=== PATIENT | female | born 1935 | race Caucasian/White ===

== ENCOUNTER → 2016-07-26 | Outpatient (CLI) | payer OTHER ==
[~2016-07-26] MED LIST: ACET325T96 PO; AMLO-110 PO; AREDS EYE VITAMIN PO; ASPI1TAB48 PO; CALC500C50 PO; DIPH-437 PO; METO1TAB69 PO; MIRA1TAB3 PO; OMEG10007 PO; OMEP20TA PO; POTA10TA PO; SIMV20TA2 PO; TAMS0.4C59 PO; TRIATAB3 PO; [UNRECOGNIZED DRUG - CODE] PO
[2016-07-26 17:48] LABS: BLOOD UREA NITROGEN 23 mg/dl (7-18); BUN/CREATININE RATIO 25.1 (10-20); CALCIUM 10.3 mg/dl (8.5-10.1); CARBON DIOXIDE 31 mmol/L (21-32); CHLORIDE 100 mmol/L (98-107); CREATININE 0.93 mg/dl (0.60-1.20); GLUCOSE 107 mg/dl (70-99); POTASSIUM 3.6 mmol/L (3.5-5.1); SODIUM 140 mmol/L (136-145)
== END | disposition home or self-care (01) ==
LOC: C.LABBFT 11:41
PROVIDERS: ATTEND Nurse Practitioner
DX: I10 Essential (primary) hypertension (principal); E83.52 Hypercalcemia

== ENCOUNTER → 2016-08-01 | Outpatient (CLI) | payer OTHER ==
--- NOTE | 2016-08-01 12:11 | DIAGNOSTIC IMAGING REPORT ---
RENAL ARTERY DUPLEX EXAMINATION CLINICAL HISTORY: Hypertension COMPARISON STUDY: No previous studies for comparison. FINDINGS: The right kidney measures 9.1 cm in length. The left kidney measured 9 cm in length. The peak systolic velocity within the aorta measures 61 cm/s. The peak systolic velocity within the right renal artery measured 197 cm/s. The peak systolic velocity within the left renal artery measured 84 cm/s. The right renal artery resistive index was 0.83. The left renal artery resistive index was 0.77. IMPRESSION: 1. Mild elevation of the peak systolic velocity within the right renal artery, and mild elevation of the right renal artery resistive index. The findings may indicate renal artery stenosis. CT angiography is recommended in follow-up. Electronically signed by: Tushar Benavides M.D. 08/01/2016 12:09 PM Dictated Date/Time: 08/01/2016 12:05 PM
== END | disposition home or self-care (01) ==
LOC: C.ULTR 09:30
PROVIDERS: ATTEND Nurse Practitioner
DX: I10 Essential (primary) hypertension (principal); R93.8 Abnormal findings on diagnostic imaging of other specified body structures

== ENCOUNTER → 2016-08-11 | Outpatient (CLI) | payer OTHER ==
[~2016-08-11] MED LIST changes: +OPTIRAY 320 IV PRN
--- NOTE | 2016-08-11 10:17 | DIAGNOSTIC IMAGING REPORT ---
ABDOMINAL CTA, RENAL ARTERY PROTOCOL HISTORY: Hypertension. Assess for renal artery stenosis. TECHNIQUE: Multiaxial CT images of the abdomen were performed following the intravenous administration of contrast to evaluate the renal arteries. Maximal intensity projection images were also obtained. COMPARISON STUDY: Duplex renal artery study 08/01/2016. FINDINGS: Posterior fusion hardware seen within the mid to lower lumbar spine. There is a tortuous and mildly ectatic abdominal aorta which measures up to 2.3 cm in diameter. The celiac artery and superior mesenteric artery are patent. There are single bilateral renal arteries. Advanced atherosclerotic plaque at the origin of the left renal artery. However, this does not result in significant stenosis of the left renal artery. Moderate calcified plaque at the origin of the right renal artery resulting in approximately 75% stenosis. The mid to distal right renal artery is widely patent. Bilateral cortical renal scarring/thinning. No hydronephrosis. A 3 mm subpleural nodule within the left lower lobe. The liver, spleen, right adrenal gland, pancreas, and gallbladder are unremarkable. Mild nodular thickening of the left adrenal gland. No retroperitoneal lymphadenopathy. The visualized bowel shows no wall thickening or obstruction. IMPRESSION: 1. Approximately 75% stenosis at the origin of the right renal artery. 2. No significant stenosis within the left renal artery. Electronically signed by: Ace Alvares M.D. 08/11/2016 10:16 AM Dictated Date/Time: 08/11/2016 10:09 AM
== END | disposition home or self-care (01) ==
LOC: C.CTS 08:59
PROVIDERS: ATTEND Nurse Practitioner
DX: I10 Essential (primary) hypertension (principal); I70.1 Atherosclerosis of renal artery

== ENCOUNTER → 2016-08-16 | Outpatient (CLI) | payer OTHER ==
[~2016-08-16] MED LIST changes: -OPTIRAY 320 IV PRN
[2016-08-16 17:49] LABS: BLOOD UREA NITROGEN 32 mg/dl (7-18); BUN/CREATININE RATIO 28.7 (10-20); CALCIUM 10.1 mg/dl (8.5-10.1); CARBON DIOXIDE 27 mmol/L (21-32); CHLORIDE 102 mmol/L (98-107); GLUCOSE 96 mg/dl (70-99); POTASSIUM 4.4 mmol/L (3.5-5.1); SODIUM 138 mmol/L (136-145)
== END | disposition home or self-care (01) ==
LOC: C.LABBFT 13:42
PROVIDERS: ATTEND Internal Medicine
DX: I10 Essential (primary) hypertension (principal)

== ENCOUNTER → 2016-09-01 | Outpatient (CLI) | payer OTHER ==
[2016-09-01 12:53] LABS: BLOOD UREA NITROGEN 23 mg/dl (7-18); BUN/CREATININE RATIO 26.3 (10-20); CALCIUM 10.3 mg/dl (8.5-10.1); CARBON DIOXIDE 31 mmol/L (21-32); CHLORIDE 99 mmol/L (98-107); CREATININE 0.87 mg/dl (0.60-1.20); GLUCOSE 91 mg/dl (70-99); POTASSIUM 3.5 mmol/L (3.5-5.1); SODIUM 138 mmol/L (136-145)
== END | disposition home or self-care (01) ==
LOC: C.LABBFT 08:50
PROVIDERS: ATTEND Internal Medicine
DX: I10 Essential (primary) hypertension (principal)

== ENCOUNTER → 2016-09-18 | Outpatient (CLI) | payer OTHER ==
[2016-09-18 13:00] LABS: BLOOD UREA NITROGEN 25 mg/dl (7-18); BUN/CREATININE RATIO 25.5 (10-20); CALCIUM 9.6 mg/dl (8.5-10.1); CARBON DIOXIDE 31 mmol/L (21-32); CHLORIDE 102 mmol/L (98-107); CREATININE 0.97 mg/dl (0.60-1.20); GLUCOSE 78 mg/dl (70-99); POTASSIUM 3.2 mmol/L (3.5-5.1); SODIUM 141 mmol/L (136-145)
== END | disposition home or self-care (01) ==
LOC: C.LABBFT 11:15
PROVIDERS: ATTEND Internal Medicine
DX: E83.52 Hypercalcemia (principal)

== ENCOUNTER 2016-09-25 19:32 | Emergency (ER) | payer OTHER ==
[~2016-09-25] VITALS: Ht 157.5 cm; Wt 58.0 kg
[~2016-09-25 19:32] MED LIST changes: -AMLO-110 PO; -MIRA1TAB3 PO; -POTA10TA PO
[2016-09-25 19:44] VITALS: Ht 157.5 cm; Wt 58.0 kg
--- NOTE | 2016-09-25 20:13 | EMERGENCY ROOM VISIT NOTE ---
History First contact with patient: 19:58 Chief Complaint: FALL Stated Complaint: FALL/ RT. HIP & SHOULDER PAIN History of Present Illness The patient is an 81 year old female who presents to the Emergency Room with complaints of fall. The patient states that she was at home where she lives with her . She states that she was walking from the stove and turned around. She states that her foot scuffed on the floor and caused her to fall. She complains of pain in the right side of the face and head. She complains of pain in the right shoulder and right hip. The patient needed assistance to get up off the floor and states she laid there for approximately 15 minutes. She states she has been able to ambulate since the fall. She rates her discomfort a 4/10. She denies any significant headache, nausea, vomiting. She denies any pain in her chest or trouble breathing. She denies abdominal pain, nausea or vomiting. She reports chronic numbness in the right leg after back surgery and denies any change in those symptoms. She denies any urinary symptoms. Review of Systems A 10 system review of systems was completed with positives and pertinent negatives listed in the HPI. Past Medical/Surgical History Medical Problems: (1) HYPERLIPIDEMIA NEC/NOS (2) HYPERTENSION NOS (3) MITRAL VALVE DISORDER (4) OSTEOPOROSIS NOS (5) TRICUSPID VALVE DISEASE Surgical Problems: (1) History of back surgery Social History Smoking Status: Former Smoker Alcohol Use: none Drug Use: none Marital Status: Housing Status: lives with family Occupation Status: retired Current/Historical Medications Scheduled Amlodipine (Norvasc), 5 MG PO DAILY Aspirin (Aspirin Low Dose), 81 MG PO DAILY Fish Oil ([place]-3), 1 CAP PO BID Metoprolol Succ (Toprol Xl) (Toprol-Xl ), 100 MG PO DAILY Mirabegron (Myrbetriq Er), 50 MG PO DAILY Omeprazole (Omeprazole), 20 MG PO BID Potassium Chloride (K-Tabs), 20 MEQ PO DAILY Simvastatin (Zocor), 20 MG PO HS Triamterene/Hctz (Triamterene/Hctz 37.5-25MG), 1 TAB PO DAILY [[employer] Eye Vitamin], 1 TAB PO DAILY Scheduled PRN Acetaminophen Tab (Tylenol), 650 MG PO Q6 PRN for Pain Acetaminophen/Diphenhydramine (Tylenol Pm), 2 TAB PO HS PRN for Sleep Allergies Coded Allergies: Lorazepam (Verified Allergy, Severe, ALTERED MENTAL STATUS, 11/18/12) Penicillins (Verified Allergy, Intermediate, SWELLING, 08/13/09) Sulfa Drugs (Verified Allergy, Intermediate, SWELLING, 08/13/09) Physical Exam Vital Signs Date Time Temp Pulse Resp B/P Pulse Ox O2 Delivery O2 Flow Rate FiO2 09/25/16 21:36 73 16 142/74 97 09/25/16 19:44 36.6 74 16 149/79 98 Room Air Physical Exam VITALS: Vitals are noted on the nurse's note and reviewed by myself. Vital signs stable. GENERAL: This is an 81-year-old female, in no acute distress, nondiaphoretic, well-developed well-nourished. SKIN: There is mild erythema and edema to the right cheek. There are no lacerations or abrasions. There is no tenting of the skin. Capillary reflex less than 2 seconds. HEAD: Normocephalic atraumatic. EARS: External auditory canals clear, tympanic membranes pearly kang without erythema or effusion bilaterally. No hemotympanums. No strickland sign. No mastoid tenderness. EYES: Pupils equal round and reactive to light and accommodation. Conjunctivae without injection, sclerae without icterus. Extraocular movements intact. NOSE: Patent, turbinates without inflammation or discharge. No sinus tenderness. No septal hematoma or bleeding. FACE: No facial tenderness. Full range of motion of the jaw without tenderness. MOUTH: Mucous membranes moist. Pharynx without erythema or exudate. Uvula midline. Airway patent. Tongue does not deviate. NECK: Supple without nuchal rigidity. Cervical spine is nontender. Full range of motion of the neck without tenderness. No JVD. HEART: Regular rate and rhythm without murmurs gallops or rubs. LUNGS: Clear to auscultation bilaterally without wheezes, rales or rhonchi. No retractions or accessory muscle use. No chest tenderness. ABDOMEN: Positive bowel sounds x 4. Soft, nontender, without masses or organomegaly. MUSCULOSKELETAL: No muscle atrophy, erythema, or edema noted. Full range of motion in all extremities. There is tenderness to palpation to the right posterior hip. There is tenderness to palpation to the right proximal humerus. There are no obvious deformities. Strength 5/5 throughout. NEURO: Patient was alert and oriented to person place and time. Normal Mini- Mental status exam. No focal neurological deficits. Medical Decision & Procedures ER Provider Diagnostic Interpretation: RIGHT FEMUR 2 VIEWS ROUTINE CLINICAL HISTORY: Right femur hip pain status post trauma COMPARISON: None. DISCUSSION: There are old pelvic fractures. No acute fractures of the right hip or femur are visualized. IMPRESSION: No acute fractures. CT HEAD WITHOUT CONTRAST (CT) CLINICAL HISTORY: Head pain status post trauma COMPARISON STUDY: No previous studies for comparison. TECHNIQUE: Axial CT of the brain is performed from the vertex to the skull base. IV contrast was not administered for this examination. CT DOSE: 831.33 mGy.cm FINDINGS: No intra or extra-axial mass lesions are visualized. There is no CT evidence of acute cortical infarction. There is no evidence of midline shift. There is no acute hemorrhage. No calvarial fractures are visualized. There are patchy white matter hypodensities likely on a small vessel basis. There is no evidence of pathologic ventricular dilatation. There are deep white matter lacunar infarcts in the region centrum semiovale. There is a probable left cerebellar lacunar infarct. There are cerebellar atrophy with prominent extra-axial CSF space on the right. There is no evidence of acute sinusitis IMPRESSION: No acute intracranial findings RIGHT HUMERUS 3 VIEWS CLINICAL HISTORY: Right humeral pain status post trauma COMPARISON: None. DISCUSSION: No acute fractures are visualized. There are peritendinous calcifications located at the level of the olecranon. There is an old ununited distal right clavicular fracture IMPRESSION: No acute fractures identified. CT FACIAL BONES-MXILLOFAC WITHOUT CT DOSE: CLINICAL HISTORY: Facial pain status post trauma COMPARISON STUDY: No previous studies for comparison. TECHNIQUE: Helical images were acquired in the transverse plane. The study was reviewed and analyzed on the independent 3-D workstation. The pterygoid plates appear intact. The zygomatic arches appear intact. The globes appear intact. There is no evidence of orbital emphysema. The orbital steven and floor appear intact. The mandibular condyles appear intact. Inflammatory changes are present within the left ethmoid sinus. There is an old displaced odontoid fracture. There are disc osteophyte complexes at the C4-5 and C5-6 levels. IMPRESSION: 1. No acute facial fractures identified 2. Old displaced odontoid fracture PELVIS 1 OR 2 VIEW ROUTINE CLINICAL HISTORY: Right hip and pelvic pain status post trauma COMPARISON STUDY: No previous studies for comparison. FINDINGS: There are postsurgical changes present within the lumbar spine. There are old ischio pubic ring fractures. No acute fractures or dislocations are visualized. IMPRESSION: Old posttraumatic deformities. No acute fractures identified. [~ rep ct add3]] RIGHT SHOULDER MIN 2 VIEWS ROUTINE CLINICAL HISTORY: Right shoulder pain status post trauma COMPARISON: None. DISCUSSION: No fractures or dislocations the proximal humerus are visualized. There is an intra-articular fracture involving the scapula. There is an old ununited right clavicular fracture. IMPRESSION: 1. Acute scapular fracture with involvement of the articular surface of the scapular glenoid. 2. Old ununited distal right clavicular fracture 3. No fractures of the proximal right humerus Chest x-ray was obtained and reviewed by myself and and reveals the scapular fracture on the right but no obvious pneumothorax Laboratory Results 09/25/16 00:00 Red Blood Count 4.55, Mean Corpuscular Volume 87.5, Mean Corpuscular Hemoglobin 29.0, Mean Corpuscular Hemoglobin Concent 33.2, Mean Platelet Volume 8.8, Neutrophils (%) (Auto) 84.9, Lymphocytes (%) (Auto) 7.6, Monocytes (%) (Auto) 6.3, Eosinophils (%) (Auto) 0.8, Basophils (%) (Auto) 0.1, Neutrophils # (Auto) 12.33, Lymphocytes # (Auto) 1.10, Monocytes # (Auto) 0.92, Eosinophils # (Auto) 0.11, Basophils # (Auto) 0.02 09/25/16 00:00 Test 09/25/16 00:00 White Blood Count 14.52 K/uL (4.8-10.8) Red Blood Count 4.55 M/uL (4.2-5.4) Hemoglobin 13.2 g/dL (12.0-16.0) Hematocrit 39.8 % (37-47) Mean Corpuscular Volume 87.5 fL (80-100) Mean Corpuscular Hemoglobin 29.0 pg (25-34) Mean Corpuscular Hemoglobin Concent 33.2 g/dl (32-36) Platelet Count 312 K/uL (130-400) Mean Platelet Volume 8.8 fL (7.4-10.4) Neutrophils (%) (Auto) 84.9 % Lymphocytes (%) (Auto) 7.6 % Monocytes (%) (Auto) 6.3 % Eosinophils (%) (Auto) 0.8 % Basophils (%) (Auto) 0.1 % Neutrophils # (Auto) 12.33 K/uL (1.4-6.5) Lymphocytes # (Auto) 1.10 K/uL (1.2-3.4) Monocytes # (Auto) 0.92 K/uL (0.11-0.59) Eosinophils # (Auto) 0.11 K/uL (0-0.5) Basophils # (Auto) 0.02 K/uL (0-0.2) RDW Standard Deviation 42.6 fL (36.4-46.3) RDW Coefficient of Variation 13.3 % (11.5-14.5) Immature Granulocyte % (Auto) 0.3 % Immature Granulocyte # (Auto) 0.04 K/uL (0.00-0.02) Anion Gap 8.0 mmol/L (3-11) Est Creatinine Clear Calc Drug Dose 41.1 ml/min Estimated GFR () 74.5 Estimated GFR (Non- 64.3 BUN/Creatinine Ratio 22.0 (10-20) Calcium Level 10.3 mg/dl (8.5-10.1) Total Bilirubin 0.5 mg/dl (0.2-1) Aspartate Amino Transf (AST/SGOT) 25 U/L (15-37) Alanine Aminotransferase (ALT/SGPT) 25 U/L (12-78) Alkaline Phosphatase 83 U/L (45-117) Troponin I < 0.015 ng/ml (0-0.045) Total Protein 7.8 gm/dl (6.4-8.2) Albumin 4.0 gm/dl (3.4-5.0) Globulin 3.8 gm/dl (2.5-4.0) Albumin/Globulin Ratio 1.1 (0.9-2) ECG Indication: other (fall) Rate (beats per minute): 71 Rhythm: normal sinus Findings: no acute ischemic change Change: no significant change ED Course The patient was seen and examined. Previous visits were reviewed. She has a mild leukocytosis but no fever. She has some redness and swelling to the right side of the face but her family is certain it was not there before the fall. She does not have any significant electrolyte abnormality. Troponin is not elevated. Imaging was obtained as above and is significant for right scapular fracture. She was placed in a sling. She would like to follow up with Dr. Childs and should call the office tomorrow morning. She declined pain medication. She was seen and examined by Dr. Lujan who agrees with the assessment and treatment plan. Medical Decision The differential diagnosis includes: head or neck trauma, cerebrovascular disorders, intracranial lesions, infection,transient ischemic attack (TIA), CVA , seizure, syncope, intracranial mass, intracranial bleeding and vestibular disorders, RI, arrythmia, extremity fracture, pneumothorax, among others. Impression Primary Impression: Scapula fracture Additional Impressions: Fall Contusion, hip Departure Information Dispostion Home / Self-Care Condition GOOD Referrals Bart Cid M.D. (PCP) Vincent Childs, DO Patient Instructions [facility] Additional Instructions Wear the sling until seen by orthopedics Contact orthopedics first thing in the morning to schedule a follow-up appointment for further evaluation and management Return with any worsening symptoms Problem Qualifiers Primary Impression: Scapula fracture Encounter type: initial encounter Fracture type: closed
[2016-09-25 20:53] LABS: BASO % 0.1 %; BASO ABS # 0.02 K/uL (0-0.2); COMPLETE YES; EOS % 0.8 %; HEMATOCRIT 39.8 % (37-47); IG% 0.3 %; LYMPH % 7.6 %; MEAN CELL VOLUME 87.5 fL (80-100); MEAN CORPUSCULAR HGB CONC 33.2 g/dl (32-36); MEAN PLATELET VOLUME 8.8 fL (7.4-10.4); MONO % 6.3 %; NEUT % 84.9 %; PLATELET COUNT 312 K/uL (130-400); RED BLOOD COUNT 4.55 M/uL (4.2-5.4); WHITE BLOOD COUNT 14.52 K/uL (4.8-10.8)
--- NOTE | 2016-09-25 21:07 | DIAGNOSTIC IMAGING REPORT ---
CT HEAD WITHOUT CONTRAST (CT) CLINICAL HISTORY: Head pain status post trauma COMPARISON STUDY: No previous studies for comparison. TECHNIQUE: Axial CT of the brain is performed from the vertex to the skull base. IV contrast was not administered for this examination. CT DOSE: 831.33 mGy.cm FINDINGS: No intra or extra-axial mass lesions are visualized. There is no CT evidence of acute cortical infarction. There is no evidence of midline shift. There is no acute hemorrhage. No calvarial fractures are visualized. There are patchy white matter hypodensities likely on a small vessel basis. There is no evidence of pathologic ventricular dilatation. There are deep white matter lacunar infarcts in the region centrum semiovale. There is a probable left cerebellar lacunar infarct. There are cerebellar atrophy with prominent extra-axial CSF space on the right. There is no evidence of acute sinusitis IMPRESSION: No acute intracranial findings Electronically signed by: Tushar Benavides M.D. 09/25/2016 9:05 PM Dictated Date/Time: 09/25/2016 9:04 PM
--- NOTE | 2016-09-25 21:10 | DIAGNOSTIC IMAGING REPORT ---
CT FACIAL BONES-MXILLOFAC WITHOUT CT DOSE: CLINICAL HISTORY: Facial pain status post trauma COMPARISON STUDY: No previous studies for comparison. TECHNIQUE: Helical images were acquired in the transverse plane. The study was reviewed and analyzed on the independent 3-D workstation. The pterygoid plates appear intact. The zygomatic arches appear intact. The globes appear intact. There is no evidence of orbital emphysema. The orbital steven and floor appear intact. The mandibular condyles appear intact. Inflammatory changes are present within the left ethmoid sinus. There is an old displaced odontoid fracture. There are disc osteophyte complexes at the C4-5 and C5-6 levels. IMPRESSION: 1. No acute facial fractures identified 2. Old displaced odontoid fracture Electronically signed by: Tushar Benavides M.D. 09/25/2016 9:09 PM Dictated Date/Time: 09/25/2016 9:06 PM
[2016-09-25 21:14] LABS: ALT/SGPT 25 U/L (12-78); BLOOD UREA NITROGEN 19 mg/dl (7-18); CALCIUM 10.3 mg/dl (8.5-10.1); CARBON DIOXIDE 29 mmol/L (21-32); CHLORIDE 102 mmol/L (98-107); CREATININE 0.85 mg/dl (0.60-1.20); GLUCOSE 108 mg/dl (70-99); POTASSIUM 3.7 mmol/L (3.5-5.1); SODIUM 139 mmol/L (136-145)
[2016-09-25 21:18] LABS: ALB/GLOB RATIO 1.1 (0.9-2); ALKALINE PHOSPHATASE 83 U/L (45-117); AST/SGOT 25 U/L (15-37)
--- NOTE | 2016-09-25 21:35 | DIAGNOSTIC IMAGING REPORT ---
RIGHT HUMERUS 3 VIEWS CLINICAL HISTORY: Right humeral pain status post trauma COMPARISON: None. DISCUSSION: No acute fractures are visualized. There are peritendinous calcifications located at the level of the olecranon. There is an old ununited distal right clavicular fracture IMPRESSION: No acute fractures identified. Electronically signed by: Tushar Benavides M.D. 09/25/2016 9:33 PM Dictated Date/Time: 09/25/2016 9:32 PM
--- NOTE | 2016-09-25 21:37 | DIAGNOSTIC IMAGING REPORT ---
RIGHT SHOULDER MIN 2 VIEWS ROUTINE CLINICAL HISTORY: Right shoulder pain status post trauma COMPARISON: None. DISCUSSION: No fractures or dislocations the proximal humerus are visualized. There is an intra-articular fracture involving the scapula. There is an old ununited right clavicular fracture. IMPRESSION: 1. Acute scapular fracture with involvement of the articular surface of the scapular glenoid. 2. Old ununited distal right clavicular fracture 3. No fractures of the proximal right humerus Electronically signed by: Tushar Benavides M.D. 09/25/2016 9:35 PM Dictated Date/Time: 09/25/2016 9:34 PM
--- NOTE | 2016-09-25 21:38 | DIAGNOSTIC IMAGING REPORT ---
PELVIS 1 OR 2 VIEW ROUTINE CLINICAL HISTORY: Right hip and pelvic pain status post trauma COMPARISON STUDY: No previous studies for comparison. FINDINGS: There are postsurgical changes present within the lumbar spine. There are old ischio pubic ring fractures. No acute fractures or dislocations are visualized. IMPRESSION: Old posttraumatic deformities. No acute fractures identified. Electronically signed by: Tushar Benavides M.D. 09/25/2016 9:36 PM Dictated Date/Time: 09/25/2016 9:36 PM
--- NOTE | 2016-09-25 21:39 | DIAGNOSTIC IMAGING REPORT ---
RIGHT FEMUR 2 VIEWS ROUTINE CLINICAL HISTORY: Right femur hip pain status post trauma COMPARISON: None. DISCUSSION: There are old pelvic fractures. No acute fractures of the right hip or femur are visualized. IMPRESSION: No acute fractures. Electronically signed by: Tushar Benavides M.D. 09/25/2016 9:37 PM Dictated Date/Time: 09/25/2016 9:37 PM
[2016-09-25] MEDS ORDERED: POTA10TA PO (21:49)
[2016-09-25] MEDS ORDERED: MIRA1TAB3 PO (21:51)
[2016-09-25] MEDS ORDERED: AMLO-110 PO (21:53)
[2016-09-25 23:55] VITALS: BP 140/78; PULSE 77; TEMP 36.6; O2SAT 98
--- NOTE | 2016-09-26 06:42 | DIAGNOSTIC IMAGING REPORT ---
CHEST 2 VIEWS ROUTINE CLINICAL HISTORY: fall, right scapular fracture dyspnea COMPARISON STUDY: 06/01/2014 FINDINGS: The bones soft tissues and hemidiaphragms are normal. The cardiomediastinal silhouette is normal. The lungs are clear. The pulmonary vasculature is normal. IMPRESSION: Negative chest. Electronically signed by: Steven Bell M.D. 09/26/2016 6:41 AM Dictated Date/Time: 09/26/2016 6:38 AM
== END 2016-09-25 23:57 | disposition home or self-care (01) ==
LOC: EDBD 19:32 → C.EDB 19:33
DX: S42.101A Fracture of unspecified part of scapula, right shoulder, initial encounter for closed fracture (principal); E78.5 Hyperlipidemia, unspecified; I10 Essential (primary) hypertension; M81.0 Age-related osteoporosis without current pathological fracture; Z87.891 Personal history of nicotine dependence; Z79.82 Long term (current) use of aspirin; S70.02XA Contusion of left hip, initial encounter; W19.XXXA Unspecified fall, initial encounter

== ENCOUNTER → 2016-10-03 | Outpatient (CLI) | payer OTHER ==
[~2016-10-03] MED LIST changes: +AMLO-110 PO; -CALC500C50 PO; +MIRA1TAB3 PO; +POTA10TA PO; -TAMS0.4C59 PO; -[UNRECOGNIZED DRUG - CODE] PO
[2016-10-03 13:19] LABS: BLOOD UREA NITROGEN 18 mg/dl (7-18); BUN/CREATININE RATIO 21.7 (10-20); CARBON DIOXIDE 31 mmol/L (21-32); CHLORIDE 103 mmol/L (98-107); CREATININE 0.85 mg/dl (0.60-1.20); GLUCOSE 94 mg/dl (70-99); POTASSIUM 3.5 mmol/L (3.5-5.1); SODIUM 142 mmol/L (136-145)
== END | disposition home or self-care (01) ==
LOC: C.LABBFT 08:14
PROVIDERS: ATTEND Physician Assistant Medical
DX: I10 Essential (primary) hypertension (principal); E87.6 Hypokalemia

== ENCOUNTER → 2016-10-18 | Outpatient (CLI) | payer OTHER ==
[~2016-10-18] MED LIST changes: +METO100T44 PO; -METO1TAB69 PO
[2016-10-18 14:03] LABS: BLOOD UREA NITROGEN 19 mg/dl (7-18); BUN/CREATININE RATIO 21.5 (10-20); CARBON DIOXIDE 32 mmol/L (21-32); CHLORIDE 102 mmol/L (98-107); CREATININE 0.86 mg/dl (0.60-1.20); GLUCOSE 93 mg/dl (70-99); POTASSIUM 3.4 mmol/L (3.5-5.1); SODIUM 141 mmol/L (136-145)
[2016-10-18 14:20] LABS: CALCIUM 10.2 mg/dl (8.5-10.1)
== END | disposition home or self-care (01) ==
LOC: C.LABBFT 10:17
PROVIDERS: ATTEND Physician Assistant Medical
DX: E87.6 Hypokalemia (principal)

== ENCOUNTER → 2016-10-31 | Outpatient (CLI) | payer OTHER ==
[2016-10-31 17:49] LABS: BLOOD UREA NITROGEN 16 mg/dl (7-18); BUN/CREATININE RATIO 20.6 (10-20); CALCIUM 10.1 mg/dl (8.5-10.1); CARBON DIOXIDE 31 mmol/L (21-32); CHLORIDE 106 mmol/L (98-107); CREATININE 0.78 mg/dl (0.60-1.20); GLUCOSE 99 mg/dl (70-99); POTASSIUM 4.3 mmol/L (3.5-5.1); SODIUM 141 mmol/L (136-145)
== END | disposition home or self-care (01) ==
LOC: C.LABBFT 14:26
PROVIDERS: ATTEND Physician Assistant Medical
DX: I10 Essential (primary) hypertension (principal)

== ENCOUNTER → 2016-11-08 | Outpatient (CLI) | payer OTHER | END | disposition home or self-care (01) | LOC: C.PATHSPEC 16:48 | PROVIDERS: ATTEND Dermatology | DX: C44.42 Squamous cell carcinoma of skin of scalp and neck (principal); C44.321 Squamous cell carcinoma of skin of nose; L57.0 Actinic keratosis ==

== ENCOUNTER → 2016-12-22 | Outpatient (CLI) | payer OTHER ==
[2016-12-22 12:14] LABS: BLOOD UREA NITROGEN 21 mg/dl (7-18); BUN/CREATININE RATIO 21.3 (10-20); CARBON DIOXIDE 27 mmol/L (21-32); CHLORIDE 104 mmol/L (98-107); CREATININE 0.99 mg/dl (0.60-1.20); GLUCOSE 91 mg/dl (70-99); POTASSIUM 4.2 mmol/L (3.5-5.1); SODIUM 139 mmol/L (136-145)
[2016-12-22 12:15] LABS: CALCIUM 10.3 mg/dl (8.5-10.1); PHOSPHORUS 2.6 mg/dl (2.5-4.9)
== END | disposition home or self-care (01) ==
LOC: C.LABBFT 10:32
PROVIDERS: ATTEND Internal Medicine Nephrology
DX: E83.52 Hypercalcemia (principal)

== ENCOUNTER → 2017-01-05 | Outpatient (CLI) | payer OTHER ==
[~2017-01-05] MED LIST changes: -METO100T44 PO; +METO1TAB69 PO
[2017-01-05 12:35] LABS: BASO % 0.6 %; BASO ABS # 0.05 K/uL (0-0.2); COMPLETE YES; EOS % 1.8 %; HEMATOCRIT 39.8 % (37-47); IG% 0.1 %; LYMPH % 16.6 %; LYMPH ABS # 1.39 K/uL (1.2-3.4); MEAN CELL VOLUME 87.5 fL (80-100); MEAN CORPUSCULAR HEMOGLOBIN 28.6 pg (25-34); MEAN CORPUSCULAR HGB CONC 32.7 g/dl (32-36); MEAN PLATELET VOLUME 9.2 fL (7.4-10.4); MONO % 10.7 %; NEUT % 70.2 %; PLATELET COUNT 316 K/uL (130-400); RED BLOOD COUNT 4.55 M/uL (4.2-5.4); WHITE BLOOD COUNT 8.35 K/uL (4.8-10.8)
[2017-01-05 12:40] LABS: URINE APPEARANCE CLEAR (CLEAR); URINE BILIRUBIN NEG (NEG); URINE COLOR YELLOW; URINE EPITHELIAL CELL AUTO >30 /lpf (0-5); URINE NITRITE POS (NEG); UROBILINOGEN NEG (NEG); ZZUR CULT IF INDIC CLEAN CATCH YES
[2017-01-05 12:47] LABS: MANUAL MICROSCOPIC REQUIRED? NO; REVIEW REQ? YES
[2017-01-05 12:49] LABS: ALT/SGPT 22 U/L (12-78); AST/SGOT 16 U/L (15-37); BLOOD UREA NITROGEN 22 mg/dl (7-18); BUN/CREATININE RATIO 24.3 (10-20); CALCIUM 10.5 mg/dl (8.5-10.1); CARBON DIOXIDE 27 mmol/L (21-32); CHLORIDE 105 mmol/L (98-107); CHOLESTEROL 145 mg/dl (0-200); CREATININE 0.92 mg/dl (0.60-1.20); GLUCOSE 91 mg/dl (70-99); POTASSIUM 4.3 mmol/L (3.5-5.1); SODIUM 139 mmol/L (136-145); TRIGLYCERIDES 94 mg/dl (0-150); VERY LOW DENSITY LIPOPROT CALC 19 mg/dl
[2017-01-05 12:52] LABS: ALKALINE PHOSPHATASE 77 U/L (45-117); CHOLESTEROL/HDL RATIO 2.3; HDL CHOLESTEROL 63 mg/dl; LDL CHOLESTEROL CALCULATED 63 mg/dl
[2017-01-05 13:40] LABS: ESTIMATED AVERAGE GLUCOSE 131 mg/dl; HA1C FLAG Normal (Normal)
== END | disposition home or self-care (01) ==
LOC: C.LABBFT 08:24
PROVIDERS: ATTEND Internal Medicine
DX: M85.80 Other specified disorders of bone density and structure, unspecified site (principal); R73.03 Prediabetes; E78.00 Pure hypercholesterolemia, unspecified

== ENCOUNTER → 2017-04-23 | Outpatient (CLI) | payer OTHER ==
[2017-04-23 12:52] LABS: BLOOD UREA NITROGEN 21 mg/dl (7-18); BUN/CREATININE RATIO 20.3 (10-20); CALCIUM 10.3 mg/dl (8.5-10.1); CARBON DIOXIDE 27 mmol/L (21-32); CHLORIDE 103 mmol/L (98-107); CREATININE 1.01 mg/dl (0.60-1.20); GLUCOSE 81 mg/dl (70-99); MAGNESIUM 1.9 mg/dl (1.8-2.4); PHOSPHORUS 3.1 mg/dl (2.5-4.9); POTASSIUM 4.3 mmol/L (3.5-5.1); SODIUM 139 mmol/L (136-145)
== END | disposition home or self-care (01) ==
LOC: C.LABBFT 10:27
PROVIDERS: ATTEND Internal Medicine Nephrology
DX: I10 Essential (primary) hypertension (principal)

== ENCOUNTER → 2017-06-05 | Outpatient (CLI) | payer OTHER ==
[~2017-06-05] MED LIST changes: +METO100T44 PO; -METO1TAB69 PO
== END | disposition home or self-care (01) ==
LOC: C.PATHSPEC 16:23
PROVIDERS: ATTEND Dermatology
DX: C44.42 Squamous cell carcinoma of skin of scalp and neck (principal); L57.0 Actinic keratosis

== ENCOUNTER → 2017-07-27 | Outpatient (CLI) | payer OTHER ==
[2017-07-27 12:37] LABS: ALBUMIN 3.8 gm/dl (3.4-5.0); BLOOD UREA NITROGEN 22 mg/dl (7-18); CALCIUM 10.4 mg/dl (8.5-10.1); CARBON DIOXIDE 29 mmol/L (21-32); CREATININE 0.94 mg/dl (0.60-1.20); GLUCOSE 90 mg/dl (70-99); PHOSPHORUS 2.8 mg/dl (2.5-4.9); SODIUM 137 mmol/L (136-145)
== END | disposition home or self-care (01) ==
LOC: C.LABBFT 09:05
PROVIDERS: ATTEND Internal Medicine
DX: E83.52 Hypercalcemia (principal)

== ENCOUNTER → 2017-07-30 | Outpatient (CLI) | payer OTHER | END | disposition home or self-care (01) | LOC: C.LABBFT 09:43 | PROVIDERS: ATTEND Internal Medicine | DX: E83.52 Hypercalcemia (principal) ==

== ENCOUNTER → 2017-10-11 | Outpatient (CLI) | payer OTHER ==
[~2017-10-11] MED LIST changes: +ACET-1693 PO; -ACET325T96 PO
[2017-10-11 13:13] LABS: ALBUMIN 3.6 gm/dl (3.4-5.0); BLOOD UREA NITROGEN 22 mg/dl (7-18); CALCIUM 10.3 mg/dl (8.5-10.1); CARBON DIOXIDE 28 mmol/L (21-32); CREATININE 0.93 mg/dl (0.60-1.20); GLUCOSE 90 mg/dl (70-99); POTASSIUM 4.1 mmol/L (3.5-5.1); SODIUM 138 mmol/L (136-145)
== END | disposition home or self-care (01) ==
LOC: C.LABBFT 08:59
PROVIDERS: ATTEND Internal Medicine Nephrology
DX: E83.52 Hypercalcemia (principal)

== ENCOUNTER → 2017-11-13 | Outpatient (CLI) | payer OTHER | END | disposition home or self-care (01) | LOC: C.MAMM 13:30 | PROVIDERS: ATTEND Internal Medicine Nephrology | DX: M85.88 Other specified disorders of bone density and structure, other site (principal); E21.0 Primary hyperparathyroidism; M81.0 Age-related osteoporosis without current pathological fracture ==

== ENCOUNTER → 2018-01-23 | Outpatient (CLI) | payer OTHER ==
[~2018-01-23] MED LIST changes: -AMLO-110 PO; +AMLO5TAB3 PO
== END | disposition home or self-care (01) ==
LOC: C.LABBFT 13:46
PROVIDERS: ATTEND Internal Medicine Nephrology
DX: R73.03 Prediabetes (principal); M80.00XA Age-related osteoporosis with current pathological fracture, unspecified site, initial encounter for fracture; E83.52 Hypercalcemia; E78.00 Pure hypercholesterolemia, unspecified

== ENCOUNTER → 2018-02-27 | Outpatient (CLI) | payer OTHER ==
[2018-02-27 12:55] LABS: BLOOD UREA NITROGEN 20 mg/dl (7-18); CARBON DIOXIDE 28 mmol/L (21-32); CREATININE 0.74 mg/dl (0.60-1.20); GLUCOSE 87 mg/dl (70-99); POTASSIUM 4.3 mmol/L (3.5-5.1); SODIUM 140 mmol/L (136-145)
== END | disposition home or self-care (01) ==
LOC: C.LABBFT 10:03
PROVIDERS: ATTEND Internal Medicine Nephrology
DX: E83.52 Hypercalcemia (principal)

== ENCOUNTER 2020-08-11 11:33 | Observation (INO) ==
[2020-08-11] MEDS ORDERED: SODIUM CHLORIDE 0.9% 500 ML IV SCH (12:30)
--- NOTE | 2020-08-11 13:03 | Emergency Department Note ---
Impression & Plan Dementia, Acute alteration in mental status, Urinary tract infection ED Provider Note NAME: STACI REAGAN AGE: 84 SEX: F : 1935 ARRIVES VIA: Ambulance INFORMANT: Patient, prehospital personnel ED PROVIDER(S): Dominick Carrillo DO CHIEF COMPLAINT: Back pain HPI: The patient is an 84-year-old female who presented to the emergency department via ambulance. According to the prehospital personnel this is more of a altered mental status with some dementia visit. The patient herself offers no specific complaints other than that she is having back pain. She states that she has chronic back pain ever since she had spinal surgery. She denies having any nausea or vomiting. She denies having any headache or fever. She states that otherwise she has been compliant with all of her outpatient medications. According to the patient's significant other he called the ambulance because the patient has been more confused than usual. There is a family history of dementia and the significant other is concerned that she may be developing severe dementia. When I pressed the patient further on questioning, she states that she has been "putting up with things that her likes to do". When I question her further she states that "my is up to the same she had he always is". She has some paranoid thoughts about her . She thinks that he is for some reason not caring for her. She is very vague about these claims. ROS: See above HPI for pertinent positives & negatives. A total of 10 systems reviewed and were otherwise negative. PAST MEDICAL HISTORY: See Below PAST SURGICAL HISTORY: See Below FAMILY HISTORY: See Below SOCIAL HISTORY: See Below HOME MEDICATIONS: See Below ALLERGIES: See Below VITALS: See Below PHYSICAL EXAMINATION: GENERAL: The patient is awake and alert. She does not appear to be uncomfortable or anxious. EYES: The conjunctivae are clear. The pupils are round and reactive. EARS, NOSE, MOUTH AND THROAT: The nose is without any evidence of any deformity. NECK: The neck is nontender and supple. RESPIRATORY: Normal respiratory effort is noted there is no evidence of wheezing rhonchi or rales CARDIOVASCULAR: Regular rate and rhythm noted there no murmurs rubs or gallops normal S1 normal S2. GASTROINTESTINAL: The abdomen is soft. Abdomen is nontender. BACK: No midline tenderness was appreciated. Range of motion appears intact. There is no step-off. MUSCULOSKELETAL/EXTREMITIES: There is no evidence of gross deformity full range of motion is noted in the hips and shoulders. SKIN: There is no obvious evidence of any rash. There are no petechiae, pallor or cyanosis noted. NEUROLOGIC: Patient is awake and alert. Her speech is slurred. She does answer questions slowly but appropriately. She is oriented to person place and time. Strength was symmetric in both upper and lower extremities. MEDICAL DECISION MAKING: The patient is an 84-year-old female who presented to the emergency department for confusion. The patient apparently has worsening dementia which according to her significant other has been increasing over the course of the last few days. It sounds as though her condition waxes and wanes. She was found to have a urinary tract infection in the emergency department. She was treated with IV antibiotics. I discussed the patient's laboratory and radiographic studies with her. I also discussed her condition with her significant other. He is very concerned about the patient's overall wellbeing. He is unsure if she is a good candidate for outpatient management because he himself is elderly as well and may have trouble managing her. For this reason I discussed her case with the on-call [facility]. They have agreed to evaluate the patient in the emergency department for further management and disposition. Triage Nursing notes reviewed. Prior medical records reviewed Vital Signs: reviewed and remarkable for no significant abnormalities Differential diagnosis: Infection, hypoglycemia, electrolyte abnormalities, overdose, toxicologic, cardiac sources, intracerebral event, neurologic, trauma, as well as other pathologies. ER treatment provided: See below Diagnostics interpreted by me: ECG: EKG was obtained in the emergency department. My interpretation is normal sinus rhythm at 70 bpm. There was no ectopy. Lateral ST depressions were noted. This was compared to a tracing from May 302019. No significant changes were noted. Cardiac Monitoring: An order was placed for continuous cardiac monitoring. The monitor shows a rate of 69 bpm with sinus rhythm. Laboratory studies: As stated above and show below. Imaging studies: See below Consultation(s): I discussed this case with Dr. Cummings who is on-call for the [facility] group. Past Med/Surg History Medical History Actinic keratosis Allergic rhinitis Anxiety Bilateral lower extremity edema Cardiac murmur NO ISSUES. PCP AWARE. Depression Disc degeneration, lumbar DVT (deep venous thrombosis) OCCURED AFTER D/T FALL. Edema of left lower extremity GERD (gastroesophageal reflux disease) History of basal cell carcinoma History of SCC (squamous cell carcinoma) of skin Hypercalcemia Hypercholesterolemia Hyperparathyroidism, primary Hypertension Osteoporosis with fracture Pre-diabetes Ptosis of both eyelids Renal artery stenosis FOLLOWS WITH NEPHRO IN CENTENARY, CURRENTLY TREATS MEDICATION. Retention of urine Seborrheic keratosis Sensorineural hearing loss of both ears Poorer WRS in the left ear Spinal stenosis Spondylolisthesis, acquired Squamous cell carcinoma in situ Stress incontinence in female Tricuspid valve disorder Urge and stress incontinence Vitamin D deficiency, unspecified Surgical History Fusion of spine LUMBAR X2 SURGERIES H/O oral surgery History of ankle surgery History of appendectomy History of back surgery History of cataract extraction with lens replacement History of colonoscopy History of herniorrhaphy Family History Brother Parkinsons disease Crohn's colitis Coronary heart disease Denies family history of No family history of adverse response to anesthesia No family history of bleeding disorder Heart disease Allergies Cancer Stroke Asthma Social History Smoking Status: Never smoker Tobacco Type: Cigarettes Age Started Using Tobacco: 20; Age Quit Using Tobacco: 55; packs per day: 1; Cigarettes Per Day: 20; Second Hand Exposure: No; Hx Alcohol Use: No Hx Substance Use: No Preferred Language: Namibian Communication Ability: Effective Director New Product Required: No marital status: Current Living Situation: Spouse current occupational status: retired How many Children do You have: 3 Feels Safe at Home: Yes Seatbelt Use: always Sunscreen Use: No Assistive Devices: Cane and Walker Allergies Allergies Allergy/AdvReac Type Severity Reaction Status Date / Time lorazepam Allergy Severe ALTERED Verified 06/22/20 14:48 MENTAL STATUS Penicillins Allergy Intermediate SWELLING Verified 06/22/20 14:48 Sulfa (Sulfonamide Allergy Intermediate SWELLING Verified 06/22/20 14:48 Antibiotics) clonidine Allergy Unknown Unknown Verified 06/22/20 14:48 Home Meds Home Medications Medication Instructions Recorded Confirmed omega-3 acid ethyl esters 1 gram 1 cap PO BID cap 02/24/19 08/11/20 capsule vitamins A,C,P-qnzt-xpjjxc 14,320 1 cap PO BID 02/24/19 08/11/20 unit-226 mg-200 unit capsule amlodipine 2.5 mg PO QAM 05/30/20 08/11/20 Previous Rx's Medication Instructions Recorded calcium carbonate 600 mg(1,500 1 tab PO BID #180 tab 02/20/19 mg)-vitamin D3 800 unit chewable tablet spironolactone 100 mg tablet 100 mg PO QAM #90 tab 11/17/19 omeprazole 40 mg capsule,delayed 40 mg PO BID #180 cap 11/27/19 release simvastatin 20 mg tablet 20 mg PO HS #90 tab 11/27/19 denosumab 60 mg/mL subcutaneous 60 mg SQ Q6MO #1 ml 03/01/20 syringe metoprolol succinate 100 mg 100 mg PO DAILY #90 tab 03/01/20 tablet,extended release 24 hr mirabegron 50 mg tablet,extended 50 mg PO DAILY #30 tab 04/29/20 release 24 hr Results & Data (ED) Vital Signs Vital Signs - 24 hr 08/11/20 12:05 08/11/20 13:03 08/11/20 14:27 Temperature 36.5 C Temperature Source Oral Pulse Rate 70 Pulse Rate [Finger] 75 Pulse Rate from SpO2 Sensor Respiratory Rate 17 16 Blood Pressure 179/87 H Blood Pressure [Right Arm] 139/64 Blood Pressure Mean 117 Blood Pressure Mean [Right Arm] 89 Pulse Oximetry 95 98 96 Oxygen Delivery Method Room Air Room Air Sepsis Recent Fever Within 48 Hours No Sepsis New/Unexplained Change in Mental Status N/A Sepsis Action Taken by Nursing No Action Required 08/11/20 15:00 08/11/20 15:31 08/11/20 16:00 Temperature Temperature Source Pulse Rate 61 70 63 Pulse Rate [Finger] Pulse Rate from SpO2 Sensor 61 69 63 Respiratory Rate 17 17 15 Blood Pressure 133/54 L 145/58 H 141/51 H Blood Pressure [Right Arm] Blood Pressure Mean 80 87 81 Blood Pressure Mean [Right Arm] Pulse Oximetry 98 99 98 Oxygen Delivery Method Sepsis Recent Fever Within 48 Hours Sepsis New/Unexplained Change in Mental Status Sepsis Action Taken by Nursing 08/11/20 16:30 08/11/20 17:00 08/11/20 17:31 Temperature Temperature Source Pulse Rate 72 71 69 Pulse Rate [Finger] Pulse Rate from SpO2 Sensor 71 71 69 Respiratory Rate 22 18 19 Blood Pressure 160/67 H 160/57 H 126/60 Blood Pressure [Right Arm] Blood Pressure Mean 98 91 82 Blood Pressure Mean [Right Arm] Pulse Oximetry 95 96 96 Oxygen Delivery Method Sepsis Recent Fever Within 48 Hours Sepsis New/Unexplained Change in Mental Status Sepsis Action Taken by Shelter Medications Current Medication List: was personally reviewed by me Laboratory Data Attestation: I reviewed the patient's lab results. Result diagrams: 08/11/20 12:42 08/11/20 12:42 Lab Results 08/11/20 08/11/20 08/11/20 Range/Units 12:42 12:42 12:42 WBC 9.19 (4.8-10.8) K/uL RBC 3.46 L (4.2-5.4) M/uL Hgb 10.1 L (12.0-16.0) g/dL Hct 31.6 L (37-47) % MCV 91.3 (80-100) fL MCH 29.2 (25-34) pg MCHC 32.0 (32-36) g/dL RDW Std Deviation 44.9 (36.4-46.3) fL RDW Coeff of José 13.6 (11.5-14.5) % Plt Count 244 (130-400) K/uL MPV 8.5 (7.4-10.4) fL Immature Gran % (Auto) 0.2 % Neut % (Auto) 79.7 % Lymph % (Auto) 11.0 % Boyd % (Auto) 8.7 % Eos % (Auto) 0.3 % Baso % (Auto) 0.1 % Neut # (Auto) 7.32 H (1.4-6.5) K/uL Lymph # (Auto) 1.01 L (1.2-3.4) K/uL Boyd # (Auto) 0.80 H (0.11-0.59) K/uL Eos # (Auto) 0.03 (0-0.5) K/uL Baso # (Auto) 0.01 (0-0.2) K/uL Immature Gran # (Auto) 0.02 (0.00-0.02) K/uL ESR 53 H (0-21) mm/hr Sodium 142 (136-145) mmol/L Potassium 4.2 (3.5-5.1) mmol/L Chloride 110 H (98-107) mmol/L Carbon Dioxide 29 (21-32) mmol/L Anion Gap 3.0 (3-11) BUN 22 H (7-18) mg/dl Creatinine 0.67 (0.6-1.2) mg/dl Est Cr Clr Drug Dosing Not Reportable Est GFR ( Amer) 93.6 Est GFR (Non-Af Amer) 80.7 BUN/Creatinine Ratio 33.3 H (10-20) Glucose 89 (70-99) mg/dl Calcium 9.7 (8.5-10.1) mg/dl Total Bilirubin 0.3 (0.2-1) mg/dl AST 25 (15-37) U/L ALT 23 (12-78) U/L Alkaline Phosphatase 74 (45-117) U/L C-Reactive Protein 2.27 H (0-0.29) mg/dl Total Protein 6.9 (6.4-8.2) gm/dl Albumin 3.4 (3.4-5.0) gm/dl Globulin 3.5 (2.5-4.0) gm/dl Albumin/Globulin Ratio 1.0 (0.9-2) TSH 1.820 (0.300-4.500) uIu/ml Urine Color Urine Appearance (Clear) Urine pH (4.5-7.5) Ur Specific Delight (1.000-1.030) Urine Protein (Negative) Urine Glucose (UA) (Negative) Urine Ketones (Negative) Urine Blood (Negative) Urine Nitrite (Negative) Urine Bilirubin (Negative) Urine Urobilinogen (Negative) Ur Leukocyte Esterase (Negative) Urine WBC (Auto) (0-5) /hpf Urine RBC (Auto) (0-4) /hpf U Hyaline Cast (Auto) (0-5) /lpf U Epithel Cells (Auto) (0-5) /lpf Urine Bacteria (Auto) (Negative) Urine Opiates Screen (Neg) Ur Methadone, Qual (Neg) Urine Barbiturates (Neg) Ur Phencyclidine (PCP) (Neg) U Amphetamin/Meth Scrn (Neg) MDMA (Ecstasy) Screen (Neg) U Benzodiazepines Scrn (Neg) Ur Cocaine Metabolite (Neg) U Marijuana (THC) Screen (Neg) Ethyl Alcohol mg/dL (0-3) mg/dl COVID-19 Eval Order SARS-CoV-2, RNA, NAAT (NEGATIVE) 08/11/20 08/11/20 08/11/20 Range/Units 12:42 13:20 13:20 WBC (4.8-10.8) K/uL RBC (4.2-5.4) M/uL Hgb (12.0-16.0) g/dL Hct (37-47) % MCV (80-100) fL MCH (25-34) pg MCHC (32-36) g/dL RDW Std Deviation (36.4-46.3) fL RDW Coeff of José (11.5-14.5) % Plt Count (130-400) K/uL MPV (7.4-10.4) fL Immature Gran % (Auto) % Neut % (Auto) % Lymph % (Auto) % Boyd % (Auto) % Eos % (Auto) % Baso % (Auto) % Neut # (Auto) (1.4-6.5) K/uL Lymph # (Auto) (1.2-3.4) K/uL Boyd # (Auto) (0.11-0.59) K/uL Eos # (Auto) (0-0.5) K/uL Baso # (Auto) (0-0.2) K/uL Immature Gran # (Auto) (0.00-0.02) K/uL ESR (0-21) mm/hr Sodium (136-145) mmol/L Potassium (3.5-5.1) mmol/L Chloride (98-107) mmol/L Carbon Dioxide (21-32) mmol/L Anion Gap (3-11) BUN (7-18) mg/dl Creatinine (0.6-1.2) mg/dl Est Cr Clr Drug Dosing Est GFR ( Amer) Est GFR (Non-Af Amer) BUN/Creatinine Ratio (10-20) Glucose (70-99) mg/dl Calcium (8.5-10.1) mg/dl Total Bilirubin (0.2-1) mg/dl AST (15-37) U/L ALT (12-78) U/L Alkaline Phosphatase (45-117) U/L C-Reactive Protein (0-0.29) mg/dl Total Protein (6.4-8.2) gm/dl Albumin (3.4-5.0) gm/dl Globulin (2.5-4.0) gm/dl Albumin/Globulin Ratio (0.9-2) TSH (0.300-4.500) uIu/ml Urine Color Yellow Urine Appearance Clear (Clear) Urine pH 5.0 (4.5-7.5) Ur Specific Delight 1.023 (1.000-1.030) Urine Protein Negative (Negative) Urine Glucose (UA) Negative (Negative) Urine Ketones Trace H (Negative) Urine Blood Negative (Negative) Urine Nitrite Positive A (Negative) Urine Bilirubin Negative (Negative) Urine Urobilinogen Negative (Negative) Ur Leukocyte Esterase 1+ H (Negative) Urine WBC (Auto) 10-30 H (0-5) /hpf Urine RBC (Auto) 0-4 (0-4) /hpf U Hyaline Cast (Auto) 1-5 (0-5) /lpf U Epithel Cells (Auto) 5-10 H (0-5) /lpf Urine Bacteria (Auto) 1+ H (Negative) Urine Opiates Screen Neg (Neg) Ur Methadone, Qual Neg (Neg) Urine Barbiturates Neg (Neg) Ur Phencyclidine (PCP) Neg (Neg) U Amphetamin/Meth Scrn Neg (Neg) MDMA (Ecstasy) Screen Neg (Neg) U Benzodiazepines Scrn Neg (Neg) Ur Cocaine Metabolite Neg (Neg) U Marijuana (THC) Screen Neg (Neg) Ethyl Alcohol mg/dL < 3.0 (0-3) mg/dl COVID-19 Eval Order SARS-CoV-2, RNA, NAAT (NEGATIVE) 08/11/20 08/11/20 Range/Units 15:49 15:49 WBC (4.8-10.8) K/uL RBC (4.2-5.4) M/uL Hgb (12.0-16.0) g/dL Hct (37-47) % MCV (80-100) fL MCH (25-34) pg MCHC (32-36) g/dL RDW Std Deviation (36.4-46.3) fL RDW Coeff of José (11.5-14.5) % Plt Count (130-400) K/uL MPV (7.4-10.4) fL Immature Gran % (Auto) % Neut % (Auto) % Lymph % (Auto) % Boyd % (Auto) % Eos % (Auto) % Baso % (Auto) % Neut # (Auto) (1.4-6.5) K/uL Lymph # (Auto) (1.2-3.4) K/uL Boyd # (Auto) (0.11-0.59) K/uL Eos # (Auto) (0-0.5) K/uL Baso # (Auto) (0-0.2) K/uL Immature Gran # (Auto) (0.00-0.02) K/uL ESR (0-21) mm/hr Sodium (136-145) mmol/L Potassium (3.5-5.1) mmol/L Chloride (98-107) mmol/L Carbon Dioxide (21-32) mmol/L Anion Gap (3-11) BUN (7-18) mg/dl Creatinine (0.6-1.2) mg/dl Est Cr Clr Drug Dosing Est GFR ( Amer) Est GFR (Non-Af Amer) BUN/Creatinine Ratio (10-20) Glucose (70-99) mg/dl Calcium (8.5-10.1) mg/dl Total Bilirubin (0.2-1) mg/dl AST (15-37) U/L ALT (12-78) U/L Alkaline Phosphatase (45-117) U/L C-Reactive Protein (0-0.29) mg/dl Total Protein (6.4-8.2) gm/dl Albumin (3.4-5.0) gm/dl Globulin (2.5-4.0) gm/dl Albumin/Globulin Ratio (0.9-2) TSH (0.300-4.500) uIu/ml Urine Color Urine Appearance (Clear) Urine pH (4.5-7.5) Ur Specific Delight (1.000-1.030) Urine Protein (Negative) Urine Glucose (UA) (Negative) Urine Ketones (Negative) Urine Blood (Negative) Urine Nitrite (Negative) Urine Bilirubin (Negative) Urine Urobilinogen (Negative) Ur Leukocyte Esterase (Negative) Urine WBC (Auto) (0-5) /hpf Urine RBC (Auto) (0-4) /hpf U Hyaline Cast (Auto) (0-5) /lpf U Epithel Cells (Auto) (0-5) /lpf Urine Bacteria (Auto) (Negative) Urine Opiates Screen (Neg) Ur Methadone, Qual (Neg) Urine Barbiturates (Neg) Ur Phencyclidine (PCP) (Neg) U Amphetamin/Meth Scrn (Neg) MDMA (Ecstasy) Screen (Neg) U Benzodiazepines Scrn (Neg) Ur Cocaine Metabolite (Neg) U Marijuana (THC) Screen (Neg) Ethyl Alcohol mg/dL (0-3) mg/dl COVID-19 Eval [facility] SARS-CoV-2, RNA, NAAT NEGATIVE (NEGATIVE) Administered Medications Discontinued Medications Sodium Chloride (Nss) 500 mls @ 999 mls/hr IV .Q31M SHERICE Stop: 08/11/20 13:00 Last Infusion: 08/11/20 13:54 Dose: 0 mls/hr Documented by: [id number] Admin: 08/11/20 13:24 Dose: 999 mls/hr Documented by: [id number] Ceftriaxone Sodium (Rocephin) 1,000 mg in 50 mls @ 100 mls/hr IV NOW STA Stop: 08/11/20 14:33 Last Infusion: 08/11/20 16:38 Dose: 0 mls/hr Documented by: [id number] Admin: 08/11/20 14:14 Dose: 100 mls/hr Documented by: [id number] Imaging Data Radiologist's Impression: Patient: STACI REAGAN Admit Date: 08/11/20 MR#: [id number] Address1: [address] [place] [address] Acct ID:[id number] Address2: Date: 1935 [facility] Zip: [place] [address] Age: 84 Location: ED Sex: F Room/Bed: Att Phy: Diagnosis: BACK INJURY/PAIN Cecily Phy: Bart Cid MD Service Date: 08/11/20 [facility] Phy: Interpreting Phy: Alistair Townsend MD Admit Phy: Ordering Phy: Dominick Carrillo DO cc: ~ CT SCAN OF THE LUMBAR SPINE WITHOUT IV CONTRAST CLINICAL HISTORY: Fall. Low back pain. COMPARISON STUDY: MRI of the lumbar spine dated 09/16/2019. CT of the lumbar spine dated 08/23/2013. TECHNIQUE: CT scan of the lumbar spine is performed from the lower thoracic spine to the sacrum. The images are reviewed in the axial, sagittal, and coronal planes. IV contrast was not administered for this examination. A dose lowering technique was utilized adhering to the principles of ALARA. The examination is compromised by streak artifact from metallic spinal hardware. CT DOSE: 1530.51 mGy.cm FINDINGS: The skeletal structures are osteopenic. No acute fracture is identified. There is a mild chronic superior endplate compression deformity of L1. There is chronic deformity, sclerosis, and fragmentation of L5 is again seen. There is 2.5 cm of anterolisthesis at L4-L5. L5 is subluxed posteriorly, and is located almost completely behind the L4 vertebral body. There is partial fusion of L4 and L5, and this is unchanged from previous. There is postoperative change from laminectomy and posterior fusion seen from L2-S1. Interpedicular screws are present at all levels with the exception of L4 and L5. The orthopedic hardware appears intact, and there is evidence of interposition bone graft. Small anterior and lateral marginal osteophytes are seen throughout. The transverse processes appear intact. No lytic or blastic lesion is seen. There is complete loss of the disc space at L4-L5. Mild to moderate disc space narrowing seen at L1-L2. The central canal is not well evaluated. The thecal sac is displaced posteriorly at the L5 level. There is chronic posttraumatic deformity/insufficiency fracture of the sacrum at the S2-S3 level. There is fatty atrophy of the paraspinous musculature. Advanced atherosclerotic calcification and ectasia is noted in the abdominal aorta. There is a nonobstructing left renal calculus. The right kidney is located in the pelvis. IMPRESSION: 1. There is no evidence of acute fracture or malalignment involving the lumbar spine. 2. Osteopenia with advanced chronic deformity at L4-L5 as well as postoperative change as above. This is unchanged from prior examinations. 3. Left-sided nephrolithiasis. 4. Additional findings as above. ACT 112: Negative or not required by law. Dictated: 08/11/2020 2:03 PM Transcribed: 08/11/2020 2:20 PM Sruthi [id number] [email or web address] Electronically signed by: Alistair Townsend M.D. 08/11/2020 2:22 PM Dictated: 08/11/20 1403 Transcribed: 08/11/20 1420 Patient: STACI REAGAN Admit Date: 08/11/20 MR#: [id number] Address1: [facility] [address] [facility] Acct ID:[id number] Address2: Date: 1935 [facility] Zip: [place] [address] Age: 84 Location: ED Sex: F Room/Bed: Att Phy: Diagnosis: BACK INJURY/PAIN Cecily Phy: Bart Cid MD Service Date: 08/11/20 [facility] Phy: Interpreting Phy: Ace Alvares MD Admit Phy: Ordering Phy: Dominick Carrillo DO cc: ~ HEAD CT NONCONTRAST CT DOSE: HISTORY: fall TECHNIQUE: Multiaxial CT images of the head were performed without the use of intravenous contrast. Automated exposure control was utilized for this study. A dose lowering technique was utilized adhering to the principles of ALARA. Comparison: Head CT 05/31/2020. Findings: Significant improvement in the paranasal sinus disease with mild mucosal thickening remaining within the ethmoid air cells and left sphenoid sinus. The mastoid air cells are clear. Severe narrowing at the C1-C2 level due to the old odontoid fracture remains unchanged. This is better appreciated on the same day cervical spine CT. The calvarium and skull base are intact. There is no mass, hematoma, midline shift, acute infarct. White matter hypodensity is nonspecific but suggestive of microvascular ischemic change. The ventricles and sulci demonstrate mild age-related involutional changes. Impression: 1. No acute intracranial abnormality. 2. Improvement in the paranasal sinus disease. ACT 112: Negative or not required by law. Electronically signed by: Ace Alvares M.D. 08/11/2020 2:14 PM Dictated: 08/11/20 140 Transcribed: 08/11/201408 Patient: STACI REAGAN Admit Date: 08/11/20 MR#: [id number] Address1: [address] [place] [address] Acct ID:[id number] Address2: Date: 1935 [facility] Zip: [place] [address] Age: 84 Location: ED Sex: F Room/Bed: Att Phy: Diagnosis: BACK INJURY/PAIN Cecily Phy: Bart Cid MD Service Date: 08/11/20 [place] Phy: Interpreting Phy: Kunal Holcomb Admit Phy: Ordering Phy: Dominick Carrillo DO cc: ~ XR chest 1V portable HISTORY: 84 years-old Female weakness acute weakness COMPARISON: Chest radiograph 05/30/2020 TECHNIQUE: Portable AP view of the chest FINDINGS: Cardiomegaly. Calcified plaque of the thoracic aorta. Chronic interstitial coarsening. There are new subtle left lung base opacities. No pneumothorax, pleural effusion or overt pulmonary edema. Degenerative changes of the shoulders and spine. Chronic ununited right clavicular fracture. IMPRESSION: There are no subtle retrocardiac left lung base opacities suggestive of atelectasis versus pneumonia. ACT 112: Negative or not required by law. The above report was generated using voice recognition software. It may contain grammatical, syntax or spelling errors. Electronically signed by: Hair Holcomb M.D. 08/11/2020 1:45 PM Dictated: 08/11/20 1343 Transcribed: 08/11/20 1343 Patient: STACI REAGAN Admit Date: 08/11/20 MR#: [id number] Address1: [address] [place] [address] Acct ID:[id number] Address2: Date: 1935 [facility] Zip: [place] [address] Age: 84 Location: ED Sex: F Room/Bed: Att Phy: Diagnosis: BACK INJURY/PAIN Cecily Phy: Bart Cid MD Service Date: 08/11/20 [place] Phy: Interpreting Phy: Kunal Holcomb Admit Phy: Ordering Phy: Dominick Carrillo DO cc: ~ CT cervical spine wo con CLINICAL HISTORY: 84 years-old Female with fall. Acute head and neck injury status post fall COMPARISON: CT head of same day, CT cervical spine 05/31/2020 TECHNIQUE: Multiple axial CT images of the cervical spine were obtained without contrast. A dose lowering technique was utilized adhering to the principles of ALARA. FINDINGS: Demineralized appearance of the bones. Multilevel intervertebral disc space narrowing, severe at C6-C7. Moderate to severe multilevel spondylitic spurring with posterior disc osteophyte complex formations and moderate to severe facet arthrosis. Chronic superior endplate compression deformities at T1 and T2 with likely chronic fracture deformity at T3. 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 No change from comparison. There is developmental incomplete bony fusion involving the posterior arch of C1. Multilevel central canal and foraminal narrowing. No acute fracture or subluxation. No pneumothorax. Calcified plaque of the carotid bulbs. No prevertebral edema. Chronic appearing fracture of the right clavicle. Mild wall thickening of the proximal esophagus. IMPRESSION: 1. No acute fracture or subluxation. 2. 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 ACT 112: Negative or not required by law. The above report was generated using voice recognition software. It may contain grammatical, syntax or spelling errors. Electronically signed by: Hair Holcomb M.D. 08/11/2020 2:24 PM Dictated: 08/11/20 1404 Transcribed: 08/11/20 1404 Blood Pressure Blood Pressure Findings: Normal blood pressure Discharge Plan Visit Data Chief Complaint: Back Injury/Pain ED Provider: Dominick Carrillo Discharge Problem: Dementia, Acute alteration in mental status, Urinary tract infection Patient Disposition: Admitted As Inpatient Condition: Good Forms Stand Alone Forms: My [facility] Prescriptions Prescriptions: No Action Caltrate 600 plus D 600 mg (1,500 mg)-800 unit tablet,chewable 1 tab PO BID Qty: 180 RF: 2 spironolactone 100 mg tablet 100 mg PO QAM Qty: 90 RF: 3 omeprazole 40 mg capsule,delayed release(DR/EC) 40 mg PO BID Qty: 180 RF: 1 simvastatin 20 mg tablet 20 mg PO HS Qty: 90 RF: 3 metoprolol succinate 100 mg tablet extended release 24 hr 100 mg PO DAILY Qty: 90 RF: 1 Prolia 60 mg/mL syringe 60 mg SQ Q6MO Qty: 1 RF: 2 mirabegron 50 mg tablet extended release 24 hr 50 mg PO DAILY Qty: 30 RF: 11 ICaps AREDS [id number] capsule 1 cap PO BID RF: 0 omega-3 acid ethyl esters 1 gram capsule 1 cap PO BID RF: 0 amlodipine 2.5 mg tablet 2.5 mg PO QAM RF: 0 Referrals Referrals: Ramses Cid MD [Primary Care Provider] - Discharge Problem: Dementia Qualifiers: Dementia type: unspecified type Dementia behavioral disturbance: with behavioral disturbance Qualified Code(s): F03.91 - Unspecified dementia with behavioral disturbance Urinary tract infection Qualifiers: Urinary tract infection type: site unspecified Hematuria presence: without hematuria Qualified Code(s): N39.0 - Urinary tract infection, site not specified
[2020-08-11 13:06] LABS: Basophils # (auto) 0.01 K/uL (0-0.2); Basophils % (auto) 0.1 %; Eosinophils # (auto) 0.03 K/uL (0-0.5); Eosinophils % (auto) 0.3 %; Hematocrit (blood only) 31.6 % (37-47); Hemoglobin 10.1 g/dL (12.0-16.0); Immature Granulocytes # (auto) 0.02 K/uL (0.00-0.02); Immature Granulocytes % (auto) 0.2 %; Lymphocytes # (auto) 1.01 K/uL (1.2-3.4); Mean Corpuscular Hemoglobin 29.2 pg (25-34); Mean Corpuscular Volume 91.3 fL (80-100); Mean Platelet Volume 8.5 fL (7.4-10.4); Monocytes % (auto) 8.7 %; Neutrophils # (auto) 7.32 K/uL (1.4-6.5); Neutrophils % (auto) 79.7 %; Platelet Count 244 K/uL (130-400); RDW Coefficient of Variation 13.6 % (11.5-14.5); RDW Standard Deviation 44.9 fL (36.4-46.3); Red Blood Count 3.46 M/uL (4.2-5.4); White Blood Count 9.19 K/uL (4.8-10.8)
[2020-08-11 13:21] LABS: Alanine Aminotransferase 23 U/L (12-78); Albumin Level 3.4 gm/dl (3.4-5.0); Aspartate Aminotransferase 25 U/L (15-37); BUN Creatinine Ratio 33.3 (10-20); Blood Urea Nitrogen 22 mg/dl (7-18); Calcium 9.7 mg/dl (8.5-10.1); Carbon Dioxide 29 mmol/L (21-32); Chloride 110 mmol/L (98-107); Est GFR (African American) 93.6; Est GFR (Non-African American) 80.7; Glucose 89 mg/dl (70-99); Potassium 4.2 mmol/L (3.5-5.1); Sodium 142 mmol/L (136-145)
[2020-08-11 13:31] LABS: Alkaline Phosphatase 74 U/L (45-117); Bilirubin,Total 0.3 mg/dl (0.2-1); C Reactive Protein 2.27 mg/dl (0-0.29); Globulin 3.5 gm/dl (2.5-4.0); Total Protein 6.9 gm/dl (6.4-8.2)
[2020-08-11 13:33] LABS: Appearance Urine Clear (Clear); Bacteria Urine Automated 1+ (Negative); Bilirubin Urine Negative (Negative); Blood Urine Negative (Negative); Color Urine Yellow; Glucose Urine UA Negative (Negative); Ketones Urine Trace (Negative); Leukocyte Esterase Urine 1+ (Negative); Nitrite Urine Positive (Negative); Protein Urine Negative (Negative); RBC Urine Automated 0-4 /hpf (0-4); Specific Gravity Urine 1.023 (1.000-1.030); Urobilinogen Urine Negative (Negative)
--- NOTE | 2020-08-11 13:46 | XRay Report ---
XR chest 1V portable HISTORY: 84 years-old Female weakness acute weakness COMPARISON: Chest radiograph 05/30/2020 TECHNIQUE: Portable AP view of the chest FINDINGS: Cardiomegaly. Calcified plaque of the thoracic aorta. Chronic interstitial coarsening. There are new subtle left lung base opacities. No pneumothorax, pleural effusion or overt pulmonary edema. Degenera tive changes of the shoulders and spine. Chronic ununited right clavicular fracture. IMPRESSION: There are no subtle retrocardiac left lung base opacities suggestive of atelectasis versu s pneumonia. ACT 112: Negative or not required by law. The above report was generated using voice recognition software. It may contain grammatical, syntax o r spelling errors. Electronically signed by: Hair Holcomb M.D. 08/11/2020 1:45 PM
[2020-08-11 13:57] LABS: Amphetamines+Metham, Urine Neg (Neg); Barbiturates, Urine Neg (Neg); Benzodiazepine, Urine Neg (Neg); Cocaine, Urine Neg (Neg); MDMA (Ecstacy), Urine Neg (Neg); Methadone, Urine Neg (Neg); Opiate, Urine Neg (Neg); Phencyclidine, Urine Neg (Neg)
[2020-08-11] MEDS ORDERED: cefTRIAXone SODIUM 1,000 MG/50 ML BAG IV STA (14:04)
--- NOTE | 2020-08-11 14:15 | CT Scan Report ---
HEAD CT NONCONTRAST CT DOSE: HISTORY: fall TECHNIQUE: Multiaxial CT images of the head were performed without the use of intravenous contrast. A utomated exposure control was utilized for this study. A dose lowering technique was utilized adheri ng to the principles of ALARA. Comparison: Head CT 05/31/2020. Findings: Significant improvement in the paranasal sinus disease with mild mucosal thickening remaini ng within the ethmoid air cells and left sphenoid sinus. The mastoid air cells are clear. 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 This is better appreciat ed on the same day cervical spine CT. The calvarium and skull base are intact. There is no mass, liyah johny, midline shift, acute infarct. White matter hypodensity is nonspecific but suggestive of microva scular ischemic change. The ventricles and sulci demonstrate mild age-related involutional changes. Impression: 1. No acute intracranial abnormality. 2. Improvement in the paranasal sinus disease. ACT 112: Negative or not required by law. Electronically signed by: Ace Alvares M.D. 08/11/2020 2:14 PM
--- NOTE | 2020-08-11 14:24 | CT Scan Report ---
CT SCAN OF THE LUMBAR SPINE WITHOUT IV CONTRAST CLINICAL HISTORY: Fall. Low back pain. COMPARISON STUDY: MRI of the lumbar spine dated 09/16/2019. CT of the lumbar spine dated 08/23/2013. TECHNIQUE: CT scan of the lumbar spine is performed from the lower thoracic spine to the sacrum. The images are reviewed in the axial, sagittal, and coronal planes. IV contrast was not administered for this examination. A dose lowering technique was utilized adhering to the principles of ALARA. The exa mination is compromised by streak artifact from metallic spinal hardware. CT DOSE: 1530.51 mGy.cm FINDINGS: The skeletal structures are osteopenic. No acute fracture is identified. There is a mild ch ronic superior endplate compression deformity of L1. There is chronic deformity, sclerosis, and fragm entation of L5 is again seen. There is 2.5 cm of anterolisthesis at L4-L5. L5 is subluxed posteriorly , and is located almost completely behind the L4 vertebral body. There is partial fusion of L4 and L5 , and this is unchanged from previous. There is postoperative change from laminectomy and posterior f usion seen from L2-S1. Interpedicular screws are present at all levels with the exception of L4 and L 5. The orthopedic hardware appears intact, and there is evidence of interposition bone graft. Small a nterior and lateral marginal osteophytes are seen throughout. The transverse processes appear intact. No lytic or blastic lesion is seen. There is complete loss of the disc space at L4-L5. Mild to moder ate disc space narrowing seen at L1-L2. The central canal is not well evaluated. The thecal sac is di splaced posteriorly at the L5 level. There is chronic posttraumatic deformity/insufficiency fracture of the sacrum at the S2-S3 level. There is fatty atrophy of the paraspinous musculature. Advanced ath erosclerotic calcification and ectasia is noted in the abdominal aorta. There is a nonobstructing lef t renal calculus. The right kidney is located in the pelvis. IMPRESSION: 1. There is no evidence of acute fracture or malalignment involving the lumbar spine. 2. Osteopenia with advanced chronic deformity at L4-L5 as well as postoperative change as above. This is unchanged from prior examinations. 3. Left-sided nephrolithiasis. 4. Additional findings as above. ACT 112: Negative or not required by law. Dictated: 08/11/2020 2:03 PM Transcribed: 08/11/2020 2:20 PM Sruthi [id number] [email or web address] Electronically signed by: Alistair Townsend M.D. 08/11/2020 2:22 PM
--- NOTE | 2020-08-11 14:25 | CT Scan Report ---
CT cervical spine wo con CLINICAL HISTORY: 84 years-old Female with fall. Acute head and neck injury status post fall COMPARISON: CT head of same day, CT cervical spine 05/31/2020 TECHNIQUE: Multiple axial CT images of the cervical spine were obtained without contrast. A dose low ering technique was utilized adhering to the principles of ALARA. FINDINGS: Demineralized appearance of the bones. Multilevel intervertebral disc space narrowing, severe at C6-C 7. Moderate to severe multilevel spondylitic spurring with posterior disc osteophyte complex formatio ns and moderate to severe facet arthrosis. Chronic superior endplate compression deformities at T1 an d T2 with likely chronic fracture deformity at T3. 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 No change from comp arison. There is developmental incomplete bony fusion involving the posterior arch of C1. Multilevel central canal and foraminal narrowing. No acute fracture or subluxation. No pneumothorax. Calcified plaque of the carotid bulbs. No prevertebral edema. Chronic appearing frac ture of the right clavicle. Mild wall thickening of the proximal esophagus. IMPRESSION: 1. No acute fracture or subluxation. 2. 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 ACT 112: Negative or not required by law. The above report was generated using voice recognition software. It may contain grammatical, syntax o r spelling errors. Electronically signed by: Hair Holcomb M.D. 08/11/2020 2:24 PM
--- NOTE | 2020-08-11 16:18 | Electrocardiogram Report ---
Test Reason : Blood Pressure : / mmHG Vent. Rate : 070 BPM Atrial Rate : 070 BPM P-R Int : 182 ms QRS Dur : 086 ms QT Int : 398 ms P-R-T Axes : 070 049 059 degrees QTc Int : 429 ms Poor data quality, interpretation may be adversely affected Normal sinus rhythm Normal ECG When compared with ECG of 30-MAY-2020 23:58, No significant change was found Confirmed by Dominick Beavers ([id number]) on 08/11/2020 4:17:55 PM Referred By: REFERRED SELF Confirmed By:Dominick Beavers
--- NOTE | 2020-08-11 18:10 | History & Physical Report ---
Date of Service August 11, 2020 Assessment & Plan (1) Acute alteration in mental status: Mrs. Grullon is an 84-year-old female with a history of Hypertension, Tricuspid Valve Disorder, Severe Spinal Stenosis at C1-C2, Osteoporosis, Hyperparathyroidism, Hypercholesterolemia, Hypercalcemia, Allergic Rhinitis, Hearing Loss, Renal Artery Stenosis, and Leg Edema who was sent in to the ER by her family members via ambulance for Altered Mental Status. The vast majority of the history is collected from her daughter Seble Jade, and her Carl Grullon. Patient does not have any history of dementia according to family members, however sometime between and she had several days of being quite confused and paranoid. Apparently, patient seems to be able to walk most times, but there are times when she is unable walk or stand at all. Unfortunately, her cannot lift her up off floor if she falls as he is aged as well. She seemed to do okay throughout most of July, but last week patient became paranoid again -- accusing her of crawling around on the ground with a flashlight at night and being other things that he likes to do (she did not specify what those things are). She called her daughter on apparently was having night terrors, nightmares, or possibly even hallucinations. Therefore she when out in slept in the living room through the weekend. Then she was ambulating with her walker and she yelled for help because she could'nt move her feet, twice her or daughter was able to hold her up, but one time she was lowered to the ground. Nonetheless her ultimately called the ambulance this morning because of her level of confusion, do much for her. Patient's daughter gave me the same history. She does have chronic back pain and had prior surgery. She denies any acute injury to her back. She has not had any head injuries or any recent changes in her diet or oral intake. -- Admit to Med Surg with Telemetry for acute mental status changes. -- Treat underlying UTI. -- Monitor laboratories. -- Consult Neurology. (2) Urinary tract infection: -- Patient does complain of some lower abdominal pain and dysuria. -- Urine analysis is abnormal. -- Urine culture is ordered. -- IV Cipro 400 mg Q12H. -- Received IV Ceftriaxone in the ER. (3) Spinal stenosis: -- At level of C1-C2, question if this is contributing to gait disturbance, leg weakness. -- feels that her walking issues are "mental". History of Present Illness Chief Complaint: -- Altered Mental Status. -- UTI. -- Gait Disturbance. -- Severe Cervical Spinal Stenosis at level C1-C2. Primary Care Provider: Bart Cid MD Mrs. Grullon is an 84-year-old female with a history of Hypertension, Tricuspid Valve Disorder, Spinal Stenosis, Osteoporosis, Hyperparathyroidism, Hy percholesterolemia, Hypercalcemia, Allergic Rhinitis, Hearing Loss, Renal Artery Stenosis, and Leg Edema who was sent in to the ER by her family members via ambulance for Altered Mental Status. The vast majority of the history is collected from her daughter Seble Jade, and her Calr Grullon. Patient does not have any history of dementia according to family members, however sometime between and she had several days of being quite confused and paranoid. Apparently, patient seems to be able to walk most times, but there are times when she is unable walk or stand at all. Unfortunately, her cannot lift her up off floor if she falls as he is aged as well. She seemed to do okay throughout most of July, but last week patient became paranoid again -- accusing her of crawling around on the ground with a flashlight at night and being other things that he likes to do (she did not specify what those things are). She called her daughter on apparently was having night terrors, nightmares, or possibly even hallucinations. Therefore she when out in slept in the living room through the weekend. Then she was ambulating with her walker and she yelled for help because she could'nt move her feet, twice her or daughter was able to hold her up, but one time she was lowered to the ground. Nonetheless her ultimately called the ambulance this morning because of her level of confusion, do much for her. Patient's daughter gave me the same history. She does have chronic back pain and had prior surgery. She denies any acute injury to her back. She has not had any head injuries or any recent changes in her diet or oral intake. Patient does complain of some lower abdominal pain and dysuria as well. Allergies Allergy/AdvReac Type Severity Reaction Status Date / Time lorazepam Allergy Severe ALTERED Verified 12/15/20 14:48 MENTAL STATUS Penicillins Allergy Intermediate SWELLING Verified 06/22/20 14:48 Sulfa (Sulfonamide Allergy Intermediate SWELLING Verified 06/22/20 14:48 Antibiotics) clonidine Allergy Unknown Unknown Verified 06/22/20 14:48 Home Medications Medication Instructions Recorded Confirmed Type calcium carbonate 600 mg(1,500 1 tab PO BID #180 tab 02/20/19 08/11/20 Rx mg)-vitamin D3 800 unit chewable tablet omega-3 acid ethyl esters 1 gram 1 cap PO BID cap 02/24/19 08/11/20 History capsule vitamins A,C,I-drgk-txfppf 14,320 1 cap PO BID 02/24/19 08/11/20 History unit-226 mg-200 unit capsule spironolactone 100 mg tablet 100 mg PO QAM #90 tab 11/17/19 08/11/20 Rx omeprazole 40 mg capsule,delayed 40 mg PO BID #180 cap 11/27/19 08/11/20 Rx release simvastatin 20 mg tablet 20 mg PO HS #90 tab 11/27/19 08/11/20 Rx denosumab 60 mg/mL subcutaneous 60 mg SQ Q6MO #1 ml 03/01/20 08/11/20 Rx syringe metoprolol succinate 100 mg 100 mg PO DAILY #90 tab 03/01/20 08/11/20 Rx tablet,extended release 24 hr mirabegron 50 mg tablet,extended 50 mg PO DAILY #30 tab 04/29/20 08/11/20 Rx release 24 hr amlodipine 2.5 mg PO QAM 05/30/20 08/11/20 History Past Med/Surg History Medical History Actinic keratosis Allergic rhinitis Anxiety Bilateral lower extremity edema Cardiac murmur NO ISSUES. PCP AWARE. Depression Disc degeneration, lumbar DVT (deep venous thrombosis) OCCURED AFTER D/T FALL. Edema of left lower extremity GERD (gastroesophageal reflux disease) History of basal cell carcinoma History of SCC (squamous cell carcinoma) of skin Hypercalcemia Hypercholesterolemia Hyperparathyroidism, primary Hypertension Osteoporosis with fracture Pre-diabetes Ptosis of both eyelids Renal artery stenosis FOLLOWS WITH NEPHRO IN [place], CURRENTLY TREATS MEDICATION. Retention of urine Seborrheic keratosis Sensorineural hearing loss of both ears Poorer WRS in the left ear Spinal stenosis Spondylolisthesis, acquired Squamous cell carcinoma in situ Stress incontinence in female Tricuspid valve disorder Urge and stress incontinence Vitamin D deficiency, unspecified Surgical History Fusion of spine LUMBAR X2 SURGERIES H/O oral surgery History of ankle surgery History of appendectomy History of back surgery History of cataract extraction with lens replacement History of colonoscopy History of herniorrhaphy Family History Brother Parkinsons disease Crohn's colitis Coronary heart disease Denies family history of No family history of adverse response to anesthesia No family history of bleeding disorder Heart disease Allergies Cancer Stroke Asthma Social History Smoking Status: Former smoker Tobacco Type: Cigarettes Age Started Using Tobacco: 20; Age Quit Using Tobacco: 55; packs per day: 1; Cigarettes Per Day: 20; Second Hand Exposure: No; Hx Alcohol Use: No Hx Substance Use: No Preferred Language: [place]al[place] Communication Ability: Effective Decatizer Required: No Beliefs That Will Affect Care: None marital status: Current Living Situation: Spouse current occupational status: retired How many Children do You have: 3 Feels Safe at Home: Yes Seatbelt Use: always Sunscreen Use: No Assistive Devices: None Review of Systems Review of Systems: Unobtainable due to cognitive status Physical Exam Physical Exam: GENERAL: Patient lying on an ER litter in no acute distress. HEENT: Head is atraumatic, normocephalic. EOM's intact. Facies symmetric. No perioral cyanosis. NECK: No JVD. JVP is at the level of the clavicle sitting upright. Carotid upstrokes are + 2 bilaterally. No bruits are noted. CHEST/LUNGS: Clear to auscultation throughout all lung busch. No wheezes, rales, or crackles. CVS: S1 and S2 are regular with a grade 2/6 apical systolic murmur, gallops, or rubs. PMI is nondisplaced. No lifts, heaves, or thrills. No abdominal aortic or renal bruits. ABDOMINAL EXAM: Bowel sounds are present. No masses, organomegaly, or tenderness. CVA's non-tender to jarring. EXTREMITIES: No clubbing or cyanosis. No edema. Intact radial pulses bilaterally. NEUROLOGIC EXAM: Patient is awake and interactive. Hard of hearing. Fails to maintain eye contact. States that she "feels like she is crazy for saying the things" that she's said. No focal neurologic deficits. Results & Data Results & Data ([facility]) Vital Signs (Past 12 Hours) Vital Signs Temp Pulse Pulse Resp BP BP Pulse Ox 08/11/20 17:31 69 19 126/60 96 08/11/20 17:00 71 18 160/57 H 96 08/11/20 16:30 72 22 160/67 H 95 08/11/20 16:00 63 15 141/51 H 98 08/11/20 15:31 70 17 145/58 H 99 08/11/20 15:00 61 17 133/54 L 98 08/11/20 14:27 75 16 139/64 96 08/11/20 13:03 98 08/11/20 12:05 36.5 C 70 17 179/87 H 95 Laboratory Results Laboratory Results - last 24 hr 08/11/20 08/11/20 08/11/20 12:42 12:42 12:42 WBC 9.19 RBC 3.46 L Hgb 10.1 L Hct 31.6 L MCV 91.3 MCH 29.2 MCHC 32.0 RDW Std Deviation 44.9 RDW Coeff of José 13.6 Plt Count 244 MPV 8.5 Immature Gran % (Auto) 0.2 Neut % (Auto) 79.7 Lymph % (Auto) 11.0 [place] % (Auto) 8.7 Eos % (Auto) 0.3 Baso % (Auto) 0.1 Neut # (Auto) 7.32 H Lymph # (Auto) 1.01 L [place] # (Auto) 0.80 H Eos # (Auto) 0.03 Baso # (Auto) 0.01 Immature Gran # (Auto) 0.02 ESR 53 H Sodium 142 Potassium 4.2 Chloride 110 H Carbon Dioxide 29 Anion Gap 3.0 BUN 22 H Creatinine 0.67 Est Cr Clr Drug Dosing Not Reportable Est GFR ( Amer) 93.6 Est GFR (Non-Af Amer) 80.7 BUN/Creatinine Ratio 33.3 H Glucose 89 Calcium 9.7 Total Bilirubin 0.3 AST 25 ALT 23 Alkaline Phosphatase 74 C-Reactive Protein 2.27 H Total Protein 6.9 Albumin 3.4 Globulin 3.5 Albumin/Globulin Ratio 1.0 TSH 1.820 Urine Color Urine Appearance Urine pH Ur Specific [place] Urine Protein Urine Glucose (UA) Urine Ketones Urine Blood Urine Nitrite Urine Bilirubin Urine Urobilinogen Ur Leukocyte Esterase Urine WBC (Auto) Urine RBC (Auto) U Hyaline Cast (Auto) U Epithel Cells (Auto) Urine Bacteria (Auto) Urine Opiates Screen Ur Methadone, Qual Urine Barbiturates Ur Phencyclidine (PCP) U Amphetamin/Meth Scrn MDMA (Ecstasy) Screen U Benzodiazepines Scrn Ur Cocaine Metabolite U Marijuana (THC) Screen Ethyl Alcohol mg/dL COVID-19 Eval Order SARS-CoV-2, RNA, NAAT 08/11/20 08/11/20 08/11/20 12:42 13:20 13:20 WBC RBC Hgb Hct MCV MCH MCHC RDW Std Deviation RDW Coeff of José Plt Count MPV Immature Gran % (Auto) Neut % (Auto) Lymph % (Auto) [place] % (Auto) Eos % (Auto) Baso % (Auto) Neut # (Auto) Lymph # (Auto) [place] # (Auto) Eos # (Auto) Baso # (Auto) Immature Gran # (Auto) ESR Sodium Potassium Chloride Carbon Dioxide Anion Gap BUN Creatinine Est Cr Clr Drug Dosing Est GFR ( Amer) Est GFR (Non-Af Amer) BUN/Creatinine Ratio Glucose Calcium Total Bilirubin AST ALT Alkaline Phosphatase C-Reactive Protein Total Protein Albumin Globulin Albumin/Globulin Ratio TSH Urine Color Yellow Urine Appearance Clear Urine pH 5.0 Ur Specific [place] 1.023 Urine Protein Negative Urine Glucose (UA) Negative Urine Ketones Trace H Urine Blood Negative Urine Nitrite Positive A Urine Bilirubin Negative Urine Urobilinogen Negative Ur Leukocyte Esterase 1+ H Urine WBC (Auto) 10-30 H Urine RBC (Auto) 0-4 U Hyaline Cast (Auto) 1-5 U Epithel Cells (Auto) 5-10 H Urine Bacteria (Auto) 1+ H Urine Opiates Screen Neg Ur Methadone, Qual Neg Urine Barbiturates Neg Ur Phencyclidine (PCP) Neg U Amphetamin/Meth Scrn Neg MDMA (Ecstasy) Screen Neg U Benzodiazepines Scrn Neg Ur Cocaine Metabolite Neg U Marijuana (THC) Screen Neg Ethyl Alcohol mg/dL < 3.0 COVID-19 Eval Order SARS-CoV-2, RNA, NAAT 08/11/20 08/11/20 15:49 15:49 WBC RBC Hgb Hct MCV MCH MCHC RDW Std Deviation RDW Coeff of José Plt Count MPV Immature Gran % (Auto) Neut % (Auto) Lymph % (Auto) [place] % (Auto) Eos % (Auto) Baso % (Auto) Neut # (Auto) Lymph # (Auto) [place] # (Auto) Eos # (Auto) Baso # (Auto) Immature Gran # (Auto) ESR Sodium Potassium Chloride Carbon Dioxide Anion Gap BUN Creatinine Est Cr Clr Drug Dosing Est GFR ( Amer) Est GFR (Non-Af Amer) BUN/Creatinine Ratio Glucose Calcium Total Bilirubin AST ALT Alkaline Phosphatase C-Reactive Protein Total Protein Albumin Globulin Albumin/Globulin Ratio TSH Urine Color Urine Appearance Urine pH Ur Specific [place] Urine Protein Urine Glucose (UA) Urine Ketones Urine Blood Urine Nitrite Urine Bilirubin Urine Urobilinogen Ur Leukocyte Esterase Urine WBC (Auto) Urine RBC (Auto) U Hyaline Cast (Auto) U Epithel Cells (Auto) Urine Bacteria (Auto) Urine Opiates Screen Ur Methadone, Qual Urine Barbiturates Ur Phencyclidine (PCP) U Amphetamin/Meth Scrn MDMA (Ecstasy) Screen U Benzodiazepines Scrn Ur Cocaine Metabolite U Marijuana (THC) Screen Ethyl Alcohol mg/dL COVID-19 Eval Order Covid19 IDNow atMIAC SARS-CoV-2, RNA, NAAT NEGATIVE Diagnostic Findings CT cervical spine wo con CLINICAL HISTORY: 84 years-old Female with fall. Acute head and neck injury status post fall COMPARISON: CT head of same day, CT cervical spine 05/31/2020 TECHNIQUE: Multiple axial CT images of the cervical spine were obtained without contrast. A dose lowering technique was utilized adhering to the principles of ALARA. FINDINGS: Demineralized appearance of the bones. Multilevel intervertebral disc space narrowing, severe at C6-C7. Moderate to severe multilevel spondylitic spurring with posterior disc osteophyte complex formations and moderate to severe facet arthrosis. Chronic superior endplate compression deformities at T1 and T2 with likely chronic fracture deformity at T3. Unchanged appearance of the chronic odo ntoid fracture with chronic basilar invagination and severe central canal stenosis at C1-C2. No change from comparison. There is developmental incomplete bony fusion involving the posterior arch of C1. Multilevel central canal and foraminal narrowing. No acute fracture or subluxation. No pneumothorax. Calcified plaque of the carotid bulbs. No prevertebral edema. Chronic appearing fracture of the right clavicle. Mild wall thickening of the proximal esophagus. IMPRESSION: 1. No acute fracture or subluxation. 2. Chronic compression deformities of the upper thoracic spine with unchanged alignment of the chronic odontoid fracture resulting in basilar invagination and severe central canal stenosis at C1-C2. CT SCAN OF THE LUMBAR SPINE WITHOUT IV CONTRAST CLINICAL HISTORY: Fall. Low back pain. COMPARISON STUDY: MRI of the lumbar spine dated 09/16/2019. CT of the lumbar spine dated 08/23/2013. TECHNIQUE: CT scan of the lumbar spine is performed from the lower thoracic spine to the sacrum. The images are reviewed in the axial, sagittal, and coronal planes. IV contrast was not administered for this examination. A dose lowering technique was utilized adhering to the principles of ALARA. The examination is compromised by streak artifact from metallic spinal hardware. CT DOSE: 1530.51 mGy.cm FINDINGS: The skeletal structures are osteopenic. No acute fracture is identified. There is a mild chronic superior endplate compression deformity of L1. There is chronic deformity, sclerosis, and fragmentation of L5 is again seen. There is 2.5 cm of anterolisthesis at L4-L5. L5 is subluxed posteriorly, and is located almost completely behind the L4 vertebral body. There is partial fusion of L4 and L5, and this is unchanged from previous. There is postoperative change from laminectomy and posterior fusion seen from L2-S1. Interpedicular screws are present at all levels with the exception of L4 and L5. The orthopedic hardware appears intact, and there is evidence of interposition bone graft. Small anterior and lateral marginal osteophytes are seen throughout. The transverse processes appear intact. No lytic or blastic lesion is seen. There is complete loss of the disc space at L4-L5. Mild to moderate disc space narrowing seen at L1-L2. The central canal is not well evaluated. The thecal sac is displaced posteriorly at the L5 level. There is chronic posttraumatic deformity/insufficiency fracture of the sacrum at the S2-S3 level. There is fatty atrophy of the paraspinous musculature. Advanced atherosclerotic calcification and ectasia is noted in the abdominal aorta. There is a nonobstructing left renal calculus. The right kidney is located in the pelvis. IMPRESSION: 1. There is no evidence of acute fracture or malalignment involving the lumbar spine. 2. Osteopenia with advanced chronic deformity at L4-L5 as well as postoperative change as above. This is unchanged from prior examinations. 3. Left-sided nephrolithiasis. 4. Additional findings as above. HEAD CT NONCONTRAST CT DOSE: HISTORY: fall TECHNIQUE: Multiaxial CT images of the head were performed without the use of intravenous contrast. Automated exposure control was utilized for this study. A dose lowering technique was utilized adhering to the principles of ALARA. Comparison: Head CT 05/31/2020. Findings: Significant improvement in the paranasal sinus disease with mild mucosal thickening remaining within the ethmoid air cells and left sphenoid sinus. The mastoid air cells are clear. Severe narrowing at the C1-C2 level due to the old odontoid fracture remains unchanged. This is better appreciated on the same day cervical spine CT. The calvarium and skull base are intact. There is no mass, hematoma, midline shift, acute infarct. White matter hypodensity is nonspecific but suggestive of microvascular ischemic change. The ventricles and sulci demonstrate mild age-related involutional changes. Impression: 1. No acute intracranial abnormality. 2. Improvement in the paranasal sinus disease. CXR 08/11/2020: -- There are new subtle retrocardiac left lung base opacities suggestive of atelectasis versus pneumonia. Medications Administered Discontinued Medications Sodium Chloride (Nss) 500 mls @ 999 mls/hr IV .Q31M SHERICE Stop: 08/11/20 13:00 Last Infusion: 08/11/20 13:54 Dose: 0 mls/hr Documented by: [id number] Admin: 08/11/20 13:24 Dose: 999 mls/hr Documented by: [id number] Ceftriaxone Sodium (Rocephin) 1,000 mg in 50 mls @ 100 mls/hr IV NOW STA Stop: 08/11/20 14:33 Last Infusion: 08/11/20 16:38 Dose: 0 mls/hr Documented by: [id number] Admin: 08/11/20 14:14 Dose: 100 mls/hr Documented by: [id number] Code Status & VTE Plan Code Status DNR/DNI VTE Prophylaxis Plan VTE Prophylaxis will be ordered: Yes Supervising Physician Co-Signing Physician Notes I personally saw and examined the patient. I verified all blackwell points and agree with MEGHA Jackson with the following exceptions and/or additions: 84-year-old female presents to the ER with acute alteration in mental status with paranoia and increased confusion with background dementia. Unable to get much history from the patient due to underlying altered mental status. Please see collateral history above taken from family members. Current symptoms appear consistent with urine tract infection. Patient is alert but disorientated x3. She tells me she is here because she has urine tract infection but cannot tell me about any symptoms or history leading up to this. Abdomen soft nontender. Bowel sounds normal. Chest clear to auscultation bilaterally. Plan to treat urine tract infection and monitor altered mental status. PG Care Time/CCT Total # of Minutes Spent Total Time Spent with Patient: Total time spent is greater than 50% in coordination of care (as documented) at patient's floor/unit and/or counseling patient:40 Coding Level of Care Code 08961 Initial Inpt Care Lvl 2 Diagnoses Acute alteration in mental status R41.82 Urinary tract infection N39.0 Hematuria presence: without hematuria Urinary tract infection type: site unspecified Spinal stenosis M48.00 Time Spent (min) 65 (1) Urinary tract infection Hematuria presence: without hematuria Urinary tract infection type: site unspecified Qualified Code(s): N39.0 - Urinary tract infection, site not specified
[2020-08-11] MEDS ORDERED: ONDANSETRON INJ 2 MG/ML 2 ML VIAL IV PRN (21:21)
[2020-08-11] MEDS ORDERED: ALUMINUM/MAGNESIUM SUSP 30 ML UDC PO PRN (21:21)
[2020-08-11] MEDS ORDERED: MAGNESIUM HYDROXIDE SUSP 30 ML UDC PO PRN (21:21)
[2020-08-11] MEDS ORDERED: ZOLPIDEM TARTRATE 5 MG TAB PO PRN (21:21)
[2020-08-11] MEDS ORDERED: NITROGLYCERIN SL 0.4 MG/TAB TAB SL PRN (21:21)
[2020-08-11] MEDS ORDERED: POLYETHYLENE (MIRALAX) 17 GM PACK PO PRN (21:21)
[2020-08-11] MEDS: CIPROFLOXACIN / D5W 400 MG/200 ML BAG IV SCH (22:06)
[2020-08-11] MEDS: ACETAMINOPHEN 325 MG TAB PO PRN (22:09)
[2020-08-11] MEDS: SIMVASTATIN 20 MG TAB PO SCH (22:10)
[2020-08-11] MEDS: HEPARIN SOD 5,000 UNIT/0.5 ML VIAL SQ SCH (22:12)
[2020-08-12] MEDS: ACETAMINOPHEN 325 MG TAB PO PRN ×3 (02:42→21:34)
--- NOTE | 2020-08-12 07:54 | Neurology Consultation ---
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 She is very paranoid and would not answer questions or follow commands willfully. She certainly seems to have an acute altered mental status consistent with a mild encephalopathy probably on underlying dementia of a mild nature. she has a history of multiple urinary tract infections and with the elevated sed rate, CRP, and acute changes I suspect another UTI. On exam , I am concerned about her cervical spinal stenosis creating a myelopathy. I note brisk reflexes in the arms and upgoing toes. This probably explains her gait disturbance. The leg weakness may also be due to lumbar spine disease. Recommendations: 1. Treat urinary tract infection over the next day or so and see if her mental status improves enough to obtain a better history and physical examination. 2. consider MRI of the brain and cervical spine but I am not certain she would cooperate for this now. 3. she probably needs EMG and nerve conduction studies of the lower extremities (and possibly arms), but obviously she would have to improve clinically and this would be done as an outpatient. 4. I will follow with you while she is in the hospital make additional recommendations depending on her clinical course Overall, spent a total of 60 minutes with this case including review of records, review of CT films, direct evaluation the patient bedside, and discussing the case with the patient and RN at bedside, and Dr. Guerrero, including differential diagnosis and treatment options. History of Present Illness Reason for Consultation: Patient is an 84-year-old, who I was asked to see the request of Dr. Cummings, for neurologic consultation regarding multiple issues. Requesting Physician: Dr. Cummings Attending Physician: Ramiro Guerrero MD History of Present Illness patient has a history of hypertension, dyslipidemia, hyperparathyroidism, and spine issues. She has had surgery in the past for lumbar spinal stenosis and has chronic low back and lower extremity issues. She also has cervical spinal stenosis at C1-2. patient has had E coli urinary tract infections, including July and May of 2020. The patient has been more confused lately and there is a question of underlying dementia. She certainly can get paranoid at times. She is on no medications that would cause a delirium. She has chronic back pain and a worsening gait. Patient was very unhelpful with the history, was angry at me and did not answer questions. She seemed paranoid, especially towards her . At one point she thought I was her and that I was in disguise. She complains of pain in her spine and her whole right arm. Neck and back hurts and she has no headache. She knows that her vision is very poor and has macular degeneration. Patient was brought in by family August 11 at 1205, with a temperature of 36.5, pulse 70 and regular, respiratory rate 17, blood pressure 179/87, and O2 saturation 95 percent. In the emergency room, she was described as awake and alert with slow answers (but accurate) and some slurred speech. CBC showed anemia an ESR and CRP were elevated. Urine had cells and culture is pending. There is a mildly elevated BUN and a normal Chem profile otherwise. Tox screen was negative as was Covid-19 and a TSH of 1.8 CT scan of the head was unremarkable. Chest x-ray was unremarkable. CT scans of the lumbar spine showed L4-5 deformity and a left renal stone. CT scan of the cervical spine showed severe stenosis at C1-2. This is old. Nursing reports no further events overnight but she is somewhat paranoid and difficulty with cooperation. Allergies Allergy/AdvReac Type Severity Reaction Status Date / Time lorazepam Allergy Severe ALTERED Verified 06/22/20 14:48 MENTAL STATUS Penicillins Allergy Intermediate SWELLING Verified 06/22/20 14:48 Sulfa (Sulfonamide Allergy Intermediate SWELLING Verified 06/22/20 14:48 Antibiotics) clonidine Allergy Unknown Unknown Verified 06/22/20 14:48 Home Medications Medication Instructions Recorded Confirmed Type calcium carbonate 600 mg(1,500 1 tab PO BID #180 tab 02/20/19 08/11/20 Rx mg)-vitamin D3 800 unit chewable tablet omega-3 acid ethyl esters 1 gram 1 cap PO BID cap 02/24/19 08/11/20 History capsule vitamins A,C,V-kfre-rzldyq 14,320 1 cap PO BID 02/24/19 08/11/20 History unit-226 mg-200 unit capsule spironolactone 100 mg tablet 100 mg PO QAM #90 tab 11/17/19 08/11/20 Rx omeprazole 40 mg capsule,delayed 40 mg PO BID #180 cap 11/27/19 08/11/20 Rx release simvastatin 20 mg tablet 20 mg PO HS #90 tab 11/27/19 08/11/20 Rx denosumab 60 mg/mL subcutaneous 60 mg SQ Q6MO #1 ml 03/01/20 08/11/20 Rx syringe metoprolol succinate 100 mg 100 mg PO DAILY #90 tab 03/01/20 08/11/20 Rx tablet,extended release 24 hr mirabegron 50 mg tablet,extended 50 mg PO DAILY #30 tab 04/29/20 08/11/20 Rx release 24 hr amlodipine 2.5 mg PO QAM 05/30/20 08/11/20 History Patient History Medical History Actinic keratosis Allergic rhinitis Anxiety Bilateral lower extremity edema Cardiac murmur NO ISSUES. PCP AWARE. Depression Disc degeneration, lumbar DVT (deep venous thrombosis) OCCURED AFTER D/T FALL. Edema of left lower extremity GERD (gastroesophageal reflux disease) History of basal cell carcinoma History of SCC (squamous cell carcinoma) of skin Hypercalcemia Hypercholesterolemia Hyperparathyroidism, primary Hypertension Osteoporosis with fracture Pre-diabetes Ptosis of both eyelids Renal artery stenosis FOLLOWS WITH NEPHRO IN VAL[place], CURRENTLY TREATS MEDICATION. Retention of urine Seborrheic keratosis Sensorineural hearing loss of both ears Poorer WRS in the left ear Spinal stenosis Spondylolisthesis, acquired Squamous cell carcinoma in situ Stress incontinence in female Tricuspid valve disorder Urge and stress incontinence Vitamin D deficiency, unspecified Surgical History Fusion of spine LUMBAR X2 SURGERIES H/O oral surgery History of ankle surgery History of appendectomy History of back surgery History of cataract extraction with lens replacement History of colonoscopy History of herniorrhaphy Family History Brother Parkinsons disease Crohn's colitis Coronary heart disease Denies family history of No family history of adverse response to anesthesia No family history of bleeding disorder Heart disease Allergies Cancer Stroke Asthma Social History Smoking Status: Former smoker Tobacco Type: Cigarettes Age Started Using Tobacco: 20; Age Quit Using Tobacco: 55; packs per day: 1; Cigarettes Per Day: 20; Second Hand Exposure: No; Hx Alcohol Use: No Hx Substance Use: No Preferred Language: Croatian Communication Ability: Effective Lapel Padder Blindstitch Required: No Beliefs That Will Affect Care: None marital status: Current Living Situation: Spouse current occupational status: retired How many Children do You have: 3 Feels Safe at Home: Yes Seatbelt Use: always Sunscreen Use: No Assistive Devices: Cane and Walker Review of Systems Review of Systems: Review systems was very difficult to obtain because of her paranoia and unwillingness to answer questions. Exam (Neuro) Physical Exam: Patient was uncooperative with the examination much of the time refusing to do things that I asked. therefore the exam was limited. The patient is Left-handed. The patient is awake, alert, and fairly attentive. Speech is normal without any aphasia or dysarthria. her mood is somewhat angry and affect is appropriate. She is paranoid. Memory is question but difficult to assess because of her lack of cooperation. She knew she was in the hospital and that she was 84 years old. She is convinced that everything around her is "a joke" and that "I should not ask her questions because I already know the answer". There are no deficits to sensation in the face in all 3 distributions of the fifth cranial nerve bilaterally. Facial strength and symmetry was normal bilaterally. Hearing seems Decreased bilaterally. Palate moves well without asymmetry. There is normal sternocleidomastoid and trapezius (shoulder shrug) strength bilaterally. Tongue is midline with good strength bilaterally. Neck has a decreased range of motion with discomfort. Gait could not be tested and she did not cooperate to sit up. With outstretched arms there is no drift , but she really did not cooperate for this very much.There are no resting, postural, or action tremors. There is no ataxia with finger to nose testing. Motor strength seemed 5/5 diffusely in the arms bilaterally including deltoids, biceps, triceps, brachioradialis, wrist flexors and extensors, janitorial supervisor, and intrinsic hand muscles. Motor strength is 4/5 diffusely in the legs bilaterally including hip flexors, quadriceps, hamstrings, gastrocnemius, tibialis anterior, tibialis posterior, and Peroneii muscles. The limbs have increased tone in the legs. Sensory examination is intact to touch and pin throughout all 4 limbs diffusely. Reflexes are 2/4 in the biceps, triceps, and brachioradialis tendons bilaterally. Quadriceps and Achilles tendon reflexes seem 1/4 bilaterally. There is no clonus bilaterally. Toes are upgoing with plantar stimulation bilaterally. Results & Data ([facility]) Vital Signs (Past 12 Hours) Vital Signs Temp Pulse Pulse Resp BP BP Pulse Ox 08/12/20 04:00 37.0 C 86 18 135/66 94 08/12/20 02:31 73 08/12/20 00:16 36.9 C 85 18 160/64 H 96 08/11/20 21:21 84 08/11/20 20:15 36.5 C 94 H 20 159/74 H 97 PG Care Time/CCT Total # of Minutes Spent Total Time Spent with Patient: Total time spent is greater than 50% in coordination of care (as documented) at patient's floor/unit and/or counseling patient: Coding Level of Care Code 44952 Initial Inpt Care Lvl 3 Diagnoses Acute alteration in mental status R41.82 Dementia F03.91 Dementia behavioral disturbance: with behavioral disturbance Dementia type: unspecified type Leg weakness, bilateral R29.898 Stenosis of cervical spine with myelopathy M48.02; G99.2 Sensorineural hearing loss of both ears H90.3 Time Spent (min) 60 (1) Dementia Dementia behavioral disturbance: with behavioral disturbance Dementia type: unspecified type Qualified Code(s): F03.91 - Unspecified dementia with behavioral disturbance
[2020-08-12] MEDS: OMEGA-3 (PURIFIED FISH OIL) 1 GM CAP PO SCH ×2 (08:31→21:31)
[2020-08-12] MEDS: MIRABEGRON ER 25 MG TAB PO SCH (08:31)
[2020-08-12] MEDS: CALCIUM 600MG + VIT D 400 IU TAB PO SCH ×2 (08:31→21:31)
[2020-08-12] MEDS: amLODIPine BESYLATE 5 MG TAB PO SCH (08:31)
[2020-08-12] MEDS: METOPROLOL SUCC 50MG EXT REL TAB PO SCH (08:31)
[2020-08-12] MEDS: PANTOprazole 40 MG TAB PO SCH ×2 (08:31→21:31)
[2020-08-12] MEDS: CEROVITE ADV FORMULA TAB PO SCH ×2 (08:31→21:31)
[2020-08-12] MEDS: SPIRONOLACTONE 100 MG TAB PO SCH (08:31)
[2020-08-12] MEDS: HEPARIN SOD 5,000 UNIT/0.5 ML VIAL SQ SCH ×2 (08:33→21:29)
[2020-08-12] MEDS: CIPROFLOXACIN / D5W 400 MG/200 ML BAG IV SCH ×2 (09:52→21:31)
--- NOTE | 2020-08-12 12:18 | Hospitalist Progress Note ---
Date of Service August 12, 2020 Assessment & Plan (1) Acute alteration in mental status: Uncertain if mental status is acute or chronic. She may have baseline dementia. She may have a degree of metabolic encephalopathy associated with suspected UTI. Will request psychiatry evaluation. Provide supportive care. (2) Urinary tract infection: Present on admission. Parenteral Cipro, day 2. Await final culture results and tailor antibiotics accordingly. She did have a previous urine culture last fall revealing E. coli sensitive to Cipro. Present on Admission?: Yes (3) Spinal stenosis: Cervical spinal stenosis at the C1-C2 level noted on CT scan. She would benefit from a cervical spine MRI but this is not feasible at this time due to uncooperative state. Appreciate neurology input. Neurosurgery is not available at this institution. Present on Admission?: Yes (4) Hypertension: Medical management Present on Admission?: Yes (5) Renal artery stenosis: Medical management. Monitor blood pressure DVT prophylaxis: Heparin or Lovenox subcu Disposition: To be determined Present on Admission?: Yes Admission and Anticipated Discharge Date Admission Date: August 11, 2020 Subjective The patient is awake but somewhat angry and very uncooperative. She is oriented to name only. She states that she wants to . I do not know what her baseline mental status is. Case discussed with neurology today. She may have a myelopathy from the C1-C2 stenosis seen on CT scan. She needs an MRI scan but she will not be cooperative at this time. She is on parenteral Cipro for suspected UTI. Urine culture pending. Will request psychiatry consultation. Review of Systems Review of Systems: Unobtainable due to cognitive status Physical Exam Physical Exam: General-alert . Uncooperative and agitated. Oriented to name only. HEENT-head atraumatic and normocephalic, TMs intact bilaterally, pupils equal and reactive to light, extraocular muscles intact Neck-no lymphadenopathy or thyromegaly, trachea midline Chest-clear to auscultation percussion. No rales wheezing or rhonchi Cardiac-regular rate and rhythm, normal S1 and S2, no murmurs Abdomen-normal bowel sounds, nontender, no hepatosplenomegaly Extremities-no cyanosis, clubbing, or edema Neuro-cannot adequately perform a neurological exam due to lack of cooperation. However, there do not appear to be any focal deficits. Cannot assess weakness of her legs. However, she does have touch sensation in both feet as she states adamantly that she does not want her feet examined when they are touched and she withdraws both feet equally and symmetrically. Psych-uncooperative. Agitated Results & Data Results & Data ([facility]) Vital Signs (Past 12 Hours) Vital Signs Temp Pulse Pulse Resp BP Pulse Ox 08/12/20 08:10 36.7 C 99 H 17 156/69 H 95 08/12/20 04:00 37.0 C 86 18 135/66 94 08/12/20 02:31 73 Laboratory Results 08/11/20 12:42 08/11/20 12:42 PG Care Time/CCT Total # of Minutes Spent Total Time Spent with Patient: Total time spent is greater than 50% in coordination of care (as documented) at patient's floor/unit and/or counseling patient: Coding Level of Care Code 88392 Subseq Hosp Care Lvl 3 Diagnoses Acute alteration in mental status R41.82 Urinary tract infection N39.0 Hematuria presence: without hematuria Urinary tract infection type: site unspecified Spinal stenosis M48.00 Hypertension I10 Renal artery stenosis I70.1 (1) Urinary tract infection Hematuria presence: without hematuria Urinary tract infection type: site unspecified Qualified Code(s): N39.0 - Urinary tract infection, site not specified
--- NOTE | 2020-08-12 14:34 | Communication Note ---
Date of Service: August 12, 2020 84-year-old female admitted medically on 08/11/2020 with altered mental status, gait disturbance, and suspected UTI. Psychiatric consultation for "behavior disorder" - requested clarification of consult question. Review of current documentation suggests family has reported cognitive decline since [place] with occasional episodes of paranoia and increased ambulatory dysfunction. Records suggest the patient was treated for a UTI on several occasions in the past year. Neurology has been consulted with reports that altered mental status is likely related to UTI, with other studies suggested either as an outpatient or once condition improves. Outpatient records available do not suggest recent concerns for acute psychiatric or behavioral changes. Nursing notes reviewed. It seems that patient has been intermittently uncooperative and paranoid, but no indication behaviors have escalated to the level of requiring significant intervention. At this time, would encourage behavioral strategies to assist with AMS/encephalopathy. Please do not hesitate to reach out to our service with additional questions or concerns as treatment continues. Helpful Delirium Interventions - Regular review of potential physiological contributors (routine labs, medication review, ensure nutrition/hydration) - as a reminder, elements of delirium can continue for weeks or even months after the "cause" has been treated - Maintain healthy sleep/wake cycles - offer ear plugs, limit daytime napping, ample light during daytime hours, keep room dark and quiet at night - Address sensory impairments and pain - ensure access to hearing aids/glasses, active pain monitoring - Facilitate mobility and physical activity during the day - out of bed daily or as often as possible - Provide cognitive and environmental stimulation - frequent orientation to person/place/time/event, update orientation board, encourage use of familiar personal items, stable daily routine -regular MSE at various times during day - Routine education about delirium - provide education to family/fpc staff - Judicious use of psychotropic medications - use of neuroleptics should be minimized only to situations in which patient is demonstrating behavior suggestive of risk of harm to self or others (agitation/aggression, not maintaining necessary IV sites, etc) Article Reference: Adolfo DURAND, Carlitos TAM, Katelyn A, Hannah O, Karina BARRIENTOS. Responding to Ten Common Delirium Misconceptions With Best Evidence: An Educational Review for Clinicians. J Neuropsychiatry Clin Neurosci. 2018;30(1):51-57. doi:10.1176/appi.[email or web address]
[2020-08-12] MEDS: SIMVASTATIN 20 MG TAB PO SCH (21:31)
[2020-08-13] MEDS: ACETAMINOPHEN 325 MG TAB PO PRN (01:47)
[2020-08-13 06:32] LABS: Basophils # (auto) 0.02 K/uL (0-0.2); Basophils % (auto) 0.2 %; Eosinophils # (auto) 0.04 K/uL (0-0.5); Eosinophils % (auto) 0.4 %; Hematocrit (blood only) 33.9 % (37-47); Hemoglobin 10.7 g/dL (12.0-16.0); Immature Granulocytes # (auto) 0.03 K/uL (0.00-0.02); Immature Granulocytes % (auto) 0.3 %; Lymphocytes # (auto) 0.85 K/uL (1.2-3.4); Lymphocytes % (auto) 8.5 %; Mean Corpuscular Hemoglobin 29.2 pg (25-34); Mean Corpuscular Hgb Conc 31.6 g/dL (32-36); Mean Corpuscular Volume 92.6 fL (80-100); Mean Platelet Volume 8.6 fL (7.4-10.4); Monocytes # (auto) 0.85 K/uL (0.11-0.59); Monocytes % (auto) 8.5 %; Neutrophils # (auto) 8.16 K/uL (1.4-6.5); Neutrophils % (auto) 82.1 %; Platelet Count 231 K/uL (130-400); RDW Coefficient of Variation 13.8 % (11.5-14.5); RDW Standard Deviation 46.3 fL (36.4-46.3); Red Blood Count 3.66 M/uL (4.2-5.4); White Blood Count 9.95 K/uL (4.8-10.8)
[2020-08-13 07:28] LABS: Calcium 9.1 mg/dl (8.5-10.1); Creatinine Clr Calc Pharmacy 49.3 ml/min; Est GFR (African American) 96.5; Est GFR (Non-African American) 83.2
[2020-08-13] MEDS: CALCIUM 600MG + VIT D 400 IU TAB PO SCH ×2 (08:37→20:56)
[2020-08-13] MEDS: SPIRONOLACTONE 100 MG TAB PO SCH (08:37)
[2020-08-13] MEDS: CEROVITE ADV FORMULA TAB PO SCH ×2 (08:38→21:04)
[2020-08-13] MEDS: HEPARIN SOD 5,000 UNIT/0.5 ML VIAL SQ SCH ×2 (08:38→21:04)
[2020-08-13] MEDS: MIRABEGRON ER 25 MG TAB PO SCH (08:38)
[2020-08-13] MEDS: amLODIPine BESYLATE 5 MG TAB PO SCH (08:39)
[2020-08-13] MEDS: OMEGA-3 (PURIFIED FISH OIL) 1 GM CAP PO SCH ×2 (08:39→21:04)
[2020-08-13] MEDS: PANTOprazole 40 MG TAB PO SCH ×2 (08:39→21:04)
[2020-08-13] MEDS: METOPROLOL SUCC 50MG EXT REL TAB PO SCH (08:39)
--- NOTE | 2020-08-13 09:04 | Neurology Progress Note ---
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 Although yesterday, she was very paranoid and would not answer questions or follow commands, she is quite pleasant and cooperative today. Her altered mental status / mild encephalopathy , therefore, is improved and this is likely due to the treatment of the E coli urinary tract infection. On exam , there are signs of a myelopathy from the C1-2 spinal stenosis. I note brisk reflexes in the arms and upgoing toes. This probably explains her gait disturbance and limb weakness The leg weakness may also be due to lumbar spine disease, and she is post laminectomy with fusion in 2012. Recommendations: 1. Continue treating urinary tract infection 2. Consider MRI of the brain and cervical spine 3. I will talk with Dr. Navarro (who performed her lumbar spine surgery in 2013) to see if he can address a C1-2 spinal stenosis. 4. she probably needs EMG and nerve conduction studies of the lower extremities (and possibly arms), but obviously she would have to improve clinically and this would be done as an outpatient. Overall, spent a total of 35 minutes with this case including review of records, review of CT films (With Dr. Patel in Radiology), direct evaluation the patient bedside, and discussion of the case with the patient and RN at bedside, and Dr. Guerrero, including differential diagnosis and treatment options. Admission and Anticipated Discharge Date Admission Date: August 11, 2020 Subjective The patient herself feels much better and is not in any pain. She does not feel dizzy. Nursing reports that she is much calmer and cooperative and pleasant over the last day. I reviewed the cervical spine CT film with Dr. Patel in Radiology today. She is post odontoid fracture in the past resulting in severe central canal stenosis at C1-2 ( about 50 percent). Results & Data ([facility]) Vital Signs (Past 12 Hours) Vital Signs Temp Pulse Pulse Resp BP Pulse Ox 08/13/20 08:17 36.4 C L 80 16 130/65 93 08/13/20 05:36 36.4 C L 86 18 120/72 97 08/13/20 04:00 36.6 C 80 18 142/71 H 96 08/12/20 23:00 37.1 C 81 18 137/74 94 08/12/20 22:19 92 H Exam (Neuro) Physical Exam: She is awake and alert. His speech is without aphasia or dysarthria. She is smiling, pleasant, and cooperative. Extraocular eye muscles are intact without nystagmus and there is no facial droop. She is hard of hearing. She is moving her limbs spontaneously but has 4/5 weakness in all 4 limbs. Reflexes are 2/4 in the arms and 1/4 in the legs with upgoing toes to plantar stimulation. PG Care Time/CCT Total # of Minutes Spent Total Time Spent with Patient: Total time spent is greater than 50% in coordination of care (as documented) at patient's floor/unit and/or counseling patient: Coding Level of Care Code 10439 Subseq Hosp Care Lvl 3 Diagnoses Acute alteration in mental status R41.82 Dementia F03.91 Dementia behavioral disturbance: with behavioral disturbance Dementia type: unspecified type Leg weakness, bilateral R29.898 Stenosis of cervical spine with myelopathy M48.02; G99.2 Sensorineural hearing loss of both ears H90.3 Time Spent (min) 35 (1) Dementia Dementia behavioral disturbance: with behavioral disturbance Dementia type: unspecified type Qualified Code(s): F03.91 - Unspecified dementia with beh avioral disturbance
[2020-08-13] MEDS: CIPROFLOXACIN / D5W 400 MG/200 ML BAG IV SCH ×2 (10:33→21:05)
--- NOTE | 2020-08-13 13:26 | Hospitalist Progress Note ---
Date of Service August 13, 2020 Assessment & Plan (1) Acute alteration in mental status: Much improved with treatment of UTI. This appears to be metabolic encephalopathy associated with suspected UTI. Psychiatry evaluation pending. Provide supportive care. (2) Urinary tract infection: Present on admission. Parenteral Cipro, day 3. E. coli isolated, pansensitive. (3) Spinal stenosis: Cervical spinal stenosis at the C1-C2 level noted on CT scan. Cervical spine MRI ordered along with orthospine consultation. Appreciate neurology input. (4) Hypertension: Medical management (5) Renal artery stenosis: Medical management. Monitor blood pressure DVT prophylaxis: Heparin or Lovenox subcu Disposition: To be determined Admission and Anticipated Discharge Date Admission Date: August 11, 2020 Subjective Mental status is markedly improved today and she is pleasant. She agrees to undergo MRI scan of the brain and C-spine to further evaluate the C1-C2 stenosis. Orthopedic surgery consult for their opinion on treatment options. General surgery also consulted to evaluate the left lateral ankle wound. It may need debridement according to wound care nurse. Urine culture growing E. coli which is pansensitive. She currently is on Cipro. Review of Systems Review of Systems: Constitutional-no fever or chills ENT-no blurred vision, no double vision, no epistaxis, no sore throat Respiratory-no cough, no wheezing, no shortness of breath Cardiac-no palpitations, no chest pain, no syncope GI-no nausea, vomiting, diarrhea, melena, hematochezia -no urinary retention, no urinary incontinence, no dysuria, no hematuria Musculoskeletal-no joint pain, no muscle tenderness. Generalized weakness Skin-no bruising, no rashes, no pruritus Neuro-generalized weakness . Psych-no depression, no anxiety Physical Exam Physical Exam: General-alert and oriented x3, no fevers, no chills HEENT-head atraumatic and normocephalic, TMs intact bilaterally, pupils equal and reactive to light, extraocular muscles intact Neck-no lymphadenopathy or thyromegaly, trachea midline Chest-clear to auscultation percussion. No rales wheezing or rhonchi Cardiac-regular rate and rhythm, normal S1 and S2, no murmurs Abdomen-normal bowel sounds, nontender, no hepatosplenomegaly Extremities-no cyanosis, clubbing, or edema Neuro-cranial nerves II through XII intact, motor and sensory function within normal limits, strength symmetrical with generalized weakness, no focal deficits Psych-normal affect, normal mood Results & Data Results & Data ([facility]) Vital Signs (Past 12 Hours) Vital Signs Temp Pulse Resp BP Pulse Ox 08/13/20 11:15 36.3 C L 68 18 123/71 98 08/13/20 08:17 36.4 C L 80 16 130/65 93 08/13/20 05:36 36.4 C L 86 18 120/72 97 08/13/20 04:00 36.6 C 80 18 142/71 H 96 Laboratory Results 08/13/20 06:03 08/13/20 06:03 PG Care Time/CCT Total # of Minutes Spent Total Time Spent with Patient: Total time spent is greater than 50% in coordination of care (as documented) at patient's floor/unit and/or counseling patient: Coding Level of Care Code 10980 Subseq Hosp Care Lvl 3 Diagnoses Acute alteration in mental status R41.82 Urinary tract infection N39.0 Hematuria presence: without hematuria Urinary tract infection type: site unspecified Spinal stenosis M48.00 Hypertension I10 Renal artery stenosis I70.1 (1) Urinary tract infection Hematuria presence: without hematuria Urinary tract infection type: site unspecified Qualified Code(s): N39.0 - Urinary tract infection, site not specified
--- NOTE | 2020-08-13 14:15 | Surgery Consultation ---
Date of Consultation August 13, 2020 Assessment & Plan (1) Chronic ulcer of left ankle: pt is 84 year-old female who was consulted for left ankle chronic ulcer IMP: left ankle chronic ulcer Plan, recommend to do left ankle X-ray to R/O osteomyelitis, or MRI, continue iv antibiotic, may need consult orthopedic surgery if involved bone infection, will F/U, Present on Admission?: Yes Supervising Physician Co-Signing Physician Notes I personally saw and examined the patient. I verified all blackwell points and agree with MEGHA Jackson with the following exceptions and/or additions: 84-year-old female presents to the ER with acute alteration in mental status with paranoia and increased confusion with background dementia. Unable to get much history from the patient due to underlying altered mental status. Please see collateral history above taken from family members. Current symptoms appear consistent with urine tract infection. Patient is alert but disorientated x3. She tells me she is here because she has urine tract infection but cannot tell me about any symptoms or history leading up to this. Abdomen soft nontender. Bowel sounds normal. Chest clear to auscultation bilaterally. Plan to treat urine tract infection and monitor altered mental status. History of Present Illness Attending Physician: Ramiro Guerrero MD Chief Complaint: -- Altered Mental Status. -- UTI. -- Gait Disturbance. -- Severe Cervical Spinal Stenosis at level C1-C2. Primary Care Provider: Bart Cid MD Mrs. Grullon is an 84-year-old female with a history of Hypertension, Tricuspid Valve Disorder, Spinal Stenosis, Osteoporosis, Hyperparathyroidism, Hypercholesterolemia, Hypercalcemia, Allergic Rhinitis, Hearing Loss, Renal Artery Stenosis, and Leg Edema who was sent in to the ER by her family members via ambulance for Altered Mental Status. The vast majority of the history is collected from her daughter Seble Jade, and her Carl Grullon. Patient does not have any history of dementia according to family members, however sometime between and she had several days of being quite confused and paranoid. Apparently, patient seems to be able to walk most times, but there are times when she is unable walk or stand at all. Unfortunately, her cannot lift her up off floor if she falls as he is aged as well. She seemed to do okay throughout most of July, but last week patient became paranoid again -- accusing her of crawling around on the ground with a flashlight at night and being other things that he likes to do (she did not specify what those things are). She called her daughter on apparently was having night terrors, nightmares, or possibly even hallucinations. Therefore she when out in slept in the living room through the weekend. Then she was ambulating with her walker and she yelled for help because she could'nt move her feet, twice her or daughter was able to hold her up, but one time she was lowered to the ground. Nonetheless her ultimately called the ambulance this morning because of her level of confusion, do much for her. Patient's daughter gave me the same history. She does have chronic back pain and had prior surgery. She denies any acute injury to her back. She has not had any head injuries or any recent changes in her diet or oral intake. Patient does complain of some lower abdominal pain and dysuria as well. I ( Julianna Dwyer MD ) got a call for consult left ankle chronic ulcer, I reviewed pt's H/P, labs, with pt, pt denies fever, pt did not know how long pt had left ankle ulcer. Allergies Allergy/AdvReac Type Severity Reaction Status Date / Time lorazepam Allergy Severe ALTERED Verified 06/22/20 14:48 MENTAL STATUS Penicillins Allergy Intermediate SWELLING Verified 06/22/20 14:48 Sulfa (Sulfonamide Allergy Intermediate SWELLING Verified 06/22/20 14:48 Antibiotics) clonidine Allergy Unknown Unknown Verified 06/22/20 14:48 Home Medications Medication Instructions Recorded Confirmed Type calcium carbonate 600 mg(1,500 1 tab PO BID #180 tab 02/20/19 08/11/20 Rx mg)-vitamin D3 800 unit chewable tablet omega-3 acid ethyl esters 1 gram 1 cap PO BID cap 02/24/19 08/11/20 History capsule vitamins A,C,U-miqo-wkisba 14,320 1 cap PO BID 02/24/19 08/11/20 History unit-226 mg-200 unit capsule spironolactone 100 mg tablet 100 mg PO QAM #90 tab 11/17/19 08/11/20 Rx omeprazole 40 mg capsule,delayed 40 mg PO BID #180 cap 11/27/19 08/11/20 Rx release simvastatin 20 mg tablet 20 mg PO HS #90 tab 11/27/19 08/11/20 Rx denosumab 60 mg/mL subcutaneous 60 mg SQ Q6MO #1 ml 03/01/20 08/11/20 Rx syringe metoprolol succinate 100 mg 100 mg PO DAILY #90 tab 03/01/20 08/11/20 Rx tablet,extended release 24 hr mirabegron 50 mg tablet,extended 50 mg PO DAILY #30 tab 04/29/20 08/11/20 Rx release 24 hr amlodipine 2.5 mg PO QAM 05/30/20 08/11/20 History Past Med/Surg History Medical History Actinic keratosis Allergic rhinitis Anxiety Bilateral lower extremity edema Cardiac murmur NO ISSUES. PCP AWARE. Depression Disc degeneration, lumbar DVT (deep venous thrombosis) OCCURED AFTER D/T FALL. Edema of left lower extremity GERD (gastroesophageal reflux disease) History of basal cell carcinoma History of SCC (squamous cell carcinoma) of skin Hypercalcemia Hypercholesterolemia Hyperparathyroidism, primary Hypertension Osteoporosis with fracture Pre-diabetes Ptosis of both eyelids Renal artery stenosis FOLLOWS WITH NEPHRO IN [place], CURRENTLY TREATS MEDICATION. Retention of urine Seborrheic keratosis Sensorineural hearing loss of both ears Poorer WRS in the left ear Spinal stenosis Spondylolisthesis, acquired Squamous cell carcinoma in situ Stress incontinence in female Tricuspid valve disorder Urge and stress incontinence Vitamin D deficiency, unspecified Surgical History Fusion of spine LUMBAR X2 SURGERIES H/O oral surgery History of ankle surgery History of appendectomy History of back surgery History of cataract extraction with lens replacement History of colonoscopy History of herniorrhaphy Family History Brother Parkinsons disease Crohn's colitis Coronary heart disease Denies family history of No family history of adverse response to anesthesia No family history of bleeding disorder Heart disease Allergies Cancer Stroke Asthma Social History Smoking Status: Former smoker Tobacco Type: Cigarettes Age Started Using Tobacco: 20; Age Quit Using Tobacco: 55; packs per day: 1; Cigarettes Per Day: 20; Second Hand Exposure: No; Hx Alcohol Use: No Hx Substance Use: No Preferred Language: Argentine Communication Ability: Effective Furnace Room Supervisor Required: No Beliefs That Will Affect Care: None marital status: Current Living Situation: Spouse current occupational status: retired How many Children do You have: 3 Feels Safe at Home: Yes Seatbelt Use: always Sunscreen Use: No Assistive Devices: None Review of Systems Review of Systems: Unobtainable due to cognitive status Allergies Allergy/AdvReac Type Severity Reaction Status Date / Time lorazepam Allergy Severe ALTERED Verified 06/22/20 14:48 MENTAL STATUS Penicillins Allergy Intermediate SWELLING Verified 06/22/20 14:48 Sulfa (Sulfonamide Allergy Intermediate SWELLING Verified 06/22/20 14:48 Antibiotics) clonidine Allergy Unknown Unknown Verified 06/22/20 14:48 Home Medications Medication Instructions Recorded Confirmed Type calcium carbonate 600 mg(1,500 1 tab PO BID #180 tab 02/20/19 08/11/20 Rx mg)-vitamin D3 800 unit chewable tablet omega-3 acid ethyl esters 1 gram 1 cap PO BID cap 02/24/19 08/11/20 History capsule vitamins A,C,K-rodl-rgeuvv 14,320 1 cap PO BID 02/24/19 08/11/20 History unit-226 mg-200 unit capsule spironolactone 100 mg tablet 100 mg PO QAM #90 tab 11/17/19 08/11/20 Rx omeprazole 40 mg capsule,delayed 40 mg PO BID #180 cap 11/27/19 08/11/20 Rx release simvastatin 20 mg tablet 20 mg PO HS #90 tab 11/27/19 08/11/20 Rx denosumab 60 mg/mL subcutaneous 60 mg SQ Q6MO #1 ml 03/01/20 08/11/20 Rx syringe metoprolol succinate 100 mg 100 mg PO DAILY #90 tab 03/01/20 08/11/20 Rx tablet,extended release 24 hr mirabegron 50 mg tablet,extended 50 mg PO DAILY #30 tab 04/29/20 08/11/20 Rx release 24 hr amlodipine 2.5 mg PO QAM 05/30/20 08/11/20 History Patient History Medical History Actinic keratosis Allergic rhinitis Anxiety Bilateral lower extremity edema Cardiac murmur NO ISSUES. PCP AWARE. Depression Disc degeneration, lumbar DVT (deep venous thrombosis) OCCURED AFTER D/T FALL. Edema of left lower extremity GERD (gastroesophageal reflux disease) History of basal cell carcinoma History of SCC (squamous cell carcinoma) of skin Hypercalcemia Hypercholesterolemia Hyperparathyroidism, primary Hypertension Osteoporosis with fracture Pre-diabetes Ptosis of both eyelids Renal artery stenosis FOLLOWS WITH NEPHRO IN [place], CURRENTLY TREATS MEDICATION. Retention of urine Seborrheic keratosis Sensorineural hearing loss of both ears Poorer WRS in the left ear Spinal stenosis Spondylolisthesis, acquired Squamous cell carcinoma in situ Stress incontinence in female Tricuspid valve disorder Urge and stress incontinence Vitamin D deficiency, unspecified Surgical History Fusion of spine LUMBAR X2 SURGERIES H/O oral surgery History of ankle surgery History of appendectomy History of back surgery History of cataract extraction with lens replacement History of colonoscopy History of herniorrhaphy Family History Brother Parkinsons disease Crohn's colitis Coronary heart disease Denies family history of No family history of adverse response to anesthesia No family history of bleeding disorder Heart disease Allergies Cancer Stroke Asthma Social History Smoking Status: Former smoker Tobacco Type: Cigarettes Age Started Using Tobacco: 20; Age Quit Using Tobacco: 55; packs per day: 1; Cigarettes Per Day: 20; Second Hand Exposure: No; Hx Alcohol Use: No Hx Substance Use: No Preferred Language: Argentine Communication Ability: Effective Furnace Room Supervisor Required: No Beliefs That Will Affect Care: None marital status: Current Living Situation: Spouse current occupational status: retired How many Children do You have: 3 Feels Safe at Home: Yes Seatbelt Use: always Sunscreen Use: No Assistive Devices: Walker Physical Exam Constitutional: WD/WN, vitals as above well developed and well nourished Eyes: PERRL, conjunctivae normal, anicteric sclerae ENMT: external ear and nose normal, oropharynx normal Neck: trachea midline, no thyromegaly Respiratory: normal respiratory effort, lungs clear to auscultation normal respiratory effort Cardiovascular: Rate/Rhythm: regular rate and regular rhythm Gastrointestinal (Abdomen): normal bowel sounds, soft, nontender, no hepatosplenomegaly Musculoskeletal: chronic ulcer on left ankle, size about 1.5 x 1.5cm, with some chronic tissue, mild drainage, could not determine how deep the wound Skin: chronic ulcer on left ankle, size about 1.5 x 1.5cm, with some chronic tissue, mild drainage, Neurologic: awake Psychiatric: Orientation: alert and oriented x 3 Results & Data ([facility]) Vital Signs (Past 12 Hours) Vital Signs Temp Pulse Resp BP Pulse Ox 08/13/20 11:15 36.3 C L 68 18 123/71 98 08/13/20 08:17 36.4 C L 80 16 130/65 93 08/13/20 05:36 36.4 C L 86 18 120/72 97 08/13/20 04:00 36.6 C 80 18 142/71 H 96 Laboratory Results Abnormal lab results 08/13/20 08/13/20 Range/Units 06:03 06:03 RBC 3.66 L (4.2-5.4) M/uL Hgb 10.7 L (12.0-16.0) g/dL Hct 33.9 L (37-47) % MCHC 31.6 L (32-36) g/dL Neut # (Auto) 8.16 H (1.4-6.5) K/uL Lymph # (Auto) 0.85 L (1.2-3.4) K/uL [place] # (Auto) 0.85 H (0.11-0.59) K/uL Immature Gran # (Auto) 0.03 H (0.00-0.02) K/uL Glucose 63 L (70-99) mg/dl
--- NOTE | 2020-08-13 15:19 | XRay Report ---
XR ankle LT min 3V routine CLINICAL HISTORY: Left ankle ulcer. COMPARISON: None FINDINGS: Alignment of the left ankle is anatomic. There is no acute fracture. There is no evidence for osteomyelitis. There is minimal posterior calcaneal spurring. IMPRESSION: No acute fracture. No evidence for osteomyelitis within the left ankle. ACT 112: Negative or not required by law. Electronically signed by: Pablo Patel M.D. 08/13/2020 3:18 PM
[2020-08-13] MEDS: SIMVASTATIN 20 MG TAB PO SCH (21:04)
[2020-08-14] MEDS: HEPARIN SOD 5,000 UNIT/0.5 ML VIAL SQ SCH ×2 (07:39→20:50)
[2020-08-14] MEDS: OMEGA-3 (PURIFIED FISH OIL) 1 GM CAP PO SCH ×2 (07:39→20:49)
[2020-08-14] MEDS: CALCIUM 600MG + VIT D 400 IU TAB PO SCH ×2 (07:39→20:49)
[2020-08-14] MEDS: amLODIPine BESYLATE 5 MG TAB PO SCH (07:40)
[2020-08-14] MEDS: MIRABEGRON ER 25 MG TAB PO SCH (07:40)
[2020-08-14] MEDS: PANTOprazole 40 MG TAB PO SCH ×2 (07:40→20:49)
[2020-08-14] MEDS: SPIRONOLACTONE 100 MG TAB PO SCH (07:40)
[2020-08-14] MEDS: METOPROLOL SUCC 50MG EXT REL TAB PO SCH (07:40)
[2020-08-14] MEDS: CEROVITE ADV FORMULA TAB PO SCH ×2 (07:41→20:49)
--- NOTE | 2020-08-14 08:59 | Consultation ---
Date of Consultation August 14, 2020 Assessment & Plan (1) Stenosis of cervical spine with myelopathy: Pt has severe C1-C2 stenosis noted on recent cervical CT. This could explain some of her gait disturbances. She is a difficult historian. I would recommend further imaging to better asses her cervical stenosis in the form a cervical MRI, no contrast needed. If performed today, Dr. Navarro will review tomorrow and be better able to make recommendations. This may have to be referred to a tertiary care center for follow up. Supervising Physician Co-Signing Physician Notes Dr. Jairon Navarro History of Present Illness This is an 84yo female whole presents to the ED 2/3 with altered mental status, gait disturbance. SHe was found to have a UTI. COnfusion seems to have improved. We have been asked to see her in consultation regarding cervical spinal stenosis C1-C2. We have performed prior lumbar surgery on her many years ago with complicated recovery. Due to her being very hard of hearing, I've obtained most of my information from provider notes. She ambulates with a walker at home where she lives with her . Family has witnessed balance changes and difficulty walking. Attending Physician: Miguelina Post DO Allergies Allergy/AdvReac Type Severity Reaction Status Date / Time lorazepam Allergy Severe ALTERED Verified 06/22/20 14:48 MENTAL STATUS Penicillins Allergy Intermediate SWELLING Verified 06/22/20 14:48 Sulfa (Sulfonamide Allergy Intermediate SWELLING Verified 06/22/20 14:48 Antibiotics) clonidine Allergy Unknown Unknown Verified 06/22/20 14:48 Home Medications Medication Instructions Recorded Confirmed Type calcium carbonate 600 mg(1,500 1 tab PO BID #180 tab 02/20/19 08/11/20 Rx mg)-vitamin D3 800 unit chewable tablet omega-3 acid ethyl esters 1 gram 1 cap PO BID cap 02/24/19 08/11/20 History capsule vitamins A,C,W-htie-yaqupm 14,320 1 cap PO BID 02/24/19 08/11/20 History unit-226 mg-200 unit capsule spironolactone 100 mg tablet 100 mg PO QAM #90 tab 11/17/19 08/11/20 Rx omeprazole 40 mg capsule,delayed 40 mg PO BID #180 cap 11/27/19 08/11/20 Rx release simvastatin 20 mg tablet 20 mg PO HS #90 tab 11/27/19 08/11/20 Rx denosumab 60 mg/mL subcutaneous 60 mg SQ Q6MO #1 ml 03/01/20 08/11/20 Rx syringe metoprolol succinate 100 mg 100 mg PO DAILY #90 tab 03/01/20 08/11/20 Rx tablet,extended release 24 hr mirabegron 50 mg tablet,extended 50 mg PO DAILY #30 tab 04/29/20 08/11/20 Rx release 24 hr amlodipine 2.5 mg PO QAM 05/30/20 08/11/20 History Patient History Medical History Actinic keratosis Allergic rhinitis Anxiety Bilateral lower extremity edema Cardiac murmur NO ISSUES. PCP AWARE. Depression Disc degeneration, lumbar DVT (deep venous thrombosis) OCCURED AFTER D/T FALL. Edema of left lower extremity GERD (gastroesophageal reflux disease) History of basal cell carcinoma History of SCC (squamous cell carcinoma) of skin Hypercalcemia Hypercholesterolemia Hyperparathyroidism, primary Hypertension Osteoporosis with fracture Pre-diabetes Ptosis of both eyelids Renal artery stenosis FOLLOWS WITH NEPHRO IN [place], CURRENTLY TREATS MEDICATION. Retention of urine Seborrheic keratosis Sensorineural hearing loss of both ears Poorer WRS in the left ear Spinal stenosis Spondylolisthesis, acquired Squamous cell carcinoma in situ Stress incontinence in female Tricuspid valve disorder Urge and stress incontinence Vitamin D deficiency, unspecified Surgical History Fusion of spine LUMBAR X2 SURGERIES H/O oral surgery History of ankle surgery History of appendectomy History of back surgery History of cataract extraction with lens replacement History of colonoscopy History of herniorrhaphy Family History Brother Parkinsons disease Crohn's colitis Coronary heart disease Denies family history of No family history of adverse response to anesthesia No family history of bleeding disorder Heart disease Allergies Cancer Stroke Asthma Social History Smoking Status: Former smoker Tobacco Type: Cigarettes Age Started Using Tobacco: 20; Age Quit Using Tobacco: 55; packs per day: 1; Cigarettes Per Day: 20; Second Hand Exposure: No; Hx Alcohol Use: No Hx Substance Use: No Preferred Language: Divehi Communication Ability: Effective Tax Representative Required: No Beliefs That Will Affect Care: None marital status: Current Living Situation: Spouse current occupational status: retired How many Children do You have: 3 Feels Safe at Home: Yes Seatbelt Use: always Sunscreen Use: No Assistive Devices: None Review of Systems Review of Systems: All systems reviewed & are unremarkable except as noted in HPI & below Physical Exam Physical Exam: cooperative alert + hoffmans b/l brisk global reflexes b/l upgoing toes b/l Constitutional: + thin Eyes: normal visual busch by confrontation ENMT: Ears: + hearing impairment Neck: normal visual inspection Respiratory: normal respiratory effort Cardiovascular: Extremities: normal capillary refill Gastrointestinal (Abdomen): Inspection/Auscultation: abdomen normal to inspection Musculoskeletal: Extremities: extremities normal to inspection Skin: no rashes, warm and dry Neurologic: moves all extremities and awake Psychiatric: Orientation: alert Eye Contact: good eye contact Results & Data ([facility]) Vital Signs (Past 12 Hours) Vital Signs Temp Pulse Pulse Resp BP BP Pulse Ox 08/14/20 08:00 78 08/14/20 07:21 36.7 C 78 19 162/73 H 94 08/14/20 03:05 37 C 69 18 144/76 H 94 08/14/20 00:43 69 08/13/20 23:02 37.0 C 77 18 158/84 H 95 Diagnostic Findings [facility], [id number] CT Scan Report Patient: STACI REAGAN EAdmit Date: 08/11/20#: [id number]: [address] [facility] ID:[id number]: Date: [address] p: MEGHA LEONE [id number]: 84Location: EDSex: FRoom/Bed:Att Phy:Diagnosis: BACK INJURY/PAINPri Phy: Bart Cid MDService Date: 08/11/20Fam Phy:Interpreting Phy: Kunal HolcombAdmyannick Phy: Ordering Phy: Dominick Carrillo DO cc: ~ CT cervical spine wo con CLINICAL HISTORY: 84 years-old Female with fall. Acute head and neck injury status post fall COMPARISON: CT head of same day, CT cervical spine 05/31/2020 TECHNIQUE: Multiple axial CT images of the cervical spine were obtained without contrast. A dose lowering technique was utilized adhering to the principles of ALARA. FINDINGS: Demineralized appearance of the bones. Multilevel intervertebral disc space narrowing, severe at C6-C7. Moderate to severe multilevel spondylitic spurring with posterior disc osteophyte complex formations and moderate to severe facet arthrosis. Chronic superior endplate compression deformities at T1 and T2 with likely chronic fracture deformity at T3. 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 No change from comparison. There is developmental incomplete bony fusion involving the posterior arch of C1. Multilevel central canal and foraminal narrowing. No acute fracture or subluxation. No pneumothorax. Calcified plaque of the carotid bulbs. No prevertebral edema. Chronic appearing fracture of the right clavicle. Mild wall thickening of the proximal esophagus. IMPRESSION: 1. No acute fracture or subluxation. 2. 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 ACT 112: Negative or not required by law. The above report was generated using voice recognition software. It may contain grammatical, syntax or spelling errors. Electronically signed by: Hair Holcomb M.D. 08/11/2020 2:24 PM Dictated: 08/11/20 1404Transcribed: 08/11/20 1404
--- NOTE | 2020-08-14 10:47 | Magnetic Resonance Report ---
Brain MRI WITHOUT CONTRAST HISTORY: Confusion. encephalopathy TECHNIQUE: Multiplanar multisequence MRI of the brain was performed without the use of contrast. COMPARISON STUDY: Head CT 08/11/2020. FINDINGS: There is no hematoma, midline shift, or acute infarct. The mastoid air cells are clear. The ventricles and sulci demonstrate moderate age-related involutional changes. Scattered foci of T2 hyp erintensity seen within the periventricular and subcortical white matter are nonspecific but suggesti ve of moderate microvascular ischemic changes. The major vascular flow voids at the skull base are we ll-maintained. Mild mucosal thickening within the ethmoid air cells. Chronic odontoid fracture remain s unchanged resulting in severe central canal narrowing at the cervicomedullary junction. Stable 1.3 cm heterogeneous nodular focus posterior to the medulla at the midline of the posterior fossa. This r emains unchanged compared to [address] and and is therefore of doubtful clinical significance. IMPRESSION: 1. No acute infarct. 2. Moderate atrophy and microvascular ischemic changes. 3. Stable 1.3 cm heterogeneous nodular focus posterior to the medulla the midline of the posterior fo ssa. This remains unchanged compared to the [address] and is therefore of doubtful clinical signif icance. ACT 112: Negative or not required by law. Electronically signed by: Ace Alvares M.D. 08/14/2020 10:46 AM
[2020-08-14] MEDS: CIPROFLOXACIN / D5W 400 MG/200 ML BAG IV SCH ×2 (11:07→21:21)
--- NOTE | 2020-08-14 11:14 | Magnetic Resonance Report ---
CERVICAL SPINE MRI HISTORY: cervical stenosis C1-C2 TECHNIQUE: Multiplanar multisequence MRI of the cervical spine was performed without the use of contr ast. COMPARISON STUDY: Cervical spine CT 08/11/2020. FINDINGS: There is normal type II odontoid fracture which is fused anteriorly. There is chronic anter ior displacement of the tip of the odontoid measure up to 7 mm. This is also unchanged. The C1-C2 int erval is intact. However, the displacement results in basilar invagination with severe narrowing at t he C1-C2 level/foramen magnum. The central canal at this location measures 5.7 mm in AP diameter and results in mild cord deformity. However, there is no abnormal cord signal at this level. Redemonstrat ion of the 1.2 cm extra-axial cystic lesion posterior to the medulla within the midline of the potter or ceramic artist ior fossa. There are old mild superior endplate compression deformities within the upper thoracic spi ne. No acute fracture or subluxation within the cervical spine. Trace prevertebral edema which may be chronic. Severe disc space narrowing at C5-C6 and C6-C7. Moderate disc space narrowing at C4-C5. C2-C3: Small broad-based posterior disc bulge without significant central canal or neural foraminal n arrowing. C3-C4: Small broad-based posterior disc bulge resulting in mild central canal narrowing. C4-C5: Small broad-based posterior disc bulge with ligamentum and facet hypertrophy resulting in mode rate central canal narrowing with mild anterior cord deformity. Severe bilateral neural foraminal devin rowing. C5-C6: Small broad-based posterior disc bulge with ligamentum and facet hypertrophy resulting in mode rate central canal narrowing with mild cord deformity. Severe bilateral neural foraminal narrowing. C6-C7: Small broad-based posterior disc bulge with ligamentum and facet hypertrophy resulting in mild central canal narrowing with minimal cord deformity. There is also mild right and severe left neural foraminal narrowing. C7-T1: No significant central canal or neural foraminal narrowing. IMPRESSION: 1. 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 This remains unchanged. This results in mild cord deformity w ithout abnormal cord signal. 2. Multilevel cervical spondylosis as described above most pronounced at the C4-C5 and C5-C6 levels r esulting in moderate central canal narrowing. There is also multilevel bilateral neural foraminal devin rowing. 3. Old, healed superior endplate compression fractures within the visualized thoracic spine. No acute fractures identified within the cervical spine. 4. Trace prevertebral edema. This nonspecific but may be chronic. 5. Redemonstration of the 1.2 cm extra-axial cystic lesion posterior to the medulla within the midlin e the posterior fossa. ACT 112: Negative or not required by law. Electronically signed by: Ace Alvares M.D. 08/14/2020 11:12 AM
--- NOTE | 2020-08-14 13:50 | Surgery Progress Note ---
Date of Service F/U left ankle ulcer, X-ray- no osteomyelitis-IMPRESSION: No acute fracture. No evidence for osteomyelitis within the left ankle. no fever, August 14, 2020 Assessment & Plan (1) Chronic ulcer of left ankle: pt is 84 year-old female who was consulted for left ankle chronic ulcer IMP: left ankle chronic ulcer Plan, recommend to do left ankle X-ray to R/O osteomyelitis, or MRI, continue iv antibiotic, may need consult orthopedic surgery if involved bone infection, will F/U, 08/14/2020 1:52PM IMP: left ankle chronic ulcer Plan, recommend to consult wound care surgeon or nurse for chemical debridement first, will F/U Admission and Anticipated Discharge Date Admission Date: August 11, 2020 Supervising Physician Co-Signing Physician Notes Dr. Jairon Navarro Subjective Mental status is markedly improved today and she is pleasant. She agrees to undergo MRI scan of the brain and C-spine to further evaluate the C1-C2 stenosis. Orthopedic surgery consult for their opinion on treatment options. General surgery also consulted to evaluate the left lateral ankle wound. It may need debridement according to wound care nurse. Urine culture growing E. coli which is pansensitive. She currently is on Cipro. Physical Exam 2 Constitutional: WD/WN, vitals as above well developed and well nourished Eyes: PERRL, conjunctivae normal, anicteric sclerae ENMT: external ear and nose normal, oropharynx normal Neck: trachea midline, no thyromegaly Respiratory: normal respiratory effort, lungs clear to auscultation normal respiratory effort Cardiovascular: Rate/Rhythm: regular rate and regular rhythm Gastrointestinal (Abdomen): normal bowel sounds, soft, nontender, no hepatosplenomegaly Skin: left ankle chronic ulcer, no drainage some chronic tissue cover the ulcer, size about 1.5x1.5cm, Neurologic: awake Psychiatric: Orientation: alert and oriented x 3 Results & Data ([facility]) Vital Signs (Past 12 Hours) Vital Signs Temp Pulse Pulse Resp BP BP Pulse Ox 08/14/20 11:26 36.4 C L 75 20 153/72 H 94 08/14/20 08:00 78 08/14/20 07:21 36.7 C 78 19 162/73 H 94 08/14/20 03:05 37 C 69 18 144/76 H 94
--- NOTE | 2020-08-14 16:37 | Hospitalist Progress Note ---
Date of Service August 14, 2020 Assessment & Plan (1) Acute alteration in mental status: Reported as improved with treatment of UTI, however still with ongoing sx Psychiatry evaluation pending Neuro feels UTI with encephalopathy vs myelopathy vs worsening dementia Ortho recs for MRI brain, c-spine--awaiting input B12, folate, Lyme pending MCV is higher end of normal TSH WNL PRP, CBC WNL CXR neg for acute Utox neg (2) Urinary tract infection: Present on admission. Started on ceftriaxone on admission and then to parenteral Cipro started on 08/12 E. coli isolated, pansensitive. (3) Spinal stenosis: Cervical spinal stenosis at the C1-C2 level noted on CT scan. Cervical spine MRI ordered along with orthospine consultation. Appreciate neurology input. (4) Hypertension: Medical management (5) Renal artery stenosis: Medical management. Monitor blood pressure DVT prophylaxis: Heparin or Lovenox subcu Disposition: To be determined (6) Chronic ulcer of left ankle: XR neg for osteo Gen surg following [facility] c/s pending Admission and Anticipated Discharge Date Admission Date: August 11, 2020 Subjective Pt remains confused per nursing. Seems to be having hallucinations still, but is cooperative overall. Pt denies fever, SOB, chest pain, abd pain, n/v/c/d, LE pain or swelling. Tolerating PO without issue. Review of Systems Review of Systems: Pertinent positives and negatives reviewed in HPI--all others negative Physical Exam Constitutional: WD/WN, vitals as above Eyes: normal visual busch by confrontation and + anicteric sclerae Neck: normal visual inspection and trachea midline Respiratory: normal respiratory effort, lungs clear to auscultation Cardiovascular: Rate/Rhythm: regular rate and regular rhythm Gastrointestinal (Abdomen): Inspection/Auscultation: abdomen not distended Percussion/Palpation: abdomen soft; abdomen nontender Musculoskeletal: Head/Neck/Chest: normocephalic and head atraumatic negative for edema, peripheral pulses intact Skin: no rashes, warm and dry Neurologic: awake; not confused Speech / Cognition: normal speech Psychiatric: Orientation: oriented to person and cooperative Results & Data Results & Data ([facility]) Vital Signs (Past 12 Hours) Vital Signs Temp Pulse Pulse Resp BP Pulse Ox 08/14/20 16:16 36.5 C 66 19 120/56 L 95 08/14/20 16:00 78 08/14/20 11:26 36.4 C L 75 20 153/72 H 94 08/14/20 08:00 78 08/14/20 07:21 36.7 C 78 19 162/73 H 94 PG Care Time/CCT Total # of Minutes Spent Total Time Spent with Patient: Total time spent is greater than 50% in coordination of care (as documented) at patient's floor/unit and/or counseling patient: Coding Level of Care Code 51237 Subseq Hosp Care Lvl 3 Diagnoses Acute alteration in mental status R41.82 Urinary tract infection N39.0 Hematuria presence: without hematuria Urinary tract infection type: site unspecified Spinal stenosis M48.00 Hypertension I10 Renal artery stenosis I70.1 Chronic ulcer of left ankle L97.329 (1) Urinary tract infection Hematuria presence: without hematuria Urinary tract infection type: site unspecified Qualified Code(s): N39.0 - Urinary tract infection, site not specified
[2020-08-14] MEDS: ACETAMINOPHEN 325 MG TAB PO PRN (19:51)
[2020-08-14] MEDS: SIMVASTATIN 20 MG TAB PO SCH (20:49)
[2020-08-15 07:28] LABS: Folate (Folic Acid) > 20.00 ng/ml (>5.38); Vitamin B12 902 pg/ml (193-986)
[2020-08-15 07:37] LABS: Lyme Ab IgG w/WB Rflx Negative (Negative); Lyme Ab IgM w/WB Rflx Negative (Negative)
--- NOTE | 2020-08-15 09:25 | Surgery Progress Note ---
Date of Service F/U left ankle ulcer, X-ray- no osteomyelitis-IMPRESSION: No acute fracture. No evidence for osteomyelitis within the left ankle. no fever, August 15, 2020 Assessment & Plan (1) Chronic ulcer of left ankle: pt is 84 year-old female who was consulted for left ankle chronic ulcer IMP: left ankle chronic ulcer Plan, recommend to do left ankle X-ray to R/O osteomyelitis, or MRI, continue iv antibiotic, may need consult orthopedic surgery if involved bone infection, will F/U, 08/14/2020 1:52PM IMP: left ankle chronic ulcer Plan, recommend to consult wound care surgeon or nurse for chemical debridement first, will F/U 08/15/2020 9:23AM IMP: left ankle chronic ulcer, normal WBC, no fever, Plan, recommend to consult wound care surgeon or nurse for chemical debridement first, pt is not candidate for surgical debridement. sign off today, please call with questions , Thanks, Admission and Anticipated Discharge Date Admission Date: August 11, 2020 Supervising Physician Co-Signing Physician Notes Dr. Jairon Navarro Subjective Pt remains confused per nursing. Seems to be having hallucinations still, but is cooperative overall. Pt denies fever, SOB, chest pain, abd pain, n/v/c/d, LE pain or swelling. Tolerating PO without issue. Physical Exam Constitutional: WD/WN, vitals as above well developed and well nourished Eyes: PERRL, conjunctivae normal, anicteric sclerae ENMT: external ear and nose normal, oropharynx normal Neck: trachea midline, no thyromegaly Respiratory: normal respiratory effort, lungs clear to auscultation normal respiratory effort Cardiovascular: Rate/Rhythm: regular rate and regular rhythm Gastrointestinal (Abdomen): normal bowel sounds, soft, nontender, no hepatosplenomegaly Skin: left ankle chronic ulcer, no change, not worse, Neurologic: awake Psychiatric: Orientation: alert and oriented x 3 Results & Data ([facility]) Vital Signs (Past 12 Hours) Vital Signs Temp Pulse Pulse Resp BP Pulse Ox 08/15/20 07:08 68 08/15/20 06:52 36.6 C 65 16 161/89 H 95 08/15/20 03:07 36.6 C 55 L 16 124/56 L 94 08/14/20 23:35 68 08/14/20 23:16 36.5 C 62 16 120/60 94
[2020-08-15] MEDS: METOPROLOL SUCC 50MG EXT REL TAB PO SCH (09:36)
[2020-08-15] MEDS: PANTOprazole 40 MG TAB PO SCH ×2 (09:37→21:04)
[2020-08-15] MEDS: CEROVITE ADV FORMULA TAB PO SCH ×2 (09:37→21:04)
[2020-08-15] MEDS: OMEGA-3 (PURIFIED FISH OIL) 1 GM CAP PO SCH ×2 (09:37→21:05)
[2020-08-15] MEDS: MIRABEGRON ER 25 MG TAB PO SCH (09:37)
[2020-08-15] MEDS: CIPROFLOXACIN / D5W 400 MG/200 ML BAG IV SCH ×2 (09:38→21:46)
[2020-08-15] MEDS: SPIRONOLACTONE 100 MG TAB PO SCH (09:38)
[2020-08-15] MEDS: HEPARIN SOD 5,000 UNIT/0.5 ML VIAL SQ SCH ×2 (09:39→21:16)
--- NOTE | 2020-08-15 09:41 | Neurology Progress Note ---
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 Although 2-4, she was very paranoid and would not answer questions or follow commands, she was quite pleasant and cooperative 2-5. She apparently has remained this way but is very sleepy this morning. I note that she did not have any benzodiazepines were other medications that would make her sleepy. Her altered mental status / mild encephalopathy , therefore, is improved and this is likely due to the treatment of the E coli urinary tract infection. On exam , she has had brisk reflexes in the arms and upgoing toes bilaterally. Her legs are weak and she cannot walk well. The leg weakness may also be due, in part, to lumbar spine disease, and she is post laminectomy with fusion, by Dr. Navarro in 2013. MRI of the cervical spine shows significant spinal stenosis at C1-2 from the old fracture and she has cord impingement without obvious cord edema. There is other spinal stenosis from disc and bone from C4 through C6. This explains her myelopathy. 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 She has underlying dementia as Recommendations: 1. Continue treating urinary tract infection 2. I did speak with Dr. Navarro prior to the MRIs and we are awaiting his final impression regarding the C1-2 spinal stenosis. Overall, however, I believe this would be a very difficult surgery and she is a poor surgical candidate for this. 4. Consider EMG and nerve conduction studies of the lower extremities (and possibly arms) as an outpatient. Overall, spent a total of 35 minutes with this case including review of records, review of MRI films, direct evaluation of the patient at bedside, and discussion of the case with the patient and RN at bedside, and Dr. Gould, including differential diagnosis and treatment options. Admission and Anticipated Discharge Date Admission Date: August 11, 2020 Subjective Patient is very sleepy but arousable. She has no complaint of pain. Blood pressure is 161/89 she is afebrile. She has no new issues the last 20 MRI of the brain revealed diffuse moderate atrophy with moderate old small vessel ischemia. There was no new stroke changes were consistent with a data reviewed these films. MRI of the cervical spine showed severe stenosis at C1-2 causing cord impingem ent but no cord edema. The opening is about 50 percent of what it should be. In addition there is significant spinal stenosis from C4 through C6 due to disc and bone. The cord is not impinged at these levels. I reviewed these films as well. Results & Data ([facility]) Vital Signs (Past 12 Hours) Vital Signs Temp Pulse Pulse Resp BP Pulse Ox 08/15/20 07:08 68 08/15/20 06:52 36.6 C 65 16 161/89 H 95 08/15/20 03:07 36.6 C 55 L 16 124/56 L 94 08/14/20 23:35 68 08/14/20 23:16 36.5 C 62 16 120/60 94 Exam (Neuro) Physical Exam: Patient is sleepy in easily arousable with general shaken voice. She opens her eyes and makes eye contact. She will stated few words. When left alone she drifts back to sleep. She has no abnormal involuntary movements and limb strength seems symmetrical. There is no facial droop. PG Care Time/CCT Total # of Minutes Spent Total Time Spent with Patient: Total time spent is greater than 50% in coordination of care (as documented) at patient's floor/unit and/or counseling patient: Coding Level of Care Code 59298 Subseq Hosp Care Lvl 3 Diagnoses Acute alteration in mental status R41.82 Dementia F03.91 Dementia behavioral disturbance: with behavioral disturbance Dementia type: unspecified type Leg weakness, bilateral R29.898 Stenosis of cervical spine with myelopathy M48.02; G99.2 Sensorineural hearing loss of both ears H90.3 Time Spent (min) 35 (1) Dementia Dementia behavioral disturbance: with behavioral disturbance Dementia type: unspecified type Qualified Code(s): F03.91 - Unspecified dementia with be havioral disturbance
[2020-08-15] MEDS: CALCIUM 600MG + VIT D 400 IU TAB PO SCH ×2 (09:42→21:05)
[2020-08-15] MEDS: amLODIPine BESYLATE 5 MG TAB PO SCH (09:43)
--- NOTE | 2020-08-15 10:46 | Orthopedic Progress Note ---
Date of Service August 15, 2020 Assessment & Plan (1) Stenosis of cervical spine with myelopathy: Admission and Anticipated Discharge Date Admission Date: August 11, 2020 I the opportunity review the cervical MRI. Does demonstrate a healed type II odontoid fracture with complete anterior displacement. There is severe spinal stenosis at the C1-C2 level. I do not appreciate any gross cord edema. She has advanced spondylosis to the lower regions of her cervical spine as well. At this point I suspect a portion of her myelopathy is in fact related to her cervical spine disease however any surgical intervention would be extensive and she is a very poor surgical candidate. I did not see any reason for cervical immobilization by way of a collar as the fracture is stable at this time. She should undergo activity as tolerated. Subjective Patient resting comfortably at the time of my visit. Results & Data ([facility]) Vital Signs (Past 12 Hours) Vital Signs Temp Pulse Pulse Resp BP Pulse Ox 08/15/20 07:08 68 08/15/20 06:52 36.6 C 65 16 161/89 H 95 08/15/20 03:07 36.6 C 55 L 16 124/56 L 94 08/14/20 23:35 68 08/14/20 23:16 36.5 C 62 16 120/60 94
--- NOTE | 2020-08-15 13:21 | Hospitalist Progress Note ---
Date of Service August 15, 2020 Assessment & Plan (1) Acute alteration in mental status: Reported as improved with treatment of UTI, however still with ongoing sx Psychiatry evaluation pending Neuro feels tx of UTI has improved pt's mentation but also suspects some level of underlying dementia causing pt's sx Ortho reviewed imaging. Feels that at least some of her myelopathy is related to severe c-spine issues, however OR would be extensive and she is not a good candidate for this type of operation She does not need to be immobilized at this time B12, folate WNL, Lyme neg MCV is higher end of normal TSH WNL PRP, CBC WNL CXR neg for acute Utox neg (2) Urinary tract infection: Present on admission. Started on ceftriaxone on admission and then to parenteral Cipro started on / E. coli isolated, pansensitive. (3) Spinal stenosis: Cervical spinal stenosis at the C1-C2 level noted on CT scan. Cervical spine MRI ordered along with orthospine consultation. Appreciate neurology input. (4) Hypertension: Medical management (5) Renal artery stenosis: Medical management. Monitor blood pressure DVT prophylaxis: Heparin or Lovenox subcu Disposition: To be determined (6) Chronic ulcer of left ankle: XR neg for osteo Gen surg following [facility] c/s pending Admission and Anticipated Discharge Date Admission Date: August 11, 2020 Subjective Pt denies any concerns today other than her ongoing back pain. Tolerating PO. Pt denies fever, SOB, chest pain, abd pain, n/v/c/d, LE pain or swelling. Spoke with via phone. He states that he and other family wish to bring pt home with N as she does much better at home vs rehab, even before COVID when they could visit her daily. He does not think she will do well at rehab given all of the COVID related restrictions. Review of Systems Review of Systems: Pertinent positives and negatives reviewed in HPI--all others negative Physical Exam Constitutional: WD/WN, vitals as above + thin Eyes: normal visual busch by confrontation and + anicteric sclerae Neck: normal visual inspection and trachea midline Respiratory: normal respiratory effort, lungs clear to auscultation Cardiovascular: Rate/Rhythm: regular rate and regular rhythm Gastrointestinal (Abdomen): Inspection/Auscultation: abdomen not distended Percussion/Palpation: abdomen soft; abdomen nontender Musculoskeletal: Head/Neck/Chest: normocephalic and head atraumatic Skin: no rashes, warm and dry Neurologic: awake; not confused Speech / Cognition: normal speech Psychiatric: Orientation: oriented to person and cooperative Results & Data Results & Data ([facility]) Vital Signs (Past 12 Hours) Vital Signs Temp Pulse Pulse Resp BP Pulse Ox 08/15/20 11:05 36.5 C 63 18 131/63 95 08/15/20 10:54 36.7 C 72 18 96 08/15/20 07:08 68 08/15/20 06:52 36.6 C 65 16 161/89 H 95 08/15/20 03:07 36.6 C 55 L 16 124/56 L 94 PG Care Time/CCT Total # of Minutes Spent Total Time Spent with Patient: Total time spent is greater than 50% in coordination of care (as documented) at patient's floor/unit and/or counseling patient: Coding Level of Care Code 92457 Subseq Hosp Care Lvl 3 Diagnoses Acute alteration in mental status R41.82 Urinary tract infection N39.0 Hematuria presence: without hematuria Urinary tract infection type: site unspecified Spinal stenosis M48.00 Hypertension I10 Renal artery stenosis I70.1 Chronic ulcer of left ankle L97.329 (1) Urinary tract infection Hematuria presence: without hematuria Urinary tract infection type: site unspecified Qualified Code(s): N39.0 - Urinary tract infection, site not specified
[2020-08-15] MEDS: SIMVASTATIN 20 MG TAB PO SCH (21:03)
[2020-08-16] MEDS: SPIRONOLACTONE 100 MG TAB PO SCH ×2 (09:10→10:34)
[2020-08-16] MEDS: METOPROLOL SUCC 50MG EXT REL TAB PO SCH ×2 (09:11→10:35)
[2020-08-16] MEDS: amLODIPine BESYLATE 5 MG TAB PO SCH ×2 (09:11→10:35)
[2020-08-16] MEDS: PANTOprazole 40 MG TAB PO SCH ×3 (09:11→20:44)
[2020-08-16] MEDS: MIRABEGRON ER 25 MG TAB PO SCH ×2 (09:11→10:35)
[2020-08-16] MEDS: OMEGA-3 (PURIFIED FISH OIL) 1 GM CAP PO SCH ×3 (09:11→20:44)
[2020-08-16] MEDS: CEROVITE ADV FORMULA TAB PO SCH ×3 (09:11→20:44)
[2020-08-16] MEDS: CALCIUM 600MG + VIT D 400 IU TAB PO SCH ×3 (09:12→20:44)
[2020-08-16] MEDS: HEPARIN SOD 5,000 UNIT/0.5 ML VIAL SQ SCH ×3 (09:12→20:40)
[2020-08-16] MEDS: CIPROFLOXACIN / D5W 400 MG/200 ML BAG IV SCH ×2 (09:17→22:21)
--- NOTE | 2020-08-16 14:15 | Surgery Progress Note ---
Date of Service F/U left ankle chronic ulcer, the wound is better, minimal chronic tissue, no sarahy, August 16, 2020 Assessment & Plan (1) Chronic ulcer of left ankle: pt is 84 year-old female who was consulted for left ankle chronic ulcer IMP: left ankle chronic ulcer Plan, recommend to do left ankle X-ray to R/O osteomyelitis, or MRI, continue iv antibiotic, may need consult orthopedic surgery if involved bone infection, will F/U, 08/14/2020 1:52PM IMP: left ankle chronic ulcer Plan, recommend to consult wound care surgeon or nurse for chemical debridement first, will F/U 08/15/2020 9:23AM IMP: left ankle chronic ulcer, normal WBC, no fever, Plan, recommend to consult wound care surgeon or nurse for chemical debridement first, pt is not candidate for surgical debridement. sign off today, please call with questions , Thanks, 08/16/2020 2:11PM, I recommend to use enzymatic debridement left ankle wound, Collegenase Stantyl ointment once a day, D/W wound care nurse Agnes, will F/U Admission and Anticipated Discharge Date Admission Date: August 11, 2020 Supervising Physician Co-Signing Physician Notes Dr. Jairon Navarro Subjective Pt denies any concerns today other than her ongoing back pain. Tolerating PO. Pt denies fever, SOB, chest pain, abd pain, n/v/c/d, LE pain or swelling. Spoke with via phone. He states that he and other family wish to bring pt home with N as she does much better at home vs rehab, even before COVID when they could visit her daily. He does not think she will do well at rehab given all of the COVID related restrictions. Physical Exam Constitutional: WD/WN, vitals as above well developed and well nourished Eyes: PERRL, conjunctivae normal, anicteric sclerae ENMT: external ear and nose normal, oropharynx normal Neck: trachea midline, no thyromegaly Respiratory: normal respiratory effort, lungs clear to auscultation normal respiratory effort Cardiovascular: Rate/Rhythm: regular rate and regular rhythm Gastrointestinal (Abdomen): normal bowel sounds, soft, nontender, no hepatosplenomegaly Skin: left ankle chronic ulcer, better, some new granulation tissue, minimal chronic tissue, no drainage Neurologic: awake Psychiatric: Orientation: alert Results & Data ([facility]) Vital Signs (Past 12 Hours) Vital Signs Temp Pulse Pulse Resp BP Pulse Ox 08/16/20 11:06 36.5 C 74 20 132/75 95 08/16/20 07:20 74 08/16/20 06:52 36.3 C L 74 16 121/65 95 08/16/20 03:29 36.6 C 82 20 139/72 91
--- NOTE | 2020-08-16 14:39 | Hospitalist Progress Note ---
Date of Service August 16, 2020 Assessment & Plan (1) Acute alteration in mental status: Reported as improved with treatment of UTI, however still with ongoing sx Psychiatry evaluation pending Neuro feels tx of UTI has improved pt's mentation but also suspects some level of underlying dementia causing pt's sx Ortho reviewed imaging. Feels that at least some of her myelopathy is related to severe c-spine issues, however OR would be extensive and she is not a good candidate for this type of operation She does not need to be immobilized at this time B12, folate WNL, Lyme neg MCV is higher end of normal TSH WNL PRP, CBC WNL CXR neg for acute Utox neg Now with urinary retention and not taking PO meds or food as of today Repeat UA, although likely low yield given on abx for UTI as noted (2) Urinary tract infection: Present on admission. Started on ceftriaxone on admission and then to parenteral Cipro started on 08/12 E. coli isolated, pansensitive. (3) Spinal stenosis: Cervical spinal stenosis at the C1-C2 level noted on CT scan. Cervical spine MRI ordered along with orthospine consultation. Appreciate neurology input. (4) Hypertension: Medical management (5) Renal artery stenosis: Medical management. Monitor blood pressure DVT prophylaxis: Heparin or Lovenox subcu Disposition: Pt was recommended for rehab by PT/OT, however I spoke with on 08/15 and he felt she did not do well there prior due to her dementia, and this was pre-COVID when there could be visitors. They would rather pt to come home. CM d/w today as pt has not been taking PO today. There was discussion of placement vs palliative care c/s. Per CM, wishes to d/w daughter and will get back with CM about this (6) Chronic ulcer of left ankle: XR neg for osteo Gen surg following Gen surg would like wound debridement, surgeon is working with wound care nurse as there is no current would care physician coming to the hospital Admission and Anticipated Discharge Date Admission Date: August 11, 2020 Subjective No new concerns. States she has pain to her back that is at its usual. Tolerating PO. Pt denies fever, SOB, chest pain, abd pain, n/v/c/d, LE pain or swelling. Per nursing, pt without UOP today, was straight cathed for 800cc. Pt also refused her meds and PO today, which is new. Review of Systems Review of Systems: Pertinent positives and negatives reviewed in HPI--all others negative Physical Exam Constitutional: WD/WN, vitals as above + thin Eyes: normal visual busch by confrontation and + anicteric sclerae Neck: normal visual inspection and trachea midline Respiratory: normal respiratory effort, lungs clear to auscultation Cardiovascular: Rate/Rhythm: regular rate and regular rhythm Gastrointestinal (Abdomen): Inspection/Auscultation: abdomen not distended Percussion/Palpation: abdomen soft; abdomen nontender Musculoskeletal: Head/Neck/Chest: normocephalic and head atraumatic Skin: no rashes, warm and dry Neurologic: awake; not confused Speech / Cognition: normal speech Psychiatric: Orientation: oriented to person and cooperative Results & Data Results & Data ([facility]) Vital Signs (Past 12 Hours) Vital Signs Temp Pulse Pulse Resp BP Pulse Ox 08/16/20 11:06 36.5 C 74 20 132/75 95 08/16/20 07:20 74 08/16/20 06:52 36.3 C L 74 16 121/65 95 08/16/20 03:29 36.6 C 82 20 139/72 91 PG Care Time/CCT Total # of Minutes Spent Total Time Spent with Patient: Total time spent is greater than 50% in coordination of care (as documented) at patient's floor/unit and/or counseling patient: Coding Level of Care Code 01020 Subseq Hosp Care Lvl 3 Diagnoses Acute alteration in mental status R41.82 Urinary tract infection N39.0 Hematuria presence: without hematuria Urinary tract infection type: site unspecified Spinal stenosis M48.00 Hypertension I10 Renal artery stenosis I70.1 Chronic ulcer of left ankle L97.329 (1) Urinary tract infection Hematuria presence: without hematuria Urinary tract infection type: site unspecified Qualified Code(s): N39.0 - Urinary tract infection, site not specified
[2020-08-16] MEDS: COLLAGENASE OINT 30 GM TUBE EXT SCH (15:45)
[2020-08-16] MEDS: SIMVASTATIN 20 MG TAB PO SCH (20:45)
[2020-08-17 03:03] LABS: Appearance Urine Clear (Clear); Bacteria Urine Automated Negative (Negative); Bilirubin Urine Negative (Negative); Blood Urine Trace (Negative); Color Urine Dark Yellow; Epithelial Cell Urine Auto >30 /lpf (0-5); Glucose Urine UA Negative (Negative); Ketones Urine 4+ (Negative); Leukocyte Esterase Urine Trace (Negative); Nitrite Urine Negative (Negative); Protein Urine Negative (Negative); Specific Gravity Urine 1.025 (1.000-1.030); Urobilinogen Urine Negative (Negative)
[2020-08-17 03:21] LABS: Cast Urine Automated 0 /lpf (0-5); Mucus Urine Present (None Prsent)
[2020-08-17] MEDS: CIPROFLOXACIN / D5W 400 MG/200 ML BAG IV SCH ×2 (09:51→22:15)
[2020-08-17 10:15] LABS: Basophils # (auto) 0.01 K/uL (0-0.2); Basophils % (auto) 0.1 %; Eosinophils # (auto) 0.03 K/uL (0-0.5); Eosinophils % (auto) 0.2 %; Hematocrit (blood only) 35.2 % (37-47); Hemoglobin 11.6 g/dL (12.0-16.0); Immature Granulocytes # (auto) 0.06 K/uL (0.00-0.02); Immature Granulocytes % (auto) 0.4 %; Lymphocytes # (auto) 0.83 K/uL (1.2-3.4); Mean Corpuscular Hemoglobin 29.7 pg (25-34); Mean Corpuscular Volume 90.3 fL (80-100); Mean Platelet Volume 8.6 fL (7.4-10.4); Monocytes # (auto) 1.59 K/uL (0.11-0.59); Monocytes % (auto) 11.6 %; Neutrophils % (auto) 81.7 %; Platelet Count 315 K/uL (130-400); RDW Coefficient of Variation 13.8 % (11.5-14.5); White Blood Count 13.72 K/uL (4.8-10.8)
[2020-08-17 10:40] LABS: Calcium 9.7 mg/dl (8.5-10.1); Est GFR (African American) 97.5; Est GFR (Non-African American) 84.2; Magnesium 1.7 mg/dl (1.8-2.4); Potassium 4.1 mmol/L (3.5-5.1)
[2020-08-17 10:42] LABS: Albumin Globulin Ratio 0.7 (0.9-2); Bilirubin,Total 0.5 mg/dl (0.2-1); Globulin 4.3 gm/dl (2.5-4.0); Total Protein 7.3 gm/dl (6.4-8.2)
--- NOTE | 2020-08-17 11:29 | Hospitalist Progress Note ---
Date of Service August 17, 2020 Assessment & Plan (1) Acute alteration in mental status: With suspected acute metabolic encephalopathy secondary to UTI in the setting of possible mild underlying dementia -Reported as improved with treatment of UTI, however still with ongoing sx of confusion-perhaps some hospital delirium contributing as well now Psychiatry evaluation canceled as they did not feel this was a psychiatric issue and I agree Appreciate neurology consultation Ortho reviewed imaging. Feels that at least some of her myelopathy is related to severe c-spine issues, however OR would be extensive and she is not a good candidate for this type of operation She does not need to be immobilized at this time B12, folate WNL, Lyme neg MCV is higher end of normal TSH WNL PRP, CBC WNL CXR neg for acute Utox neg Now with urinary retention and intermittent tolerating of PO meds or food likely secondary to encephalopathy as above Continue treatment for UTI with antibiotics for 7 days -Continue supportive care, redirection, elimination of any potentially [employer] depressing medications-got rid of Ambien although she has any been taking it Palliative care consultation placed -Continue to follow electrolytes and replace as needed as she is having minimal p.o. intake (2) Urinary tract infection: Present on admission. Started on ceftriaxone on admission and then to parenteral Cipro started on / -last day of tx 08/17 E. coli isolated, pansensitive. (3) Spinal stenosis: Cervical spinal stenosis at the C1-C2 level noted on CT scan. Cervical spine MRI ordered along with orthospine consultation. Appreciate neurology input. She is too high risk of a candidate for any kind of surgery to repair this Exploring rehab versus home with palliative care perhaps? (4) Hypertension: BPs controlled continue home amlodipine, Toprol, aldactone (5) Renal artery stenosis: Medical management. Monitor blood pressure, machine clipper stable (6) Chronic ulcer of left ankle: XR neg for osteo Gen surg following Gen surg would like wound debridement, surgeon is working with wound care nurse as there is no current would care physician coming to the hospital (7) Hypomagnesemia: replace with IV mag sulfate 1 gram (8) Retention of urine: requiring Brown cath placement unclear why but perhaps related to lying in bed a lot, constipation, UTI, med side effect, or Neuro issue? continue Brown for now dc Myrbetriq (9) DVT prophylaxis: has a remote h/o DVT as per records continue heparin SQ Disposition: Pt was recommended for rehab by PT/OT, however d/w on 08/15 and he felt she did not do well there prior due to her dementia, and this was pre-COVID when there could be visitors. They would rather pt to come home. CM d/w as pt has not been taking PO. There was discussion of placement vs palliative care c/s. Per CM, wishes to d/w daughter and will get back with CM about this. Consult Palliative Care Admission and Anticipated Discharge Date Admission Date: August 11, 2020 Subjective Patient remains confused and lethargic. Had a Brown catheter replaced for urinary retention in the last 24 hours. She states "my memory is now coming back." She also tells me that she is worried that her and just wants to be at home with him. She is either very hard of hearing or does not understand what I am saying when I ask if she has pain, she starts telling me about something else. I wrote the word pain with the? On a piece of paper and she still was not able to give me an answer. When I asked if she is moving her bowels, she says "that is what worries me" but then could not further explain. However, then she said I think I have to move my bowels. I discussed her case with palliative care who will see her and help facilitate a goal of care discussion today with family. Review of Systems Review of Systems: Unobtainable due to cognitive status Physical Exam Constitutional: WD/WN, vitals as above Eyes: PERRL, conjunctivae normal, anicteric sclerae ENMT: external ear and nose normal, oropharynx normal Neck: trachea midline, no thyromegaly Respiratory: normal respiratory effort, lungs clear to auscultation Cardiovascular: RRR, no murmur, no edema Chest (Breasts): Chest: normal inspection of chest Gastrointestinal (Abdomen): normal bowel sounds, soft, nontender, no hepatosplenomegaly Musculoskeletal: Extremities: extremities normal to inspection; no cyanosis and no clubbing Skin: no rashes, warm and dry Neurologic: moves all extremities, awake and + confused Psychiatric: Orientation: alert, oriented to person and cooperative Eye Contact: + fair eye contact Affect: + depressed affect and + anxious affect Thought Process: + thought process not clear or coherent Genitourinary: Brown in place Lymphatic: no lymphedema Results & Data Results & Data ([facility]) Vital Signs (Past 12 Hours) Vital Signs Temp Pulse Pulse Resp BP Pulse Ox 08/17/20 11:21 36.8 C 79 20 134/79 98 08/17/20 07:49 74 08/17/20 07:45 36.8 C 79 20 133/71 93 08/17/20 03:40 36.5 C 79 18 153/72 H 95 Laboratory Results 08/17/20 09:55 08/17/20 09:55 PG Care Time/CCT Total # of Minutes Spent Total Time Spent with Patient: Total time spent is greater than 50% in coordination of care (as documented) at patient's floor/unit and/or counseling patient: Coding Level of Care Code 44089 Subseq Hosp Care Lvl 3 Diagnoses Acute alteration in mental status R41.82 Urinary tract infection N39.0 Hematuria presence: without hematuria Urinary tract infection type: site unspecified Spinal stenosis M48.00 Hypertension I10 Renal artery stenosis I70.1 Chronic ulcer of left ankle L97.329 Hypomagnesemia E83.42 Retention of urine R33.9 DVT prophylaxis Z29.9 (1) Urinary tract infection Hematuria presence: without hematuria Urinary tract infection type: site unspecified Qualified Code(s): N39.0 - Urinary tract infection, site not specified
[2020-08-17] MEDS ORDERED: MAGNESIUM SULFATE / D5W 1 GM/100 ML BAG IV ONE (11:45)
[2020-08-17] MEDS: OMEGA-3 (PURIFIED FISH OIL) 1 GM CAP PO SCH ×2 (12:11→22:15)
[2020-08-17] MEDS: HEPARIN SOD 5,000 UNIT/0.5 ML VIAL SQ SCH ×2 (12:11→22:13)
[2020-08-17] MEDS: CALCIUM 600MG + VIT D 400 IU TAB PO SCH ×2 (12:11→22:14)
[2020-08-17] MEDS: CEROVITE ADV FORMULA TAB PO SCH ×2 (12:12→22:15)
[2020-08-17] MEDS: COLLAGENASE OINT 30 GM TUBE EXT SCH (12:12)
--- NOTE | 2020-08-17 13:10 | Palliative Care Consultation ---
Date of Consultation August 17, 2020 Assessment & Plan (1) Acute alteration in mental status: Metabolic encephalopathy related to UTI and probable underlying dementia. She has been more conversant since her arrived this afternoon. Sedating medications have been avoided. (2) Stenosis of cervical spine with myelopathy: Lower extremity weakness with pain. She is having difficulty with po meds. Consider IV tylenol to avoid opioids if possible to control her pain. (3) Palliative care encounter: I met with Milady and her at bedside. Milady has been saying that she wants to go to [facility] and is praying for God to take her home. Her and daughters had been considering taking her home with hospice care but do not feel able to manage 24 hour care. Mr. Grullon indicates that her comfort is priority at this time but would like to complete course of antibiotics which finish today. Will monitor pain management he understands that sedating medications may be necessary to maintain comfort and is ok with that. At this time, his preference is for her to be placed in a senior living facility for 24 hour care. History of Present Illness Reason for Consultation: goals of care Requesting Physician: Dr. Toro Attending Physician: June Toro MD History of Present Illness 84 yo lady with history of severe cervical spinal stenosis and osteoporosis who was admitted with mental status changes. She had increasing paranoia and confusion at home. She was found to have UTI with E coli which was treated. Metabolic workup for her mental status change was negative. MRI of the brain showed an old cystic lesion in the posterior fossa but was otherwise negative. Potentially sedating medications have been stopped and she has been evaluated by neurology. In the last two days she has had urinary retention and she has been refusing to take po food or medication. At this time she is lethargic and raises her eyebrows when asked if she can open her eyes but does not respond further than that. She appears comfortable. Allergies Allergy/AdvReac Type Severity Reaction Status Date / Time lorazepam Allergy Severe ALTERED Verified 06/22/20 14:48 MENTAL STATUS Penicillins Allergy Intermediate SWELLING Verified 06/22/20 14:48 Sulfa (Sulfonamide Allergy Intermediate SWELLING Verified 06/22/20 14:48 Antibiotics) clonidine Allergy Unknown Unknown Verified 06/22/20 14:48 Home Medications Medication Instructions Recorded Confirmed Type calcium carbonate 600 mg(1,500 1 tab PO BID #180 tab 02/20/19 08/11/20 Rx mg)-vitamin D3 800 unit chewable tablet omega-3 acid ethyl esters 1 gram 1 cap PO BID cap 02/24/19 08/11/20 History capsule vitamins A,C,S-hwly-ralbvw 14,320 1 cap PO BID 02/24/19 08/11/20 History unit-226 mg-200 unit capsule spironolactone 100 mg tablet 100 mg PO QAM #90 tab 11/17/19 08/11/20 Rx omeprazole 40 mg capsule,delayed 40 mg PO BID #180 cap 11/27/19 08/11/20 Rx release simvastatin 20 mg tablet 20 mg PO HS #90 tab 11/27/19 08/11/20 Rx denosumab 60 mg/mL subcutaneous 60 mg SQ Q6MO #1 ml 03/01/20 08/11/20 Rx syringe metoprolol succinate 100 mg 100 mg PO DAILY #90 tab 03/01/20 08/11/20 Rx tablet,extended release 24 hr mirabegron 50 mg tablet,extended 50 mg PO DAILY #30 tab 04/29/20 08/11/20 Rx release 24 hr amlodipine 2.5 mg PO QAM 05/30/20 08/11/20 History Patient History Medical History Actinic keratosis Allergic rhinitis Anxiety Bilateral lower extremity edema Cardiac murmur NO ISSUES. PCP AWARE. Depression Disc degeneration, lumbar DVT (deep venous thrombosis) OCCURED AFTER D/T FALL. Edema of left lower extremity GERD (gastroesophageal reflux disease) History of basal cell carcinoma History of SCC (squamous cell carcinoma) of skin Hypercalcemia Hypercholesterolemia Hyperparathyroidism, primary Hypertension Osteoporosis with fracture Pre-diabetes Ptosis of both eyelids Renal artery stenosis FOLLOWS WITH NEPHRO IN [place], CURRENTLY TREATS MEDICATION. Retention of urine Seborrheic keratosis Sensorineural hearing loss of both ears Poorer WRS in the left ear Spinal stenosis Spondylolisthesis, acquired Squamous cell carcinoma in situ Stress incontinence in female Tricuspid valve disorder Urge and stress incontinence Vitamin D deficiency, unspecified Surgical History Fusion of spine LUMBAR X2 SURGERIES H/O oral surgery History of ankle surgery History of appendectomy History of back surgery History of cataract extraction with lens replacement History of colonoscopy History of herniorrhaphy Family History Brother Parkinsons disease Crohn's colitis Coronary heart disease Denies family history of No family history of adverse response to anesthesia No family history of bleeding disorder Heart disease Allergies Cancer Stroke Asthma Social History Smoking Status: Former smoker Tobacco Type: Cigarettes Age Started Using Tobacco: 20; Age Quit Using Tobacco: 55; packs per day: 1; Cigarettes Per Day: 20; Second Hand Exposure: No; Hx Alcohol Use: No Hx Substance Use: No Preferred Language: [place] Communication Ability: Effective Entomology Teacher Required: No Beliefs That Will Affect Care: None marital status: Current Living Situation: Spouse current occupational status: retired How many Children do You have: 3 Feels Safe at Home: Yes Seatbelt Use: always Sunscreen Use: No Assistive Devices: None Review of Systems Review of Systems: Unobtainable due to cognitive status [place] Symptom Assessment Scale Pain by observation 0/3 Dyspnea by observation 0/3 Palliative Performance Score 30% Physical Exam Constitutional: + thin, + frail appearing and + lethargic ENMT: Mouth: + dry oral mucous membranes Respiratory: normal respiratory effort; no labored breathing Cardiovascular: Rate/Rhythm: regular rate and regular rhythm Extremities: no edema Gastrointestinal (Abdomen): Percussion/Palpation: abdomen soft; abdomen nontender Musculoskeletal: Extremities: + muscle atrophy Skin: warm and dry dressings b/l heels Psychiatric: Orientation: + not alert Results & Data ([place]) Vital Signs (Past 12 Hours) Vital Signs Temp Pulse Pulse Resp BP Pulse Ox 08/17/20 11:21 98.2 F 79 20 134/79 98 08/17/20 07:49 74 08/17/20 07:45 98.2 F 79 20 133/71 93 08/17/20 03:40 97.7 F 79 18 153/72 H 95 PG Care Time/CCT Total # of Minutes Spent Total Time Spent with Patient: Total time spent is greater than 50% in coordination of care (as documented) at patient's floor/unit and/or counseling patient: total time spent 60 minutes with more than 50% of time spent on symptom management, goals of care, family support Coding Level of Care Code 63166 Inpt Consult Level 3 Diagnoses Acute alteration in mental status R41.82 Stenosis of cervical spine with myelopathy M48.02; G99.2 Palliative care encounter Z51.5
[2020-08-17] MEDS: SPIRONOLACTONE 100 MG TAB PO SCH (13:36)
[2020-08-17] MEDS: METOPROLOL SUCC 50MG EXT REL TAB PO SCH (13:37)
[2020-08-17] MEDS: PANTOprazole 40 MG TAB PO SCH ×2 (13:37→22:15)
[2020-08-17] MEDS: amLODIPine BESYLATE 5 MG TAB PO SCH (13:37)
[2020-08-17] MEDS: MIRABEGRON ER 25 MG TAB PO SCH (13:47)
[2020-08-17] MEDS: SIMVASTATIN 20 MG TAB PO SCH (22:15)
[2020-08-18] MEDS: CEROVITE ADV FORMULA TAB PO SCH ×2 (10:46→21:00)
[2020-08-18] MEDS: OMEGA-3 (PURIFIED FISH OIL) 1 GM CAP PO SCH ×2 (10:46→21:00)
[2020-08-18] MEDS: CALCIUM 600MG + VIT D 400 IU TAB PO SCH ×2 (10:46→21:00)
[2020-08-18] MEDS: COLLAGENASE OINT 30 GM TUBE EXT SCH (10:47)
--- NOTE | 2020-08-18 11:20 | Surgery Progress Note ---
Date of Service F/U left ankle chronic ulcer, the wound is better, minimal chronic tissue, no julianne, August 18, 2020 Assessment & Plan (1) Chronic ulcer of left ankle: pt is 84 year-old female who was consulted for left ankle chronic ulcer IMP: left ankle chronic ulcer Plan, recommend to do left ankle X-ray to R/O osteomyelitis, or MRI, continue iv antibiotic, may need consult orthopedic surgery if involved bone infection, will F/U, 08/14/2020 1:52PM IMP: left ankle chronic ulcer Plan, recommend to consult wound care surgeon or nurse for chemical debridement first, will F/U 08/15/2020 9:23AM IMP: left ankle chronic ulcer, normal WBC, no fever, Plan, recommend to consult wound care surgeon or nurse for chemical debridement first, pt is not candidate for surgical debridement. sign off today, please call with questions , Thanks, 08/16/2020 2:11PM, I recommend to use enzymatic debridement left ankle wound, Collegenase Stantyl ointment once a day, D/W wound care nurse Agnes, will F/U 08/18/2020 11:18 am left ankle ulcer is better, no need surgery debridement, sign off today, please call with questions, thanks, Admission and Anticipated Discharge Date Admission Date: August 11, 2020 Supervising Physician Co-Signing Physician Notes Dr. Jairon Navarro Subjective Patient remains confused and lethargic. Had a Brown catheter replaced for urinary retention in the last 24 hours. She states "my memory is now coming back." She also tells me that she is worried that her and just wants to be at home with him. She is either very hard of hearing or does not understand what I am saying when I ask if she has pain, she starts telling me about something else. I wrote the word pain with the? On a piece of paper and she still was not able to give me an answer. When I asked if she is moving her bowels, she says "that is what worries me" but then could not further explain. However, then she said I think I have to move my bowels. I discussed her case with palliative care who will see her and help facilitate a goal of care discussion today with family. Physical Exam Constitutional: WD/WN, vitals as above well developed and well nourished Eyes: PERRL, conjunctivae normal, anicteric sclerae ENMT: external ear and nose normal, oropharynx normal Neck: trachea midline, no thyromegaly Respiratory: normal respiratory effort, lungs clear to auscultation normal respiratory effort Cardiovascular: Rate/Rhythm: regular rate and regular rhythm Gastrointestinal (Abdomen): normal bowel sounds, soft, nontender, no hepatosplenomegaly Skin: left ankle ulcer, is better, no more necrosis tissue, Neurologic: awake Psychiatric: Orientation: alert Results & Data ([facility]) Vital Signs (Past 12 Hours) Vital Signs Temp Pulse Pulse Resp BP BP Pulse Ox 08/18/20 10:57 93 H 20 170/49 H 93 08/18/20 07:30 81 08/18/20 07:06 36.9 C 89 16 120/82 96 08/18/20 03:00 36.8 C 68 20 166/80 H 97 08/17/20 23:33 83
[2020-08-18] MEDS: SPIRONOLACTONE 100 MG TAB PO SCH (13:44)
[2020-08-18] MEDS: amLODIPine BESYLATE 5 MG TAB PO SCH (13:44)
[2020-08-18] MEDS: PANTOprazole 40 MG TAB PO SCH ×2 (13:44→21:00)
[2020-08-18] MEDS: METOPROLOL SUCC 50MG EXT REL TAB PO SCH (13:44)
[2020-08-18] MEDS: HEPARIN SOD 5,000 UNIT/0.5 ML VIAL SQ SCH ×2 (13:45→21:00)
[2020-08-18] MEDS: SIMVASTATIN 20 MG TAB PO SCH (21:00)
--- NOTE | 2020-08-18 22:39 | Hospitalist Progress Note ---
Date of Service August 18, 2020 Assessment & Plan (1) Acute alteration in mental status: With suspected acute metabolic encephalopathy secondary to UTI in the setting of suspected mild underlying dementia -Reported as improved with treatment of UTI, however still with ongoing sx of confusion-perhaps some hospital delirium contributing as well now Psychiatry evaluation canceled as they did not feel this was a psychiatric issue and I agree Appreciate neurology consultation Ortho reviewed imaging. 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 Cervical spine MRI ordered along with ortho spine consultation. Appreciate neurology input. With significant debility She is too high risk of a candidate for any kind of surgery to repair this as per orthopedic surgery [facility] She is not able to participate with PT/OT (3) Urinary tract infection: Present on admission. Started on ceftriaxone on admission and then to parenteral Cipro started on 2/4 -last day of tx 08/17 E. coli isolated, pansensitive. (4) Dementia: Neurology suspects she has underlying dementia (5) Hypertension: BPs controlled continue home amlodipine, Toprol, aldactone (6) Renal artery stenosis: Medical management. 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 continue Rodney for now dc Myrbetriq Consider trial of void after discharge (10) Gastroesophageal reflux disease: Continue Protonix (11) Hypercholesterolemia: Continue simvastatin (12) DVT prophylaxis: has a remote h/o DVT as per records continue heparin SQ Disposition: Patient will go to SNF with hospice care as per plan put together through case management, palliative care, and family. This will occur tomorrow Admission and Anticipated Discharge Date Admission Date: August 11, 2020 Subjective Patient remains confused but is taking her medications today. She tells me that she is having a good day because it is her birthday. When I looked at her wristband and told her that today was not her birthday that it was on [birth year] but that that was also my birthday, she became related and was excited she said to share the same special day with me. She then went on to tell me that she was feeling sad because her was . I reminded her that her came to see her in the hospital yesterday and then she said "no, he is out doing chores outside." When I asked if she had any pain anywhere, she smiled and continued to talk about her birthday. Telemetry with normal sinus rhythm, rates in the 80s, PACs. Review of Systems Review of Systems: Unobtainable due to cognitive status Physical Exam Constitutional: WD/WN, vitals as above Eyes: + anicteric sclerae Neck: trachea midline, no thyromegaly Respiratory: normal respiratory effort, lungs clear to auscultation Cardiovascular: RRR, no murmur, no edema Chest (Breasts): Chest: normal inspection of chest Gastrointestinal (Abdomen): normal bowel sounds, soft, nontender, no hepatosplenomegaly Musculoskeletal: Extremities: extremities normal to inspection; no cyanosis and no clubbing Skin: no rashes, warm and dry Neurologic: moves all extremities, awake and + confused Psychiatric: Orientation: alert, oriented to person and cooperative Affect: + depressed affect and + anxious affect Thought Process: + thought process no t clear or coherent Lymphatic: no lymphedema Results & Data Results & Data ([facility]) Vital Signs (Past 12 Hours) Vital Signs Temp Pulse Resp BP Pulse Ox 08/18/20 15:28 36.8 C 79 16 144/72 H 94 08/18/20 10:57 93 H 20 170/49 H 93 PG Care Time/CCT Total # of Minutes Spent Total Time Spent with Patient: Total time spent is greater than 50% in coordination of care (as documented) at patient's floor/unit and/or counseling patient: Coding Level of Care Code 28831 Subseq Hosp Care Lvl 1 Diagnoses Acute alteration in mental status R41.82 Stenosis of cervical spine with myelopathy M48.02; G99.2 Urinary tract infection N39.0 Hematuria presence: without hematuria Urinary tract infection type: site unspecified Dementia F03.91 Dementia behavioral disturbance: with behavioral disturbance Dementia type: unspecified type Hypertension I10 Renal artery stenosis I70.1 Chronic ulcer of left ankle L97.329 Hypomagnesemia E83.42 Retention of urine R33.9 Gastroesophageal reflux disease K21.9 Hypercholesterolemia E78.00 DVT prophylaxis Z29.9 (1) Urinary tract infection Hematuria presence: without hematuria Urinary tract infection type: site unspecified Qualified Code(s): N39.0 - Urinary tract infection, site not specified (2) Dementia Dementia behavioral disturbance: with behavioral disturbance Dementia type: unspecified type Qualified Code(s): F03.91 - Unspecified dementia with behavioral disturbance
[2020-08-19] MEDS: COLLAGENASE OINT 30 GM TUBE EXT SCH (08:51)
[2020-08-19] MEDS: HEPARIN SOD 5,000 UNIT/0.5 ML VIAL SQ SCH (08:51)
[2020-08-19] MEDS: METOPROLOL SUCC 50MG EXT REL TAB PO SCH (08:52)
[2020-08-19] MEDS: amLODIPine BESYLATE 5 MG TAB PO SCH (08:52)
[2020-08-19] MEDS: PANTOprazole 40 MG TAB PO SCH (08:52)
[2020-08-19] MEDS: SPIRONOLACTONE 100 MG TAB PO SCH (08:52)
[2020-08-19] MEDS: CEROVITE ADV FORMULA TAB PO SCH (09:03)
[2020-08-19] MEDS: CALCIUM 600MG + VIT D 400 IU TAB PO SCH (09:03)
[2020-08-19] MEDS: OMEGA-3 (PURIFIED FISH OIL) 1 GM CAP PO SCH (09:03)
--- NOTE | 2020-08-19 11:58 | Discharge Summary ---
Date of Service August 19, 2020 Admission HPI Per Admitting Provider Mrs. Grullon is an 84-year-old female with a history of Hypertension, Tricuspid Valve Disorder, Spinal Stenosis, Osteoporosis, Hyperparathyroidism, Hypercholesterolemia, Hypercalcemia, Allergic Rhinitis, Hearing Loss, Renal Artery Stenosis, and Leg Edema who was sent in to the ER by her family members via ambulance for Altered Mental Status. The vast majority of the history is collected from her daughter Seble Jade, and her Carl Grullon. Patient does not have any history of dementia according to family members, however sometime between and she had several days of ethan ng quite confused and paranoid. Apparently, patient seems to be able to walk most times, but there are times when she is unable walk or stand at all. Unfortunately, her cannot lift her up off floor if she falls as he is aged as well. She seemed to do okay throughout most of July, but last week patient became paranoid again -- accusing her of crawling around on the ground with a flashlight at night and being other things that he likes to do (she did not specify what those things are). She called her daughter on apparently was having night terrors, nightmares, or possibly even hallucinations. Therefore she when out in slept in the living room through the weekend. Then she was ambulating with her walker and she yelled for help because she could'nt move her feet, twice her or daughter was able to hold her up, but one time she was lowered to the ground. Nonetheless her ultimately called the ambulance this morning because of her level of confusion, do much for her. Patient's daughter gave me the same history. She does have chronic back pain and had prior surgery. She denies any acute injury to her back. She has not had any head injuries or any recent changes in her diet or oral intake. Patient does complain of some lower abdominal pain and dysuria as well. Discharge Exam Constitutional WD/WN, vitals as above Eyes PERRL, conjunctivae normal, anicteric sclerae + anicteric sclerae ENMT external ear and nose normal, oropharynx normal Neck trachea midline, no thyromegaly Respiratory normal respiratory effort, lungs clear to auscultation Cardiovascular RRR, no murmur, no edema Chest (Breasts) Chest: normal inspection of chest Gastrointestinal (Abdomen) normal bowel sounds, soft, nontender, no hepatosplenomegaly Musculoskeletal Extremities: extremities normal to inspection; no cyanosis and no clubbing Skin no rashes, warm and dry Neurologic moves all extremities, awake and + confused Psychiatric Orientation: alert, oriented to person and cooperative Eye Contact: + fair eye contact Affect: + depressed affect and + anxious affect Thought Process: + thought process not clear or coherent Lymphatic no lymphedema Discharge Data Allergies Allergy/AdvReac Type Severity Reaction Status Date / Time lorazepam Allergy Severe ALTERED Verified 06/22/20 14:48 MENTAL STATUS Penicillins Allergy Intermediate SWELLING Verified 06/22/20 14:48 Sulfa (Sulfonamide Allergy Intermediate SWELLING Verified 06/22/20 14:48 Antibiotics) clonidine Allergy Unknown Unknown Verified 06/22/20 14:48 Consultations 08/11/20 15:56 ED Decision to Admit Stat 08/11/20 21:21 Consult Neurology Routine 08/13/20 10:38 Consult General Surgery Routine Consult Orthopedic Surgery Routine 08/17/20 09:27 Consult Palliative Care Routine Ordered Studies 08/11/20 12:29 CT cervical spine wo con Stat CT head/brain wo con Stat CT lumbar spine wo con Stat 08/13/20 10:38 MR brain wo con Routine MR cervical spine wo con Routine Hospital Course (1) Acute alteration in mental status: With suspected acute metabolic encephalopathy secondary to UTI in the setting of suspected mild underlying dementia -Reported as improved with treatment of UTI, however still with ongoing sx of confusion-perhaps some hospital delirium contributing as well now Psychiatry evaluation canceled as they did not feel this was a psychiatric issue and I agree Appreciate neurology consultation Ortho reviewed imaging. 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 Cervical spine MRI ordered along with ortho spine consultation. Appreciate neurology input. With significant debility She is too high risk of a candidate for any kind of surgery to repair this as per orthopedic surgery [facility] She is not able to participate with PT/OT (3) Urinary tract infection: Present on admission. Started on ceftriaxone on admission and then to parenteral Cipro started on 08/12 -last day of tx 08/17 E. coli isolated, pansensitive. (4) Dementia: Neurology suspects she has underlying dementia (5) Hypertension: BPs controlled continue home amlodipine, Toprol, aldactone (6) Renal artery stenosis: Medical management. 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 continue Rodney for now dc Myrbetriq Consider trial of void after discharge (10) Gastroesophageal reflux disease: Continue Protonix (11) Hypercholesterolemia: Continue simvastatin (12) DVT prophylaxis: has a remote h/o DVT as per records continue heparin SQ Disposition: Patient will go to SNF with hospice care as per plan put together through case management, palliative care, and family. This will occur tomorrow Discharge Plan Discharge Items Patient Disposition: Hospice - Medical Facility Reason For Visit: ALTERED MENTAL STATUS, UTI Discharge Diagnosis: Cervical myelopathy with debility, dementia, UTI Condition on Discharge: Fair Activity: As commented below Exercise/Sports: As tolerated Non-emergency contact: Primary Care Provider Call non-emergency contact if: you have any medication questions and your symptoms worsen Follow-up/Referrals: Ramses Cid MD [Primary Care Provider] - 08/23/20 1:30 pm Diet: Regular Addtl Attending Provider Instructions: Admitted with weakness, UTI, altered mental status. Has progressing dementia, severe cervical spine stenosis with myelopathy with debility. She never improved much with mentation and was not eating much, very confused, drowsy, could not participate with physical therapy. Palliative Care consulted and decision made to pursue Hospice at [facility]. Continue meds if willing to take. Pending Studies at Discharge: No Stand-Alone Forms: My [facility] Skilled Items Patient informed of condition?: Yes DNR: Yes Discharge Level of Care: Other Communicable Disease: No Discharge Prognosis: Stable Lines: None Urinary Catheter: Yes Medications and DC Order Prescriptions: New acetaminophen 325 mg Tablet 650 mg PO Q4H PRN (Reason: pain) Qty: 30 RF: 0 Santyl 250 unit/gram Ointment 1 applic EXT DAILY Qty: 30 RF: 0 Continued Caltrate 600 plus D 600 mg (1,500 mg)-800 unit tablet,chewable 1 tab PO BID Qty: 180 RF: 2 spironolactone 100 mg tablet 100 mg PO QAM Qty: 90 RF: 3 omeprazole 40 mg capsule,delayed release(DR/EC) 40 mg PO BID Qty: 180 RF: 1 simvastatin 20 mg tablet 20 mg PO HS Qty: 90 RF: 3 metoprolol succinate 100 mg tablet extended release 24 hr 100 mg PO DAILY Qty: 90 RF: 1 ICaps AREDS [id number] inib-hy-eekk capsule 1 cap PO BID RF: 0 omega-3 acid ethyl esters 1 gram capsule 1 cap PO BID RF: 0 amlodipine 2.5 mg tablet 2.5 mg PO QAM RF: 0 Discontinued Prolia 60 mg/mL syringe 60 mg SQ Q6MO Qty: 1 RF: 2 mirabegron 50 mg tablet extended release 24 hr 50 mg PO DAILY Qty: 30 RF: 11 Discharge Orders: Discharge Order (Routine); Ordered 08/19/20 Ordered By: June Toro Admission Data Admit Date/Time: 08/11/20 18:05 Attending Provider: June Toro Admit Provider: Armando Cummings Primary Care Provider: Ramses Cid Other Providers: [facility],Home Healthcare ; [facility] ; [facility] ; Armando Cummings ; Vincent Jensen ; Aubrey Castillo ; Marilyn Tomlinson ; Michelle Manning ; Ramiro Shepherd ; Checo Palomares ; Duane Treviño ; Stefan Escobar Jr ; Armin Batista ; Omkar Jennings ; Veronica Ray ; Yoel Yip ; Berry Velasquez ; Jairon Navarro ; Shilpa Frank Coding Diagnoses Acute alteration in mental status R41.82 Stenosis of cervical spine with myelopathy M48.02; G99.2 Urinary tract infection N39.0 Hematuria presence: without hematuria Urinary tract infection type: site unspecified Dementia F03.91 Dementia behavioral disturbance: with behavioral disturbance Dementia type: unspecified type Hypertension I10 Renal artery stenosis I70.1 Chronic ulcer of left ankle L97.329 Hypomagnesemia E83.42 Retention of urine R33.9 Gastroesophageal reflux disease K21.9 Hypercholesterolemia E78.00 DVT prophylaxis Z29.9
--- NOTE | 2020-08-19 12:41 | Palliative Care Progress Note ---
Date of Service August 19, 2020 Assessment & Plan (1) Palliative care encounter: Milady currently appears comfortable. I spoke with her , Carl, on the phone. He anticipates her transfer to [facility] later today. Based on our previous discussion, we reviewed and completed POLST form which he will sign at [facility]. She is DNR/DNI, comfort measures only, no artificial fluid or nutrition. He would want to determine antibiotic use at the time. He is coping as well as can be expected and has good family support. Admission and Anticipated Discharge Date Admission Date: August 11, 2020 Subjective Lethargic today. Some difficulty with po meds per RN. Appears comfortable. Review of Systems Review of Systems: Unobtainable due to cognitive status [place] Symptom Assessment Scale PainAD 0/3 Dyspnea by RDOS 0/3 Drowsiness 2/3 Palliative Performance Score 20% Physical Exam Constitutional: + lethargic; no acute distress Respiratory: normal respiratory effort; no labored breathing Neurologic: + confused Psychiatric: Orientation: + not oriented x 3 Results & Data ([facility]) Vital Signs (Past 12 Hours) Vital Signs Temp Pulse Resp BP BP Pulse Ox 08/19/20 11:53 98.1 F 79 16 154/76 H 166/80 H 93 08/19/20 07:40 98.1 F 79 16 154/76 H 93 PG Care Time/CCT Total # of Minutes Spent Total Time Spent with Patient: Total time spent is greater than 50% in coordination of care (as documented) at patient's floor/unit and/or counseling patient: Coding Level of Care Code 09729 Subseq Hosp Care Lvl 2 Diagnoses Palliative care encounter Z51.5
== END 2020-08-19 13:20 | disposition hospice, inpatient (51) ==
LOC: ED 11:33 → 2W 18:05 → INTOOBSV 18:05 → SUATTDRO 18:05 → 2W 19:52

== ENCOUNTER 2022-05-11 14:41 | Inpatient (IN) ==
[2022-05-11] MEDS ORDERED: CALCIUM GLUCONATE 1,000 MG/60 ML BAG IV STA (14:58)
--- NOTE | 2022-05-11 15:15 | Emergency Department Note ---
History of Present Illness General Chief complaint: TIA Symptoms Time Seen by Provider: 05/11/22 14:45 Source: patient and EMS History of Present Illness Provider complaint: Strokelike symptoms 86-year-old female presents emergency department for strokelike symptoms. Per EMS the patient has been having difficulty walking for the last week. They also report that the patient's reports that she is having slurred speech starting yesterday. No recent falls. No blood thinners. No fevers. Home Medications Medication Instructions Recorded Confirmed Type omeprazole 40 mg capsule,delayed 40 mg PO BID #180 caps 11/27/19 05/11/22 Rx release aspirin 81 mg tablet,delayed 81 mg PO DAILY 11/01/21 05/11/22 History release (Andrew Low Dose Aspirin) omega 6-krk-nnf-fish oil 1,000 mg 1 cap PO BID 11/01/21 05/11/22 History (120 mg-180 mg) capsule (Fish Oil) vit C 250 mg-vit E 90 mg-zinc 40 1 tab PO BID 11/01/21 05/11/22 History mg-copper 1 yr-zwupyw-tfbxyy capsule (PreserVision AREDS-2) mirabegron 50 mg tablet,extended 50 mg PO DAILY #30 tabs 11/23/21 05/11/22 Rx release 24 hr (Myrbetriq) metoprolol tartrate 50 mg tablet 50 mg PO BID #180 tabs 01/04/22 05/11/22 Rx acetaminophen 500 mg tablet 500 mg PO DIRECTED PRN 05/11/22 05/11/22 History (Tylenol Extra Strength) PAIN/FEVER simvastatin 20 mg tablet 20 mg PO QAM 05/11/22 05/11/22 History spironolactone 100 mg tablet 100 mg PO QPM 05/11/22 05/11/22 History Allergies Allergy/AdvReac Type Severity Reaction Status Date / Time lorazepam Allergy Severe ALTERED Verified 05/11/22 16:53 MENTAL STATUS Penicillins Allergy Intermediate SWELLING Verified 05/11/22 16:53 Sulfa (Sulfonamide Allergy Intermediate SWELLING Verified 05/11/22 16:53 Antibiotics) clonidine Allergy Unknown Unknown Verified 05/11/22 16:53 Past Med/Surg History Medical History Actinic keratosis Allergic rhinitis Anxiety Cardiac murmur NO ISSUES. PCP AWARE. Depression Disc degeneration, lumbar DVT (deep venous thrombosis) OCCURED AFTER D/T FALL. GERD (gastroesophageal reflux disease) History of basal cell carcinoma History of SCC (squamous cell carcinoma) of skin Hypercalcemia Hypercholesterolemia Hyperparathyroidism, primary Hypertension Osteoporosis with fracture Pre-diabetes Ptosis of both eyelids Renal artery stenosis FOLLOWS WITH NEPHRO IN JOSTIN, CURRENTLY TREATS MEDICATION. Retention of urine Seborrheic keratosis Sensorineural hearing loss of both ears Poorer WRS in the left ear Spinal stenosis Spondylolisthesis, acquired Squamous cell carcinoma in situ Stress incontinence in female Tricuspid valve disorder Urge and stress incontinence Urinary tract infection Vitamin D deficiency, unspecified Surgical History Fusion of spine LUMBAR X2 SURGERIES H/O oral surgery History of ankle surgery History of appendectomy History of back surgery History of cataract extraction with lens replacement History of colonoscopy History of herniorrhaphy Family History Brother Parkinsons disease Crohn's colitis Coronary heart disease Denies family history of No family history of adverse response to anesthesia No family history of bleeding disorder Heart disease Allergies Cancer Stroke Asthma Social History Smoking Status: Never smoker Tobacco Type: Cigarettes Age Started Using Tobacco: 20; Age Quit Using Tobacco: 55; packs per day: 1; Cigarettes Per Day: 20; Second Hand Exposure: No; Hx Alcohol Use: No Hx Substance Use: No Preferred Language: Kiswahili Communication Ability: Effective Visual Impairment: Severely Limited Hearing Ability: Hard of Hearing Handstitching Machine Armhole Feller Required: No Beliefs That Will Affect Care: None marital status: Current Living Situation: Spouse current occupational status: retired How many Children do You have: 3 Feels Safe at Home: Yes Seatbelt Use: always Sunscreen Use: No Assistive Devices: None Review of Systems Unobtainable due to cognitive status Physical Exam Vital Signs Vital Signs - 24 hr 05/11/22 14:54 05/11/22 15:24 05/11/22 16:40 Temperature 34.6 C L 34.0 C L Temperature Source Rectal Brown Cath ( Temp Sensing) Pulse Rate 50 L Pulse Rate [Apical] 54 L Respiratory Rate 20 18 Respiratory Effort / Characteristics Non-Labored Non-Labored Respiratory Depth Normal Normal Blood Pressure 140/55 L Blood Pressure [Right Arm] 120/56 L Blood Pressure Mean 83 Blood Pressure Mean [Right Arm] 77 Blood Pressure Position [Right Arm] Pulse Oximetry 96 95 Oxygen Delivery Method Room Air Room Air Sepsis Recent Fever Within 48 Hours No Sepsis New/Unexplained Change in Mental Status N/A Sepsis Action Taken by Nursing No Action Required 05/11/22 17:13 05/11/22 17:48 05/11/22 17:59 Temperature 34.4 C L 34.8 C L Temperature Source Brown Cath ( Temp Sensing) Brown Cath ( Temp Sensing) Pulse Rate Pulse Rate [Apical] 56 L 54 L Respiratory Rate 15 15 Respiratory Effort / Characteristics Non-Labored Respiratory Depth Normal Blood Pressure Blood Pressure [Right Arm] 109/39 L 91/36 L 93/37 L Blood Pressure Mean Blood Pressure Mean [Right Arm] 62 54 55 Blood Pressure Position [Right Arm] Pulse Oximetry 94 94 Oxygen Delivery Method Room Air Room Air Sepsis Recent Fever Within 48 Hours Sepsis New/Unexplained Change in Mental Status Sepsis Action Taken by Nursing 05/11/22 18:00 05/11/22 18:58 Temperature 34.9 C L 35.6 C L Temperature Source Brown Cath ( Temp Sensing) Brown Cath ( Temp Sensing) Pulse Rate Pulse Rate [Apical] 57 L 65 Respiratory Rate 14 19 Respiratory Effort / Characteristics Non-Labored Non-Labored Respiratory Depth Normal Normal Blood Pressure Blood Pressure [Right Arm] 106/50 L 115/41 L Blood Pressure Mean Blood Pressure Mean [Right Arm] 68 65 Blood Pressure Position [Right Arm] Lying Pulse Oximetry 94 94 Oxygen Delivery Method Room Air Room Air Sepsis Recent Fever Within 48 Hours Sepsis New/Unexplained Change in Mental Status Sepsis Action Taken by Nursing Physical Exam HENT: Exam performed. -Head: Normocephalic and atraumatic. -Right Ear: External ear normal. No mastoid tenderness. -Left Ear: External ear normal. No mastoid tenderness. -Mouth/Throat: The oropharynx is clear and moist. No trismus in the jaw. No dental abscesses or uvula swelling. No oropharyngeal exudate or tonsillar abscesses. EYES: Conjunctivae and EOM are normal. Pupils are equal, round, and reactive to light. Right eye exhibits no discharge. Left eye exhibits no discharge. No scleral icterus. NECK: Normal range of motion. Neck supple. No JVD present. No spinous process tenderness present. No carotid bruit present. No rigidity. No tracheal deviation and normal range of motion present. No Brudzinski's sign and no Kernig's sign noted. CV: Normal rate, regular rhythm, normal heart sounds and intact distal pulses. There is no peripheral edema. Palpable radial pulses bue. PULM/CHEST: Effort normal and breath sounds normal. No respiratory distress. No stridor. She has no wheezes. She has no rales. -Chest Wall: She exhibits no tenderness. ABD: The abdomen is soft. MUSC/SKEL: Normal range of motion. There is no peripheral edema, tenderness or deformity. LYMPH: No cervical adenopathy. NEURO: She is alert and oriented to person, place. not oriented to time. Weakness in bilateral lower extremities. No cranial nerve deficit or sensory deficit. No dysarthria Course Course 1445: The patient was evaluated in room B11. A complete history and physical exam was performed Cardiac monitoring: An order was placed for continuous cardiac monitoring. The monitor shows a rate of 60 with sinus rhythm Patient is out of window for TNK, no code stroke called. 1500: Patient's i-STAT shows a normal creatinine. I-STAT also shows a elevated potassium level. Patient be treated with calcium gluconate. Patient's is at bedside now and states that the patient started having increased difficulty walking yesterday and dysarthria yesterday around 2 PM. Patient is still out of window for TNKase, no code stroke called. 1530: Patient found to be hypothermic on rectal temperature. Patient will be started on Mariely hugger. 1829: Vital signs stable. CT of the head and CT angio of the head and neck were within normal limits. Labs show normal white blood cell count. Hemoglobin 11.1. Potassium is slightly elevated at 5.7. BUN 39 creatinine 0.78. TSH is 8.693. There was concern for myxedema coma given her bradycardia, mild hypokalemia, and hypothermia however the patient's free T4 and free T3 were within normal limits. Urinalysis within normal limits. Discussed the case with Dr. Dinah Baez pulmonology/ICU. He agrees with the plan to continue external warming and suggest a random cortisol level be drawn. He states no concern for myxedema coma as patient's free T3 and free T4 again within normal limits. Patient [facility] team Dr. walter notified. Administered Medications Sodium Chloride (Nss 1000ml) 1,000 mls @ 125 mls/hr IV .Q8H SHERICE Stop: 06/10/22 16:44 Last Admin: 05/11/22 16:45 Dose: 125 mls/hr Documented By: TRES Discontinued Medications Calcium Gluconate () 1,000 mg in 60 mls @ 240 mls/hr IV NOW STA Stop: 05/11/22 15:12 Last Infusion: 05/11/22 15:45 Dose: 0 mls/hr Documented By: Admin: 05/11/22 15:22 Dose: 240 mls/hr Documented By: GUILLERMO Ioversol (Optiray 320 500ml) 122 ml IV ONCE ONE Stop: 05/11/22 15:20 Last Admin: 05/11/22 15:20 Dose: 122 ml Documented By: UMER Critical Care Time Critical Care Time: Yes Total Critical Care Time: 68 I have personally spent greater than 68 minutes of critical care time in the direct management of this patient. This includes bedside care, interpretation of diagnostic studies, and testing, discussion with consultants, patient, and family members, and other required patient management activities. This 68 mi nutes is in excess of all separately billable procedures. Medical Decision Making Laboratory Data Result diagrams: 05/11/22 15:00 05/11/22 15:26 Lab Results 05/11/22 05/11/22 05/11/22 Range/Units 15:00 15:00 15:00 WBC 8.46 (4.8-10.8) K/ul RBC 3.59 L (3.93-5.22) M/uL Hgb 11.1 L (12.0-16.0) g/dl Hct 34.0 L (34.1-44.9) % MCV 94.7 (80.0-100.0) fL MCH 30.9 (25.0-34.0) pg MCHC 32.6 (32.0-36.0) g/dL RDW Std Deviation 52.5 H (36.4-46.3) fL RDW Coeff of José 15.3 H (11.5-14.5) % Plt Count 138 (130-400) K/uL MPV 10.1 (9.4-12.3) fL Immature Gran % (Auto) 0.5 % Neut % (Auto) 81.6 % Lymph % (Auto) 9.8 % [place] % (Auto) 7.2 % Eos % (Auto) 0.8 % Baso % (Auto) 0.1 % Neut # (Auto) 6.90 H (1.4-6.5) K/uL Lymph # (Auto) 0.83 L (1.2-3.4) K/uL [place] # (Auto) 0.61 (0.24-0.82) K/uL Eos # (Auto) 0.07 (0-0.50) K/uL Baso # (Auto) 0.01 (0-0.2) K/uL Immature Gran # (Auto) 0.04 H (0.00-0.02) K/uL PT 10.8 (9.0-12.0) Seconds INR 1.0 (0.9-1.1) APTT 31.6 H (21.0-31.0) Seconds PTT Ratio 1.1 Sodium 136 (136-145) mmol/L Potassium TNP Chloride 106 (98-107) mmol/L Carbon Dioxide 25 (21-32) mmol/L Anion Gap 5 (3-11) BUN 39 H (6-23) mg/dl Creatinine 0.78 (0.6-1.2) mg/dl Est Cr Clr Drug Dosing 40.9 ml/min Est GFR ( Amer) 79.8 ml/min Est GFR (Non-Af Amer) 68.8 ml/min BUN/Creatinine Ratio 50.0 H (10-20) Glucose 105 H (70-99(Fasting)) mg/dl Lactate (0.4-2.0) mmol/L Calcium 9.8 (8.5-10.1) mg/dl Magnesium 2.0 (1.7-2.4) mg/dl Total Bilirubin 0.3 (0.2-1.0) mg/dl AST TNP ALT 34 (7-52) U/L Alkaline Phosphatase 78 (34-104) U/L Troponin I High Sens 5.9 (0-14) pg/ml Total Protein 7.3 (6.0-8.3) gm/dl Albumin 4.0 (3.4-5.0) gm/dl Globulin 3.3 (2.5-4.0) gm/dl Albumin/Globulin Ratio 1.2 (0.9-2) TSH (0.300-4.500) uIu/ml Free T4 (0.61-1.60) ng/dl Free T3 (2.3-4.2) pg/ml Urine Color Urine Appearance (Clear) Urine pH (4.5-7.5) Ur Specific [place] (1.000-1.030) Urine Protein (Negative) Urine Glucose (UA) (Negative) Urine Ketones (Negative) Urine Blood (Negative) Urine Nitrite (Negative) Urine Bilirubin (Negative) Urine Urobilinogen (Negative) Ur Leukocyte Esterase (Negative) SARS-CoV-2, RNA, NAAT (NEGATIVE) Blood Type Antibody Screen 05/11/22 05/11/22 05/11/22 Range/Units 15:03 15:26 15:26 WBC (4.8-10.8) K/ul RBC (3.93-5.22) M/uL Hgb (12.0-16.0) g/dl Hct (34.1-44.9) % MCV (80.0-100.0) fL MCH (25.0-34.0) pg MCHC (32.0-36.0) g/dL RDW Std Deviation (36.4-46.3) fL RDW Coeff of José (11.5-14.5) % Plt Count (130-400) K/uL MPV (9.4-12.3) fL Immature Gran % (Auto) % Neut % (Auto) % Lymph % (Auto) % [place] % (Auto) % Eos % (Auto) % Baso % (Auto) % Neut # (Auto) (1.4-6.5) K/uL Lymph # (Auto) (1.2-3.4) K/uL [place] # (Auto) (0.24-0.82) K/uL Eos # (Auto) (0-0.50) K/uL Baso # (Auto) (0-0.2) K/uL Immature Gran # (Auto) (0.00-0.02) K/uL PT (9.0-12.0) Seconds INR (0.9-1.1) APTT (21.0-31.0) Seconds PTT Ratio Sodium (136-145) mmol/L Potassium Chloride (98-107) mmol/L Carbon Dioxide (21-32) mmol/L Anion Gap (3-11) BUN (6-23) mg/dl Creatinine (0.6-1.2) mg/dl Est Cr Clr Drug Dosing ml/min Est GFR ( Amer) ml/min Est GFR (Non-Af Amer) ml/min BUN/Creatinine Ratio (10-20) Glucose (70-99(Fasting)) mg/dl Lactate (0.4-2.0) mmol/L Calcium (8.5-10.1) mg/dl Magnesium (1.7-2.4) mg/dl Total Bilirubin (0.2-1.0) mg/dl AST ALT (7-52) U/L Alkaline Phosphatase (34-104) U/L Troponin I High Sens (0-14) pg/ml Total Protein (6.0-8.3) gm/dl Albumin (3.4-5.0) gm/dl Globulin (2.5-4.0) gm/dl Albumin/Globulin Ratio (0.9-2) TSH 8.693 H (0.300-4.500) uIu/ml Free T4 0.81 (0.61-1.60) ng/dl Free T3 (2.3-4.2) pg/ml Urine Color Urine Appearance (Clear) Urine pH (4.5-7.5) Ur Specific [place] (1.000-1.030) Urine Protein (Negative) Urine Glucose (UA) (Negative) Urine Ketones (Negative) Urine Blood (Negative) Urine Nitrite (Negative) Urine Bilirubin (Negative) Urine Urobilinogen (Negative) Ur Leukocyte Esterase (Negative) SARS-CoV-2, RNA, NAAT NEGATIVE (NEGATIVE) Blood Type B Positive Antibody Screen NEGATIVE 05/11/22 05/11/22 05/11/22 Range/Units 15:26 15:38 16:20 WBC (4.8-10.8) K/ul RBC (3.93-5.22) M/uL Hgb (12.0-16.0) g/dl Hct (34.1-44.9) % MCV (80.0-100.0) fL MCH (25.0-34.0) pg MCHC (32.0-36.0) g/dL RDW Std Deviation (36.4-46.3) fL RDW Coeff of José (11.5-14.5) % Plt Count (130-400) K/uL MPV (9.4-12.3) fL Immature Gran % (Auto) % Neut % (Auto) % Lymph % (Auto) % [place] % (Auto) % Eos % (Auto) % Baso % (Auto) % Neut # (Auto) (1.4-6.5) K/uL Lymph # (Auto) (1.2-3.4) K/uL [place] # (Auto) (0.24-0.82) K/uL Eos # (Auto) (0-0.50) K/uL Baso # (Auto) (0-0.2) K/uL Immature Gran # (Auto) (0.00-0.02) K/uL PT (9.0-12.0) Seconds INR (0.9-1.1) APTT (21.0-31.0) Seconds PTT Ratio Sodium (136-145) mmol/L Potassium 5.7 H Chloride (98-107) mmol/L Carbon Dioxide (21-32) mmol/L Anion Gap (3-11) BUN (6-23) mg/dl Creatinine (0.6-1.2) mg/dl Est Cr Clr Drug Dosing ml/min Est GFR ( Amer) ml/min Est GFR (Non-Af Amer) ml/min BUN/Creatinine Ratio (10-20) Glucose (70-99(Fasting)) mg/dl Lactate 0.5 (0.4-2.0) mmol/L Calcium (8.5-10.1) mg/dl Magnesium (1.7-2.4) mg/dl Total Bilirubin (0.2-1.0) mg/dl AST 25 ALT (7-52) U/L Alkaline Phosphatase (34-104) U/L Troponin I High Sens (0-14) pg/ml Total Protein (6.0-8.3) gm/dl Albumin (3.4-5.0) gm/dl Globulin (2.5-4.0) gm/dl Albumin/Globulin Ratio (0.9-2) TSH (0.300-4.500) uIu/ml Free T4 (0.61-1.60) ng/dl Free T3 (2.3-4.2) pg/ml Urine Color Yellow Urine Appearance Clear (Clear) Urine pH 5.0 (4.5-7.5) Ur Specific [place] > 1.045 H (1.000-1.030) Urine Protein Negative (Negative) Urine Glucose (UA) Negative (Negative) Urine Ketones Negative (Negative) Urine Blood Negative (Negative) Urine Nitrite Negative (Negative) Urine Bilirubin Negative (Negative) Urine Urobilinogen Negative (Negative) Ur Leukocyte Esterase Negative (Negative) SARS-CoV-2, RNA, NAAT (NEGATIVE) Blood Type Antibody Screen 05/11/22 Range/Units Unknown WBC (4.8-10.8) K/ul RBC (3.93-5.22) M/uL Hgb (12.0-16.0) g/dl Hct (34.1-44.9) % MCV (80.0-100.0) fL MCH (25.0-34.0) pg MCHC (32.0-36.0) g/dL RDW Std Deviation (36.4-46.3) fL RDW Coeff of José (11.5-14.5) % Plt Count (130-400) K/uL MPV (9.4-12.3) fL Immature Gran % (Auto) % Neut % (Auto) % Lymph % (Auto) % [place] % (Auto) % Eos % (Auto) % Baso % (Auto) % Neut # (Auto) (1.4-6.5) K/uL Lymph # (Auto) (1.2-3.4) K/uL [place] # (Auto) (0.24-0.82) K/uL Eos # (Auto) (0-0.50) K/uL Baso # (Auto) (0-0.2) K/uL Immature Gran # (Auto) (0.00-0.02) K/uL PT (9.0-12.0) Seconds INR (0.9-1.1) APTT (21.0-31.0) Seconds PTT Ratio Sodium (136-145) mmol/L Potassium Chloride (98-107) mmol/L Carbon Dioxide (21-32) mmol/L Anion Gap (3-11) BUN (6-23) mg/dl Creatinine (0.6-1.2) mg/dl Est Cr Clr Drug Dosing ml/min Est GFR ( Amer) ml/min Est GFR (Non-Af Amer) ml/min BUN/Creatinine Ratio (10-20) Glucose (70-99(Fasting)) mg/dl Lactate (0.4-2.0) mmol/L Calcium (8.5-10.1) mg/dl Magnesium (1.7-2.4) mg/dl Total Bilirubin (0.2-1.0) mg/dl AST ALT (7-52) U/L Alkaline Phosphatase (34-104) U/L Troponin I High Sens (0-14) pg/ml Total Protein (6.0-8.3) gm/dl Albumin (3.4-5.0) gm/dl Globulin (2.5-4.0) gm/dl Albumin/Globulin Ratio (0.9-2) TSH (0.300-4.500) uIu/ml Free T4 (0.61-1.60) ng/dl Free T3 3.31 (2.3-4.2) pg/ml Urine Color Urine Appearance (Clear) Urine pH (4.5-7.5) Ur Specific [place] (1.000-1.030) Urine Protein (Negative) Urine Glucose (UA) (Negative) Urine Ketones (Negative) Urine Blood (Negative) Urine Nitrite (Negative) Urine Bilirubin (Negative) Urine Urobilinogen (Negative) Ur Leukocyte Esterase (Negative) SARS-CoV-2, RNA, NAAT (NEGATIVE) Blood Type Antibody Screen Imaging Data Radiologist's Impression: Chest X-Ray 05/11/22 14:49 XR chest 1V portable CLINICAL HISTORY: Stroke Like Symptoms COMPARISON STUDY: Chest radiograph November 01, 2021. FINDINGS: Old nonunited distal right clavicular fracture is incidentally noted. There is no pneumothorax. Trace right pleural effusion is present. No consolidation is identified to suggest pneumonia. Cardiomegaly is noted. No evidence for overt pulmonary edema. IMPRESSION: 1. No consolidation to suggest pneumonia. 2. Trace right pleural effusion. 3. Cardiomegaly. ACT 112: Negative or not required by law. Electronically signed by: Pablo Patel M.D. 05/11/2022 3:[address] 05/11/22 14:49 CT OF THE HEAD WITHOUT CONTRAST CLINICAL HISTORY: Stroke Like Symptoms COMPARISON STUDY: MRI of the brain 08/14/2020. Head CT November 01, 2021. CT DOSE: 961.57 mGy.cm TECHNIQUE: Helical axial images of the head were obtained without IV contrast. Automated exposure control was utilized for the study. A dose lowering technique was utilized adhering to the principles of ALARA. FINDINGS: No acute intracranial hemorrhage, midline shift or mass effect is present. The ventricular system is stable. White matter hypodensities are similar to prior exam and favor small vessel disease. The basal cisterns are patent. No extra-axial collections are present. There are no findings to suggest acute dural sinus thrombosis or acute territorial infarct. No significant calvarial abnormalities are present. There is mild sinus mucosal thickening. Chronic deformity of the dens is better depicted on the CTA of the neck. IMPRESSION: No acute intracranial findings. No change in appearance of the brain. ACT 112: Negative or not required by law. Electronically signed by: Pablo Patel M.D. 05/11/2022 3:33 PM Head CTA 05/11/22 14:49 CTA ANGIOGRAPHY OF THE HEAD CLINICAL HISTORY: Stroke Like Symptoms COMPARISON STUDY: MRI of the brain August 14, [address] November 01, 2021. TECHNIQUE: Helical axial images of the head were obtained following uneventful intravenous administration of 122 cc of Optiray. Sagittal and coronal reconstructions were viewed as well as maximal intensity projections on an independent 3-D workstation. Automated exposure control was utilized for the study. A dose lowering technique was utilized adhering to the principles of ALARA. FINDINGS: Note that the CTA of the neck will be reported separately. Please note that the head CT will be reported separately. Ventricular system is stable. Basal cisterns are patent. There are no extra axial collections. White matter hypodensities are similar to prior exam. The bilateral M1, M2, A1 and A2 segments are patent. There is no intracranial aneurysm. There is no central vessel occlusion. Left vertebral artery is dominant. Posterior circulation is intact. Major dural sinuses are patent. IMPRESSION: No intracranial aneurysm. No central vessel occlusion. ACT 112: Negative or not required by law. Electronically signed by: Pablo Patel M.D. 05/11/2022 3:35 PM Neck CTA 05/11/22 14:49 CT angio neck with con CLINICAL HISTORY: Stroke Like Symptoms TECHNIQUE: CT angiography of the neck was performed following intravenous administration of iodinated contrast. Coronal and sagittal MIPS were obtained from the axial data set and were submitted for review. Automated dose lowering techniques and/or adjustment according to patient size were utilized for this examination. All measurements were calculated based on NASCET criteria. Comparison: Comparison is made to CT cervical spine 08/11/2020 FINDINGS: Lungs and soft tissues are unremarkable. CTA Neck: A 3 vessel aortic arch is shown. Atherosclerotic plaque is present in the aortic arch and at the origin of the great vessels. There is mild calcified atherosclerotic plaque at the bifurcation of the bilateral common carotid arteries without hemodynamically significant flow stenosis. There is no disse ction present. The right vertebral artery is dominant. IMPRESSION: No occlusion, hemodynamically significant stenosis, or dissection in the major cervical arteries despite atherosclerotic disease. Assessment of stenosis of the internal carotid arteries is based on NASCET criteria. ACT 112: Negative or not required by law. Electronically signed by: Dino Dennis M.D. 05/11/2022 3:46 PM ECG Data Indication: + weakness Rate (beats per minute): 51 Rhythm: + sinus bradycardia ECG Intervals/blocks: + First degree AV block, + Normal QRS and + Normal QT-c ECG ST segments: + Normal ST segments MDM Narrative 1445: The patient was evaluated in room B11. A complete history and physical exam was performed Cardiac monitoring: An order was placed for continuous cardiac monitoring. The monitor shows a rate of 60 with sinus rhythm Patient is out of window for TNK, no code stroke called. 1500: Patient's i-STAT shows a normal creatinine. I-STAT also shows a elevated potassium level. Patient be treated with calcium gluconate. Patient's is at bedside now and states that the patient started having increased dif ficulty walking yesterday and dysarthria yesterday around 2 PM. Patient is still out of window for TNKase, no code stroke called. 1530: Patient found to be hypothermic on rectal temperature. Patient will be started on Mariely hugger. 1829: Vital signs stable. CT of the head and CT angio of the head and neck were within normal limits. Labs show normal white blood cell count. Hemoglobin 11.1. Potassium is slightly elevated at 5.7. BUN 39 creatinine 0.78. TSH is 8.693. There was concern for myxedema coma given her bradycardia, mild hypokalemia, and hypothermia however the patient's free T4 and free T3 were within normal limits. Urinalysis within normal limits. Discussed the case with Dr. Nix [facility] pulmonology/ICU. He agrees with the plan to continue external warming and suggest a random cortisol level be drawn. He states no concern for myxedema coma as patient's free T3 and free T4 again within normal limits. Patient will be admitted to the [facility] hospitalist team Dr. walter notified. Impression & Plan Hypothermia, Acute hyperkalemia, Dysarthria Discharge Plan Visit Data Chief Complaint: TIA Symptoms ED Provider: Ramiro Valles Discharge Problem: Hypothermia, Acute hyperkalemia, Dysarthria Patient Disposition: Admitted As Inpatient Forms Stand Alone Forms: My [facility] Prescriptions Prescriptions: No Action omeprazole 40 mg capsule,delayed release(DR/EC) 40 mg PO BID Qty: 180 1RF Myrbetriq 50 mg tablet extended release 24 hr 50 mg PO DAILY Qty: 30 5RF metoprolol tartrate 50 mg tablet 50 mg PO BID Qty: 180 1RF aspirin [Andrew Low Dose Aspirin] 81 mg Tablet,Delayed Release (Dr/Ec) 81 mg PO DAILY omega 0-upa-bjw-fish oil [Fish Oil] 1,000 mg (120 mg-180 mg) Capsule 1 cap PO BID PreserVision AREDS-2 250-90-40-1 mg Capsule 1 tab PO BID acetaminophen [Tylenol Extra Strength] 500 mg Tablet 500 mg PO DIRECTED PRN (Reason: PAIN/FEVER) spironolactone 100 mg tablet 100 mg PO QPM simvastatin 20 mg tablet 20 mg PO QAM Referrals Referrals: Bart Cid MD [Primary Care Provider] - : Hypothermia Qualifiers: Encounter type: initial encounter Qualified Code(s): T68.XXXA - Hypothermia, initial encounter
[2022-05-11] MEDS ORDERED: OPTIRAY 320 500ml IV ONE (15:19)
[2022-05-11 15:23] LABS: Basophils # (auto) 0.01 K/uL (0-0.2); Basophils % (auto) 0.1 %; Eosinophils # (auto) 0.07 K/uL (0-0.50); Eosinophils % (auto) 0.8 %; Hemoglobin 11.1 g/dl (12.0-16.0); Immature Granulocytes # (auto) 0.04 K/uL (0.00-0.02); Immature Granulocytes % (auto) 0.5 %; Lymphocytes # (auto) 0.83 K/uL (1.2-3.4); Lymphocytes % (auto) 9.8 %; Mean Corpuscular Hemoglobin 30.9 pg (25.0-34.0); Mean Corpuscular Hgb Conc 32.6 g/dL (32.0-36.0); Mean Corpuscular Volume 94.7 fL (80.0-100.0); Mean Platelet Volume 10.1 fL (9.4-12.3); Monocytes # (auto) 0.61 K/uL (0.24-0.82); Monocytes % (auto) 7.2 %; Neutrophils % (auto) 81.6 %; Platelet Count 138 K/uL (130-400); RDW Coefficient of Variation 15.3 % (11.5-14.5); RDW Standard Deviation 52.5 fL (36.4-46.3); Red Blood Count 3.59 M/uL (3.93-5.22); White Blood Count 8.46 K/ul (4.8-10.8)
[2022-05-11 15:36] LABS: Partial Thromboplastin Ratio 1.1; Partial Thromboplastin Time 31.6 Seconds (21.0-31.0); Prothrombin Time 10.8 Seconds (9.0-12.0)
--- NOTE | 2022-05-11 15:36 | CT Scan Report ---
CT OF THE HEAD WITHOUT CONTRAST CLINICAL HISTORY: Stroke Like Symptoms COMPARISON STUDY: MRI of the brain 08/14/2020. Head CT November 01, 2021. CT DOSE: 961.57 mGy.cm TECHNIQUE: Helical axial images of the head were obtained without IV contrast. Automated exposure con trol was utilized for the study. A dose lowering technique was utilized adhering to the principles o f ALARA. FINDINGS: No acute intracranial hemorrhage, midline shift or mass effect is present. The ventricular system is stable. White matter hypodensities are similar to prior exam and favor small vessel disease . The basal cisterns are patent. No extra-axial collections are present. There are no findings to sug gest acute dural sinus thrombosis or acute territorial infarct. No significant calvarial abnormalitie s are present. There is mild sinus mucosal thickening. Chronic deformity of the dens is better depict ed on the CTA of the neck. IMPRESSION: No acute intracranial findings. No change in appearance of the brain. ACT 112: Negative or not required by law. Electronically signed by: Pablo Patel M.D. 05/11/2022 3:33 PM
--- NOTE | 2022-05-11 15:37 | CT Scan Report ---
CTA ANGIOGRAPHY OF THE HEAD CLINICAL HISTORY: Stroke Like Symptoms COMPARISON STUDY: MRI of the brain August 14, [address] November 01, 2021. TECHNIQUE: Helical axial images of the head were obtained following uneventful intravenous administr ation of 122 cc of Optiray. Sagittal and coronal reconstructions were viewed as well as maximal inten sity projections on an independent 3-D workstation. Automated exposure control was utilized for the study. A dose lowering technique was utilized adhering to the principles of ALARA. FINDINGS: Note that the CTA of the neck will be reported separately. Please note that the head CT [place] l be reported separately. Ventricular system is stable. Basal cisterns are patent. There are no extra axial collections. White matter hypodensities are similar to prior exam. The bilateral M1, M2, A1 an d A2 segments are patent. There is no intracranial aneurysm. There is no central vessel occlusion. Le ft vertebral artery is dominant. Posterior circulation is intact. Major dural sinuses are patent. IMPRESSION: No intracranial aneurysm. No central vessel occlusion. ACT 112: Negative or not required by law. Electronically signed by: Pablo Patel M.D. 05/11/2022 3:35 PM
--- NOTE | 2022-05-11 15:45 | XRay Report ---
XR chest 1V portable CLINICAL HISTORY: Stroke Like Symptoms COMPARISON STUDY: Chest radiograph November 01, 2021. FINDINGS: Old nonunited distal right clavicular fracture is incidentally noted. There is no pneumotho rax. Trace right pleural effusion is present. No consolidation is identified to suggest pneumonia. Ca rdiomegaly is noted. No evidence for overt pulmonary edema. IMPRESSION: 1. No consolidation to suggest pneumonia. 2. Trace right pleural effusion. 3. Cardiomegaly. ACT 112: Negative or not required by law. Electronically signed by: Pablo Patel M.D. 05/11/2022 3:43 PM
--- NOTE | 2022-05-11 15:48 | CT Scan Report ---
CT angio neck with con CLINICAL HISTORY: Stroke Like Symptoms TECHNIQUE: CT angiography of the neck was performed following intravenous administration of iodinated contrast. Coronal and sagittal MIPS were obtained from the axial data set and were submitted for rev iew. Automated dose lowering techniques and/or adjustment according to patient size were utilized fo r this examination. All measurements were calculated based on NASCET criteria. Comparison: Comparison is made to CT cervical spine 08/11/2020 FINDINGS: Lungs and soft tissues are unremarkable. CTA Neck: A 3 vessel aortic arch is shown. Atherosclerotic plaque is present in the aortic arch and at the origin of the great vessels. There is mild calcified atherosclerotic plaque at the bifurcatio n of the bilateral common carotid arteries without hemodynamically significant flow stenosis. There i s no dissection present. The right vertebral artery is dominant. IMPRESSION: No occlusion, hemodynamically significant stenosis, or dissection in the major cervical arteries desp ite atherosclerotic disease. Assessment of stenosis of the internal carotid arteries is based on NASCET criteria. ACT 112: Negative or not required by law. Electronically signed by: Dino Dennis M.D. 05/11/2022 3:46 PM
[2022-05-11 15:50] LABS: Troponin I High Sensitivity 5.9 pg/ml (0-14)
[2022-05-11 16:01] LABS: Alanine Aminotransferase 34 U/L (7-52); Albumin Globulin Ratio 1.2 (0.9-2); Alkaline Phosphatase 78 U/L (34-104); Anion Gap 5 (3-11); Bilirubin,Total 0.3 mg/dl (0.2-1.0); Blood Urea Nitrogen 39 mg/dl (6-23); Calcium 9.8 mg/dl (8.5-10.1); Carbon Dioxide 25 mmol/L (21-32); Chloride 106 mmol/L (98-107); Creatinine Clr Calc Pharmacy 40.9 ml/min; Est GFR (African American) 79.8 ml/min; Est GFR (Non-African American) 68.8 ml/min; Globulin 3.3 gm/dl (2.5-4.0); Glucose 105 mg/dl (70-99(Fasting)); Sodium 136 mmol/L (136-145); Total Protein 7.3 gm/dl (6.0-8.3)
[2022-05-11 16:35] LABS: Appearance Urine Clear (Clear); Bilirubin Urine Negative (Negative); Blood Urine Negative (Negative); Color Urine Yellow; Glucose Urine UA Negative (Negative); Ketones Urine Negative (Negative); Leukocyte Esterase Urine Negative (Negative); Nitrite Urine Negative (Negative); Protein Urine Negative (Negative); Specific Gravity Urine > 1.045 (1.000-1.030); Urobilinogen Urine Negative (Negative)
[2022-05-11 16:41] LABS: Potassium 5.7 mmol/L (3.5-5.1)
[2022-05-11] MEDS: SODIUM CHLORIDE 0.9% 1000ML 1,000 ML IV SCH (16:45)
[2022-05-11 16:56] LABS: Thyroid Stimulating Hormone 8.693 uIu/ml (0.300-4.500)
[2022-05-11 17:34] LABS: T4 Free Thyroxine 0.81 ng/dl (0.61-1.60)
--- NOTE | 2022-05-11 19:20 | History & Physical Report ---
Date of Service May 11, 2022 Assessment & Plan (1) Wound of right ankle: Plan: Hypothermia in a 86 yo female with h/o dementia, CKD, presents with a wound (squamous cell cancer) of her right ankle aaccompanied by surrounding eyrthema. Concern over possible infection especially given her elevated ESR. Patient is also hypothermic, blood cultures and wound cultures obtained priro to antibiotics will place on cefepime and vanco and monitor her CBC [place] check MRI of her R ankle and consult ortho (2) Dysarthria: Plan: will monitor, CTA and CT scan of head are negative. This may be due to metabolic encphalopathy. May consider MR of brain depending on her clinical presentation on 05/12 (3) Hypothermia: Plan: Patient presents with bear hugger. TSH and Free T4 do not suggest hypothyroidim, patient is not having signs of myexedema coma, will monitor (4) Acute hyperkalemia: Plan: Patient has elevated potassium, willl hold spirinolactone (5) Hypercholesterolemia: Plan: currently holding PO meds. will resume in AM (6) Stress incontinence in female: Plan: holding PO medss for now (7) Hypertension: Plan: holding PO meds, BP is stable (8) Dementia: Plan: risk of delirium given her previous diagnosis of dementia. 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 reported to the ER provider that she has had generalized weakness,with difficulty ambulating and slured speech yesterday. Patient is a poor historian, and is unable to provide further details. Allergies Allergy/AdvReac Type Severity Reaction Status Date / Time lorazepam Allergy Severe ALTERED Verified 05/11/22 16:53 MENTAL STATUS Penicillins Allergy Intermediate SWELLING Verified 05/11/22 16:53 Sulfa (Sulfonamide Allergy Intermediate SWELLING Verified 05/11/22 16:53 Antibiotics) clonidine Allergy Unknown Unknown Verified 05/11/22 16:53 Home Medications Medication Instructions Recorded Confirmed Type omeprazole 40 mg capsule,delayed 40 mg PO BID #180 caps 11/27/19 05/11/22 Rx release aspirin 81 mg tablet,delayed 81 mg PO DAILY 11/01/21 05/11/22 History release (Andrew Low Dose Aspirin) omega 5-fem-ahq-fish oil 1,000 mg 1 cap PO BID 11/01/21 05/11/22 History (120 mg-180 mg) capsule (Fish Oil) vit C 250 mg-vit E 90 mg-zinc 40 1 tab PO BID 11/01/21 05/11/22 History mg-copper 1 ex-cyxpoe-sdgzkh capsule (PreserVision AREDS-2) mirabegron 50 mg tablet,extended 50 mg PO DAILY #30 tabs 11/23/21 05/11/22 Rx release 24 hr (Myrbetriq) metoprolol tartrate 50 mg tablet 50 mg PO BID #180 tabs 01/04/22 05/11/22 Rx acetaminophen 500 mg tablet 500 mg PO DIRECTED PRN 05/11/22 05/11/22 History (Tylenol Extra Strength) PAIN/FEVER simvastatin 20 mg tablet 20 mg PO QAM 05/11/22 05/11/22 History spironolactone 100 mg tablet 100 mg PO QPM 05/11/22 05/11/22 History Past Med/Surg History Medical History Actinic keratosis Allergic rhinitis Anxiety Cardiac murmur NO ISSUES. PCP AWARE. Depression Disc degeneration, lumbar DVT (deep venous thrombosis) OCCURED AFTER D/T FALL. GERD (gastroesophageal reflux disease) History of basal cell carcinoma History of SCC (squamous cell carcinoma) of skin Hypercalcemia Hypercholesterolemia Hyperparathyroidism, primary Hypertension Osteoporosis with fracture Pre-diabetes Ptosis of both eyelids Renal artery stenosis FOLLOWS WITH NEPHRO IN [place], CURRENTLY TREATS MEDICATION. Retention of urine Seborrheic keratosis Sensorineural hearing loss of both ears Poorer WRS in the left ear Spinal stenosis Spondylolisthesis, acquired Squamous cell carcinoma in situ Stress incontinence in female Tricuspid valve disorder Urge and stress incontinence Urinary tract infection Vitamin D deficiency, unspecified Surgical History Fusion of spine LUMBAR X2 SURGERIES H/O oral surgery History of ankle surgery History of appendectomy History of back surgery History of cataract extraction with lens replacement History of colonoscopy History of herniorrhaphy Family History Brother Parkinsons disease Crohn's colitis Coronary heart disease Denies family history of No family history of adverse response to anesthesia No family history of bleeding disorder Heart disease Allergies Cancer Stroke Asthma Social History Smoking Status: Former smoker Tobacco Type: Cigarettes Age Started Using Tobacco: 20; Age Quit Using Tobacco: 55; packs per day: 1; Cigarettes Per Day: 20; Second Hand Exposure: No; Do You Dip or Chew Tobacco: No; Tobacco Cessation Education Requested by Patient: No Hx Alcohol Use: No Hx Substance Use: No Preferred Language: Macedonian Communication Ability: Impaired Visual Impairment: Severely Limited 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: No Beliefs That Will Affect Care: None marital status: Current Living Situation: Spouse current occupational status: retired How many Children do You have: 3 Feels Safe at Home: Yes Safety Concerns: Feels Safe At This Time Seatbelt Use: always Sunscreen Use: No Assistive Devices: Cane and Walker Review of Systems Review of Systems: Unobtainable due to cognitive status Physical Exam Constitutional: + ill appearing (with bear hugger), average body habitus and + frail appearing ENMT: external ear and nose normal, oropharynx normal Neck: trachea midline, no thyromegaly Respiratory: normal respiratory effort, lungs clear to auscultation Cardiovascular: RRR, no murmur, no edema Gastrointestinal (Abdomen): normal bowel sounds, soft, nontender, no hepatosplenomegaly Musculoskeletal: no cyanosis or clubbing, extremities motor strength 5/5 Skin: removed dressing of right ankle with nurse, erythema noted on rigt anterior lower leg, as well as a large wound on her lateral ankle Neurologic: CN's II-XI intact bilaterally Psychiatric: Orientation: alert and oriented to person Lymphatic: no cervical or axillary lymphadenopathy Results & Data Results & Data ([facility]) Vital Signs (Past 12 Hours) Vital Signs Temp Pulse Pulse Resp BP BP Pulse Ox 05/11/22 18:58 35.6 C L 65 19 115/41 L 94 05/11/22 18:00 34.9 C L 57 L 14 106/50 L 94 05/11/22 17:59 93/37 L 05/11/22 17:48 34.8 C L 54 L 15 91/36 L 94 05/11/22 17:13 34.4 C L 56 L 15 109/39 L 94 05/11/22 16:40 34.0 C L 54 L 18 120/56 L 95 05/11/22 15:24 34.6 C L 05/11/22 14:54 50 L 20 140/55 L 96 O2 Del Method 05/11/22 18:58 Room Air 05/11/22 18:00 Room Air 05/11/22 17:59 05/11/22 17:48 Room Air 05/11/22 17:13 Room Air 05/11/22 16:40 Room Air 05/11/22 15:24 05/11/22 14:54 Room Air PG Care Time/CCT Total # of Minutes Spent Total Time Spent with Patient: Total time spent is greater than 50% in coordination of care (as documented) at patient's floor/unit and/or counseling patient: Coding Level of Care Code 96890 Initial Inpt Care Lvl 3 Diagnoses Wound of right ankle S91.001A Dysarthria R47.1 Hypothermia T68.XXXA Encounter type: initial encounter Acute hyperkalemia E87.5 Hypercholesterolemia E78.00 Stress incontinence in female N39.3 Hypertension I10 Dementia F03.91 Dementia behavioral disturbance: with behavioral disturbance Dementia type: unspecified type (1) Hypothermia Encounter type: initial encounter Qualified Code(s): T68.XXXA - Hypothermia, initial encounter (2) Dementia Dementia behavioral disturbance: with behavioral disturbance Dementia type: unspecified type Qualified Code(s): F03.91 - Unspecified dementia with behavioral disturbance
[2022-05-11] MEDS ORDERED: ACETAMINOPHEN 325 MG TAB PO PRN (19:27)
[2022-05-11] MEDS ORDERED: VANCOMYCIN CONSULT ACTIVE PRN ×2 (21:35)
[2022-05-11] MEDS ORDERED: VANCOMYCIN HCL 1,000 MG in SODIUM CHLORIDE 0.9% 500 ML IV ONE (22:00)
[2022-05-11] MEDS: CEFEPIME 2,000 MG in SYRINGE 0 ML IV SCH (23:00)
[2022-05-12] MEDS: SODIUM CHLORIDE 0.9% 1000ML 1,000 ML IV SCH (00:52)
[2022-05-12] MEDS ORDERED: Flu Vaccine-High Dose (Fluzone-HD) PF 65+ 0.7mL SYR IM ONE (04:30)
[2022-05-12 07:04] LABS: Est GFR (African American) 82.3 ml/min
[2022-05-12 07:19] LABS: Hematocrit (blood only) 32.2 % (34.1-44.9); Hemoglobin 10.5 g/dl (12.0-16.0); Mean Corpuscular Hemoglobin 31.2 pg (25.0-34.0); Mean Corpuscular Hgb Conc 32.6 g/dL (32.0-36.0); Mean Corpuscular Volume 95.5 fL (80.0-100.0); Mean Platelet Volume 9.7 fL (9.4-12.3); Platelet Count 120 K/uL (130-400); RDW Coefficient of Variation 15.5 % (11.5-14.5); RDW Standard Deviation 52.7 fL (36.4-46.3); Red Blood Count 3.37 M/uL (3.93-5.22); White Blood Count 9.99 K/ul (4.8-10.8)
[2022-05-12 07:40] LABS: BUN Creatinine Ratio 32.1 (10-20); C Reactive Protein 0.9 mg/dl (0-0.5); Calcium 8.9 mg/dl (8.5-10.1); Creatinine Clr Calc Pharmacy 40.9 ml/min; Est GFR (African American) 79.8 ml/min; Est GFR (Non-African American) 68.8 ml/min; Potassium 5.9 mmol/L (3.5-5.1)
[2022-05-12] MEDS ORDERED: GLUCOSE 10 TAB/TUBE PO PRN (08:41)
[2022-05-12] MEDS ORDERED: GLUCOSE 40% GEL 15 GM TUBE PO PRN (08:41)
[2022-05-12] MEDS ORDERED: GLUCAGON FOR INJ 1 MG VIAL SQ PRN (08:41)
[2022-05-12] MEDS ORDERED: INSULIN HUMAN REGULAR PER UNIT 10 UNITS in SYRINGE 0 ML IV STA (08:41)
[2022-05-12] MEDS ORDERED: DEXTROSE 50% 50 ML SYRINGE IV ONE (08:41)
[2022-05-12] MEDS ORDERED: DEXTROSE 50% 50 ML SYRINGE IV PRN (08:41)
[2022-05-12] MEDS ORDERED: CARBOHYDRATES FOR HYPOGLYCEMIA PO PRN (08:41)
[2022-05-12] MEDS: D5W AND NSS 1,000 ML IV SCH ×2 (08:54→21:19)
[2022-05-12] MEDS: HEPARIN SOD 5,000 UNIT/0.5 ML VIAL SQ SCH ×2 (09:07→21:18)
[2022-05-12] MEDS ORDERED: INSULIN HUMAN REGULAR PER UNIT 10 UNITS in SYRINGE 9.9 ML IV STA (09:20)
--- NOTE | 2022-05-12 09:56 | Magnetic Resonance Report ---
MR ankle RT wo con CLINICAL HISTORY: 86 years-old Female with right ankle wound. Nonhealing chronic wound of the latera l ankle adjacent to the lateral malleolus. Soft tissue pain and swelling. COMPARISON: Right foot radiographs 12/13/2021 TECHNIQUE: Multiplanar, multi sequence MRI of the right ankle was performed without contrast. FINDINGS: ORIF hardware of the ankle limits the study with considerable susceptibility artifact. The medial and lateral malleoli and structures surrounding the ankle are not diagnostically visualized. T here is nonspecific moderate subcutaneous edema of the ankle. No fluid collection identified. No acut e fracture, dislocation or osseous erosion of the visualized foot. Tendons and ligaments are not well evaluated. IMPRESSION: 1. Markedly limited study secondary to artifact related to the medial and lateral malleolar ORIF hard [place]. 2. Nonspecific subcutaneous edema of the ankle without abscess identified. 3. The visualized osseous structures appear unremarkable. ACT 112: Negative or not required by law. The above report was generated using voice recognition software. It may contain grammatical, syntax o r spelling errors. Electronically signed by: Kunal Holcomb M.D. 05/12/2022 9:55 AM
[2022-05-12] MEDS: CEFEPIME 2,000 MG in SYRINGE 0 ML IV SCH ×2 (10:33→21:19)
--- NOTE | 2022-05-12 10:43 | Electrocardiogram Report ---
Test Reason : Blood Pressure : / mmHG Vent. Rate : 051 BPM Atrial Rate : 051 BPM P-R Int : 234 ms QRS Dur : 084 ms QT Int : 414 ms P-R-T Axes : 071 038 067 degrees QTc Int : 381 ms Poor data quality, interpretation may be adversely affected Sinus bradycardia with 1st degree A-V block Possible Left atrial enlargement Borderline ECG When compared with ECG of 01-NOV-2021 16:10, T wave amplitude has increased in Anterior leads Confirmed by Bart Garcia ([id number]) on 05/12/2022 10:43:03 AM Referred By: REFERRED SELF Confirmed By:Efe Garcia
--- NOTE | 2022-05-12 12:00 | Pharmacy Report ---
Pharmacy PK ABX Note - Date of Service May 12, 2022 - Assessment and Plan Assessment 86 year old F receiving Vancomycin and Cefepime for treatment of right ankle wound. * PMHx significant for CKD and recently diagnosed squamous cell carcinoma. * Hypothermic upon admission. Elevated ESR/CRP on admission, improved slightly this AM. * Afebrile. No leukocytosis. SCr stable/at baseline. * Ankle MRI and Ortho consult pending. * Blood and wound cultures pending. Plan Vancomycin * Loading dose: 1000 mg IV x 1 * Maintenance dose: 1000 mg IV every 24 hours * Regimen is predicted to achieve target AUC/JO-ANN of 400-600 mg/L.hr * Random level ordered for: 05/14/22 Pharmacy will continue to follow and will adjust dose/frequency as necessary. Thank you. Pharmacy has transitioned to AUC monitoring for vancomycin. AUC/JO-ANN is the preferred PK/PD target and is associated with decreased risk of nephrotoxicity compared to traditional trough targets.
[2022-05-12] MEDS: VANCOMYCIN HCL 1,000 MG in SODIUM CHLORIDE 0.9% 250 ML IV SCH (12:51)
--- NOTE | 2022-05-12 18:11 | Hospitalist Progress Note ---
Date of Service May 12, 2022 Assessment & Plan (1) Sepsis: Plan: Possible Sepsis with SOFA score of 3 and infection 86-year-old female presents to ER with lethargy, confusion, difficulty walking and slurred speech. The symptoms per H&P are all related to a infected wound on the patient's right ankle. with. Hypethermia 34.0 via core temp, Bradycardia 50, Hypertension 92/46 MAP 61, Nonhypoxic, SOFA score of 3, PLT count 138, CRP 0.91, GCS 14 -continue briad spectrum abx with IV Vancomycin, IV Cefepime, IVF's follow BCxs, wound cx consult Ortho MRI nondiagnostic (2) Wound of right ankle: Plan: Hypothermia in a 86 yo female with h/o dementia, CKD, presents with a wound (squamous cell cancer) of her right ankle aaccompanied by surrounding eyrthema. Concern over possible infection especially given her elevated ESR. Patient is also hypothermic, blood cultures and wound cultures obtained priro to antibiotics continue cefepime and vanco as above (3) Acute encephalopathy: Plan: Acute metabolic encephalopathy secondary to infection, has a h/o severe delirium in past with infections continue supportive care, treatment of infection (4) Dysarthria: Plan: likely related to encephalopathy CTA and CT scan of head are negative. May consider MR of brain if not improving (5) Hypothermia: Plan: improved with ermias hugger TSH elevated at 8 but normal FT4 f/u TSH in 6 weeks when not ill (6) Acute hyperkalemia: Plan: Patient has elevated potassium, willl hold spirinolactone improved now after giving insulin and D50, IVFs follow BMP in AM (7) Hypercholesterolemia: Plan: currently holding PO meds. 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 Can't tell me anything. Granddaughter was able to get her to eat some food for dinner. Tele NSR, 1st degree AVB, normal rates Review of Systems Review of Systems: All systems reviewed & are unremarkable except as noted in HPI & below Physical Exam Constitutional: WD/WN, vitals as above + ill appearing Eyes: PERRL, conjunctivae normal, anicteric sclerae ENMT: external ear and nose normal, oropharynx normal (dry tongue) Neck: trachea midline, no thyromegaly Respiratory: normal respiratory effort, lungs clear to auscultation Cardiovascular: RRR, no murmur, no edema Chest (Breasts): Chest: normal inspection of chest Gastrointestinal (Abdomen): normal bowel sounds, soft, nontender, no hepatosplenomegaly Musculoskeletal: Extremities: extremities normal to inspection; no cyanosis and no clubbing Skin: no rashes, warm and dry Neurologic: moves all extremities and awake; no focal motor deficits Psychiatric: Orientation: + not alert (awake but drowsy) and + not oriented x 3 Genitourinary: Brown in place Lymphatic: no lymphedema Results & Data Results & Data ([facility]) Vital Signs (Past 12 Hours) Vital Signs Temp Pulse Pulse Resp BP BP Pulse Ox 05/12/22 16:25 85 05/12/22 07:30 05/12/22 14:53 36.8 C 81 17 115/57 L 93 05/12/22 12:20 37.2 C 05/12/22 12:24 91 H 18 109/58 L 94 05/12/22 08:18 36.5 C 80 17 127/44 L 93 05/12/22 07:23 79 O2 Del Method 05/12/22 16:25 05/12/22 07:30 Room Air 05/12/22 14:53 Room Air 05/12/22 12:20 05/12/22 12:24 Room Air 05/12/22 08:18 Room Air 05/12/22 07:23 Laboratory Results labs reviewed PG Care Time/CCT Total # of Minutes Spent Total Time Spent with Patient: Total time spent is greater than 50% in coordination of care (as documented) at patient's floor/unit and/or counseling patient: Coding Level of Care Code 94917 Subseq Hosp Care Lvl 3 Diagnoses Sepsis A41.9 Wound of right ankle S91.001A Acute encephalopathy G93.40 Dysarthria R47.1 Hypothermia T68.XXXA Encounter type: initial encounter Acute hyperkalemia E87.5 Hypercholesterolemia E78.00 Stress incontinence in female N39.3 Hypertension I10 Dementia F03.91 Dementia behavioral disturbance: with behavioral disturbance Dementia type: unspecified type Stenosis of cervical spine with myelopathy M48.02; G99.2 (1) Dementia Dementia behavioral disturbance: with behavioral disturbance Dementia type: unspecified type Qualified Code(s): F03.91 - Unspecified dementia with behavioral disturbance (2) Hypothermia Encounter type: initial encounter Qualified Code(s): T68.XXXA - Hypothermia, initial encounter
--- NOTE | 2022-05-12 18:17 | Orthopedic Consultation ---
Date of Service May 12, 2022 Assessment & Plan (1) Wound of right ankle: Discussed with Dr. Mclaughlin, MRI and wound images in the chart reviewed as well. We recommend continued conservative management of these wounds with wound care consult. History of Present Illness Reason for Consultation: . Requesting Physician: . Attending Physician: June Toro MD .Milady is a 86 year old patient who was brought to the hospital and admitted due to difficulty ambulating and slurred speech. Much of her history obtained from the chart and from her who was with her when I saw her today. She has a chronic wound on the right ankle and there was some concern of infection. She had a Mohs procedure done about 2 months ago on the lateral ankle. 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 She has a more recent wound on the medial ankle. She has a h/o ORIF of the right ankle many years ago. She is minimally ambulatory according to her , since previous spine surgery/stenosis. Allergies Allergy/AdvReac Type Severity Reaction Status Date / Time lorazepam Allergy Severe ALTERED Verified 05/11/22 16:53 MENTAL STATUS Penicillins Allergy Intermediate SWELLING Verified 05/11/22 16:53 Sulfa (Sulfonamide Allergy Intermediate SWELLING Verified 05/11/22 16:53 Antibiotics) clonidine Allergy Unknown Unknown Verified 05/11/22 16:53 Home Medications Medication Instructions Recorded Confirmed Type omeprazole 40 mg capsule,delayed 40 mg PO BID #180 caps 11/27/19 05/11/22 Rx release aspirin 81 mg tablet,delayed 81 mg PO DAILY 11/01/21 05/11/22 History release (Andrew Low Dose Aspirin) omega 2-urw-tlt-fish oil 1,000 mg 1 cap PO BID 11/01/21 05/11/22 History (120 mg-180 mg) capsule (Fish Oil) vit C 250 mg-vit E 90 mg-zinc 40 1 tab PO BID 11/01/21 05/11/22 History mg-copper 1 ml-kujeav-vnxhsz capsule (PreserVision AREDS-2) mirabegron 50 mg tablet,extended 50 mg PO DAILY #30 tabs 11/23/21 05/11/22 Rx release 24 hr (Myrbetriq) metoprolol tartrate 50 mg tablet 50 mg PO BID #180 tabs 01/04/22 05/11/22 Rx acetaminophen 500 mg tablet 500 mg PO DIRECTED PRN 05/11/22 05/11/22 History (Tylenol Extra Strength) PAIN/FEVER simvastatin 20 mg tablet 20 mg PO QAM 05/11/22 05/11/22 History spironolactone 100 mg tablet 100 mg PO QPM 05/11/22 05/11/22 History Past Med/Surg History Medical History Actinic keratosis Allergic rhinitis Anxiety Cardiac murmur NO ISSUES. PCP AWARE. Depression Disc degeneration, lumbar DVT (deep venous thrombosis) OCCURED AFTER D/T FALL. GERD (gastroesophageal reflux disease) History of basal cell carcinoma History of SCC (squamous cell carcinoma) of skin Hypercalcemia Hypercholesterolemia Hyperparathyroidism, primary Hypertension Osteoporosis with fracture Pre-diabetes Ptosis of both eyelids Renal artery stenosis FOLLOWS WITH NEPHRO IN VILAS, CURRENTLY TREATS MEDICATION. Retention of urine Seborrheic keratosis Sensorineural hearing loss of both ears Poorer WRS in the left ear Spinal stenosis Spondylolisthesis, acquired Squamous cell carcinoma in situ Stress incontinence in female Tricuspid valve disorder Urge and stress incontinence Urinary tract infection Vitamin D deficiency, unspecified Surgical History Fusion of spine LUMBAR X2 SURGERIES H/O oral surgery History of ankle surgery History of appendectomy History of back surgery History of cataract extraction with lens replacement History of colonoscopy History of herniorrhaphy Family History Brother Parkinsons disease Crohn's colitis Coronary heart disease Denies family history of No family history of adverse response to anesthesia No family history of bleeding disorder Heart disease Allergies Cancer Stroke Asthma Social History Smoking Status: Former smoker Tobacco Type: Cigarettes Age Started Using Tobacco: 20; Age Quit Using Tobacco: 55; packs per day: 1; Cigarettes Per Day: 20; Second Hand Exposure: No; Do You Dip or Chew Tobacco: No; Tobacco Cessation Education Requested by Patient: No Hx Alcohol Use: No Hx Substance Use: No Preferred Language: German Communication Ability: Unable Visual Impairment: Severely Limited Hearing Ability: Hard of Hearing Aligner Required: No Beliefs That Will Affect Care: None marital status: Current Living Situation: Spouse current occupational status: retired How many Children do You have: 3 Feels Safe at Home: Yes Safety Concerns: Feels Safe At This Time Seatbelt Use: always Sunscreen Use: No Assistive Devices: Cane and Walker Review of Systems All systems reviewed & are unremarkable except as noted in HPI & below. Physical Exam .alert, NAD. Right ankle: superficial wounds on the lateral and medial side of the ankle. These do not appear to extend to the bone, no visible hardware, no purulence. Slight erythema of the lower leg, more involving the anterolateral leg and not really these wounds. Results & Data Results & Data Laboratory Results . Diagnostic Findings .MRI of the ankle was reviewed with Dr. Mclaughlin. This is limited due to metal artifact but shows no definite abscess or bone edema. PG Care Time/CCT Total # of Minutes Spent Total Time Spent with Patient: Total time spent is greater than 50% in coordination of care (as documented) at patient's floor/unit and/or counseling patient: Coding Level of Care Code 80681 Inpt Consult Level 4 Diagnoses Wound of right ankle S91.001A
[2022-05-12 18:37] LABS: BUN Creatinine Ratio 24.7 (10-20); Calcium 8.9 mg/dl (8.5-10.1); Creatinine Clr Calc Pharmacy 41.5 ml/min; Est GFR (Non-African American) 69.9 ml/min; Potassium 4.8 mmol/L (3.5-5.1)
[2022-05-13 07:19] LABS: Creatinine Clr Calc Pharmacy 48.4 ml/min; Est GFR (African American) 92.7 ml/min
[2022-05-13] MEDS: HEPARIN SOD 5,000 UNIT/0.5 ML VIAL SQ SCH ×2 (09:05→20:12)
[2022-05-13 09:36] LABS: Basophils # (auto) 0.01 K/uL (0-0.2); Basophils % (auto) 0.1 %; Eosinophils # (auto) 0.02 K/uL (0-0.50); Eosinophils % (auto) 0.2 %; Hematocrit (blood only) 30.8 % (34.1-44.9); Immature Granulocytes # (auto) 0.11 K/uL (0.00-0.02); Lymphocytes % (auto) 6.7 %; Mean Corpuscular Hemoglobin 30.6 pg (25.0-34.0); Mean Corpuscular Hgb Conc 32.5 g/dL (32.0-36.0); Mean Corpuscular Volume 94.2 fL (80.0-100.0); Mean Platelet Volume 8.9 fL (9.4-12.3); Monocytes % (auto) 7.6 %; Neutrophils # (auto) 8.85 K/uL (1.4-6.5); Neutrophils % (auto) 84.4 %; Platelet Count 106 K/uL (130-400); RDW Coefficient of Variation 15.5 % (11.5-14.5); RDW Standard Deviation 52.3 fL (36.4-46.3); Red Blood Count 3.27 M/uL (3.93-5.22); White Blood Count 10.49 K/ul (4.8-10.8)
[2022-05-13] MEDS: D5W AND NSS 1,000 ML IV SCH ×2 (09:59→22:32)
[2022-05-13] MEDS: CEFEPIME 2,000 MG in SYRINGE 0 ML IV SCH ×2 (09:59→22:32)
[2022-05-13 10:17] LABS: Albumin Globulin Ratio 1.2 (0.9-2); Albumin Level 3.4 gm/dl (3.4-5.0); BUN Creatinine Ratio 20.6 (10-20); Bilirubin,Total 0.4 mg/dl (0.2-1.0); Calcium 8.9 mg/dl (8.5-10.1); Creatinine Clr Calc Pharmacy 50.7 ml/min; Est GFR (African American) 94.1 ml/min; Est GFR (Non-African American) 81.2 ml/min; Globulin 2.9 gm/dl (2.5-4.0); Magnesium 1.4 mg/dl (1.7-2.4); Potassium 4.4 mmol/L (3.5-5.1); Total Protein 6.3 gm/dl (6.0-8.3)
[2022-05-13] MEDS: VANCOMYCIN HCL 1,000 MG in SODIUM CHLORIDE 0.9% 250 ML IV SCH (11:15)
[2022-05-13] MEDS: MAGNESIUM SULFATE / D5W 1 GM/100 ML BAG IV SCH ×3 (11:47→15:50)
--- NOTE | 2022-05-13 14:25 | Progress Notes ---
DATE OF SERVICE: 05/13/2022. CHIEF COMPLAINT: Right ankle wounds. HISTORY OF PRESENT ILLNESS: The patient is an 86-year-old female with multiple medical comorbidities with some underlying dementia, who we are asked to see for right ankle wounds. I believe the concer n is osteomyelitis. She has a history of multiple wounds in the past. She does have this lateral wo und from the Mohs surgery done 1 month ago and then a more medial wound. She has been getting some d egree of wound care. Difficult to assess whether it is painful. PHYSICAL EXAMINATION: EXTREMITIES: Examination of the ankle reveals medial and lateral wounds. They are dressed with a ba ndage. There is no obvious infection. I do not detect any signs of abscess or fluctuance. MRI: I did review her MRI. It shows a lot of metal artifact. No obvious or apparent collections of pus or bony edema consistent with osteomyelitis. ASSESSMENT: An 86-year-old female with multiple medical comorbidities with a history of multiple poo r healing wounds in the past with some slow healing medial and lateral ankle wounds, one being from [facility] surgery. I do not think there is any deep infection. There are no signs of abscess or fluid col lection clinically or radiographically. PLAN: At this point, we would recommend a wound care consult. I do not think there is any surgical intervention warranted. Any orthopedic questions can be directed to [phone]. Orthopedics is go ing to sign off on this patient. Job ID: [id number]
--- NOTE | 2022-05-13 15:21 | Hospitalist Progress Note ---
Date of Service May 13, 2022 Assessment & Plan (1) Sepsis: Plan: Possible Sepsis with SOFA score of 3 and wound infection right ankle 86-year-old female presents to ER with lethargy, confusion, difficulty walking and slurred speech. The symptoms per H&P are all related to a infected wound on the patient's right ankle. with hypothermia 34.0 via core temp, Bradycardia 50, Hypertension 92/46 MAP 61, Not hypoxic, SOFA score of 3, PLT count 138, CRP 0.91, GCS 14 on admission -continue broad spectrum abx with IV Vancomycin, IV Cefepime,continue IVF's until taking adequate po follow BCxs, wound cx-NGTD Temp remains stable consult Ortho appreciated-no signs of deep infection, no surgery indicated, signed off MRI nondiagnostic due to metal in ankle from previous ORIF (2) Wound of right ankle: Plan: Hypothermia in a 86 yo female with h/o dementia, CKD, presents with a wound (squamous cell cancer) of her right ankle aaccompanied by surrounding eyrthema. Concern over possible infection especially given her elevated ESR. Patient is also hypothermic, blood cultures and wound cultures obtained priro to antibiotics as above continue cefepime and vanco (3) Acute encephalopathy: Plan: Acute metabolic encephalopathy secondary to infection, has a h/o severe delirium in past with infections slightly improved today as per but still lethargic at times, confused, not speaking much continue supportive care, treatment of infection (4) Hypomagnesemia: Plan: replace with IV mag 3 gram today due to poor po intake and acute illness (5) Dysarthria: Plan: likely related to encephalopathy CTA and CT scan of head are negative. May consider MR of brain if not improving (6) Hypothermia: Plan: improved with ermias hugger TSH elevated at 8 but normal FT4 f/u TSH in 6 weeks when not ill (7) Acute hyperkalemia: Plan: Patient has elevated potassium on arrival, now improved likely 2/2 aldactone use at home and dehydration from infection - hold spironolactone and would not restart on discharge improved now after giving insulin and D50, IVFs follow BMP in AM (8) Hypercholesterolemia: Plan: currently holding PO meds. (9) Stress incontinence in female: Plan: holding PO meds for now (10) Hypertension: Plan: holding PO meds, BP is stable to mildly elevated (11) Dementia: Plan: noted (12) Stenosis of cervical spine with myelopathy: Plan: with le weakness and RUE weakness chronic, wheelchair bound mostly but reports she can walk about 15-20 steps extremely slowly with assistance from home PT Plan Continued stay Discussed care with at bedside Very guarded prognosis Admission and Anticipated Discharge Date Admission Date: May 11, 2022 Subjective Pt sleeping soundly when I saw her but at bedside said she is much improved from yesterday in that she was more awake earlier today and ate most of her lunch with assistance. He said she still isn't speaking as much as usual. Tele with NSR rates 60-70s Review of Systems Review of Systems: Unobtainable due to cognitive status Physical Exam Constitutional: WD/WN, vitals as above + ill appearing sleeping and did not wake up to loud verbal and gentle tactile stimulus Eyes: PERRL, conjunctivae normal, anicteric sclerae (with purulent crusty drainage from OD) Neck: trachea midline, no thyromegaly Respiratory: normal respiratory effort, lungs clear to auscultation Cardiovascular: RRR, no murmur, no edema Chest (Breasts): Chest: normal inspection of chest Gastrointestinal (Abdomen): normal bowel sounds, soft, nontender, no hepatosplenomegaly Musculoskeletal: Extremities: extremities normal to inspection; no cyanosis and no clubbing Skin: no rashes, warm and dry + lesion (bilat ankles wounds with yellow drainage) and + erythema (right ankle and leg w/ warmth) Psychiatric: Orientation: + not alert and + not oriented x 3 Lymphatic: no lymphedema Results & Data Results & Data ([facility]) Vital Signs (Past 12 Hours) Vital Signs Temp Pulse Pulse Resp BP Pulse Ox O2 Del Method 05/13/22 11:25 37.2 C 76 20 158/74 H 92 Room Air 05/13/22 09:13 80 05/13/22 07:56 Room Air 05/13/22 07:31 36.7 C 77 18 152/65 H 93 Room Air 05/13/22 03:50 36.8 C 76 16 162/78 H 93 Room Air Laboratory Results 05/13/22 05/13/22 05/13/22 Range/Units 09:30 09:30 08:09 WBC 10.49 (4.8-10.8) K/ul RBC 3.27 L (3.93-5.22) M/uL Hgb 10.0 L (12.0-16.0) g/dl Hct 30.8 L (34.1-44.9) % MCV 94.2 (80.0-100.0) fL MCH 30.6 (25.0-34.0) pg MCHC 32.5 (32.0-36.0) g/dL RDW Std Deviation 52.3 H (36.4-46.3) fL RDW Coeff of José 15.5 H (11.5-14.5) % Plt Count 106 L (130-400) K/uL MPV 8.9 L (9.4-12.3) fL Immature Gran % (Auto) 1.0 % Neut % (Auto) 84.4 % Lymph % (Auto) 6.7 % [place] % (Auto) 7.6 % Eos % (Auto) 0.2 % Baso % (Auto) 0.1 % Neut # (Auto) 8.85 H (1.4-6.5) K/uL Lymph # (Auto) 0.70 L (1.2-3.4) K/uL [place] # (Auto) 0.80 (0.24-0.82) K/uL Eos # (Auto) 0.02 (0-0.50) K/uL Baso # (Auto) 0.01 (0-0.2) K/uL Immature Gran # (Auto) 0.11 H (0.00-0.02) K/uL Sodium 139 (136-145) mmol/L Potassium 4.4 (3.5-5.1) mmol/L Chloride 109 H (98-107) mmol/L Carbon Dioxide 24 (21-32) mmol/L Anion Gap 6 (3-11) BUN 13 (6-23) mg/dl Creatinine 0.63 (0.6-1.2) mg/dl Est Cr Clr Drug Dosing 50.7 ml/min Est GFR ( Amer) 94.1 ml/min Est GFR (Non-Af Amer) 81.2 ml/min BUN/Creatinine Ratio 20.6 H (10-20) Glucose 129 H (70-99(Fasting)) mg/dl POC Glucose 120 H (70-99) mg/dl Calcium 8.9 (8.5-10.1) mg/dl Magnesium 1.4 L (1.7-2.4) mg/dl Total Bilirubin 0.4 (0.2-1.0) mg/dl AST 29 (13-39) U/L ALT 22 (7-52) U/L Alkaline Phosphatase 69 (34-104) U/L Total Protein 6.3 (6.0-8.3) gm/dl Albumin 3.4 (3.4-5.0) gm/dl Globulin 2.9 (2.5-4.0) gm/dl Albumin/Globulin Ratio 1.2 (0.9-2) 05/13/22 05/13/22 05/12/22 Range/Units 06:20 01:08 17:59 WBC (4.8-10.8) K/ul RBC (3.93-5.22) M/uL Hgb (12.0-16.0) g/dl Hct (34.1-44.9) % MCV (80.0-100.0) fL MCH (25.0-34.0) pg MCHC (32.0-36.0) g/dL RDW Std Deviation (36.4-46.3) fL RDW Coeff of José (11.5-14.5) % Plt Count (130-400) K/uL MPV (9.4-12.3) fL Immature Gran % (Auto) % Neut % (Auto) % Lymph % (Auto) % [place] % (Auto) % Eos % (Auto) % Baso % (Auto) % Neut # (Auto) (1.4-6.5) K/uL Lymph # (Auto) (1.2-3.4) K/uL [place] # (Auto) (0.24-0.82) K/uL Eos # (Auto) (0-0.50) K/uL Baso # (Auto) (0-0.2) K/uL Immature Gran # (Auto) (0.00-0.02) K/uL Sodium 138 (136-145) mmol/L Potassium 4.8 (3.5-5.1) mmol/L Chloride 111 H (98-107) mmol/L Carbon Dioxide 23 (21-32) mmol/L Anion Gap 4 (3-11) BUN 19 (6-23) mg/dl Creatinine 0.66 0.77 (0.6-1.2) mg/dl Est Cr Clr Drug Dosing 48.4 41.5 ml/min Est GFR ( Amer) 92.7 81.0 ml/min Est GFR (Non-Af Amer) 80.0 69.9 ml/min BUN/Creatinine Ratio 24.7 H (10-20) Glucose 151 H (70-99(Fasting)) mg/dl POC Glucose 127 H (70-99) mg/dl Calcium 8.9 (8.5-10.1) mg/dl Magnesium (1.7-2.4) mg/dl Total Bilirubin (0.2-1.0) mg/dl AST (13-39) U/L ALT (7-52) U/L Alkaline Phosphatase (34-104) U/L Total Protein (6.0-8.3) gm/dl Albumin (3.4-5.0) gm/dl Globulin (2.5-4.0) gm/dl Albumin/Globulin Ratio (0.9-2) PG Care Time/CCT Total # of Minutes Spent Total Time Spent with Patient: Total time spent is greater than 50% in coordination of care (as documented) at patient's floor/unit and/or counseling patient: Coding Level of Care Code 74235 Subseq Hosp Care Lvl 3 Diagnoses Sepsis A41.9 Wound of right ankle S91.001A Acute encephalopathy G93.40 Hypomagnesemia E83.42 Dysarthria R47.1 Hypothermia T68.XXXA Encounter type: initial encounter Acute hyperkalemia E87.5 Hypercholesterolemia E78.00 Stress incontinence in female N39.3 Hypertension I10 Dementia F03.91 Dementia behavioral disturbance: with behavioral disturbance Dementia type: unspecified type Stenosis of cervical spine with myelopathy M48.02; G99.2 (1) Hypothermia Encounter type: initial encounter Qualified Code(s): T68.XXXA - Hypothermia, initial encounter (2) Dementia Dementia behavioral disturbance: with behavioral disturbance Dementia type: unspecified type Qualified Code(s): F03.91 - Unspecified dementia with behavioral disturbance
[2022-05-13] MEDS: NEOMYCIN/POLYMYXIN/HYDROCORT OPH SUSP 7.5 ML BTL OPR SCH ×3 (16:56→22:33)
--- NOTE | 2022-05-13 20:52 | Communication Note ---
Date of Service: May 13, 2022 Night resident note 20:20- RN noted patient to have a left-sided facial droop which appears to be new from earlier today. I went to examine patient: Vitals: BP 141/73, HR 90, RR 16, afebrile, spO2 91% on RA Gen: asleep but arousable to voice, tired-appearing, no acute distress Neuro: somnolent but arousable, dysarthric, significant left-sided facial droop noted, no other focal deficit appreciated, UE and LE strength 4/5 bilaterally, oriented to person and place but not to time HEENT: conjunctiva injected bilaterally Cardiac: regular rate, no murmur appreciated Resp: CTABL, work of breathing not increased Given the apparent interval change, I ordered a CT head, which showed no acute intracranial hemorrhage, no evidence of acute territorial infarction, or other acute intracranial disease process. Plan: Continue current medical management Will defer decision regarding MRI brain to day team Morris White, PGY-3 Resident Activity Tracking Resident Involvement: Resident Care Provided and [employer] Coverage Note Care Provided: Adult Hospital Medicine
--- NOTE | 2022-05-13 21:40 | CT Scan Report ---
CT head/brain wo con CLINICAL HISTORY: new L facial droop Technique: Contiguous axial CT images of the head were acquired from the base of the skull to the ronna yoana without intravenous contrast administration. Images were viewed in brain, subdural and bone [facility]. Automated dose lowering techniques and/or adjustment according to patient size were utilized for this exam. Comparison: Comparison is made to CTA head and neck 05/11/2022 Findings: Areas of decreased attenuation are present in the periventricular and subcortical white matter bilate rally consistent with small vessel ischemic disease. Generalized cerebral atrophy with commensurate e nlargement of the ventricles, sulci, and cisterns is also present. There is no acute intracranial hem orrhage or evidence of acute territorial infarction. No shift of the midline structures, mass effect, or extra-axial abnormalities are shown. Atherosclerotic calcifications are present in the intracran ial segments of the internal carotid arteries. Soft tissue thickening is in the left maxillary sinus and a few ethmoid air cells. The orbits appear normal. There are no acute fractures of the calvaria or scalp swelling. Impression: 1. No acute intracranial hemorrhage, no evidence of acute territorial infarction or other acute intr acranial disease process. 2. Sinus disease is seen. ACT 112: Negative or not required by law. Electronically signed by: Dino Dennis M.D. 05/13/2022 9:39 PM
[2022-05-14] MEDS: NEOMYCIN/POLYMYXIN/HYDROCORT OPH SUSP 7.5 ML BTL OPR SCH ×6 (04:11→23:29)
[2022-05-14 06:01] LABS: BUN Creatinine Ratio 17.9 (10-20); C Reactive Protein 7.9 mg/dl (0-0.5); Calcium 8.4 mg/dl (8.5-10.1); Est GFR (African American) 97.9 ml/min; Est GFR (Non-African American) 84.4 ml/min; Magnesium 1.7 mg/dl (1.7-2.4); Phosphorus 1.9 mg/dl (2.5-4.9); Potassium 4.1 mmol/L (3.5-5.1)
[2022-05-14 06:35] LABS: Basophils # (auto) 0.01 K/uL (0-0.2); Basophils % (auto) 0.1 %; Eosinophils # (auto) 0.01 K/uL (0-0.50); Eosinophils % (auto) 0.1 %; Hematocrit (blood only) 27.4 % (34.1-44.9); Hemoglobin 9.1 g/dl (12.0-16.0); Immature Granulocytes # (auto) 0.05 K/uL (0.00-0.02); Immature Granulocytes % (auto) 0.5 %; Lymphocytes # (auto) 0.64 K/uL (1.2-3.4); Lymphocytes % (auto) 6.8 %; Mean Corpuscular Hemoglobin 30.4 pg (25.0-34.0); Mean Corpuscular Hgb Conc 33.2 g/dL (32.0-36.0); Mean Corpuscular Volume 91.6 fL (80.0-100.0); Monocytes # (auto) 0.83 K/uL (0.24-0.82); Monocytes % (auto) 8.8 %; Neutrophils % (auto) 83.7 %; Platelet Count 118 K/uL (130-400); RDW Coefficient of Variation 15.6 % (11.5-14.5); RDW Standard Deviation 51.1 fL (36.4-46.3); Red Blood Count 2.99 M/uL (3.93-5.22); White Blood Count 9.44 K/ul (4.8-10.8)
[2022-05-14] MEDS ORDERED: ACETAMINOPHEN 1,000 MG/100 ML VIAL IV STA (08:19)
[2022-05-14] MEDS ORDERED: SODIUM PHOSPHATE 3 MMOL/1 ML INFUSION IV STA (08:30)
[2022-05-14] MEDS: HEPARIN SOD 5,000 UNIT/0.5 ML VIAL SQ SCH ×2 (08:33→21:32)
--- NOTE | 2022-05-14 08:34 | XRay Report ---
XR chest 1V portable CLINICAL HISTORY: hypoxia,rhonchi,r/o pneumonia COMPARISON STUDY: Chest radiograph May 11, 2022. FINDINGS: Cardiomegaly is unchanged. There is no pneumothorax or pleural effusion. There is no eviden ce for pulmonary edema. Mild right basilar opacity has developed. There is possible left lower lung r etrocardiac opacity. IMPRESSION: Interval development of mild right basilar opacity and possible left basilar opacity. Th e findings may reflect pneumonia. ACT 112: Negative or not required by law. Electronically signed by: Pablo Patel M.D. 05/14/2022 8:33 AM
[2022-05-14] MEDS ORDERED: SODIUM PHOSPHATE 15 MMOL in DEXTROSE 5% 250 ML IV ONE (08:45)
[2022-05-14 09:58] LABS: Base Excess ABG 1.8 mEq/L (-9-1.8); HCO3 ABG 26 mmol/L (19-24); Oxygen Saturation ABG 94.3 % (90-95); PCO2 ABG 37 mmHg (35-46); PO2 ABG 75 mmHg (80-95); pH ABG 7.45 (7.35-7.45)
[2022-05-14] MEDS: metroNIDAZOLE 500 MG/100 ML BAG IV SCH ×2 (10:04→17:20)
[2022-05-14] MEDS: D5W AND NSS 1,000 ML IV SCH ×2 (10:04→23:29)
[2022-05-14] MEDS: CEFEPIME 2,000 MG in SYRINGE 0 ML IV SCH ×2 (10:04→21:37)
[2022-05-14 10:12] LABS: Allen Test Pos (Pos)
--- NOTE | 2022-05-14 10:16 | Hospitalist Progress Note ---
Date of Service May 14, 2022 Assessment & Plan (1) Acute encephalopathy: Plan: Acute metabolic encephalopathy secondary to infection, has a h/o severe delirium in past with infections was slightly improved on day 2 but on 05/14 severely lethargic/obtunded for most of the day in setting of low grade fever and development of PNA NH3 normal, ABG normal, no renal failure, LFTs and other lytes fairly normal Cellulitis of leg improving, BCxs remain no growth CT head repeated 05/14 and no new issues Do not suspect stroke With PNA on CXR likely cause Cefepime drug reaction could cause encephalopathy as well Did have slight improvement after fever came down -keep NPO until awake enough to eat/drink -continue supportive care, treatment of infection -bring temp down with tylenol -continue maintenance IVFs -give high dose IV thiamine 500mg IV q8h for empiric treatment of Werneke's -supplemental O2 as needed to keep POx>90% (2) Pneumonia: Plan: with low grade fever, productive cough, hypoxia CXR 05/14 now with bilat R>L LL PNA -add on Flagyl to Cefepime and Vanco in case of aspiration PNA for anaerobic coverage -check sputum culture if able follow repeat BCxs obtained during fever (3) Sepsis: Plan: Possible Sepsis with SOFA score of 3 and wound infection right ankle and now with PNA as above 86-year-old female presents to ER with lethargy, confusion, difficulty walking and slurred speech. The symptoms per H&P are all related to a infected wound on the patient's right ankle. with hypothermia 34.0 via core temp, Bradycardia 50, Hypertension 92/46 MAP 61, Not hypoxic, SOFA score of 3, PLT count 138, CRP 0.91, GCS 14 on admission -continue broad spectrum abx with IV Vancomycin, IV Cefepime,and now adding Flagyl follow BCxs, wound cx-NGTD consult Ortho appreciated-no signs of deep infection, no surgery indicated, signed off MRI nondiagnostic due to metal in ankle from previous ORIF treating PNA as above Platelets improving ESR up to 91 follow CBC, CMP, Mag, Phos and replace lytes as needed (4) Hypothermia: Plan: improved with ermias hugger, related to sepsis TSH elevated at 8 but normal FT4 f/u TSH in 6 weeks when not ill (5) Wound of right ankle: Plan: presents with a wound (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 May consider MR of brain if not improving (10) Hypomagnesemia: Plan: replace again today due to poor po intake and acute illness (11) Hypercholesterolemia: Plan: currently holding PO meds. (12) Dementia: Plan: noted (13) Stress incontinence in female: Plan: holding PO meds for now Plan Continued stay Discussed care with at length on phone about guarded prognosis with severe encephalopathy. Admission and Anticipated Discharge Date Admission Date: May 11, 2022 Subjective Pt was extremely lethargic this AM and would not wake up to sternal rub, pressure applied with a pen to her nail beds, or loud verbal stimulus. She occasionally would have a spontaneous cough. Vitals all remained stable. She did squint her eyelids when I pried them open to check her pupils. CT head was performed overnight for concern of left facial droop and this was negative. I did not note a left facial droop when I saw her this AM, but rather was just lax in her entire face. She did have a low grade fever and was noted to have a productive sounding cough. CXR obtained and showed development of RLL and possible LLL PNA. Throughout the day, pt became more alert and was actually waking up briefly and answering some questions. Tele with SAFIA, 1st degree AVB, rates 90-100s I discussed her care at length on the phone with her and then again later in the day with her granddaughter at the bedside Review of Systems Review of Systems: Unobtainable due to cognitive status and Unobtainable due to reduced consciousness Physical Exam Constitutional: + ill appearing Eyes: PERRL, conjunctivae normal, anicteric sclerae (with purulent crusty drainage from OD) ENMT: external ear and nose normal, oropharynx normal (dry tongue) Neck: trachea midline, no thyromegaly Respiratory: normal respiratory effort and + cough; not tachypneic Auscultation: + crackles and + rhonchi; no wheezes Cardiovascular: RRR, no murmur, no edema Chest (Breasts): Chest: normal inspection of chest Gastrointestinal (Abdomen): normal bowel sounds, soft, nontender, no hepatosplenomegaly Musculoskeletal: Extremities: + extremities abnormal to inspection (with atrophy muscles bilat), no cyanosis and no clubbing Skin: no rashes, warm and dry + lesion (bilat ankles wounds with yellow drainage) and + erythema (right ankle and leg mild, much improved) Neurologic: + obtunded no withdrawal to pain with sternal rub, pen applied pressure to nail beds, loud verbal stimulus no facial droop, PERRL, does not follow commands Psychiatric: Orientation: + not alert and + not oriented x 3 Genitourinary: Brown in place Lymphatic: no lymphedema Results & Data Results & Data ([facility]) Vital Signs (Past 12 Hours) Vital Signs Temp Pulse Pulse Resp BP Pulse Ox O2 Del Method 05/14/22 07:38 79 05/14/22 07:38 37.6 C H 87 17 154/85 H 92 Room Air 05/14/22 02:18 37.4 C 93 H 18 156/79 H 91 Room Air Laboratory Results 05/14/22 05/14/22 05/14/22 Range/Units 16:14 11:32 09:34 WBC (4.8-10.8) K/ul RBC (3.93-5.22) M/uL Hgb (12.0-16.0) g/dl Hct (34.1-44.9) % MCV (80.0-100.0) fL MCH (25.0-34.0) pg MCHC (32.0-36.0) g/dL RDW Std Deviation (36.4-46.3) fL RDW Coeff of José (11.5-14.5) % Plt Count (130-400) K/uL MPV (9.4-12.3) fL Immature Gran % (Auto) % Neut % (Auto) % Lymph % (Auto) % Zapata % (Auto) % Eos % (Auto) % Baso % (Auto) % Neut # (Auto) (1.4-6.5) K/uL Lymph # (Auto) (1.2-3.4) K/uL Zapata # (Auto) (0.24-0.82) K/uL Eos # (Auto) (0-0.50) K/uL Baso # (Auto) (0-0.2) K/uL Immature Gran # (Auto) (0.00-0.02) K/uL ESR (0-30) mm/hr ABG pH 7.45 ABG pCO2 37 ABG pO2 75 L ABG HCO3 26 H ABG O2 Saturation 94.3 ABG Base Excess 1.8 Murphy Test Pos Barometric Pressure Oxygen Given Room Air Sodium (136-145) mmol/L Potassium (3.5-5.1) mmol/L Chloride (98-107) mmol/L Carbon Dioxide (21-32) mmol/L Anion Gap (3-11) BUN (6-23) mg/dl Creatinine (0.6-1.2) mg/dl Est Cr Clr Drug Dosing ml/min Est GFR ( Amer) ml/min Est GFR (Non-Af Amer) ml/min BUN/Creatinine Ratio (10-20) Glucose (70-99(Fasting)) mg/dl POC Glucose 117 H 136 H (70-99) mg/dl Calcium (8.5-10.1) mg/dl Phosphorus (2.5-4.9) mg/dl Magnesium (1.7-2.4) mg/dl Ammonia (18-72) umol/L C-Reactive Protein (0-0.5) mg/dl Whole Bld Vitamin B1 Procalcitonin (0-0.5) ng/ml Random Vancomycin (10-20) mcg/ml 05/14/22 05/14/22 05/14/22 Range/Units 08:51 08:41 07:08 WBC (4.8-10.8) K/ul RBC (3.93-5.22) M/uL Hgb (12.0-16.0) g/dl Hct (34.1-44.9) % MCV (80.0-100.0) fL MCH (25.0-34.0) pg MCHC (32.0-36.0) g/dL RDW Std Deviation (36.4-46.3) fL RDW Coeff of José (11.5-14.5) % Plt Count (130-400) K/uL MPV (9.4-12.3) fL Immature Gran % (Auto) % Neut % (Auto) % Lymph % (Auto) % Zapata % (Auto) % Eos % (Auto) % Baso % (Auto) % Neut # (Auto) (1.4-6.5) K/uL Lymph # (Auto) (1.2-3.4) K/uL Zapata # (Auto) (0.24-0.82) K/uL Eos # (Auto) (0-0.50) K/uL Baso # (Auto) (0-0.2) K/uL Immature Gran # (Auto) (0.00-0.02) K/uL ESR (0-30) mm/hr ABG pH Cancelled ABG pCO2 Cancelled ABG pO2 Cancelled ABG HCO3 Cancelled ABG O2 Saturation Cancelled ABG Base Excess Cancelled Murphy Test Cancelled Barometric Pressure Cancelled Oxygen Given Cancelled Sodium (136-145) mmol/L Potassium (3.5-5.1) mmol/L Chloride (98-107) mmol/L Carbon Dioxide (21-32) mmol/L Anion Gap (3-11) BUN (6-23) mg/dl Creatinine (0.6-1.2) mg/dl Est Cr Clr Drug Dosing ml/min Est GFR ( Amer) ml/min Est GFR (Non-Af Amer) ml/min BUN/Creatinine Ratio (10-20) Glucose (70-99(Fasting)) mg/dl POC Glucose 109 H (70-99) mg/dl Calcium (8.5-10.1) mg/dl Phosphorus (2.5-4.9) mg/dl Magnesium (1.7-2.4) mg/dl Ammonia (18-72) umol/L C-Reactive Protein (0-0.5) mg/dl Whole Bld Vitamin B1 Pending Procalcitonin (0-0.5) ng/ml Random Vancomycin (10-20) mcg/ml 05/14/22 05/14/22 05/14/22 Range/Units 05:24 05:24 05:24 WBC (4.8-10.8) K/ul RBC (3.93-5.22) M/uL Hgb (12.0-16.0) g/dl Hct (34.1-44.9) % MCV (80.0-100.0) fL MCH (25.0-34.0) pg MCHC (32.0-36.0) g/dL RDW Std Deviation (36.4-46.3) fL RDW Coeff of José (11.5-14.5) % Plt Count (130-400) K/uL MPV (9.4-12.3) fL Immature Gran % (Auto) % Neut % (Auto) % Lymph % (Auto) % Zapata % (Auto) % Eos % (Auto) % Baso % (Auto) % Neut # (Auto) (1.4-6.5) K/uL Lymph # (Auto) (1.2-3.4) K/uL Zapata # (Auto) (0.24-0.82) K/uL Eos # (Auto) (0-0.50) K/uL Baso # (Auto) (0-0.2) K/uL Immature Gran # (Auto) (0.00-0.02) K/uL ESR 91 H (0-30) mm/hr ABG pH ABG pCO2 ABG pO2 ABG HCO3 ABG O2 Saturation ABG Base Excess Murphy Test Barometric Pressure Oxygen Given Sodium (136-145) mmol/L Potassium (3.5-5.1) mmol/L Chloride (98-107) mmol/L Carbon Dioxide (21-32) mmol/L Anion Gap (3-11) BUN (6-23) mg/dl Creatinine (0.6-1.2) mg/dl Est Cr Clr Drug Dosing ml/min Est GFR ( Amer) ml/min Est GFR (Non-Af Amer) ml/min BUN/Creatinine Ratio (10-20) Glucose (70-99(Fasting)) mg/dl POC Glucose (70-99) mg/dl Calcium (8.5-10.1) mg/dl Phosphorus (2.5-4.9) mg/dl Magnesium (1.7-2.4) mg/dl Ammonia 25.0 (18-72) umol/L C-Reactive Protein (0-0.5) mg/dl Whole Bld Vitamin B1 Procalcitonin < 0.05 (0-0.5) ng/ml Random Vancomycin (10-20) mcg/ml 05/14/22 05/14/22 05/14/22 Range/Units 05:24 05:24 05:24 WBC 9.44 (4.8-10.8) K/ul RBC 2.99 L (3.93-5.22) M/uL Hgb 9.1 L (12.0-16.0) g/dl Hct 27.4 L (34.1-44.9) % MCV 91.6 (80.0-100.0) fL MCH 30.4 (25.0-34.0) pg MCHC 33.2 (32.0-36.0) g/dL RDW Std Deviation 51.1 H (36.4-46.3) fL RDW Coeff of José 15.6 H (11.5-14.5) % Plt Count 118 L (130-400) K/uL MPV 9.0 L (9.4-12.3) fL Immature Gran % (Auto) 0.5 % Neut % (Auto) 83.7 % Lymph % (Auto) 6.8 % Zapata % (Auto) 8.8 % Eos % (Auto) 0.1 % Baso % (Auto) 0.1 % Neut # (Auto) 7.90 H (1.4-6.5) K/uL Lymph # (Auto) 0.64 L (1.2-3.4) K/uL Zapata # (Auto) 0.83 H (0.24-0.82) K/uL Eos # (Auto) 0.01 (0-0.50) K/uL Baso # (Auto) 0.01 (0-0.2) K/uL Immature Gran # (Auto) 0.05 H (0.00-0.02) K/uL ESR (0-30) mm/hr ABG pH ABG pCO2 ABG pO2 ABG HCO3 ABG O2 Saturation ABG Base Excess Murphy Test Barometric Pressure Oxygen Given Sodium 138 (136-145) mmol/L Potassium 4.1 (3.5-5.1) mmol/L Chloride 109 H (98-107) mmol/L Carbon Dioxide 24 (21-32) mmol/L Anion Gap 5 (3-11) BUN 10 (6-23) mg/dl Creatinine 0.56 L (0.6-1.2) mg/dl Est Cr Clr Drug Dosing 57.0 ml/min Est GFR ( Amer) 97.9 ml/min Est GFR (Non-Af Amer) 84.4 ml/min BUN/Creatinine Ratio 17.9 (10-20) Glucose 124 H (70-99(Fasting)) mg/dl POC Glucose (70-99) mg/dl Calcium 8.4 L (8.5-10.1) mg/dl Phosphorus 1.9 L (2.5-4.9) mg/dl Magnesium 1.7 (1.7-2.4) mg/dl Ammonia (18-72) umol/L C-Reactive Protein 7.90 H (0-0.5) mg/dl Whole Bld Vitamin B1 Procalcitonin (0-0.5) ng/ml Random Vancomycin 10.6 (10-20) mcg/ml 05/14/22 Range/Units 05:06 WBC (4.8-10.8) K/ul RBC (3.93-5.22) M/uL Hgb (12.0-16.0) g/dl Hct (34.1-44.9) % MCV (80.0-100.0) fL MCH (25.0-34.0) pg MCHC (32.0-36.0) g/dL RDW Std Deviation (36.4-46.3) fL RDW Coeff of José (11.5-14.5) % Plt Count (130-400) K/uL MPV (9.4-12.3) fL Immature Gran % (Auto) % Neut % (Auto) % Lymph % (Auto) % Zapata % (Auto) % Eos % (Auto) % Baso % (Auto) % Neut # (Auto) (1.4-6.5) K/uL Lymph # (Auto) (1.2-3.4) K/uL Zapata # (Auto) (0.24-0.82) K/uL Eos # (Auto) (0-0.50) K/uL Baso # (Auto) (0-0.2) K/uL Immature Gran # (Auto) (0.00-0.02) K/uL ESR (0-30) mm/hr ABG pH ABG pCO2 ABG pO2 ABG HCO3 ABG O2 Saturation ABG Base Excess Murphy Test Barometric Pressure Oxygen Given Sodium (136-145) mmol/L Potassium (3.5-5.1) mmol/L Chloride (98-107) mmol/L Carbon Dioxide (21-32) mmol/L Anion Gap (3-11) BUN (6-23) mg/dl Creatinine (0.6-1.2) mg/dl Est Cr Clr Drug Dosing ml/min Est GFR ( Amer) ml/min Est GFR (Non-Af Amer) ml/min BUN/Creatinine Ratio (10-20) Glucose (70-99(Fasting)) mg/dl POC Glucose 129 H (70-99) mg/dl Calcium (8.5-10.1) mg/dl Phosphorus (2.5-4.9) mg/dl Magnesium (1.7-2.4) mg/dl Ammonia (18-72) umol/L C-Reactive Protein (0-0.5) mg/dl Whole Bld Vitamin B1 Procalcitonin (0-0.5) ng/ml Random Vancomycin (10-20) mcg/ml PG Care Time/CCT Total # of Minutes Spent Total Time Spent with Patient: Total time spent is greater than 50% in coordination of care (as documented) at patient's floor/unit and/or counseling patient: Coding Level of Care Code 04794 Subseq Hosp Care Lvl 3 Diagnoses Acute encephalopathy G93.40 Pneumonia J18.9 Sepsis A41.9 Hypothermia T68.XXXA Encounter type: initial encounter Wound of right ankle S91.001A Acute hyperkalemia E87.5 Hypertension I10 Stenosis of cervical spine with myelopathy M48.02; G99.2 Dysarthria R47.1 Hypomagnesemia E83.42 Hypercholesterolemia E78.00 Dementia F03.91 Dementia behavioral disturbance: with behavioral disturbance Dementia type: unspecified type Stress incontinence in female N39.3 (1) Dementia Dementia behavioral disturbance: with behavioral disturbance Dementia type: unspecified type Qualified Code(s): F03.91 - Unspecified dementia with behavioral disturbance (2) Hypothermia Encounter type: initial encounter Qualified Code(s): T68.XXXA - Hypothermia, initial encounter
--- NOTE | 2022-05-14 10:24 | Pharmacy Report ---
Pharmacy PK ABX Note - Date of Service May 14, 2022 - Assessment and Plan Assessment 05/14: * Level today indicates regimen is subtherapeutic. As bone and joint infection not yet ruled out, will increase dose to target the higher end of goal range. * PCT negative on repeat today, CRP elevated. No leukocytosis, cultures remain negative thus far. 05/12: 86 year old F receiving Vancomycin and Cefepime for treatment of right ankle wound. * PMHx significant for CKD and recently diagnosed squamous cell carcinoma. * Hypothermic upon admission. Elevated ESR/CRP on admission, improved slightly this AM. * Afebrile. No leukocytosis. SCr stable/at baseline. * Ankle MRI and Ortho consult pending. * Blood and wound cultures pending. Plan Vancomycin * increase Maintenance dose: 750 mg IV every 12 hours * Regimen is predicted to achieve target AUC/JO-ANN of 400-600 mg/L.hr (AUCss predicted at 516) * Random level ordered for: 05/16/22 @1130 Pharmacy will continue to follow and will adjust dose/frequency as necessary. Thank you. Pharmacy has transitioned to AUC monitoring for vancomycin. AUC/JO-ANN is the preferred PK/PD target and is associated with decreased risk of nephrotoxicity compared to traditional trough targets.
[2022-05-14] MEDS: THIAMINE HCL 500 MG in SODIUM CHLORIDE 0.9% 50 ML IV SCH ×2 (11:58→18:57)
[2022-05-14] MEDS ORDERED: VANCOMYCIN HCL 1,250 MG in SODIUM CHLORIDE 0.9% 250 ML IV SCH (12:00)
[2022-05-14] MEDS: VANCOMYCIN HCL 750 MG in SODIUM CHLORIDE 0.9% 250 ML IV SCH ×2 (12:21→23:29)
[2022-05-15] MEDS: metroNIDAZOLE 500 MG/100 ML BAG IV SCH ×3 (01:13→17:00)
[2022-05-15] MEDS: THIAMINE HCL 500 MG in SODIUM CHLORIDE 0.9% 50 ML IV SCH ×3 (04:22→18:08)
[2022-05-15] MEDS: NEOMYCIN/POLYMYXIN/HYDROCORT OPH SUSP 7.5 ML BTL OPR SCH ×6 (04:25→22:07)
[2022-05-15 07:41] LABS: Basophils # (auto) 0.01 K/uL (0-0.2); Basophils % (auto) 0.1 %; Eosinophils # (auto) 0.03 K/uL (0-0.50); Eosinophils % (auto) 0.4 %; Hematocrit (blood only) 27.2 % (34.1-44.9); Hemoglobin 9.1 g/dl (12.0-16.0); Immature Granulocytes # (auto) 0.03 K/uL (0.00-0.02); Immature Granulocytes % (auto) 0.4 %; Lymphocytes % (auto) 8.4 %; Mean Corpuscular Hemoglobin 31.1 pg (25.0-34.0); Mean Corpuscular Hgb Conc 33.5 g/dL (32.0-36.0); Mean Corpuscular Volume 92.8 fL (80.0-100.0); Mean Platelet Volume 9.5 fL (9.4-12.3); Monocytes # (auto) 1.27 K/uL (0.24-0.82); Monocytes % (auto) 15.3 %; Neutrophils # (auto) 6.27 K/uL (1.4-6.5); Neutrophils % (auto) 75.4 %; Platelet Count 114 K/uL (130-400); RDW Coefficient of Variation 15.4 % (11.5-14.5); RDW Standard Deviation 51.8 fL (36.4-46.3); Red Blood Count 2.93 M/uL (3.93-5.22); White Blood Count 8.31 K/ul (4.8-10.8)
[2022-05-15] MEDS ORDERED: ACETAMINOPHEN 1,000 MG/100 ML VIAL IV STA (07:48)
[2022-05-15 07:58] LABS: Albumin Level 2.9 gm/dl (3.4-5.0); BUN Creatinine Ratio 15.7 (10-20); Bilirubin,Total 0.4 mg/dl (0.2-1.0); C Reactive Protein 14.06 mg/dl (0-0.5); Creatinine Clr Calc Pharmacy 62.6 ml/min; Est GFR (African American) 100.9 ml/min; Est GFR (Non-African American) 87.1 ml/min; Globulin 2.8 gm/dl (2.5-4.0); Magnesium 1.5 mg/dl (1.7-2.4); Phosphorus 1.7 mg/dl (2.5-4.9); Potassium 3.6 mmol/L (3.5-5.1); Total Protein 5.7 gm/dl (6.0-8.3)
[2022-05-15] MEDS ORDERED: SODIUM PHOSPHATE 3 MMOL/1 ML INFUSION IV STA (08:11)
[2022-05-15] MEDS: MAGNESIUM SULFATE / D5W 1 GM/100 ML BAG IV SCH ×2 (08:31→10:36)
[2022-05-15] MEDS: HEPARIN SOD 5,000 UNIT/0.5 ML VIAL SQ SCH ×2 (08:32→22:07)
[2022-05-15] MEDS ORDERED: SODIUM PHOSPHATE 15 MMOL in SODIUM CHLORIDE 0.9% 250 ML IV ONE (09:00)
[2022-05-15 09:09] LABS: Adenovirus PCR Not Detected (NotDetected); Bordetella parapertussis PCR Not Detected (NotDetected); Bordetella pertussis PCR Not Detected (NotDetected); Chlamydia pneumoniae PCR Not Detected (NotDetected); Coronavirus 229E PCR Not Detected (NotDetected); Coronavirus CoV-2 (COVID19)PCR Not Detected (NotDetected); Coronavirus HKU1 PCR Not Detected (NotDetected); Coronavirus NL63 PCR Not Detected (NotDetected); Coronavirus OC43PCR Not Detected (NotDetected); Human Metapneumovirus PCR Not Detected (NotDetected); Influenza A PCR Not Detected (NotDetected); Influenza B PCR Not Detected (NotDetected); Mycoplasma pneumoniae PCR Not Detected (NotDetected); Parainfluenza Virus 1 PCR Not Detected (NotDetected); Parainfluenza Virus 2 PCR Not Detected (NotDetected); Parainfluenza Virus 3 PCR Not Detected (NotDetected); Parainfluenza Virus 4 PCR Not Detected (NotDetected); Respiratory Syncytial VirusPCR Not Detected (NotDetected); Rhinovirus/Enterovirus PCR Not Detected (NotDetected)
[2022-05-15] MEDS: CEFEPIME 2,000 MG in SYRINGE 0 ML IV SCH ×2 (10:36→22:07)
[2022-05-15] MEDS: D5W AND NSS 1,000 ML IV SCH ×2 (12:19→23:52)
[2022-05-15] MEDS: VANCOMYCIN HCL 750 MG in SODIUM CHLORIDE 0.9% 250 ML IV SCH ×2 (12:52→23:52)
--- NOTE | 2022-05-15 13:08 | Hospitalist Progress Note ---
Date of Service May 15, 2022 Assessment & Plan (1) Acute encephalopathy: Plan: Acute metabolic encephalopathy secondary to infection, has a h/o severe delirium in past with infections was slightly improved on day 2 but on 05/14 severely lethargic/obtunded for most of the day in setting of low grade fever and development of PNA NH3 normal, ABG normal, no renal failure, LFTs and other lytes fairly normal Cellulitis of leg improving, BCxs remain no growth CT head repeated 05/14 and no new issues TSH elevated at 8.6-hypothyroidism could be playing a role Do not suspect stroke With PNA on CXR likely cause Cefepime drug reaction could cause encephalopathy as well On 05/15, patient is significantly improved, awake and alert, answers questions but is still mildly confused. Is eating again. Still having low-grade fevers but also received high-dose thiamine-question if secondary to Wernicke's encephalopathy? -Advanced diet after reevaluation with speech therapy -continue supportive care, treatment of infection -bring temp down with tylenol as needed -continue maintenance IVFs but decreased to 50 mL/h -Continue high dose IV thiamine 500mg IV q8h for empiric treatment of Wernicke's encephalopathy-vitamin B1 level drawn prior to treatment and pending -Treating hypothyroidism as below (2) Pneumonia: Plan: with low grade fever, productive cough, hypoxia that developed on 05/14 CXR 05/14 now with bilat R>L LL PNA -Continue on Flagyl, Cefepime and Vanco for broad coverage to cover gram- negative pneumonia, MRSA pneumonia, and anaerobic coverage in case of aspiration -check sputum culture-growing light normal sharon if able -follow repeat BCxs obtained during fever-no growth to date -Follow chest x-ray to resolution -Supplemental O2 as needed to keep pulse ox greater than 90% -add Pulmonary toilet with incentive spirometry and add twice daily nebulizers (3) Sepsis: Plan: Possible Sepsis with SOFA score of 3 and wound infection right ankle and now with PNA as above 86-year-old female presents to ER with lethargy, confusion, difficulty walking and slurred speech. The symptoms per H&P are all related to a infected wound on the patient's right ankle. with hypothermia 34.0 via core temp, Bradycardia 50, Hypertension 92/46 MAP 61, Not hypoxic, SOFA score of 3, PLT count 138, CRP 0.91, GCS 14 on admission -continue broad spectrum abx with IV Vancomycin, IV Cefepime,and Flagyl follow BCxs, wound cx-NGTD consult Ortho appreciated-no signs of deep infection, no surgery indicated, signed off MRI nondiagnostic due to metal in ankle from previous ORIF treating PNA as above Platelets improving ESR up to 91 follow CBC, CMP, Mag, Phos and replace lytes as needed-give IV magnesium and IV phos today (4) Hypothermia: Plan: improved with ermias hugger, related to sepsis TSH elevated at 8 but normal FT4 f/u TSH in 6 weeks when not ill (5) Wound of right ankle: Plan: presents with a wound (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 now resolved (10) Hypomagnesemia: Plan: replace again today due to poor po intake and acute illness (11) Hypercholesterolemia: Plan: currently holding po fish oil and simvastatin (12) Dementia: Plan: noted (13) Stress incontinence in female: Plan: holding PO Myrbetriq Plan Continued stay Discussed care with at length at the bedside. Improved overall today PT/OT consults placed, will certainly need rehab. Admission and Anticipated Discharge Date Admission Date: May 11, 2022 Subjective Pt MUCH improved today. Is awake and talking, interactive. Has some trouble processing speech but at bedside said that is her baseline. She reports she is coughing up a lot of sputum. No BM but feels like she is going to have one soon. Telemetry with normal sinus rhythm with rates in the 70s Review of Systems Review of Systems: All systems reviewed & are unremarkable except as noted in HPI & below Physical Exam Constitutional: + ill appearing Eyes: PERRL, conjunctivae normal, anicteric sclerae (with purulent crusty drainage from OD) Neck: trachea midline, no thyromegaly Respiratory: normal respiratory effort and + cough; not tachypneic Auscultation: + rhonchi (Bilateral lower lung busch); no crackles and no wheezes Cardiovascular: RRR, no murmur, no edema (Except trace pitting edema left leg) Chest (Breasts): Chest: normal inspection of chest Gastrointestinal (Abdomen): normal bowel sounds, soft, nontender, no hepatosplenomegaly Musculoskeletal: Extremities: + extremities abnormal to inspection (with atrophy muscles bilat), no cyanosis and no clubbing Skin: no rashes, warm and dry + lesion (bilat ankles wounds with yellow drainage) and + erythema (right ankle and leg mild, much improved) Neurologic: CN's II-XI intact bilaterally, moves all extremities and awake; no focal motor deficits Psychiatric: Orientation: alert, oriented to person and cooperative Genitourinary: Brown catheter in place Lymphatic: no lymphedema Results & Data Results & Data ([facility]) Vital Signs (Past 12 Hours) Vital Signs Temp Pulse Pulse Resp BP Pulse Ox O2 Del Method 05/15/22 11:41 36.9 C 73 20 118/50 L 92 Room Air 05/15/22 09:50 Room Air 05/15/22 07:40 37.7 C H 79 20 123/61 92 Room Air 05/15/22 07:29 81 05/15/22 03:29 37.6 C H 82 16 122/50 L 93 Room Air Laboratory Results 05/15/22 05/15/22 05/15/22 Range/Units Unknown 06:59 06:59 WBC 8.31 (4.8-10.8) K/ul RBC 2.93 L (3.93-5.22) M/uL Hgb 9.1 L (12.0-16.0) g/dl Hct 27.2 L (34.1-44.9) % MCV 92.8 (80.0-100.0) fL MCH 31.1 (25.0-34.0) pg MCHC 33.5 (32.0-36.0) g/dL RDW Std Deviation 51.8 H (36.4-46.3) fL RDW Coeff of José 15.4 H (11.5-14.5) % Plt Count 114 L (130-400) K/uL MPV 9.5 (9.4-12.3) fL Immature Gran % (Auto) 0.4 % Neut % (Auto) 75.4 % Lymph % (Auto) 8.4 % Pershing % (Auto) 15.3 % Eos % (Auto) 0.4 % Baso % (Auto) 0.1 % Neut # (Auto) 6.27 (1.4-6.5) K/uL Lymph # (Auto) 0.70 L (1.2-3.4) K/uL Pershing # (Auto) 1.27 H (0.24-0.82) K/uL Eos # (Auto) 0.03 (0-0.50) K/uL Baso # (Auto) 0.01 (0-0.2) K/uL Immature Gran # (Auto) 0.03 H (0.00-0.02) K/uL Sodium 140 (136-145) mmol/L Potassium 3.6 (3.5-5.1) mmol/L Chloride 111 H (98-107) mmol/L Carbon Dioxide 24 (21-32) mmol/L Anion Gap 5 (3-11) BUN 8 (6-23) mg/dl Creatinine 0.51 L (0.6-1.2) mg/dl Est Cr Clr Drug Dosing 62.6 ml/min Est GFR ( Amer) 100.9 ml/min Est GFR (Non-Af Amer) 87.1 ml/min BUN/Creatinine Ratio 15.7 (10-20) Glucose 98 (70-99(Fasting)) mg/dl Calcium 8.0 L (8.5-10.1) mg/dl Phosphorus 1.7 L (2.5-4.9) mg/dl Magnesium 1.5 L (1.7-2.4) mg/dl Total Bilirubin 0.4 (0.2-1.0) mg/dl AST 22 (13-39) U/L ALT 16 (7-52) U/L Alkaline Phosphatase 58 (34-104) U/L C-Reactive Protein 14.06 H (0-0.5) mg/dl Total Protein 5.7 L (6.0-8.3) gm/dl Albumin 2.9 L (3.4-5.0) gm/dl Globulin 2.8 (2.5-4.0) gm/dl Albumin/Globulin Ratio 1.0 (0.9-2) Adenovirus (PCR) Not Detected (NotDetected) B. pertussis DNA (PCR) Not Detected (NotDetected) B.parapertussis DNA PCR Not Detected (NotDetected) C. pneumoniae DNA (PCR) Not Detected (NotDetected) Coronavirus OC43 (PCR) Not Detected (NotDetected) Coronavirus HKU1 (PCR) Not Detected (NotDetected) Coronavirus 229E (PCR) Not Detected (NotDetected) SARS-CoV-2 (PCR) Not Detected (NotDetected) Coronavirus NL63 (PCR) Not Detected (NotDetected) Human Metapneumovir PCR Not Detected (NotDetected) Influenza Type A (PCR) Not Detected (NotDetected) Influenza Type B (PCR) Not Detected (NotDetected) M. pneumoniae (PCR) Not Detected (NotDetected) Parainfluenza 1 (PCR) Not Detected (NotDetected) Parainfluenza 2 (PCR) Not Detected (NotDetected) Parainfluenza 3 (PCR) Not Detected (NotDetected) Parainfluenza 4 (PCR) Not Detected (NotDetected) RSV (PCR) Not Detected (NotDetected) Entero/Rhino (PCR) Not Detected (NotDetected) PG Care Time/CCT Total # of Minutes Spent Total Time Spent with Patient: Total time spent is greater than 50% in coordination of care (as documented) at patient's floor/unit and/or counseling patient: Coding Level of Care Code 35867 Subseq Hosp Care Lvl 3 Diagnoses Acute encephalopathy G93.40 Pneumonia J18.9 Sepsis A41.9 Hypothermia T68.XXXA Encounter type: initial encounter Wound of right ankle S91.001A Acute hyperkalemia E87.5 Hypertension I10 Stenosis of cervical spine with myelopathy M48.02; G99.2 Dysarthria R47.1 Hypomagnesemia E83.42 Hypercholesterolemia E78.00 Dementia F03.91 Dementia behavioral disturbance: with behavioral disturbance Dementia type: unspecified type Stress incontinence in female N39.3 (1) Dementia Dementia behavioral disturbance: with behavioral disturbance Dementia type: unspecified type Qualified Code(s): F03.91 - Unspecified dementia with behavioral disturbance (2) Hypothermia Encounter type: initial encounter Qualified Code(s): T68.XXXA - Hypothermia, initial encounter
[2022-05-16] MEDS: metroNIDAZOLE 500 MG/100 ML BAG IV SCH ×3 (02:00→17:49)
[2022-05-16] MEDS: THIAMINE HCL 500 MG in SODIUM CHLORIDE 0.9% 50 ML IV SCH ×3 (03:33→17:51)
[2022-05-16] MEDS: NEOMYCIN/POLYMYXIN/HYDROCORT OPH SUSP 7.5 ML BTL OPR SCH ×6 (03:33→22:35)
[2022-05-16 06:43] LABS: Basophils # (auto) 0.02 K/uL (0-0.2); Basophils % (auto) 0.2 %; Eosinophils # (auto) 0.12 K/uL (0-0.50); Eosinophils % (auto) 1.2 %; Hematocrit (blood only) 28.4 % (34.1-44.9); Hemoglobin 9.5 g/dl (12.0-16.0); Immature Granulocytes # (auto) 0.05 K/uL (0.00-0.02); Immature Granulocytes % (auto) 0.5 %; Lymphocytes # (auto) 0.57 K/uL (1.2-3.4); Lymphocytes % (auto) 5.6 %; Mean Corpuscular Hemoglobin 31.6 pg (25.0-34.0); Mean Corpuscular Hgb Conc 33.5 g/dL (32.0-36.0); Mean Corpuscular Volume 94.4 fL (80.0-100.0); Mean Platelet Volume 9.3 fL (9.4-12.3); Monocytes # (auto) 1.36 K/uL (0.24-0.82); Monocytes % (auto) 13.3 %; Neutrophils # (auto) 8.11 K/uL (1.4-6.5); Neutrophils % (auto) 79.2 %; Platelet Count 113 K/uL (130-400); RDW Coefficient of Variation 15.3 % (11.5-14.5); RDW Standard Deviation 53.1 fL (36.4-46.3); Red Blood Count 3.01 M/uL (3.93-5.22); White Blood Count 10.23 K/ul (4.8-10.8)
[2022-05-16 07:11] LABS: Iron 21 mcg/dl (35-150); Total Iron Binding Cap Calc 208 mcg/dl (250-450); Transferrin (FE) Percent Satur 10 % (15-50); Unsaturated Iron Binding Cap 187 mcg/dl (155-355)
[2022-05-16 07:24] LABS: Ferritin 82.2 ng/ml (8-388)
[2022-05-16] MEDS: ALBUT/IPRATROP 3MG/0.5MG NEB 3 ML VIAL NEB SCH ×3 (07:26→19:14)
[2022-05-16 07:31] LABS: Vitamin B12 1070 pg/ml (180-914)
[2022-05-16 07:38] LABS: Magnesium 1.7 mg/dl (1.7-2.4)
[2022-05-16] MEDS: HEPARIN SOD 5,000 UNIT/0.5 ML VIAL SQ SCH ×2 (08:01→22:05)
[2022-05-16] MEDS: CEFEPIME 2,000 MG in SYRINGE 0 ML IV SCH ×2 (10:19→22:35)
[2022-05-16] MEDS ORDERED: VANCOMYCIN LEVEL ONE (11:00)
[2022-05-16] MEDS ORDERED: ACETAMINOPHEN 1,000 MG/100 ML VIAL IV PRN (12:07)
[2022-05-16] MEDS: D5W AND NSS 1,000 ML IV SCH (12:34)
[2022-05-16] MEDS: VANCOMYCIN HCL 750 MG in SODIUM CHLORIDE 0.9% 250 ML IV SCH (12:35)
--- NOTE | 2022-05-16 12:54 | Hospitalist Progress Note ---
Date of Service May 16, 2022 Assessment & Plan (1) Acute encephalopathy: Plan: Acute metabolic encephalopathy Present on admission. Initially was thought to be due to RLE cellulitis. Had improved, then worsened again on 05/14. Likely 2nd to pneumonia. Had improved again on 05/15, and is awake today -- but still not back to baseline. Cont IV abx for pneumonia. Cont supportive care. (2) Pneumonia: Plan: 2nd to aspiration? GNR? other? Day #3 of IV abx. Cont cefepime. Cont flagyl. MRSA swab negative - stop IV vanco. Clinically stable. Sats normal in RA. Plan 7 days of Rx. (3) Cellulitis of right leg: Plan: resolved on exam today (4) Sepsis: Plan: present on admission. initially 2nd to RLE cellulitis - now resolved. then bilateral pneumonia. Blood cultures negative. (5) Hypothermia: Plan: present on admission. 2nd to sepsis. resolved. (6) Wound of right ankle: Plan: chronic. 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 wound is clean. appreciate wound care consult & recs. superimposed RLE cellulitis is resolved. (7) Acute hyperkalemia: Plan: resolved (8) Hypertension: Plan: cont to hold home metoprolol and aldactone BPs stable without them (9) Stenosis of cervical spine with myelopathy: Plan: severe weakness of legs contractures of arms RUE>LUE reports she can walk about 15-20 steps extremely slowly with assistance from home PT but otherwise is wheelchair dependent (10) Dysarthria: Plan: resolved 2nd to delirium (11) Hypomagnesemia: Plan: replaced resolved (12) Hypercholesterolemia: Plan: currently holding fish oil and simvastatin (13) Dementia: Plan: severe at baseline (14) Stress incontinence in female: Plan: john in place holding anti-spasmodics (15) Constipation: Plan: dulcolax suppos x 1 today (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) s/p MOHS surgery within the last year with poor wound healing cont local wound care Plan I am concerned about her general well-being Her recovery from this illness remains uncertain Her PO intake is very poor Her rehab potential is very poor She may need more assistance than what her can provide on his own at home The next few days will tell us if she will recover from this illness or if we will need to pursue palliative care extensively updated at bedside today PTJOSEF requested Admission and Anticipated Discharge Date Admission Date: May 11, 2022 Subjective patient awake during the visit but unable to provide much in the way of meaningful history at one point she stated she was achy "all over" and then a minute later she denied having aches her was at bedside he reported that at her usual baseline she recognizes family, but is not oriented she walks minimally at home - mainly is in a wheelchair appetite is fair at best even on her good days at home hearing and vision are both significantly impaired her reports tele overnight wnl no BM in 5 days per staff Review of Systems Review of Systems: Unobtainable due to cognitive status Physical Exam Physical Exam: gen - eyes open, awake, but confused and talking nonsensically mouth - oral mucosa dry neck - no JVD heart - RRR, s1 s2, no murmur lungs - b/l basilar rales, no wheeze, no increased work of breathing abd - soft NT ND BS+ ext - trace edema b/l, pulses 2+ b/l skin - right foot - lateral ankle with large, circular ulceration - about 2-3cm in diameter- with clean base; no cellulitis; no drainage; pressure ulcer on medial right foot, about 1/2 cm in size, clean-based psych - oriented to person only neuro - contractures of upper extremities musculo - severe OA of hands Results & Data Results & Data ([facility]) Vital Signs (Past 12 Hours) Vital Signs Temp Pulse Pulse Resp BP Pulse Ox O2 Del Method 05/16/22 11:49 36.8 C 86 17 145/67 H 94 Room Air 05/16/22 07:30 69 05/16/22 08:00 Room Air 05/16/22 07:57 36.7 C 79 18 128/62 93 Room Air 05/16/22 07:26 65 18 95 Room Air 05/16/22 03:34 36.5 C 72 20 156/66 H 96 Room Air 05/16/22 01:03 36.6 C 67 20 160/64 H 97 Room Air Laboratory Results Laboratory Results - last 24 hr 05/16/22 05/16/22 05/16/22 06:25 06:25 06:25 WBC 10.23 RBC 3.01 L Hgb 9.5 L Hct 28.4 L MCV 94.4 MCH 31.6 MCHC 33.5 RDW Std Deviation 53.1 H RDW Coeff of José 15.3 H Plt Count 113 L MPV 9.3 L Immature Gran % (Auto) 0.5 Neut % (Auto) 79.2 Lymph % (Auto) 5.6 Walsh % (Auto) 13.3 Eos % (Auto) 1.2 Baso % (Auto) 0.2 Neut # (Auto) 8.11 H Lymph # (Auto) 0.57 L Walsh # (Auto) 1.36 H Eos # (Auto) 0.12 Baso # (Auto) 0.02 Immature Gran # (Auto) 0.05 H POC Glucose Magnesium 1.7 Iron 21 L TIBC 208 L Unsaturated IBC 187 Transferrin % Sat 10 L Ferritin 82.2 Vitamin B12 Folate Nasal Screen MRSA (PCR) Vancomycin Trough 05/16/22 05/16/22 05/16/22 06:25 09:12 11:27 WBC RBC Hgb Hct MCV MCH MCHC RDW Std Deviation RDW Coeff of José Plt Count MPV Immature Gran % (Auto) Neut % (Auto) Lymph % (Auto) Walsh % (Auto) Eos % (Auto) Baso % (Auto) Neut # (Auto) Lymph # (Auto) Walsh # (Auto) Eos # (Auto) Baso # (Auto) Immature Gran # (Auto) POC Glucose Magnesium Iron TIBC Unsaturated IBC Transferrin % Sat Ferritin Vitamin B12 1070 H Folate > 22.30 Nasal Screen MRSA (PCR) Negative Vancomycin Trough 12.4 05/16/22 11:35 WBC RBC Hgb Hct MCV MCH MCHC RDW Std Deviation RDW Coeff of José Plt Count MPV Immature Gran % (Auto) Neut % (Auto) Lymph % (Auto) Walsh % (Auto) Eos % (Auto) Baso % (Auto) Neut # (Auto) Lymph # (Auto) Walsh # (Auto) Eos # (Auto) Baso # (Auto) Immature Gran # (Auto) POC Glucose 98 Magnesium Iron TIBC Unsaturated IBC Transferrin % Sat Ferritin Vitamin B12 Folate Nasal Screen MRSA (PCR) Vancomycin Trough PG Care Time/CCT Total # of Minutes Spent Total Time Spent with Patient: Total time spent is greater than 50% in coordination of care (as documented) at patient's floor/unit and/or counseling patient: Coding Level of Care Code 63212 Subseq Hosp Care Lvl 3 Diagnoses Acute encephalopathy G93.40 Pneumonia J18.9 Cellulitis of right leg L03.115 Sepsis A41.9 Hypothermia T68.XXXA Encounter type: initial encounter Wound of right ankle S91.001A Acute hyperkalemia E87.5 Hypertension I10 Stenosis of cervical spine with myelopathy M48.02; G99.2 Dysarthria R47.1 Hypomagnesemia E83.42 Hypercholesterolemia E78.00 Dementia F03.91 Dementia behavioral disturbance: with behavioral disturbance Dementia type: unspecified type Stress incontinence in female N39.3 Constipation K59.00 Squamous cell carcinoma (1) Dementia Dementia behavioral disturbance: with behavioral disturbance Dementia type: unspecified type Qualified Code(s): F03.91 - Unspecified dementia with behavioral disturbance (2) Hypothermia Encounter type: initial encounter Qualified Code(s): T68.XXXA - Hypothermia, initial encounter
[2022-05-16] MEDS ORDERED: bisacodyL 10 MG SUPP PR STA (12:56)
[2022-05-17] MEDS: metroNIDAZOLE 500 MG/100 ML BAG IV SCH ×3 (01:27→17:59)
[2022-05-17] MEDS: THIAMINE HCL 500 MG in SODIUM CHLORIDE 0.9% 50 ML IV SCH ×3 (03:24→21:12)
[2022-05-17] MEDS: NEOMYCIN/POLYMYXIN/HYDROCORT OPH SUSP 7.5 ML BTL OPR SCH ×5 (03:26→21:13)
[2022-05-17] MEDS: D5W AND NSS 1,000 ML IV SCH ×2 (05:29→21:11)
[2022-05-17] MEDS: ALBUT/IPRATROP 3MG/0.5MG NEB 3 ML VIAL NEB SCH (06:50)
[2022-05-17] MEDS: HEPARIN SOD 5,000 UNIT/0.5 ML VIAL SQ SCH ×2 (08:05→21:13)
[2022-05-17 08:08] LABS: BUN Creatinine Ratio 16.7 (10-20); C Reactive Protein 15.85 mg/dl (0-0.5); Calcium 8.1 mg/dl (8.5-10.1); Est GFR (African American) 107.6 ml/min; Est GFR (Non-African American) 92.8 ml/min; Potassium 3.3 mmol/L (3.5-5.1)
[2022-05-17 08:13] LABS: Phosphorus 1.4 mg/dl (2.5-4.9)
[2022-05-17] MEDS ORDERED: POTASSIUM PHOS 3 MMOL/1 ML INFUSION IV STA (08:29)
[2022-05-17] MEDS ORDERED: POTASSIUM PHOSPHATE 30 MMOL in SODIUM CHLORIDE 0.9% 500 ML IV ONE (09:00)
[2022-05-17] MEDS: CEFEPIME 2,000 MG in SYRINGE 0 ML IV SCH ×2 (10:23→21:12)
--- NOTE | 2022-05-17 12:39 | Hospitalist Progress Note ---
Date of Service May 17, 2022 Assessment & Plan (1) Acute encephalopathy: Plan: Acute metabolic encephalopathy Ongoing Present on admission. Initially was thought to be due to RLE cellulitis. Had improved, then worsened again on 05/14. Likely 2nd to pneumonia. Had improved again on 05/15, and was awake on 05/16 - but back to significant lethargy today. CT head x 2 this admission w/o acute findings. Prior ABG w/o hypercarbia. Prior ammonia wnl. TSH wnl. Cont IV abx for pneumonia. Repeat cxr today with "worsening pulmonary edema" but she doesn't examine as such. Would be concerned today's cxr represents worsening pneumonia as her CRP as trended up while on antibiotic therapy. Repeat VBG in am. Recheck CRP in am. Consider MRI brain - r/o subacute CVA. (2) Pneumonia: Plan: 2nd to aspiration? GNR? other? Day #4 of IV abx. Cont cefepime. Cont flagyl. MRSA swab negative - IV vanco stopped. Stable with no fever and normal O2 sats but on exam worse crackles today and cxr is worse. Recurrent aspiration due to lethargy? Current IV abx not covering the culprit pathogens causing pneumonia? other? recheck CRP and procal in am recheck cbc w/ diff in am (3) Cellulitis of right leg: Plan: resolved (4) Sepsis: Plan: present on admission. initially 2nd to RLE cellulitis - now resolved. then bilateral pneumonia. Blood cultures negative. (5) Hypothermia: Plan: present on admission. 2nd to sepsis. resolved. (6) Wound of right ankle: Plan: chronic. 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 wound is clean. appreciate wound care consult & recs. superimposed RLE cellulitis is resolved. (7) Acute hyperkalemia: Plan: resolved (8) Hypertension: Plan: will resume metoprolol tomorrow if SBP remains >140 (9) Stenosis of cervical spine with myelopathy: Plan: severe weakness of legs contractures of arms RUE>LUE reports she can walk about 15-20 steps extremely slowly with assistance from home PT but otherwise is wheelchair dependent (10) Dysarthria: Plan: had been present earlier in the admission - 2nd to delirium (11) Hypomagnesemia: Plan: replaced resolved (12) Hypercholesterolemia: Plan: currently holding fish oil and simvastatin (13) Dementia: Plan: severe at baseline (14) Stress incontinence in female: Plan: john in place holding anti-spasmodics (15) Constipation: Plan: dulcolax suppos not effective may need enema if no BM today (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) s/p MOHS surgery within the last year with poor wound healing cont local wound care (17) Hypokalemia: Plan: K-phos IV for #18 will help with this BMP in am Mag in am (18) Hypophosphatemia: Plan: 30mmol of IV Kphos x 1 today repeat phos level am Plan I am concerned about her general well-being. She is again worse today despite IV abx & supportive care. Her recovery from this illness remains uncertain Her PO intake is very poor Her rehab potential is very poor extensively updated at bedside today and I called him by phone this evening hopefully she will improve next 1-2 days; if not may need to pursue palliation Admission and Anticipated Discharge Date Admission Date: May 11, 2022 Subjective tele stable overnight patient very lethargic during the visit today calling her name she did not wake up - mumbled something unintelligible but never opened her eyes at bedside - he states she took a few bites of food and sips of fluid for lunch only, never really woke up much since his arrival she continues with cough during my visit yesterday with dulcolax suppos she had minimal BM Review of Systems Review of Systems: Unobtainable due to cognitive status Physical Exam Physical Exam: gen - very lethargic today mouth - oral mucosa more moist today neck - no JVD heart - RRR, s1 s2, no murmur lungs - b/l basilar rales, worse on right today; no wheeze, no increased work of breathing abd - soft NT ND BS+ ext - trace edema b/l, pulses 2+ b/l skin - right foot - lateral ankle with large, circular ulceration - about 2-3cm in diameter- clean base; no cellulitis; no drainage psych - oriented x 0 today neuro - contractures of upper extremities Results & Data Results & Data ([facility]) Vital Signs (Past 12 Hours) Vital Signs Temp Pulse Resp BP Pulse Ox O2 Del Method 05/17/22 11:26 36.6 C 90 21 157/82 H 93 05/17/22 10:38 Room Air 05/17/22 08:42 36.8 C 05/17/22 07:35 35.7 C L 05/17/22 07:30 90 22 131/73 94 05/17/22 06:51 71 20 96 Room Air 05/17/22 03:26 35.9 C L 76 15 115/84 97 Room Air Laboratory Results Laboratory Results - last 24 hr 05/16/22 05/17/22 05/17/22 11:27 07:20 07:21 Sodium 142 Potassium 3.3 L Chloride 110 H Carbon Dioxide 25 Anion Gap 7 BUN 7 Creatinine 0.42 L Est Cr Clr Drug Dosing 76.0 Est GFR ( Amer) 107.6 Est GFR (Non-Af Amer) 92.8 BUN/Creatinine Ratio 16.7 Glucose 104 H POC Glucose 100 H Calcium 8.1 L Phosphorus 1.4 L* C-Reactive Protein 15.85 H Vancomycin Trough 12.4 05/17/22 11:20 Sodium Potassium Chloride Carbon Dioxide Anion Gap BUN Creatinine Est Cr Clr Drug Dosing Est GFR ( Amer) Est GFR (Non-Af Amer) BUN/Creatinine Ratio Glucose POC Glucose 122 H Calcium Phosphorus C-Reactive Protein Vancomycin Trough PG Care Time/CCT Total # of Minutes Spent Total Time Spent with Patient: Total time spent is greater than 50% in coordination of care (as documented) at patient's floor/unit and/or counseling patient: Coding Level of Care Code 99312 Subseq Hosp Care Lvl 3 Diagnoses Acute encephalopathy G93.40 Pneumonia J18.9 Cellulitis of right leg L03.115 Sepsis A41.9 Hypothermia T68.XXXA Encounter type: initial encounter Wound of right ankle S91.001A Acute hyperkalemia E87.5 Hypertension I10 Stenosis of cervical spine with myelopathy M48.02; G99.2 Dysarthria R47.1 Hypomagnesemia E83.42 Hypercholesterolemia E78.00 Dementia F03.91 Dementia behavioral disturbance: with behavioral disturbance Dementia type: unspecified type Stress incontinence in female N39.3 Constipation K59.00 Squamous cell carcinoma Hypokalemia E87.6 Hypophosphatemia E83.39 (1) Dementia Dementia behavioral disturbance: with behavioral disturbance Dementia type: unspecified type Qualified Code(s): F03.91 - Unspecified dementia with behavioral disturbance (2) Hypothermia Encounter type: initial encounter Qualified Code(s): T68.XXXA - Hypothermia, initial encounter
[2022-05-17] MEDS ORDERED: ALBUT/IPRATROP 3MG/0.5MG NEB 3 ML VIAL NEB PRN (14:51)
--- NOTE | 2022-05-17 15:51 | XRay Report ---
XR chest 1V portable HISTORY: Cough. pneumonia, interval change COMPARISON: Chest 05/14/2022. FINDINGS: No pneumothorax. The heart remains mildly enlarged. Progressive interstitial/vascular thick ening and small bilateral pleural effusions. Patchy bibasilar densities have also slightly progressed . 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 IMPRESSION: 1. Interval progression of the mild interstitial pulmonary edema and small bilateral pleural effusion s. 2. Patchy bibasilar densities have also progressed and may represent atelectasis or pneumonia. ACT 112: Negative or not required by law. Electronically signed by: Ace Alvares M.D. 05/17/2022 3:50 PM
[2022-05-18] MEDS: metroNIDAZOLE 500 MG/100 ML BAG IV SCH ×4 (00:51→23:50)
[2022-05-18] MEDS: NEOMYCIN/POLYMYXIN/HYDROCORT OPH SUSP 7.5 ML BTL OPR SCH ×7 (00:51→23:43)
[2022-05-18] MEDS: THIAMINE HCL 500 MG in SODIUM CHLORIDE 0.9% 50 ML IV SCH ×3 (04:05→19:39)
[2022-05-18 06:20] LABS: Base Excess VBG 1.5 mEq/L; HCO3 VBG 26 mmol/L; PCO2 VBG 39 mmHg (38-50); PO2 VBG 61 mmHg; pH VBG 7.43 (7.36-7.41)
[2022-05-18 06:21] LABS: Basophils # (auto) 0.02 K/uL (0-0.2); Basophils % (auto) 0.2 %; Eosinophils # (auto) 0.11 K/uL (0-0.50); Eosinophils % (auto) 1.2 %; Hematocrit (blood only) 26.9 % (34.1-44.9); Hemoglobin 8.8 g/dl (12.0-16.0); Immature Granulocytes # (auto) 0.08 K/uL (0.00-0.02); Immature Granulocytes % (auto) 0.9 %; Lymphocytes # (auto) 0.67 K/uL (1.2-3.4); Lymphocytes % (auto) 7.5 %; Mean Corpuscular Hemoglobin 30.9 pg (25.0-34.0); Mean Corpuscular Hgb Conc 32.7 g/dL (32.0-36.0); Mean Corpuscular Volume 94.4 fL (80.0-100.0); Mean Platelet Volume 8.9 fL (9.4-12.3); Monocytes # (auto) 1.15 K/uL (0.24-0.82); Monocytes % (auto) 12.8 %; Neutrophils # (auto) 6.96 K/uL (1.4-6.5); Neutrophils % (auto) 77.4 %; Platelet Count 184 K/uL (130-400); RDW Coefficient of Variation 15.1 % (11.5-14.5); RDW Standard Deviation 51.9 fL (36.4-46.3); Red Blood Count 2.85 M/uL (3.93-5.22); White Blood Count 8.99 K/ul (4.8-10.8)
[2022-05-18 06:52] LABS: BUN Creatinine Ratio 17.8 (10-20); Calcium 7.8 mg/dl (8.5-10.1); Est GFR (African American) 105.2 ml/min; Est GFR (Non-African American) 90.7 ml/min; Potassium 3.4 mmol/L (3.5-5.1)
[2022-05-18 06:56] LABS: Magnesium 1.4 mg/dl (1.7-2.4); Phosphorus 1.5 mg/dl (2.5-4.9)
[2022-05-18] MEDS ORDERED: POTASSIUM PHOS 3 MMOL/1 ML INFUSION IV STA (07:16)
[2022-05-18] MEDS ORDERED: POTASSIUM PHOSPHATE 24 MMOL in SODIUM CHLORIDE 0.9% 500 ML IV ONE (07:30)
[2022-05-18] MEDS: MAGNESIUM SULFATE / D5W 1 GM/100 ML BAG IV SCH ×2 (08:15→10:14)
[2022-05-18] MEDS: HEPARIN SOD 5,000 UNIT/0.5 ML VIAL SQ SCH ×2 (08:34→19:40)
[2022-05-18] MEDS: CEFEPIME 2,000 MG in SYRINGE 0 ML IV SCH ×2 (10:14→19:40)
[2022-05-18] MEDS ORDERED: FUROSEMIDE INJ 20 MG/2 ML VIAL IV ONE (14:35)
[2022-05-18 16:35] LABS: Influenza A virus by PCR Negative (Neg); Influenza B virus by PCR Negative (Neg); RSV by PCR Negative (Neg); SARS CoV2 RNA(COVID-19)Cepheid NEGATIVE (Negative)
[2022-05-18] MEDS ORDERED: Nursing to Pharmacy Communication SCH (17:45)
--- NOTE | 2022-05-18 17:54 | Hospitalist Progress Note ---
Date of Service May 18, 2022 Assessment & Plan (1) Acute encephalopathy: Plan: Acute metabolic encephalopathy Ongoing SEVERE lethargy despite maximal medical treatment Present on admission. Initially was thought to be due to RLE cellulitis. Had improved, then worsened again on 05/14. Worsening thought 2nd to pneumonia. Had improved again on 05/15, and was awake on 05/16 - but back to significant lethargy 05/17 [address] worse today[address] CT head x 2 this admission w/o acute findings. Prior ABG w/o hypercarbia. Prior ammonia wnl. TSH wnl. Repeat VBG today without hypercarbia Procal today negative. No hypoglycemia. I repeated COVID/Flu/RSV PCR test today --- negative. We discussed pursuing MRI brain to r/o subacute stroke. Spouse/daughter agree with such, even if it is for prognosticating purposes. Will attempt MRI brain. Check LFTs in am. Check CRP in am. Check ESR in am. Her ongoing delirium/severely altered MS is very concerning. Prognosis is guarded. (2) Pneumonia: Plan: 2nd to aspiration? GNR? other? Day #5 of IV abx. Cont cefepime. Cont flagyl. MRSA swab negative - IV vanco stopped. Stable with no fever and normal O2 sats but on exam worse crackles today and cxr is worse. Recurrent aspiration due to lethargy? Current IV abx not covering the culprit pathogens causing pneumonia? other? despite aggressive IV abx she continues to do poorly. see #1 above. (3) Cellulitis of right leg: Plan: resolved (4) Sepsis: Plan: present on admission. initially 2nd to RLE cellulitis - now resolved. then bilateral pneumonia. Blood cultures negative. (5) Hypothermia: Plan: present on admission. 2nd to sepsis. resolved. (6) Wound of right ankle: Plan: chronic. 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 wound is clean. appreciate wound care consult & recs. superimposed RLE cellulitis is resolved. 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: Plan: severe weakness of legs contractures of arms RUE>LUE reports she can walk about 15-20 steps extremely slowly with assistance from home PT but otherwise is wheelchair dependent (10) Dysarthria: Plan: had been present earlier in the admission obtaining MRI brain -- r/o subacute CVA (11) Hypomagnesemia: Plan: replaced resolved (12) Hypercholesterolemia: Plan: currently holding fish oil and simvastatin (13) Dementia: Plan: severe at baseline with superimposed encephalopathy as above (14) Stress incontinence in female: Plan: john in place holding anti-spasmodics (15) Constipation: Plan: if impacted could contribute to lethargy consider KUB to check for impaction (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) s/p MOHS surgery within the last year with poor wound healing cont local wound care (17) Hypokalemia: Plan: K-phos IV for #18 will help with this BMP in am (18) Hypophosphatemia: Plan: repeat IV K-phos 24mmol x 1 today (19) Acute diastolic CHF (congestive heart failure): Plan: patient examines in CHF today cxr yesterday with pulmonary edema Stop IVF lasix 20mg IV x 1 re-eval tomorrow Plan prognosis is guarded entering day 8 of her stay tomorrow without any significant/meaningful improvement if lethargy persists despite maximal Rx strongly consider shifting to comfort care/palliative care pathway spouse/daughter updated extensively Admission and Anticipated Discharge Date Admission Date: May 11, 2022 Subjective tele again stable overnight patient again remains very lethargic, essentially minimally responsive to voice, touch, etc pt's & daughter were present during the visit we discussed possibilities for ongoing lethargy we discussed work-up, options for Rx, etc patient without adequate PO intake in nearly 7 days Review of Systems Review of Systems: Unobtainable due to cognitive status and Unobtainable due to reduced consciousness Physical Exam Physical Exam: gen - lethargic, did not wake to her name being called, or with any portion of the physical exam mouth - oral mucosa dry neck - JVD present heart - RRR, s1 s2, no murmur lungs - b/l basilar rales, no wheeze, no increased work of breathing but does have quiet tachypnea abd - soft NT ND BS+ ext - trace edema b/l, pulses 2+ b/l skin - right foot - [address] psych - lethargic, borderline obtunded neuro - contractures of upper extremities; +babinski b/l Results & Data Results & [facility] ([facility]) Vital Signs (Past 12 Hours) Vital Signs Temp Pulse Pulse Resp BP BP Pulse Ox 05/18/22 16:24 80 05/18/22 14:41 36.4 C L 80 17 143/65 H 92 05/18/22 13:38 05/18/22 08:00 72 05/18/22 11:32 36.9 C 83 18 143/71 H 94 05/18/22 07:29 36.8 C 81 18 139/75 94 O2 Del Method 05/18/22 16:24 05/18/22 14:41 Room Air 05/18/22 13:38 Room Air 05/18/22 08:00 05/18/22 11:32 Room Air 05/18/22 07:29 Room Air Laboratory Results Laboratory Results - last 24 hr 05/17/22 05/18/22 05/18/22 20:10 06:04 06:04 WBC 8.99 RBC 2.85 L Hgb 8.8 L Hct 26.9 L MCV 94.4 MCH 30.9 MCHC 32.7 RDW Std Deviation 51.9 H RDW Coeff of José 15.1 H Plt Count 184 D MPV 8.9 L Immature Gran % (Auto) 0.9 Neut % (Auto) 77.4 Lymph % (Auto) 7.5 Taney % (Auto) 12.8 Eos % (Auto) 1.2 Baso % (Auto) 0.2 Neut # (Auto) 6.96 H Lymph # (Auto) 0.67 L [place]aney # (Auto) 1.15 H Eos # (Auto) 0.11 Baso # (Auto) 0.02 Immature Gran # (Auto) 0.08 H VBG pH VBG pCO2 VBG pO2 VBG HCO3 VBG O2 Saturation VBG Base Excess Sodium 142 Potassium 3.4 L Chloride 110 H Carbon Dioxide 26 Anion Gap 6 BUN 8 Creatinine 0.45 L Est Cr Clr Drug Dosing 71.0 Est GFR ( Amer) 105.2 Est GFR (Non-Af Amer) 90.7 BUN/Creatinine Ratio 17.8 Glucose 89 POC Glucose 115 H Calcium 7.8 L Phosphorus 1.5 L* Magnesium 1.4 L Procalcitonin SARS-CoV-2 (PCR) Influenza Type A (PCR) Influenza Type B (PCR) RSV (RT-PCR) 05/18/22 05/18/22 05/18/22 06:04 06:04 07:34 WBC RBC Hgb Hct MCV MCH MCHC RDW Std Deviation RDW Coeff of José Plt Count MPV Immature Gran % (Auto) Neut % (Auto) Lymph % (Auto) [place] % (Auto) Eos % (Auto) Baso % (Auto) Neut # (Auto) Lymph # (Auto) [place] # (Auto) Eos # (Auto) Baso # (Auto) Immature Gran # (Auto) VBG pH 7.43 H VBG pCO2 39 VBG pO2 61 VBG HCO3 26 VBG O2 Saturation 91.0 VBG Base Excess 1.5 Sodium Potassium Chloride Carbon Dioxide Anion Gap BUN Creatinine Est Cr Clr Drug Dosing Est GFR ( Amer) Est GFR (Non-Af Amer) BUN/Creatinine Ratio Glucose POC Glucose 90 Calcium Phosphorus Magnesium Procalcitonin 0.17 SARS-CoV-2 (PCR) Influenza Type A (PCR) Influenza Type B (PCR) RSV (RT-PCR) 05/18/22 05/18/22 05/18/22 11:16 15:23 16:05 WBC RBC Hgb Hct MCV MCH MCHC RDW Std Deviation RDW Coeff of José Plt Count MPV Immature Gran % (Auto) Neut % (Auto) Lymph % (Auto) [place] % (Auto) Eos % (Auto) Baso % (Auto) Neut # (Auto) Lymph # (Auto) [place]aney # (Auto) Eos # (Auto) Baso # (Auto) Immature Gran # (Auto) VBG pH VBG pCO2 VBG pO2 VBG HCO3 VBG O2 Saturation VBG Base Excess Sodium Potassium Chloride Carbon Dioxide Anion Gap BUN Creatinine Est Cr Clr Drug Dosing Est GFR ( Amer) Est GFR (Non-Af Amer) BUN/Creatinine Ratio Glucose POC Glucose 104 H 86 Calcium Phosphorus Magnesium Procalcitonin SARS-CoV-2 (PCR) NEGATIVE Influenza Type A (PCR) Negative Influenza Type B (PCR) Negative RSV (RT-PCR) Negative PG Care Time/CCT Total # of Minutes Spent Total Time Spent with Patient: Total time spent is greater than 50% in coordination of care (as documented) at patient's floor/unit and/or counseling patient: Coding Level of Care Code 57953 Subseq Hosp Care Lvl 3 Diagnoses Acute encephalopathy G93.40 Pneumonia J18.9 Cellulitis of right leg L03.115 Sepsis A41.9 Hypothermia T68.XXXA Encounter type: initial encounter Wound of right ankle S91.001A Acute hyperkalemia E87.5 Hypertension I10 Stenosis of cervical spine with myelopathy M48.02; G99.2 Dysarthria R47.1 Hypomagnesemia E83.42 Hypercholesterolemia E78.00 Dementia F03.91 Dementia behavioral disturbance: with behavioral disturbance Dementia type: unspecified type Stress incontinence in female N39.3 Constipation K59.00 Squamous cell carcinoma Hypokalemia E87.6 Hypophosphatemia E83.39 Acute diastolic CHF (congestive heart failure) I50.31 (1) Dementia Dementia behavioral disturbance: with behavioral disturbance Dementia type: unspecified type Qualified Code(s): F03.91 - Unspecified dementia with behavioral disturbance (2) Hypothermia Encounter type: initial encounter Qualified Code(s): T68.XXXA - Hypothermia, initial encounter
[2022-05-19] MEDS: THIAMINE HCL 500 MG in SODIUM CHLORIDE 0.9% 50 ML IV SCH ×3 (03:56→18:23)
[2022-05-19] MEDS: NEOMYCIN/POLYMYXIN/HYDROCORT OPH SUSP 7.5 ML BTL OPR SCH ×6 (03:56→23:29)
--- NOTE | 2022-05-19 06:39 | Magnetic Resonance Report ---
MRI OF THE BRAIN WITHOUT IV CONTRAST CLINICAL HISTORY: Change in mental status. COMPARISON STUDY: CT of the brain dated 05/13/2022. MRI of the brain dated 08/14/2020. TECHNIQUE: MRI of the brain was performed utilizing various T1 and T2-weighted sequences in the axial , sagittal, and coronal planes. IV contrast was not administered for this examination. The examinatio n is modestly degraded by motion artifact. FINDINGS: Brain parenchyma: There is age-related involutional change noted moderate to advanced confluent subco rtical and periventricular microangiopathic disease. There is no hemorrhage or mass effect. There is no restricted diffusion to suggest acute ischemia. Blakely-white matter differentiation is preserved. No extra-axial fluid collection is seen. A chronic odontoid fracture causes basilar invagination and na rrowing of the foramen magnum. Ventricles, sulci, and cisterns: Prominent secondary to involutional change. Pituitary and sella: Unremarkable. Intracranial vasculature: Normal flow voids are maintained at the skull base. Orbits: The bony orbits are grossly intact. Orbital contents are normal in appearance noting bilatera l ocular lens implants. Sinuses and mastoids: There is mild mucosal thickening within the ethmoid sinuses and the left maxill danielle antrum. Trace mucosal thickening is seen in the sphenoid sinus. There are left larger than right mastoid effusions. Calvarium: Unremarkable. Cervical cord: Partially visualized cervical spinal cord is normal in morphology and signal intensity . There is a chronic odontoid fracture. IMPRESSION: 1. Senescent change as above with no acute intracranial abnormality identified. 2. 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 This is similar to prior studies. ACT 112: Negative or not required by law. Electronically signed by: Alistair Townsend M.D. 05/19/2022 6:38 AM
[2022-05-19 07:31] LABS: Basophils # (auto) 0.03 K/uL (0-0.2); Basophils % (auto) 0.3 %; Eosinophils # (auto) 0.06 K/uL (0-0.50); Eosinophils % (auto) 0.6 %; Hematocrit (blood only) 28.1 % (34.1-44.9); Hemoglobin 9.3 g/dl (12.0-16.0); Immature Granulocytes # (auto) 0.06 K/uL (0.00-0.02); Immature Granulocytes % (auto) 0.6 %; Lymphocytes # (auto) 0.71 K/uL (1.2-3.4); Lymphocytes % (auto) 7.5 %; Mean Corpuscular Hgb Conc 33.1 g/dL (32.0-36.0); Mean Corpuscular Volume 93.7 fL (80.0-100.0); Mean Platelet Volume 8.8 fL (9.4-12.3); Monocytes # (auto) 1.23 K/uL (0.24-0.82); Monocytes % (auto) 12.9 %; Neutrophils # (auto) 7.41 K/uL (1.4-6.5); Neutrophils % (auto) 78.1 %; Platelet Count 248 K/uL (130-400); RDW Coefficient of Variation 15.1 % (11.5-14.5); RDW Standard Deviation 52.3 fL (36.4-46.3)
[2022-05-19 07:54] LABS: Albumin Level 2.8 gm/dl (3.4-5.0); BUN Creatinine Ratio 20.4 (10-20); Bilirubin Direct 0.1 mg/dl (0-0.2); Bilirubin,Total 0.4 mg/dl (0.2-1.0); C Reactive Protein 14.62 mg/dl (0-0.5); Calcium 8.2 mg/dl (8.5-10.1); Creatinine Clr Calc Pharmacy 59.1 ml/min; Est GFR (Non-African American) 85.4 ml/min; Magnesium 1.6 mg/dl (1.7-2.4); Potassium 3.9 mmol/L (3.5-5.1); Total Protein 5.8 gm/dl (6.0-8.3)
[2022-05-19] MEDS: metroNIDAZOLE 500 MG/100 ML BAG IV SCH ×2 (07:58→16:47)
[2022-05-19] MEDS ORDERED: MAGNESIUM SULFATE / D5W 1 GM/100 ML BAG IV ONE (07:59)
[2022-05-19] MEDS: HEPARIN SOD 5,000 UNIT/0.5 ML VIAL SQ SCH ×2 (07:59→19:26)
[2022-05-19] MEDS: DEXTROSE 10% 1,000 ML IV SCH (08:48)
[2022-05-19] MEDS: CEFEPIME 2,000 MG in SYRINGE 0 ML IV SCH ×2 (10:35→16:47)
[2022-05-19] MEDS ORDERED: methylPREDNISolone 40 MG in SYRINGE 0 ML IV ONE (14:30)
--- NOTE | 2022-05-19 20:45 | Hospitalist Progress Note ---
Date of Service May 19, 2022 Assessment & Plan (1) Acute encephalopathy: Plan: Acute metabolic encephalopathy Ongoing SEVERE lethargy despite maximal medical treatment including broad-spectrum IV antibiotics for RLE cellulitis/wound and suspected b/l pneumonia Present on admission. Initially was thought to be due to RLE cellulitis. Had improved, then worsened again on 05/14. Worsening thought 2nd to pneumonia. Had improved again on 05/15, and was awake on 05/16 - but back to significant lethargy 05/17 and has worsened since that time. CT head x 2 this admission w/o acute findings. Prior ABG w/o hypercarbia. Prior ammonia wnl. TSH wnl. MRI brain neg for acute/subacute CVA. All blood cx's negative. Procal negative. Repeat COVID/Flu/RSV PCR negative. Sed rate >130. CRP very high despite numerous days of IV antibiotics. Differential - vasculitis (temporal arteritis, etc) vs autoimmune vs [employer] infection vs other. Other possibilities - spinal abscess/discitis (but would expect blood cx's to be +); SBE (but blood cx's negative). As mentioned in subjective portion of note we will NOT pursue lumbar puncture. In the event she has vasculitis will trial her on empiric steroids - give solumedrol 40mg IV x 1 and assess response tomorrow. Recheck CRP in am. Could consider RUQ u/s to r/o cholecystitis but doubt - she has been on cefepime/flagyl for 5+ days and LFTs wnl. Recheck cxr. Check KUB. Prognosis is very, very poor. (2) Pneumonia: Plan: 2nd to aspiration? GNR? other? Day #6 of IV abx. Cont cefepime. Cont flagyl. MRSA swab negative - IV vanco stopped. Repeat cxr today. (3) Cellulitis of right leg: Plan: resolved (4) Sepsis: Plan: present on admission. initially 2nd to RLE cellulitis - resolved. then bilateral pneumonia. Blood cultures negative on multiple occasions. (5) Hypothermia: Plan: present on admission. 2nd to sepsis. resolved. (6) Wound of right ankle: Plan: chronic. 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 wound is clean. appreciate wound care consult & recs. superimposed RLE cellulitis is resolved. 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: Plan: severe weakness of legs contractures of arms RUE>LUE reports she can walk about 15-20 steps extremely slowly with assistance from home PT but otherwise is wheelchair dependent (10) Dysarthria: Plan: had been present earlier in the admission MRI brain negative for CVA (11) Hypomagnesemia: Plan: replaced mag level am (12) Hypercholesterolemia: Plan: currently holding fish oil and simvastatin (13) Dementia: Plan: severe at baseline with superimposed encephalopathy as above (14) Stress incontinence in female: Plan: john in place holding anti-spasmodics (15) Constipation: Plan: check KUB for impaction (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) s/p MOHS surgery within the last year with poor wound healing cont local wound care (17) Hypokalemia: Plan: replaced resolved (18) Hypophosphatemia: Plan: repletion x 2 over last 3 days (19) Acute diastolic CHF (congestive heart failure): Plan: s/p lasix yesterday with improved exam today defer on additional lasix Plan prognosis is guarded entering day 9 of her stay without any significant/meaningful improvement if lethargy persists despite maximal Rx including steroid trial strongly consider shifting to comfort care/palliative care pathway spouse/daughter updated extensively at bedside they will keep other siblings informed support given to them Admission and Anticipated Discharge Date Admission Date: May 11, 2022 Subjective patient has remained essentially obtunded overnight/extremely lethargic today has remained similar as well during rounds the pt's and daughter were present we discussed all test results from the last 24 hours including markedly elevated sed rate and ongoing elevation of crp despite broad-spectrum IV abx discussed normal MRI results (ie - no CVA) discussed possible differential of elevated sed rate/crp during my exam patient did not wake to sternal rub or any portion of the exam we collectively agreed to NOT pursue invasive procedures such as lumbar puncture, etc we discussed empiric steroid trial discussed that patient has not had nutrition in 7+ days but that she was poor candidate for enteral feedings; we collectively agreed NOT to pursue such discussed that best case scenario we some how guide her through this stay and she will end up being snf SNF resident pt's and daughter to discuss options with other siblings Review of Systems Review of Systems: Unobtainable due to cognitive status and Unobtainable due to reduced consciousness Physical Exam Physical Exam: gen - lethargic/obtunded; did not wake to sternal rub, opening her eyelids, or any portion of the exam mouth - MMM neck - JVD resolved heart - RRR, s1 s2, no murmur lungs - b/l basilar rales improved today, no wheeze, no increased work of breathing abd - soft NT ND BS+ ext - trace edema b/l, pulses 2+ b/l skin - right foot - [address]; large ulceration lateral right distal leg clean, scant drainage, no odor, no cellulitis psych - lethargic, obtunded neuro - contractures of upper extremities; +babinski b/l Results & Data Results & Data ([facility]) Vital Signs (Past 12 Hours) Vital Signs Temp Pulse Pulse Resp BP Pulse Ox O2 Del Method 05/19/22 20:40 37.3 C 73 18 146/67 H 95 Nasal Cannula 05/19/22 16:38 36.7 C 80 17 147/73 H 97 Nasal Cannula 05/19/22 15:41 74 05/19/22 12:38 36.9 C 81 16 155/70 H 96 Nasal Cannula 05/19/22 09:15 95 Nasal Cannula O2 Flow Rate 05/19/22 20:40 1.5 05/19/22 16:38 1.5 05/19/22 15:41 05/19/22 12:38 1.5 05/19/22 09:15 2 Laboratory Results Laboratory Results - last 24 hr 05/19/22 05/19/22 05/19/22 07:13 07:13 07:13 WBC 9.50 RBC 3.00 L Hgb 9.3 L Hct 28.1 L MCV 93.7 MCH 31.0 MCHC 33.1 RDW Std Deviation 52.3 H RDW Coeff of José 15.1 H Plt Count 248 MPV 8.8 L Immature Gran % (Auto) 0.6 Neut % (Auto) 78.1 Lymph % (Auto) 7.5 [place] % (Auto) 12.9 Eos % (Auto) 0.6 Baso % (Auto) 0.3 Neut # (Auto) 7.41 H Lymph # (Auto) 0.71 L [place] # (Auto) 1.23 H Eos # (Auto) 0.06 Baso # (Auto) 0.03 Immature Gran # (Auto) 0.06 H ESR > 130 H Sodium 142 Potassium 3.9 Chloride 106 Carbon Dioxide 24 Anion Gap 12 H BUN 11 Creatinine 0.54 L Est Cr Clr Drug Dosing 59.1 Est GFR ( Amer) 99.0 Est GFR (Non-Af Amer) 85.4 BUN/Creatinine Ratio 20.4 H Glucose 59 L POC Glucose Calcium 8.2 L Magnesium 1.6 L Total Bilirubin 0.4 Direct Bilirubin 0.1 AST 27 ALT 16 Alkaline Phosphatase 59 C-Reactive Protein 14.62 H Total Protein 5.8 L Albumin 2.8 L 05/19/22 05/19/22 05/19/22 07:23 07:26 07:41 WBC RBC Hgb Hct MCV MCH MCHC RDW Std Deviation RDW Coeff of José Plt Count MPV Immature Gran % (Auto) Neut % (Auto) Lymph % (Auto) [place] % (Auto) Eos % (Auto) Baso % (Auto) Neut # (Auto) Lymph # (Auto) [place] # (Auto) Eos # (Auto) Baso # (Auto) Immature Gran # (Auto) ESR Sodium Potassium Chloride Carbon Dioxide Anion Gap BUN Creatinine Est Cr Clr Drug Dosing Est GFR ( Amer) Est GFR (Non-Af Amer) BUN/Creatinine Ratio Glucose POC Glucose 65 L* 58 L* 138 H Calcium Magnesium Total Bilirubin Direct Bilirubin AST ALT Alkaline Phosphatase C-Reactive Protein Total Protein Albumin 05/19/22 05/19/22 05/19/22 11:26 16:36 20:34 WBC RBC Hgb Hct MCV MCH MCHC RDW Std Deviation RDW Coeff of José Plt Count MPV Immature Gran % (Auto) Neut % (Auto) Lymph % (Auto) [place] % (Auto) Eos % (Auto) Baso % (Auto) Neut # (Auto) Lymph # (Auto) [place] # (Auto) Eos # (Auto) Baso # (Auto) Immature Gran # (Auto) ESR Sodium Potassium Chloride Carbon Dioxide Anion Gap BUN Creatinine Est Cr Clr Drug Dosing Est GFR ( Amer) Est GFR (Non-Af Amer) BUN/Creatinine Ratio Glucose POC Glucose 107 H 94 127 H Calcium Magnesium Total Bilirubin Direct Bilirubin AST ALT Alkaline Phosphatase C-Reactive Protein Total Protein Albumin Diagnostic Findings MRI brain - no acute/subacute CVA; marked atrophy most recent blood cx's negative PG Care Time/CCT Total # of Minutes Spent Total Time Spent with Patient: Total time spent is greater than 50% in coordination of care (as documented) at patient's floor/unit and/or counseling patient: Coding Level of Care Code 05831 Subseq Hosp Care Lvl 3 Diagnoses Acute encephalopathy G93.40 Pneumonia J18.9 Cellulitis of right leg L03.115 Sepsis A41.9 Hypothermia T68.XXXA Encounter type: initial encounter Wound of right ankle S91.001A Acute hyperkalemia E87.5 Hypertension I10 Stenosis of cervical spine with myelopathy M48.02; G99.2 Dysarthria R47.1 Hypomagnesemia E83.42 Hypercholesterolemia E78.00 Dementia F03.91 Dementia behavioral disturbance: with behavioral disturbance Dementia type: unspecified type Stress incontinence in female N39.3 Constipation K59.00 Squamous cell carcinoma Hypokalemia E87.6 Hypophosphatemia E83.39 Acute diastolic CHF (congestive heart failure) I50.31 (1) Dementia Dementia behavioral disturbance: with behavioral disturbance Dementia type: unspecified type Qualified Code(s): F03.91 - Unspecified dementia with behavioral disturbance (2) Hypothermia Encounter type: initial encounter Qualified Code(s): T68.XXXA - Hypothermia, initial encounter
--- NOTE | 2022-05-19 23:06 | XRay Report ---
XR chest 1V portable CLINICAL HISTORY: pneumonia, interval change TECHNIQUE: Single frontal radiograph of the chest was obtained. Comparison: Comparison is made to chest radiograph 05/17/2022 FINDINGS: No lines and tubes are seen. Cardiomegaly is noted. The aortic arch is calcified. Bilateral lower zia g predominant airspace opacities are seen. Small bilateral pleural effusions are seen. IMPRESSION: Bilateral lower lung airspace opacities are seen, similar to prior exam. Stable small bilateral pleur al effusions. ACT 112: Negative or not required by law. Electronically signed by: Dino Dennis M.D. 05/19/2022 11:03 PM
--- NOTE | 2022-05-19 23:39 | XRay Report ---
XR KUB/Abdomen 1 view CLINICAL HISTORY: fecal impaction? TECHNIQUE: 1 view of the abdomen was obtained. Comparison: Comparison is made to CT lumbar spine 08/28/2020 FINDINGS: Exam is limited by incomplete evaluation of the lower pelvis. Posterior fixation hardware is seen in the spine. Degenerative changes are seen in the visualized skeleton. Abnormality of the pubic symphys is is again noted. The bowel gas pattern is nonobstructive. Small stool burden is seen. IMPRESSION: No significant stool burden, no evidence of fecal impaction. Of note, the lower pelvis is not entirel y within the field of view of this image. ACT 112: Negative or not required by law. Electronically signed by: Dino Dennis M.D. 05/19/2022 11:38 PM
[2022-05-20] MEDS: metroNIDAZOLE 500 MG/100 ML BAG IV SCH ×3 (00:09→17:38)
[2022-05-20] MEDS: CEFEPIME 2,000 MG in SYRINGE 0 ML IV SCH ×3 (01:05→17:39)
[2022-05-20] MEDS: THIAMINE HCL 500 MG in SODIUM CHLORIDE 0.9% 50 ML IV SCH (02:23)
[2022-05-20] MEDS: NEOMYCIN/POLYMYXIN/HYDROCORT OPH SUSP 7.5 ML BTL OPR SCH ×5 (03:08→19:49)
[2022-05-20 07:03] LABS: Basophils # (auto) 0.02 K/uL (0-0.2); Basophils % (auto) 0.2 %; Hematocrit (blood only) 31.2 % (34.1-44.9); Hemoglobin 10.2 g/dl (12.0-16.0); Immature Granulocytes # (auto) 0.11 K/uL (0.00-0.02); Immature Granulocytes % (auto) 1.3 %; Lymphocytes # (auto) 0.63 K/uL (1.2-3.4); Lymphocytes % (auto) 7.2 %; Mean Corpuscular Hemoglobin 30.7 pg (25.0-34.0); Mean Corpuscular Hgb Conc 32.7 g/dL (32.0-36.0); Mean Platelet Volume 8.6 fL (9.4-12.3); Monocytes # (auto) 0.48 K/uL (0.24-0.82); Monocytes % (auto) 5.5 %; Neutrophils # (auto) 7.46 K/uL (1.4-6.5); Neutrophils % (auto) 85.8 %; Platelet Count 332 K/uL (130-400); RDW Coefficient of Variation 14.8 % (11.5-14.5); Red Blood Count 3.32 M/uL (3.93-5.22)
[2022-05-20 07:09] LABS: BUN Creatinine Ratio 35.3 (10-20); Calcium 8.4 mg/dl (8.5-10.1); Creatinine Clr Calc Pharmacy 62.6 ml/min; Est GFR (African American) 100.9 ml/min; Est GFR (Non-African American) 87.1 ml/min; Magnesium 1.6 mg/dl (1.7-2.4); Potassium 3.8 mmol/L (3.5-5.1)
[2022-05-20] MEDS: HEPARIN SOD 5,000 UNIT/0.5 ML VIAL SQ SCH ×2 (08:11→21:48)
[2022-05-20] MEDS: DEXTROSE 10% 1,000 ML IV SCH (08:11)
[2022-05-20] MEDS ORDERED: MAGNESIUM SULFATE / D5W 1 GM/100 ML BAG IV ONE (09:45)
[2022-05-20] MEDS: D5W AND 1/2NSS + 20MEQ KCL 20 MEQ/1,000 ML BAG IV SCH (15:37)
--- NOTE | 2022-05-20 19:33 | Hospitalist Progress Note ---
Date of Service May 20, 2022 Assessment & Plan (1) Acute encephalopathy: Plan: Acute metabolic encephalopathy Ongoing SEVERE lethargy for extended periods of time this week (days) interspersed with 1-2 days of awakefulness Present on admission. Initially was thought to be due to RLE cellulitis. Had improved, then worsened again on 05/14. Worsening thought 2nd to pneumonia. Had improved again on 05/15, and was awake on 05/16 - but back to significant lethargy 05/17 and has worsened since that time. CT head x 2 this admission w/o acute findings. Prior ABG w/o hypercarbia. Prior ammonia wnl. TSH wnl. MRI brain neg for acute/subacute CVA. All blood cx's negative. Procal negative. Repeat COVID/Flu/RSV PCR negative. Sed rate >130. CRP very high despite numerous days of IV antibiotics. Differential - vasculitis (temporal arteritis, etc) vs autoimmune vs [employer] infection vs other. Other possibilities - spinal abscess/discitis (but would expect blood cx's to be +); SBE (but blood cx's negative). On 05/19, while discussing her care with her spouse & daughter, we collectively agreed not to pursue aggressive procedures (LP, etc). Elected to give a 1x dose of steroids on 05/19 to see if that would improve any of her clinical status in the event she had a vasculitic process. She is more awake today, but I am uncertain if this was truly a steroid response or is this the beginning of a more sustained recovery from her pneumonia/RLE cellulitis. Further, she has had other days with awakefulness only to be followed by recurrent lethargy. I recommended to her family we not continue IV steroids empirically as it is unclear what we would be treating. Further, if she had temporal arteritis, I would expect her to have some complaints, even minor, such as headache, etc. Today is final day of antibiotics. Stop IV abx tonight. Recheck CRP in am. Serial exams. She appears to be aspirating and even though mental status has improved this may be our rate-limiting step to any additional progress. Will have speech re-eval tomorrow. Keep NPO in meantime. (2) Pneumonia: Plan: 2nd to aspiration? GNR? other? Day #7 of IV abx. Stop cefepime. Stop flagyl. CXR yesterday stable. (3) Cellulitis of right leg: Plan: resolved (4) Sepsis: Plan: present on admission. initially 2nd to RLE cellulitis - resolved. then bilateral pneumonia. Blood cultures negative on multiple occasions. COVID negative x 2 including comprehensive BioFire panel. (5) Hypothermia: Plan: present on admission. 2nd to sepsis. resolved. (6) Wound of right ankle: Plan: chronic. 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 wound is clean. appreciate wound care consult & recs. superimposed RLE cellulitis is resolved. 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: Plan: severe weakness of legs contractures of arms RUE>LUE reports she can walk about 15-20 steps extremely slowly with assistance from home PT but otherwise is wheelchair dependent (10) Dysarthria: Plan: had been present earlier in the admission MRI brain negative for CVA (11) Hypomagnesemia: Plan: replaced still low - give additional replacement today mag level am (12) Hypercholesterolemia: Plan: currently holding fish oil and simvastatin (13) Dementia: Plan: severe at baseline with superimposed encephalopathy as above in #1 (14) Stress incontinence in female: Plan: john in place holding anti-spasmodics (15) Constipation: Plan: checked KUB for impaction and negative for such (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) s/p MOHS surgery within the last year with poor wound healing cont local wound care (17) Hypokalemia: Plan: replaced resolved (18) Hypophosphatemia: Plan: repletion x 2 IV infusions (19) Acute diastolic CHF (congestive heart failure): Plan: resolved now appears volume contracted 1 L of fluids overnight reassess tomorrow Plan prognosis is guarded entering day 10 of her stay without sustained, day to day improvement I am concerned about her overall wellbeing even despite her being awake today I am concerned about her ability to safely swallow and take adequate oral hydration & nutrition i spouse/daughter updated extensively at bedside they will keep other siblings informed Admission and Anticipated Discharge Date Admission Date: May 11, 2022 Subjective patient was lethargic all night last pm and early this am family (spouse, daughter) arrived to visit with her and she woke up spouse comments this is the most lucid she has been since coming to the hospital while talking with her she was simply staring at the ceiling with her mouth open she answered questions, denied she was having pain in any location asked if she had headache - responded no denied cp denied abd pain denied myalgias she shifted from topic to topic and multiple times the things she was saying were nonsensical staff report when they offered her water this am she had fuentes aspiration Review of Systems Review of Systems: denied pain in any location denied feeling short of breath c/o thirst per her family Physical Exam Physical Exam: gen - awake, answering questions, following basic commands, speech very slow and marbly mouth - MM dry, ?thrush neck - JVD resolved heart - RRR, s1 s2, no murmur lungs - more clear than previous exams, no wheeze abd - soft NT ND BS+ ext - dependent edema all 4 limbs; foot pulses 2+ b/l skin - right foot - [address] psych - more awake, more alert today, ?oriented to place neuro - contractures of upper extremities, wiggles her toes b/l Results & Data Results & Data ([facility]) Vital Signs (Past 12 Hours) Vital Signs Temp Pulse Pulse Resp BP Pulse Ox O2 Del Method 05/20/22 15:30 36.4 C L 71 16 148/66 H 96 Nasal Cannula 05/20/22 15:06 72 05/20/22 08:00 76 05/20/22 10:49 36.4 C L 76 16 143/68 H 95 Room Air O2 Flow Rate 05/20/22 15:30 2 05/20/22 15:06 05/20/22 08:00 05/20/22 10:49 Laboratory Results Laboratory Results - last 24 hr 05/14/22 05/19/22 05/20/22 08:41 20:34 06:18 WBC 8.70 RBC 3.32 L Hgb 10.2 L Hct 31.2 L MCV 94.0 MCH 30.7 MCHC 32.7 RDW Std Deviation 51.0 H RDW Coeff of José 14.8 H Plt Count 332 MPV 8.6 L Immature Gran % (Auto) 1.3 Neut % (Auto) 85.8 Lymph % (Auto) 7.2 [place] % (Auto) 5.5 Eos % (Auto) 0.0 Baso % (Auto) 0.2 Neut # (Auto) 7.46 H Lymph # (Auto) 0.[address] [place] # (Auto) 0.48 Eos # (Auto) 0.00 Baso # (Auto) 0.02 Immature Gran # (Auto) 0.11 H Sodium Potassium Chloride Carbon Dioxide Anion Gap BUN Creatinine Est Cr Clr Drug Dosing Est GFR ( Amer) Est GFR (Non-Af Amer) BUN/Creatinine Ratio Glucose POC Glucose 127 H Calcium Magnesium C-Reactive Protein Whole Bld Vitamin B1 158 05/20/22 05/20/22 05/20/22 06:18 06:18 07:35 WBC RBC Hgb Hct MCV MCH MCHC RDW Std Deviation RDW Coeff of José Plt Count MPV Immature Gran % (Auto) Neut % (Auto) Lymph % (Auto) [place] % (Auto) Eos % (Auto) Baso % (Auto) Neut # (Auto) Lymph # (Auto) [place] # (Auto) Eos # (Auto) Baso # (Auto) Immature Gran # (Auto) Sodium 138 Potassium 3.8 Chloride 102 Carbon Dioxide 26 Anion Gap 10 BUN 18 Creatinine 0.51 L Est Cr Clr Drug Dosing 62.6 Est GFR ( Amer) 100.9 Est GFR (Non-Af Amer) 87.1 BUN/Creatinine Ratio 35.3 H Glucose 124 H POC Glucose 137 H Calcium 8.4 L Magnesium 1.6 L C-Reactive Protein 13.28 H Whole Bld Vitamin B1 05/20/22 05/20/22 11:33 15:59 WBC RBC Hgb Hct MCV MCH MCHC RDW Std Deviation RDW Coeff of José Plt Count MPV Immature Gran % (Auto) Neut % (Auto) Lymph % (Auto) [place] % (Auto) Eos % (Auto) Baso % (Auto) Neut # (Auto) Lymph # (Auto) [place] # (Auto) Eos # (Auto) Baso # (Auto) Immature Gran # (Auto) Sodium Potassium Chloride Carbon Dioxide Anion Gap BUN Creatinine Est Cr Clr Drug Dosing Est GFR ( Amer) Est GFR (Non-Af Amer) BUN/Creatinine Ratio Glucose POC Glucose 145 H 136 H Calcium Magnesium C-Reactive Protein Whole Bld Vitamin B1 PG Care Time/CCT Total # of Minutes Spent Total Time Spent with Patient: Total time spent is greater than 50% in coordination of care (as documented) at patient's floor/unit and/or counseling patient: Coding Level of Care Code 74806 Subseq Hosp Care Lvl 3 Diagnoses Acute encephalopathy G93.40 Pneumonia J18.9 Cellulitis of right leg L03.115 Sepsis A41.9 Hypothermia T68.XXXA Encounter type: initial encounter Wound of right ankle S91.001A Acute hyperkalemia E87.5 Hypertension I10 Stenosis of cervical spine with myelopathy M48.02; G99.2 Dysarthria R47.1 Hypomagnesemia E83.42 Hypercholesterolemia E78.00 Dementia F03.91 Dementia behavioral disturbance: with behavioral disturbance Dementia type: unspecified type Stress incontinence in female N39.3 Constipation K59.00 Squamous cell carcinoma Hypokalemia E87.6 Hypophosphatemia E83.39 Acute diastolic CHF (congestive heart failure) I50.31 (1) Dementia Dementia behavioral disturbance: with behavioral disturbance Dementia type: unspecified type Qualified Code(s): F03.91 - Unspecified dementia with behavioral disturbance (2) Hypothermia Encounter type: initial encounter Qualified Code(s): T68.XXXA - Hypothermia, initial encounter
[2022-05-21] MEDS: NEOMYCIN/POLYMYXIN/HYDROCORT OPH SUSP 7.5 ML BTL OPR SCH ×6 (00:19→19:34)
[2022-05-21] MEDS: NYSTATIN SUSP 500,000 U/5 ML UDC PO SCH ×4 (07:49→21:08)
[2022-05-21] MEDS: HEPARIN SOD 5,000 UNIT/0.5 ML VIAL SQ SCH ×2 (07:50→19:35)
[2022-05-21 08:37] LABS: BUN Creatinine Ratio 38.3 (10-20); C Reactive Protein 5.12 mg/dl (0-0.5); Calcium 8.3 mg/dl (8.5-10.1); Est GFR (African American) 103.7 ml/min; Est GFR (Non-African American) 89.4 ml/min; Magnesium 1.6 mg/dl (1.7-2.4); Potassium 3.7 mmol/L (3.5-5.1)
[2022-05-21] MEDS: MAGNESIUM SULFATE / D5W 1 GM/100 ML BAG IV SCH ×2 (09:25→11:08)
--- NOTE | 2022-05-21 10:45 | Hospitalist Progress Note ---
Date of Service May 21, 2022 Assessment & Plan (1) Acute encephalopathy: Plan: Acute metabolic encephalopathy Ongoing SEVERE lethargy for extended periods of time this week (days) interspersed with periods of awakefulness but ongoing confusion Present on admission. Initially was thought to be due to RLE cellulitis. Had improved, then worsened again on 05/14. Worsening thought 2nd to pneumonia. Had improved again on 05/15, and was awake on 05/16 - but back to significant lethargy 05/17, then finally awoke on 05/20/[address] head x 2 this admission w/o acute findings. Prior ABG w/o hypercarbia. Prior ammonia wnl. TSH wnl. MRI brain neg for acute/subacute CVA. All blood cx's negative. Procal negative. Repeat COVID/Flu/RSV PCR negative. Sed rate >130. CRP very high despite numerous days of IV antibiotics. Differential - vasculitis (temporal arteritis, etc) vs autoimmune vs [employer] infection vs other. Other possibilities - spinal abscess/discitis (but would expect blood cx's to be +); SBE (but blood cx's negative). Other possibility is simply delayed response to abx for her infectious process (RLE cellulitis, pneumonia). CRP finally has come down today (13 --> 5). This would argue for the delayed response as noted above. On 05/19, while discussing her care with her spouse & daughter, we collectively agreed not to pursue aggressive procedures (LP, etc). Moving forward we simply take 1 day at a time and see if she has sustained improvement in mental status, eating, drinking, etc. Avoid antipsychotics given propensity for extreme/severe lethargy. Repeat a CRP in am. (2) Pneumonia: Plan: probable aspiration can't rule out GNR etiology s/p 7+ days of IV abx - now completed. stable in room air. crp did improve for first time this admission. (3) Cellulitis of right leg: Plan: resolved (4) Sepsis: Plan: present on admission. initially 2nd to RLE cellulitis - resolved. then bilateral pneumonia. Blood cultures negative on multiple occasions. COVID negative x 2 including comprehensive BioFire panel. (5) Hypothermia: Plan: present on admission. 2nd to sepsis. resolved. (6) Wound of right ankle: Plan: chronic. 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 wound is clean. appreciate wound care consult & recs. superimposed RLE cellulitis is resolved. 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: Plan: severe weakness of legs contractures of arms RUE>LUE reports she can walk about 15-20 steps extremely slowly with assistance from home PT but otherwise is wheelchair dependent (10) Dysarthria: Plan: had been present earlier in the admission MRI brain negative for CVA (11) Hypomagnesemia: Plan: replaced still low - give additional replacement today (12) Hypercholesterolemia: Plan: currently holding fish oil and simvastatin (13) Dementia: Plan: severe at baseline with superimposed encephalopathy as above in #1 (14) Stress incontinence in female: Plan: john in place holding anti-spasmodics (15) Constipation: Plan: checked KUB for impaction and negative for such (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) s/p MOHS surgery within the last year with poor wound healing cont local wound care (17) Hypokalemia: Plan: replaced resolved (18) Hypophosphatemia: Plan: repletion x 2 IV infusions (19) Acute diastolic CHF (congestive heart failure): Plan: resolved now appears volume contracted giving IV fluids at low rate due to severely restricted PO intake Plan prognosis is guarded entering day 11 of her stay I am concerned about her overall wellbeing even despite her being awake today very confused, very little PO intake (liquids or solids), failure to thrive, etc daughter Seble updated at bedside today re-eval tomorrow strongly consider palliative care consult Admission and Anticipated Discharge Date Admission Date: May 11, 2022 Subjective patient awake during the visit however, she was very confused, asking me if I had heard the news about her son "using a gun to shoot 3 or 4 people" when I told her that this was not true she became agitated stating "I should know" she then started talking nonsensically about other things that made no sense she denied headache denied cp denied dyspnea denied stomach upset she c/o back pain tele overnight wnl later in the day speech therapy cleared her for diet after diet was ordered staff report minimal <5% of meals consumed later in the day I revisited her room; her daughter, Seble, was present who confirmed her mother was "very, very confused" Review of Systems Review of Systems: gen - weak, tired cv - no orthopnea pulm - minimal cough GI - no pain, no nausea Physical Exam Physical Exam: gen - awake, answering questions, speech very slow and mildly dysarthric/marbly mouth - MM dry neck - no JVD heart - RRR, s1 s2, no murmur lungs - CTA b/l; no obvious rales/wheeze abd - soft NT ND BS+ ext - dependent edema all 4 limbs; foot pulses 2+ b/l skin - right foot - [address]; lateral distal leg/ankle - large ulcer, minimal drainage, no odor, no cellulitis psych - awake, alert, very disoriented & confused; staring at the ceiling neuro - contractures of upper extremities, wiggles her toes b/l Results & Data Results & Data ([facility]) Vital Signs (Past 12 Hours) Vital Signs Temp Pulse Pulse Resp BP Pulse Ox O2 Del Method 05/21/22 07:39 78 05/21/22 07:14 36.7 C 79 16 171/73 H 93 Room Air 05/21/22 04:00 36.8 C 76 16 164/63 H 92 Room Air 05/20/22 23:55 36.6 C 81 19 163/82 H 96 Nasal Cannula 05/20/22 23:00 79 O2 Flow Rate 05/21/22 07:39 05/21/22 07:14 05/21/22 04:00 05/20/22 23:55 1 05/20/22 23:00 Laboratory Results Laboratory Results - last 24 hr 05/14/22 05/20/22 05/20/22 08:41 07:35 11:33 Sodium Potassium Chloride Carbon Dioxide Anion Gap BUN Creatinine Est Cr Clr Drug Dosing Est GFR ( Amer) Est GFR (Non-Af Amer) BUN/Creatinine Ratio Glucose POC Glucose 137 H 145 H Calcium Magnesium C-Reactive Protein Whole Bld Vitamin B1 158 05/20/22 05/20/22 05/21/22 15:59 20:22 07:20 Sodium Potassium Chloride Carbon Dioxide Anion Gap BUN Creatinine Est Cr Clr Drug Dosing Est GFR ( Amer) Est GFR (Non-Af Amer) BUN/Creatinine Ratio Glucose POC Glucose 136 H 119 H 107 H Calcium Magnesium C-Reactive Protein Whole Bld Vitamin B1 05/21/22 05/21/22 07:23 07:23 Sodium 140 Potassium 3.7 Chloride 104 Carbon Dioxide 29 Anion Gap 7 BUN 18 Creatinine 0.47 L Est Cr Clr Drug Dosing 68.0 Est GFR ( Amer) 103.7 Est GFR (Non-Af Amer) 89.4 BUN/Creatinine Ratio 38.3 H Glucose 104 H POC Glucose Calcium 8.3 L Magnesium 1.6 L C-Reactive Protein Cancelled 5.12 H Whole Bld Vitamin B1 PG Care Time/CCT Total # of Minutes Spent Total Time Spent with Patient: Total time spent is greater than 50% in coordination of care (as documented) at patient's floor/unit and/or counseling patient: Coding Level of Care Code 56276 Subseq Hosp Care Lvl 2 Diagnoses Acute encephalopathy G93.40 Pneumonia J18.9 Cellulitis of right leg L03.115 Sepsis A41.9 Hypothermia T68.XXXA Encounter type: initial encounter Wound of right ankle S91.001A Acute hyperkalemia E87.5 Hypertension I10 Stenosis of cervical spine with myelopathy M48.02; G99.2 Dysarthria R47.1 Hypomagnesemia E83.42 Hypercholesterolemia E78.00 Dementia F03.91 Dementia behavioral disturbance: with behavioral disturbance Dementia type: unspecified type Stress incontinence in female N39.3 Constipation K59.00 Squamous cell carcinoma Hypokalemia E87.6 Hypophosphatemia E83.39 Acute diastolic CHF (congestive heart failure) I50.31 (1) Dementia Dementia behavioral disturbance: with behavioral disturbance Dementia type: unspecified type Qualified Code(s): F03.91 - Unspecified dementia with behavioral disturbance (2) Hypothermia Encounter type: initial encounter Qualified Code(s): T68.XXXA - Hypothermia, initial encounter
[2022-05-21] MEDS: D5W AND 1/2NSS + 20MEQ KCL 20 MEQ/1,000 ML BAG IV SCH (11:08)
[2022-05-22] MEDS: NEOMYCIN/POLYMYXIN/HYDROCORT OPH SUSP 7.5 ML BTL OPR SCH ×6 (00:21→22:41)
[2022-05-22] MEDS: D5W AND 1/2NSS + 20MEQ KCL 20 MEQ/1,000 ML BAG IV SCH (05:56)
[2022-05-22 08:07] LABS: BUN Creatinine Ratio 31.1 (10-20); C Reactive Protein 3.63 mg/dl (0-0.5); Calcium 8.2 mg/dl (8.5-10.1); Est GFR (African American) 105.2 ml/min; Est GFR (Non-African American) 90.7 ml/min; Magnesium 1.6 mg/dl (1.7-2.4); Potassium 4.1 mmol/L (3.5-5.1)
[2022-05-22] MEDS: HEPARIN SOD 5,000 UNIT/0.5 ML VIAL SQ SCH ×2 (09:06→22:41)
[2022-05-22] MEDS: NYSTATIN SUSP 500,000 U/5 ML UDC PO SCH ×4 (09:10→22:41)
[2022-05-22] MEDS: MAGNESIUM SULFATE / D5W 1 GM/100 ML BAG IV SCH ×2 (10:10→12:20)
--- NOTE | 2022-05-22 19:55 | Hospitalist Progress Note ---
Date of Service May 22, 2022 Assessment & Plan (1) Acute encephalopathy: Plan: Acute metabolic encephalopathy Ongoing SEVERE lethargy for extended periods of time this week (days) interspersed with periods of awakefulness but ongoing confusion during those periods of awakefulness We are now day #12 of her hospitalization and no meaningful improvement has been made on a sustained basis Her severe confusion was initially thought to be metabolic in etiology due to RLE cellulitis. Had improved, then worsened again on 05/14. Worsening thought 2nd to new-onset pneumonia. Had improved again on 05/15, and was awake on 05/16 - but back to significant lethargy 05/17, then finally awoke on 05/20/22 albeit with confusion. 05/21 she was severely confused and hallucinating. Today - 05/22 - back to lethargy/obtundation. CT head x 2 this admission w/o acute findings. ABG w/o hypercarbia. Ammonia wnl. TSH wnl. MRI brain neg for acute/subacute CVA. All blood cx's negative. Procal negative. Repeat COVID/Flu/RSV PCR negative. Sed rates very high with peak >130. CRP very high despite numerous days of IV antibiotics (peak of 15). Differential - vasculitis (temporal arteritis, etc) vs autoimmune vs WAFER SUBSTRATE TESTER infection vs other. Other possibilities - spinal abscess/discitis (but would expect blood cx's to be +); SBE (but blood cx's negative). Other possibility is simply delayed response to abx for her infectious process (RLE cellulitis, pneumonia). CRP finally has come down (13 --> 5 -->3). This would argue for the delayed response as noted above. Despite CRP trending down she has not sustained a consistent, day-to-day clinical improvement. Further, even on days when she has been awake, she has had little to no appetite or liquid intake. On 05/19, while discussing her care with her spouse & daughter, we collectively agreed not to pursue aggressive procedures (LP, etc). Given the cycle of awakefulness/confusion then obtundation, and given we are 12 days into her stay and have completed all antibiotic therapy and have given maximal medical effort, the pt's agrees her prognosis is very, very poor. He is agreeable to speaking with palliative care and potentially transitioning to hospice. She had a similar hospital stay about 1-2 years ago and is familiar with palliative care & hospice. Formal palliative care consult placed. (2) Pneumonia: Plan: probable aspiration can't rule out GNR etiology s/p 7+ days of IV abx - completed. stable in room air. crp did improve over last few days but without associated outward clinical im provement in her overall status. (3) Cellulitis of right leg: Plan: resolved (4) Sepsis: Plan: present on admission. initially 2nd to RLE cellulitis - resolved. then bilateral pneumonia. Blood cultures negative on multiple occasions. COVID negative x 2 including comprehensive BioFire panel. (5) Hypothermia: Plan: present on admission. 2nd to sepsis. resolved. stable temps since. (6) Wound of right ankle: Plan: chronic. 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 wound is clean. appreciate wound care consult & recs. superimposed RLE cellulitis is resolved. 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: Plan: severe weakness of legs contractures of arms RUE>LUE reports she previouslly could walk about 15-20 steps extremely slowly with assistance from home PT but more recntly has developed wheelchair dependency (10) Dysarthria: Plan: had been present earlier in the admission and was prominent during periods of co nfusion MRI brain negative for CVA (11) Hypomagnesemia: Plan: replaced still low - gave additional replacement today prior to discussion about transitioning to palliative care / hospice (12) Hypercholesterolemia: Plan: holding fish oil and simvastatin (13) Dementia: Plan: severe at baseline with superimposed encephalopathy as above in #1 (14) Stress incontinence in female: Plan: john in place holding anti-spasmodics (15) Constipation: Plan: checked KUB for impaction and negative for such had small BM yesterday (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 home? if any additional worsening - comfort care pathway at hospital? Admission and Anticipated Discharge Date Admission Date: May 11, 2022 Subjective patient unresponsive during the visit did not wake to voice, checking pupillary response, or sternal rub at bedside during my visit her status today is similar to at least 2 other occasions throughout her long hospitalization last pm, although she was awake, she was severely confused and did not eat/drink tele overnight wnl Review of Systems Review of Systems: Unobtainable due to cognitive status and Unobtainable due to reduced consciousness Physical Exam Physical Exam: gen - lethargic/obtunded today; no response to pain or voice eyes - pupils about 2-3mm and reactive mouth - MM dry neck - no JVD heart - RRR, s1 s2, no murmur lungs - right sided rales, cta on left abd - soft NT ND BS+ ext - dependent edema all 4 limbs; foot pulses 2+ b/l skin - right foot - [address]; lateral distal leg/ankle - large ulcer, minimal drainage, no cellulitis psych - obtunded neuro - contractures of upper extremities Results & Data Results & [facility] ([facility]) Vital Signs (Past 12 Hours) Vital Signs Temp Pulse Pulse Resp BP Pulse Ox O2 Del Method 05/22/22 19:28 36.2 C L 74 20 166/80 H 94 05/22/22 15:00 64 05/22/22 15:32 92 05/22/22 15:19 36.4 C L 68 16 144/67 H 92 Room Air 05/22/22 11:17 36.8 C 69 19 152/74 H 92 Room Air 05/22/22 08:04 36.5 C 74 16 94/78 L 93 Room Air Laboratory Results Laboratory Results - last 24 hr 05/21/22 05/22/22 05/22/22 20:31 07:11 07:19 Sodium 140 Potassium 4.1 Chloride 105 Carbon Dioxide 31 Anion Gap 4 BUN 14 Creatinine 0.45 L Est Cr Clr Drug Dosing 71.0 Est GFR ( Amer) 105.2 Est GFR (Non-Af Amer) 90.7 BUN/Creatinine Ratio 31.1 H Glucose 102 H POC Glucose 139 H 94 Calcium 8.2 L Magnesium 1.6 L C-Reactive Protein 3.63 H 05/22/22 05/22/22 11:08 16:30 Sodium Potassium Chloride Carbon Dioxide Anion Gap BUN Creatinine Est Cr Clr Drug Dosing Est GFR ( Amer) Est GFR (Non-Af Amer) BUN/Creatinine Ratio Glucose POC Glucose 106 H 104 H Calcium Magnesium C-Reactive Protein PG Care Time/CCT Total # of Minutes Spent Total Time Spent with Patient: Total time spent is greater than 50% in coordination of care (as documented) at patient's floor/unit and/or counseling patient: Coding Level of Care Code 83352 Subseq Hosp Care Lvl 2 Diagnoses Acute encephalopathy G93.40 Pneumonia J18.9 Cellulitis of right leg L03.115 Sepsis A41.9 Hypothermia T68.XXXA Encounter type: initial encounter Wound of right ankle S91.001A Acute hyperkalemia E87.5 Hypertension I10 Stenosis of cervical spine with myelopathy M48.02; G99.2 Dysarthria R47.1 Hypomagnesemia E83.42 Hypercholesterolemia E78.00 Dementia F03.91 Dementia behavioral disturbance: with behavioral disturbance Dementia type: unspecified type Stress incontinence in female N39.3 Constipation K59.00 Squamous cell carcinoma Hypokalemia E87.6 Hypophosphatemia E83.39 Acute diastolic CHF (congestive heart failure) I50.31 (1) Dementia Dementia behavioral disturbance: with behavioral disturbance Dementia type: unspecified type Qualified Code(s): F03.91 - Unspecified dementia with behavioral disturbance (2) Hypothermia Encounter type: initial encounter Qualified Code(s): T68.XXXA - Hypothermia, initial encounter
[2022-05-23] MEDS: NEOMYCIN/POLYMYXIN/HYDROCORT OPH SUSP 7.5 ML BTL OPR SCH ×4 (01:03→14:21)
[2022-05-23] MEDS: D5W AND 1/2NSS + 20MEQ KCL 20 MEQ/1,000 ML BAG IV SCH (01:03)
[2022-05-23] MEDS: NYSTATIN SUSP 500,000 U/5 ML UDC PO SCH ×2 (09:31→14:21)
[2022-05-23] MEDS: HEPARIN SOD 5,000 UNIT/0.5 ML VIAL SQ SCH (09:31)
[2022-05-23] MEDS ORDERED: HYOSCYAMINE SULFATE 0.125 MG TAB SL PRN (13:05)
[2022-05-23] MEDS ORDERED: LORazepam 0.5 MG TAB SL PRN (13:05)
[2022-05-23] MEDS ORDERED: ONDANSETRON 4 MG OD TAB SL PRN (13:05)
[2022-05-23] MEDS ORDERED: MoRPHine SULFATE 5 MG/0.25 ML UDP PO PRN (13:05)
--- NOTE | 2022-05-23 14:02 | Palliative Care Consultation ---
Date of Consultation May 23, 2022 Assessment & Plan (1) Acute encephalopathy: With no improvement despite treatment for sepsis. No clear etiology. She has had a similar presentation in the past and at that time had been discharged to SNF with hospice. After about three weeks her mental status improved and she was discharged from hospice. (2) Pain: Her is concerned that she is having pain and not able to articulate her needs. We discussed that she has multiple reasons to have pain, including arthritis, spinal stenosis, contractures, prolonged immobility, right ankle wound. We talked about nonverbal cues to monitor for signs of pain. He notes that her face appears tense to him. We discussed prn versus routine dosing of pain medication and he would prefer that she have routine dosing. He acknowledges risk of sedation but would prefer that she be comfortable. Will order morphine every six hours with available prn dosing. We also discussed routes and opportunities to give medications for her comfort despite her lethargy and limited po intake. (3) Palliative care encounter: Mr. Grullon is grateful that Milady improved after her prior illness and they have been able to have time together with family. He tells me that ever since that time, she has been unable to walk. Her dementia had progressed to the point that she had difficulty with dates and times but she would light up when she saw her family come to visit. In the last few weeks, he does not feel that she recognizes him or is aware of her surroundings. He says that 86, he has contemplated both Milady's and his own. He is tearful but grateful for the time that they have had together. He notes that Milady has a living will and would not want life prolonging measures in her current state. He feels that she has not had quality of life in some time. With respect to Milady's wishes, he requests focus of care to be comfort and symptom management. We discussed change in medications to only those that contribute to her comfort. We also discussed where she would want to be until her dying time. He is unable to care for her at home. He has been working with case management on potential transfer to [facility] prior to this. If she remains stable on comfort measures and her symptoms are adequately controlled, she could be transferred to [facility] in the next few days. Notified Dr. Toro and case management. History of Present Illness Reason for Consultation: goals of care Requesting Physician: Dr. Mederos Attending Physician: June Toro MD History of Present Illness 86 yo lady with history of hypertension, CKD, arthritis, cervical spinal stenosis and dementia. She was recently diagnosed with SCC of right ankle and had MOHS with chronic ankle wound. She was admitted with generalized weakness, slurred speech and hypothermia and was treated for cellulitis and sepsis. Despite full course of antibiotic treatment she has had persistent encephalopathy. Her encephalopathy has been variable but for last few days she has been deeply lethargic with virtually no po intake. Per RN she is not able to take po medications. She does not respond to voice, touch or sternal rub. She appears comfortable at rest. Per RN, she does have some grimacing with routine care. Allergies Allergy/AdvReac Type Severity Reaction Status Date / Time lorazepam Allergy Severe ALTERED Verified 05/11/22 16:53 MENTAL STATUS Penicillins Allergy Intermediate SWELLING Verified 05/11/22 16:53 Sulfa (Sulfonamide Allergy Intermediate SWELLING Verified 05/11/22 16:53 Antibiotics) clonidine Allergy Unknown Unknown Verified 05/11/22 16:53 Home Medications Medication Instructions Recorded Confirmed Type omeprazole 40 mg capsule,delayed 40 mg PO BID #180 caps 11/27/19 05/11/22 Rx release aspirin 81 mg tablet,delayed 81 mg PO DAILY 11/01/21 05/11/22 History release (Andrew Low Dose Aspirin) omega 5-fcn-gwq-fish oil 1,000 mg 1 cap PO BID 11/01/21 05/11/22 History (120 mg-180 mg) capsule (Fish Oil) vit C 250 mg-vit E 90 mg-zinc 40 1 tab PO BID 11/01/21 05/11/22 History mg-copper 1 ab-wcojjc-tuglyt capsule (PreserVision AREDS-2) mirabegron 50 mg tablet,extended 50 mg PO DAILY #30 tabs 11/23/21 05/11/22 Rx release 24 hr (Myrbetriq) metoprolol tartrate 50 mg tablet 50 mg PO BID #180 tabs 01/04/22 05/11/22 Rx acetaminophen 500 mg tablet 500 mg PO DIRECTED PRN 05/11/22 05/11/22 History (Tylenol Extra Strength) PAIN/FEVER simvastatin 20 mg tablet 20 mg PO QAM 05/11/22 05/11/22 History spironolactone 100 mg tablet 100 mg PO QPM 05/11/22 05/11/22 History Patient History Medical History Actinic keratosis Allergic rhinitis Anxiety Cardiac murmur NO ISSUES. PCP AWARE. Depression Disc degeneration, lumbar DVT (deep venous thrombosis) OCCURED AFTER D/T FALL. GERD (gastroesophageal reflux disease) History of basal cell carcinoma History of SCC (squamous cell carcinoma) of skin Hypercalcemia Hypercholesterolemia Hyperparathyroidism, primary Hypertension Osteoporosis with fracture Pre-diabetes Ptosis of both eyelids Renal artery stenosis FOLLOWS WITH NEPHRO IN [place], CURRENTLY TREATS MEDICATION. Retention of urine Seborrheic keratosis Sensorineural hearing loss of both ears Poorer WRS in the left ear Spinal stenosis Spondylolisthesis, acquired Squamous cell carcinoma in situ Stress incontinence in female Tricuspid valve disorder Urge and stress incontinence Urinary tract infection Vitamin D deficiency, unspecified Surgical History Fusion of spine LUMBAR X2 SURGERIES H/O oral surgery History of ankle surgery History of appendectomy History of back surgery History of cataract extraction with lens replacement History of colonoscopy History of herniorrhaphy Family History Brother Parkinsons disease Crohn's colitis Coronary heart disease Denies family history of No family history of adverse response to anesthesia No family history of bleeding disorder Heart disease Allergies Cancer Stroke Asthma Social History Smoking Status: Former smoker Tobacco Type: Cigarettes Age Started Using Tobacco: 20; Age Quit Using Tobacco: 55; packs per day: 1; Cigarettes Per Day: 20; Second Hand Exposure: No; Hx Alcohol Use: No Hx Substance Use: No Preferred Language: Welsh Communication Ability: Unable Visual Impairment: Severely Limited Hearing Ability: Hard of Hearing Bridge Repairer Required: No Beliefs That Will Affect Care: None marital status: Current Living Situation: Spouse current occupational status: retired How many Children do You have: 3 Feels Safe at Home: Yes Seatbelt Use: always Sunscreen Use: No Assistive Devices: Cane and Walker Review of Systems Review of Systems: Unobtainable due to reduced consciousness Physical Exam Constitutional: no acute distress ENMT: Mouth: oral mucous membranes not dry Respiratory: normal respiratory effort; no labored breathing Cardiovascular: Rate/Rhythm: regular rate and regular rhythm Gastrointestinal (Abdomen): soft, nontender Musculoskeletal: Extremities: + muscle atrophy (particularly lower extremities) Skin: warm and dry Neurologic: + obtunded Genitourinary: incontinent Results & Data ([facility]) Vital Signs (Past 12 Hours) Vital Signs Temp Pulse Pulse Pulse Resp BP BP 05/23/22 11:31 97.2 F L 65 16 147/83 H 05/23/22 11:10 05/23/22 10:29 59 L 05/23/22 07:38 97.7 F 67 21 143/76 H 05/23/22 03:24 97.2 F L 69 15 152/79 H Pulse Ox O2 Del Method 05/23/22 11:31 94 Room Air 05/23/22 11:10 Room Air 05/23/22 10:29 05/23/22 07:38 94 Room Air 05/23/22 03:24 94 Room Air PG Care Time/CCT Total # of Minutes Spent Total Time Spent: 64 Total Time Spent with Patient: Total time spent is greater than 50% in coordination of care (as documented) at patient's floor/unit and/or counseling patient: goals of care, symptom management, family education and support, coordination of care Coding Level of Care Code 19840 Initial Inpt Care Lvl 2 Diagnoses Acute encephalopathy G93.40 Pain R52 Palliative care encounter Z51.5
--- NOTE | 2022-05-23 14:56 | Hospitalist Progress Note ---
Date of Service May 23, 2022 Assessment & Plan (1) Acute encephalopathy: Plan: Acute metabolic encephalopathy Ongoing SEVERE lethargy for extended periods of time this week (days) interspersed with periods of wakefulness but ongoing confusion during those periods of wakefulness no meaningful improvement has been made on a sustained basis Her severe confusion was initially thought to be metabolic in etiology due to RLE cellulitis. Had improved, then worsened again on 05/14. Worsening thought 2nd to new-onset pneumonia. Had improved again on 05/15, and was awake on 05/16 - but back to significant lethargy 05/17, then finally awoke on 05/20/22 albeit with confusion. 05/21 she was severely confused and hallucinating. - 05/22 - back to lethargy/obtundation. CT head x 2 this admission w/o acute findings. ABG w/o hypercarbia. Ammonia wnl. TSH wnl. MRI brain neg for acute/subacute CVA. All blood cx's negative. Procal negative. Repeat COVID/Flu/RSV PCR negative. Sed rates very high with peak >130. CRP very high despite numerous days of IV antibiotics (peak of 15). Differential - vasculitis (temporal arteritis, etc) vs autoimmune vs DIORAMA MODEL MAKER infection vs other. Other possibilities - spinal abscess/discitis (but would expect blood cx's to be +); SBE (but blood cx's negative). Other possibility is simply delayed response to abx for her infectious process (RLE cellulitis, pneumonia). CRP finally has come down (13 --> 5 -->3). This would argue for the delayed response as noted above. Despite CRP trending down she has not sustained a consistent, day-to-day clinical improvement. Further, even on days when she has been awake, she has had little to no appetite or liquid intake. On 05/19, while discussing her care with her spouse & daughter, we collectively agreed not to pursue aggressive procedures (LP, etc). Given the cycle of wakefulness/confusion then obtundation, and given many days into her stay and have completed all antibiotic therapy and have given maximal medical effort, the pt's agrees her prognosis is very, very poor. He is agreeable to speaking with palliative care andwill now transition to hospice. She had a similar hospital stay about 1-2 years ago and is familiar with palliative care & hospice. Formal palliative care consult appreciated -start Roxanol for pain or SOB, ativan for agitation or anxiety, levbid for secretions -dc IVFs -po intake as desired -transition off tele -looking for placement wt [place] with hospice (2) Pneumonia: Plan: probable aspiration can't rule out GNR etiology s/p 7+ days of IV abx - completed. stable in room air. crp did improve over last few days but without associated outward clinical improvement in her overall status. (3) Cellulitis of right leg: Plan: resolved (4) Sepsis: Plan: present on admission. initially 2nd to RLE cellulitis - resolved. then bilateral pneumonia. Blood cultures negative on multiple occasions. COVID negative x 2 including comprehensive BioFire panel. (5) Hypothermia: Plan: present on admission. 2nd to sepsis. resolved. stable temps since. (6) Wound of right ankle: Plan: chronic. 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 wound is clean. appreciate wound care consult & recs. superimposed RLE cellulitis is resolved. 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: Plan: severe weakness of legs contractures of arms RUE>LUE reports she previouslly could walk about 15-20 steps extremely slowly with assistance from home PT but more recntly has developed wheelchair dependency (10) Dysarthria: Plan: had been present earlier in the admission and was prominent during periods of confusion MRI brain negative for CVA (11) Hypercholesterolemia: Plan: dc fish oil and simvastatin (12) Dementia: Plan: severe at baseline with superimposed encephalopathy as above in #1 (13) Stress incontinence in female: Plan: john in place holding anti-spasmodics (14) Constipation: Plan: checked KUB for impaction and negative for such had small BM 05/21 (15) Squamous cell carcinoma: Plan: right ankle (skin) s/p MOHS surgery within the last year with poor wound healing cont local wound care (16) Acute diastolic CHF (congestive heart failure): Plan: resolved Plan Dispo-transitioned to [employer] on 05/23, awaiting placement at [place] with hospice transfer off tele Admission and Anticipated Discharge Date Admission Date: May 11, 2022 Subjective Pt remains obtunded, is now on [employer] as per my d/w Palliative Medicine. Pt did not wake up for me with tactile and loud verbal stimuli. Tele with SB and NSR, rates 40-60s Review of Systems Review of Systems: Unobtainable due to cognitive status and Unobtainable due to reduced consciousness Physical Exam Constitutional: + ill appearing Neck: trachea midline, no thyromegaly Respiratory: normal respiratory effort, lungs clear to auscultation Cardiovascular: RRR, no murmur, no edema (Except trace pitting edema left leg) Chest (Breasts): Chest: normal inspection of chest Gastrointestinal (Abdomen): normal bowel sounds, soft, nontender, no hepatosplenomegaly Musculoskeletal: Extremities: + extremities abnormal to inspection (with atrophy muscles bilat), no cyanosis and no clubbing Skin: no rashes, warm and dry Neurologic: + obtunded Results & Data Results & Data ([facility]) Vital Signs (Past 12 Hours) Vital Signs Temp Pulse Pulse Pulse Resp BP BP 05/23/22 11:31 36.2 C L 65 16 147/83 H 05/23/22 11:10 05/23/22 10:29 59 L 05/23/22 07:38 36.5 C 67 21 143/76 H 05/23/22 03:24 36.2 C L 69 15 152/79 H Pulse Ox O2 Del Method 05/23/22 11:31 94 Room Air 05/23/22 11:10 Room Air 05/23/22 10:29 05/23/22 07:38 94 Room Air 05/23/22 03:24 94 Room Air PG Care Time/CCT Total # of Minutes Spent Total Time Spent with Patient: Total time spent is greater than 50% in coordination of care (as documented) at patient's floor/unit and/or counseling patient: Coding Level of Care Code 59656 Subseq Hosp Care Lvl 1 Diagnoses Acute encephalopathy G93.40 Pneumonia J18.9 Cellulitis of right leg L03.115 Sepsis A41.9 Hypothermia T68.XXXA Encounter type: initial encounter Wound of right ankle S91.001A Acute hyperkalemia E87.5 Hypertension I10 Stenosis of cervical spine with myelopathy M48.02; G99.2 Dysarthria R47.1 Hypercholesterolemia E78.00 Dementia F03.91 Dementia behavioral disturbance: with behavioral disturbance Dementia type: unspecified type Stress incontinence in female N39.3 Constipation K59.00 Squamous cell carcinoma Acute diastolic CHF (congestive heart failure) I50.31 (1) Hypothermia Encounter type: initial encounter Qualified Code(s): T68.XXXA - Hypothermia, initial encounter (2) Dementia Dementia behavioral disturbance: with behavioral disturbance Dementia type: unspecified type Qualified Code(s): F03.91 - Unspecified dementia with behavioral disturbance
[2022-05-23] MEDS: MoRPHine SULFATE 5 MG/0.25 ML UDP PO SCH ×2 (15:08→20:21)
[2022-05-24] MEDS: MoRPHine SULFATE 5 MG/0.25 ML UDP PO SCH ×4 (02:39→20:26)
--- NOTE | 2022-05-24 14:19 | Hospitalist Progress Note ---
Date of Service May 24, 2022 Assessment & Plan (1) Acute encephalopathy: Plan: Acute metabolic encephalopathy Ongoing SEVERE lethargy for extended periods of time this week (days) interspersed with periods of wakefulness but ongoing confusion during those periods of wakefulness no meaningful improvement was made on a sustained basis Her severe confusion was initially thought to be metabolic in etiology due to RLE cellulitis. Had improved, then worsened again on 05/14. Worsening thought 2nd to new-onset pneumonia. Had improved again on 05/15, and was awake on 05/16 - but back to significant lethargy 05/17, then finally awoke on 05/20/22 albeit with confusion. 05/21 she was severely confused and hallucinating. - 05/22 - back to lethargy/obtundation. CT head x 2 this admission w/o acute findings. ABG w/o hypercarbia. Ammonia wnl. TSH wnl. MRI brain neg for acute/subacute CVA. All blood cx's negative. Procal negative. Repeat COVID/Flu/RSV PCR negative. Sed rates very high with peak >130. CRP very high despite numerous days of IV antibiotics (peak of 15). Differential - vasculitis (temporal arteritis, etc) vs autoimmune vs ELEVATOR ERECTOR infection vs other. Other possibilities - spinal abscess/discitis (but would expect blood cx's to be +); SBE (but blood cx's negative). Other possibility is simply delayed response to abx for her infectious process (RLE cellulitis, pneumonia). CRP finally has come down (13 --> 5 -->3). This would argue for the delayed response as noted above. Despite CRP trending down she has not sustained a consistent, day-to-day clinical improvement. Further, even on days when she has been awake, she has had little to no appetite or liquid intake. On 05/19, while discussing her care with her spouse & daughter, we collectively agreed not to pursue aggressive procedures (LP, etc). Given the cycle of wakefulness/confusion then obtundation, and given many days into her stay and have completed all antibiotic therapy and have given maximal medical effort, the pt's agrees her prognosis is very, very poor. He is agreeable to speaking with palliative care and has since transitioned to hospice. She had a similar hospital stay about 1-2 years ago and is familiar with palliative care & hospice. Formal palliative care consult appreciated She did wake up and become interactive again on 05/24. is happy about this but realizes this may just once again be temporary -continue scheduled and prn Roxanol for pain or SOB, ativan for agitation or anxiety, levbid for secretions -po intake as desired -looking for placement wt [facility] with hospice (2) Pneumonia: Plan: probable aspiration can't rule out GNR etiology s/p 7+ days of IV abx - completed. stable on room air. crp did improve but without associated outward clinical improvement in her overall status. (3) Cellulitis of right leg: Plan: resolved (4) Sepsis: Plan: present on admission. initially 2nd to RLE cellulitis - resolved. then bilateral pneumonia. Blood cultures negative on multiple occasions. COVID negative x 2 including comprehensive BioFire panel. (5) Hypothermia: Plan: present on admission. 2nd to sepsis. resolved. stable temps since. (6) Wound of right ankle: Plan: chronic. 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 wound is clean. appreciate wound care consult & recs. superimposed RLE cellulitis is resolved. 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: Plan: severe weakness of legs contractures of arms RUE>LUE reports she previouslly could walk about 15-20 steps extremely slowly with assistance from home PT but more recently has developed wheelchair dependency (10) Dysarthria: Plan: had been present earlier in the admission and was prominent during periods of confusion MRI brain negative for CVA (11) Hypercholesterolemia: Plan: dc fish oil and simvastatin (12) Dementia: Plan: severe at baseline with superimposed encephalopathy as above in #1 (13) Stress incontinence in female: Plan: john in place holding anti-spasmodics (14) Constipation: Plan: checked KUB for impaction and negative for such had small BM 05/21 (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 Denies pain. Says "I feel a little confused." Told her earlier she wanted to eat a big meal. She did eat some pudding and drink some sips of water. Review of Systems Review of Systems: Unobtainable due to cognitive status Physical Exam Constitutional: + ill appearing Eyes: + anicteric sclerae Neck: trachea midline, no thyromegaly Respiratory: normal respiratory effort, lungs clear to auscultation Cardiovascular: RRR, no murmur, no edema (Except trace pitting edema left leg) Chest (Breasts): Chest: normal inspection of chest Gastrointestinal (Abdomen): normal bowel sounds, soft, nontender, no hepatosplenomegaly Musculoskeletal: Extremities: + extremities abnormal to inspection (with atrophy muscles bilat), no cyanosis and no clubbing Skin: no rashes, warm and dry Neurologic: awake Psychiatric: Orientation: alert, oriented to person and cooperative Lymphatic: no lymphedema Results & Data Results & Data ([facility]) Vital Signs (Past 12 Hours) Vital Signs Temp Pulse Resp BP Pulse Ox O2 Del Method 05/24/22 10:17 36.5 C 70 16 149/72 H 92 Room Air 05/24/22 08:10 Room Air PG Care Time/CCT Total # of Minutes Spent Total Time Spent with Patient: Total time spent is greater than 50% in coordination of care (as documented) at patient's floor/unit and/or counseling patient: Coding Level of Care Code 05111 Subseq Hosp Care Lvl 1 Diagnoses Acute encephalopathy G93.40 Pneumonia J18.9 Cellulitis of right leg L03.115 Sepsis A41.9 Hypothermia T68.XXXA Encounter type: initial encounter Wound of right ankle S91.001A Acute hyperkalemia E87.5 Hypertension I10 Stenosis of cervical spine with myelopathy M48.02; G99.2 Dysarthria R47.1 Hypercholesterolemia E78.00 Dementia F03.91 Dementia behavioral disturbance: with behavioral disturbance Dementia type: unspecified type Stress incontinence in female N39.3 Constipation K59.00 Squamous cell carcinoma Acute diastolic CHF (congestive heart failure) I50.31 (1) Hypothermia Encounter type: initial encounter Qualified Code(s): T68.XXXA - Hypothermia, initial encounter (2) Dementia Dementia behavioral disturbance: with behavioral disturbance Dementia type: unspecified type Qualified Code(s): F03.91 - Unspecified dementia with behavioral disturbance
[2022-05-25] MEDS: MoRPHine SULFATE 5 MG/0.25 ML UDP PO SCH ×4 (02:09→20:39)
--- NOTE | 2022-05-25 12:16 | Palliative Care Progress Note ---
Date of Service May 25, 2022 Assessment & Plan (1) Pain: Plan: Controlled with routine morphine. She does not appear to have excessive sedation with medication and is actually more alert. Continue with option for patient to refuse. (2) Palliative care encounter: Plan: Current focus of care is comfort and symptom management. I spoke with Mr. Grullon on the phone. He is grateful that Milady is more awake and able to converse but realizes that she is still very weak and debilitated. He does not feel that she has had good quality of life recently. We talked about the waxing and waning course that Milady has had and he expressed uncertainty about whether to continue hospice care. Plan continues to be placement in SNF. We discussed that Milady is not really able to participate in any kind of rehab at this time and that hospice would provide additional staff to monitor Milady and her needs. We will meet tomorrow and discuss further as we see where the new baseline is for her. Admission and Anticipated Discharge Date Admission Date: May 11, 2022 Subjective Awake. Asking for [place] and to "get cleaned up". Denies pain. Asking for something to drink. Tolerated sips with straw. Review of Systems Review of Systems: ESAS Pain 0/3 Dyspnea 0/3 Anxiety 0/3 Fatigue 2/3 Nausea 0/3 PPS 20% Physical Exam Constitutional: + frail appearing; no acute distress ENMT: Mouth: oral mucous membranes not dry Respiratory: normal respiratory effort; no labored breathing Cardiovascular: Rate/Rhythm: regular rate and regular rhythm Gastrointestinal (Abdomen): nontender Musculoskeletal: Extremities: + muscle atrophy contractures Skin: warm and dry Neurologic: Speech / Cognition: normal cognition Genitourinary: incontinent Results & Data ([facility]) Vital Signs (Past 12 Hours) Vital Signs Temp Pulse Resp BP Pulse Ox O2 Del Method 05/25/22 07:57 97.9 F 77 14 149/68 H 92 Room Air PG Care Time/CCT Total # of Minutes Spent Total Time Spent: 28 Total Time Spent with Patient: Total time spent is greater than 50% in coordination of care (as documented) at patient's floor/unit and/or counseling patient: family education and support, goals of care, hospice Coding Level of Care Code 63638 Subseq Hosp Care Lvl 2 Diagnoses Pain R52 Palliative care encounter Z51.5
--- NOTE | 2022-05-25 14:54 | Hospitalist Progress Note ---
Date of Service May 25, 2022 Assessment & Plan (1) Acute encephalopathy: Plan: Acute metabolic encephalopathy Ongoing SEVERE lethargy for extended periods of time this week (days) interspersed with periods of wakefulness but ongoing confusion during those periods of wakefulness no meaningful improvement was made on a sustained basis Her severe confusion was initially thought to be metabolic in etiology due to RLE cellulitis. Had improved, then worsened again on 05/14. Worsening thought 2nd to new-onset pneumonia. Had improved again on 05/15, and was awake on 05/16 - but back to significant lethargy 05/17, then finally awoke on 05/20/22 albeit with confusion. 05/21 she was severely confused and hallucinating. - 05/22 - back to lethargy/obtundation. CT head x 2 this admission w/o acute findings. ABG w/o hypercarbia. Ammonia wnl. TSH wnl. MRI brain neg for acute/subacute CVA. All blood cx's negative. Procal negative. Repeat COVID/Flu/RSV PCR negative. Sed rates very high with peak >130. CRP very high despite numerous days of IV antibiotics (peak of 15). Differential - vasculitis (temporal arteritis, etc) vs autoimmune vs CHIN STRAP CUTTER infection vs other. Other possibilities - spinal abscess/discitis (but would expect blood cx's to be +); SBE (but blood cx's negative). Other possibility is simply delayed response to abx for her infectious process (RLE cellulitis, pneumonia). CRP finally has come down (13 --> 5 -->3). This would argue for the delayed response as noted above. Despite CRP trending down she has not sustained a consistent, day-to-day clinical improvement. Further, even on days when she has been awake, she has had little to no appetite or liquid intake. On 05/19, while discussing her care with her spouse & daughter, we collectively agreed not to pursue aggressive procedures (LP, etc). Given the cycle of wakefulness/confusion then obtundation, and given many days into her stay and have completed all antibiotic therapy and have given maximal medical effort, the pt's agrees her prognosis is very, very poor. He is agreeable to speaking with palliative care and has since transitioned to hospice. She had a similar hospital stay about 1-2 years ago and is familiar with palliative care & hospice. Formal palliative care consult appreciated She did wake up and become interactive again on 05/24 and a bit again on 05/25, but still essentially has eaten little to nothing for over 2 weeks. is happy she is having some lucid moments, but realizes this may just once again be temporary -continue scheduled and prn Roxanol for pain or SOB, ativan for agitation or anxiety, levbid for secretions -po intake as desired -looking for placement wt [facility] with hosp[facility] (2) Pneumonia: Plan: probable aspiration can't rule out GNR etiology s/p 7+ days of IV abx - completed. stable on room air. crp did improve but without associated outward clinical improvement in her overall status. (3) Cellulitis of right leg: Plan: resolved (4) Sepsis: Plan: present on admission. initially 2nd to RLE cellulitis - resolved. then bilateral pneumonia. Blood cultures negative on multiple occasions. COVID negative x 2 including comprehensive BioFire panel. (5) Hypothermia: Plan: present on admission. 2nd to sepsis. resolved. stable temps since. (6) Wound of right ankle: Plan: chronic. 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 wound is clean. appreciate wound care consult & recs. superimposed RLE cellulitis is resolved. 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: Plan: severe weakness of legs contractures of arms RUE>LUE reports she previouslly could walk about 15-20 steps extremely slowly with assistance from home PT but more recently has developed wheelchair dependency (10) Dysarthria: Plan: had been present earlier in the admission and was prominent during periods of confusion MRI brain negative for CVA (11) Hypercholesterolemia: Plan: dc fish oil and simvastatin (12) Dementia: Plan: severe at baseline with superimposed encephalopathy as above in #1 (13) Stress incontinence in female: Plan: john in place holding anti-spasmodics (14) Constipation: Plan: checked KUB for impaction and negative for such had small BM 05/21 and large one on 05/24 (15) Squamous cell carcinoma: Plan: right ankle (skin) s/p MOHS surgery within the last year with poor wound healing cont local wound care (16) Acute diastolic CHF (congestive heart failure): Plan: resolved Plan 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 Now sleeping soundly. Does answer a couple questions with "I am not sure." but not able to converse, doesn't open her eyes. at bedside. Review of Systems Review of Systems: Unobtainable due to cognitive status Physical Exam Constitutional: + ill appearing Neck: trachea midline, no thyromegaly Respiratory: normal respiratory effort, lungs clear to auscultation Cardiovascular: RRR, no murmur, no edema (Except trace pitting edema left leg) Gastrointestinal (Abdomen): normal bowel sounds, soft, nontender, no hepatosplenomegaly Musculoskeletal: Extremities: + extremities abnormal to inspection (with atrophy muscles bilat), no cyanosis and no clubbing Skin: no rashes, warm and dry + lesion (bilat ankles wounds with yellow drainage) Lymphatic: no lymphedema Results & Data Results & Data ([facility]) Vital Signs (Past 12 Hours) Vital Signs Temp Pulse Resp BP Pulse Ox O2 Del Method 05/25/22 08:00 Room Air 05/25/22 07:57 36.6 C 77 14 149/68 H 92 Room Air PG Care Time/CCT Total # of Minutes Spent Total Time Spent with Patient: Total time spent is greater than 50% in coordination of care (as documented) at patient's floor/unit and/or counseling patient: Coding Level of Care Code 67025 Subseq Hosp Care Lvl 1 Diagnoses Acute encephalopathy G93.40 Pneumonia J18.9 Cellulitis of right leg L03.115 Sepsis A41.9 Hypothermia T68.XXXA Encounter type: initial encounter Wound of right ankle S91.001A Acute hyperkalemia E87.5 Hypertension I10 Stenosis of cervical spine with myelopathy M48.02; G99.2 Dysarthria R47.1 Hypercholesterolemia E78.00 Dementia F03.91 Dementia behavioral disturbance: with behavioral disturbance Dementia type: unspecified type Stress incontinence in female N39.3 Constipation K59.00 Squamous cell carcinoma Acute diastolic CHF (congestive heart failure) I50.31 (1) Dementia Dementia behavioral disturbance: with behavioral disturbance Dementia type: unspecified type Qualified Code(s): F03.91 - Unspecified dementia with behavioral disturbance (2) Hypothermia Encounter type: initial encounter Qualified Code(s): T68.XXXA - Hypothermia, initial encounter
[2022-05-26] MEDS: MoRPHine SULFATE 5 MG/0.25 ML UDP PO SCH ×4 (02:20→20:39)
--- NOTE | 2022-05-26 12:41 | Palliative Care Progress Note ---
Date of Service May 26, 2022 Assessment & Plan (1) Pain: Plan: with arthritis, spinal stenosis and prolonged immobility Continue scheduled roxanol No signs or symptoms of opioid toxicity (2) Palliative care encounter: Plan: Met with Mr. Grullon at bedside. He notes that Milady is more sleepy today. We discussed likely course with progressive lethargy but remain hopeful that there will be some alert times for them to communicate. He asked about prognosis and with her po intake being only a few sips, prognosis would be days to a couple weeks if she continues on the course. He wants to continue plan for transfer to SNF with hospice when bed is available early next week. Admission and Anticipated Discharge Date Admission Date: May 11, 2022 Subjective More lethargic today. Opens eyes briefly. Did ask RN for apple juice earlier this morning. Tolerates routine care. No prn morphine. Did have prn levsin on slot shift supervisor. Review of Systems Review of Systems: Unobtainable due to reduced consciousness PPS 20% Physical Exam Constitutional: + lethargic; no acute distress ENMT: Mouth: + dry oral mucous membranes Respiratory: normal respiratory effort; no labored breathing no audible tracheal secretions Cardiovascular: Rate/Rhythm: regular rate and regular rhythm Gastrointestinal (Abdomen): soft, no facial grimace with palpation, LBM 05/21 Musculoskeletal: Extremities: + muscle atrophy Skin: warm and dry Neurologic: + confused (at times) no myoclonus Genitourinary: incontinent, dark concentrated urine Results & Data ([facility]) Vital Signs (Past 12 Hours) Vital Signs Temp Pulse Resp BP Pulse Ox O2 Del Method 05/26/22 07:42 Room Air 05/26/22 07:30 98.8 F 83 22 136/74 93 Room Air PG Care Time/CCT Total # of Minutes Spent Total Time Spent with Patient: Total time spent is greater than 50% in coordination of care (as documented) at patient's floor/unit and/or counseling patient: Coding Level of Care Code 59500 Subseq Hosp Care Lvl 2 Diagnoses Pain R52 Palliative care encounter Z51.5
--- NOTE | 2022-05-26 17:09 | Hospitalist Progress Note ---
Date of Service May 26, 2022 Assessment & Plan (1) Acute diastolic CHF (congestive heart failure): Plan: Metoprolol, spironolactone and simvastatin ongoing (2) Acute encephalopathy: Plan: Calm and comfortable. [facility] That is pending. Patient is comfortable and is content and grateful. Admission and Anticipated Discharge Date Admission Date: May 11, 2022 Subjective Patient not talking though she was lying with eyes open. Discussed with RN who said the patient had woken up briefly around 7 AM. I saw her around 1 PM. was at the bedside and stated that the patient was interacting a little bit yesterday but not today. Appears comfortable to him. Results & Data Results & Data ([facility]) Vital Signs (Past 12 Hours) Vital Signs Temp Pulse Resp BP Pulse Ox O2 Del Method 05/26/22 07:42 Room Air 05/26/22 07:30 37.1 C 83 22 136/74 93 Room Air Laboratory Results None Diagnostic Findings None PG Care Time/CCT Total # of Minutes Spent Total Time Spent with Patient: Total time spent is greater than 50% in coordination of care (as documented) at patient's floor/unit and/or counseling patient: Coding Level of Care Code 65699 Subseq Hosp Care Lvl 1 Diagnoses Acute diastolic CHF (congestive heart failure) I50.31 Acute encephalopathy G93.40
[2022-05-27] MEDS: MoRPHine SULFATE 5 MG/0.25 ML UDP PO SCH ×4 (02:48→20:55)
--- NOTE | 2022-05-27 22:14 | Hospitalist Progress Note ---
Date of Service May 27, 2022 Assessment & Plan (1) Acute diastolic CHF (congestive heart failure): Plan: Metoprolol, spironolactone and simvastatin ongoing (2) Acute encephalopathy: Plan: Calm and comfortable. Plan [facility] family choice. Perhaps Sunday at the earliest. Patient is comfortable and is content and grateful. updated family on 05/27 Admission and Anticipated Discharge Date Admission Date: May 11, 2022 Subjective 86 yo female is comfortable. Review of Systems Review of Systems: All systems reviewed & are unremarkable except as noted in HPI & below Physical Exam Constitutional: + ill appearing (with bear hugger), average body habitus and + frail appearing ENMT: external ear and nose normal, oropharynx normal Neck: trachea midline, no thyromegaly Respiratory: normal respiratory effort, lungs clear to auscultation Cardiovascular: RRR, no murmur, no edema Gastrointestinal (Abdomen): normal bowel sounds, soft, nontender, no hepatosplenomegaly Musculoskeletal: no cyanosis or clubbing, extremities motor strength 5/5 Neurologic: CN's II-XI intact bilaterally Psychiatric: Orientation: alert and oriented to person Lymphatic: no cervical or axillary lymphadenopathy PG Care Time/CCT Total # of Minutes Spent Total Time Spent with Patient: Total time spent is greater than 50% in coordination of care (as documented) at patient's floor/unit and/or counseling patient: Coding Level of Care Code 56828 Subseq Hosp Care Lvl 2 Diagnoses Acute diastolic CHF (congestive heart failure) I50.31 Acute encephalopathy G93.40
[2022-05-28] MEDS: MoRPHine SULFATE 5 MG/0.25 ML UDP PO SCH ×4 (02:20→20:07)
--- NOTE | 2022-05-28 13:04 | Hospitalist Progress Note ---
Date of Service May 28, 2022 Assessment & Plan (1) Acute encephalopathy: Plan: Acute metabolic encephalopathy Ongoing SEVERE lethargy for extended periods of time this week (days) interspersed with periods of wakefulness but ongoing confusion during those periods of wakefulness. Obtunded today. no meaningful improvement was made on a sustained basis Her severe confusion was initially thought to be metabolic in etiology due to RLE cellulitis. Had improved, then worsened again on 05/14. Worsening thought 2nd to new-onset pneumonia. Had improved again on 05/15, and was awake on 05/16 - but back to significant lethargy 05/17, then finally awoke on 05/20/22 albeit with confusion. 05/21 she was severely confused and hallucinating. - 05/22 - back to lethargy/obtundation. CT head x 2 this admission w/o acute findings. ABG w/o hypercarbia. Ammonia wnl. TSH wnl. MRI brain neg for acute/subacute CVA. All blood cx's negative. Procal negative. Repeat COVID/Flu/RSV PCR negative. Sed rates very high with peak >130. CRP very high despite numerous days of IV antibiotics (peak of 15). 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 Other possibilities - spinal abscess/discitis (but would ex pect blood cx's to be +); SBE (but blood cx's negative). Other possibility is simply delayed response to abx for her infectious process (RLE cellulitis, pneumonia). CRP finally has come down (13 --> 5 -->3). This would argue for the delayed response as noted above. Despite CRP trending down she has not sustained a consistent, day-to-day clinical improvement. Further, even on days when she has been awake, she has had little to no appetite or liquid intake. Patient is comfort care awaiting placement at this time. (2) Acute diastolic CHF (congestive heart failure): Plan: Holding all PO non palliative medications Plan Transfer to shelter facility per family choice. Patient is comfortable and is content and grateful. Admission and Anticipated Discharge Date Admission Date: May 11, 2022 Subjective Patient obtunded. Discussed care with at bedside. No concerns regarding agitation or pain at this time. Awaiting placement on hospice care. Review of Systems Review of Systems: Unobtainable due to cognitive status Physical Exam Constitutional: well developed; + not well nourished and no acute distress Respiratory: normal respiratory effort (bradypneic) and + prolonged expiratory phase Neurologic: + obtunded Psychiatric: Orientation: + not alert Results & Data Results & Data ([facility]) Vital Signs (Past 12 Hours) Vital Signs Temp Pulse Resp BP Pulse Ox O2 Del Method 05/28/22 07:32 Room Air 05/28/22 07:40 36.9 C 79 18 155/72 H 94 Room Air PG Care Time/CCT Total # of Minutes Spent Total Time Spent with Patient: Total time spent is greater than 50% in coordination of care (as documented) at patient's floor/unit and/or counseling patient: Coding Level of Care Code 44395 Subseq Hosp Care Lvl 1 Diagnoses Acute encephalopathy G93.40 Acute diastolic CHF (congestive heart failure) I50.31
[2022-05-29] MEDS: MoRPHine SULFATE 5 MG/0.25 ML UDP PO SCH ×4 (01:45→20:48)
[2022-05-29] MEDS ORDERED: pyRIDostigmine bromide 60 MG TAB PO STA (11:58)
--- NOTE | 2022-05-29 12:27 | Palliative Care Progress Note ---
Date of Service May 29, 2022 Assessment & Plan (1) Pain: Plan: Appears to be controlled with routine morphine. Would continue routine dosing as she transitions to SNF today. (2) Palliative care encounter: Plan: Focus of care is comfort and symptom management. Her is grateful that they have been able to talk at times but recognizes that with her taking virtually nothing to eat and drink, her prognosis is poor. He notes that she has not had good quality of life prior to hospitalization. Plan for transfer to SNF today. Admission and Anticipated Discharge Date Admission Date: May 11, 2022 Subjective Sleeping but arousable. Confused. Denies pain and then tells me that she hurts all over. Per RN, she has been tolerating routine care with scheduled morphine dosing. She has not had any recent prn doses. Minimal po intake. Taking only a few sips. Review of Systems Review of Systems: Unobtainable due to cognitive status Physical Exam Constitutional: no acute distress ENMT: Mouth: + dry oral mucous membranes Respiratory: normal respiratory effort; no labored breathing Gastrointestinal (Abdomen): soft, nontender Musculoskeletal: Extremities: + muscle atrophy Genitourinary: incontinent Results & Data ([facility]) Vital Signs (Past 12 Hours) Vital Signs Temp Pulse Pulse Resp BP BP Pulse Ox 05/29/22 07:52 98.1 F 89 20 120/82 91 05/29/22 07:23 97.5 F L 87 15 157/78 H 92 O2 Del Method 05/29/22 07:52 Room Air 05/29/22 07:23 Room Air PG Care Time/CCT Total # of Minutes Spent Total Time Spent with Patient: Total time spent is greater than 50% in coordination of care (as documented) at patient's floor/unit and/or counseling patient: Coding Level of Care Code 53023 Subseq Hosp Care Lvl 1 Diagnoses Pain R52 Palliative care encounter Z51.5
--- NOTE | 2022-05-29 16:10 | Hospitalist Progress Note ---
Date of Service May 29, 2022 Assessment & Plan (1) Acute encephalopathy: Plan: Acute metabolic encephalopathy Ongoing SEVERE lethargy for extended periods of time this week (days) interspersed with periods of wakefulness but ongoing confusion during those periods of wakefulness. Obtunded today. no meaningful improvement was made on a sustained basis Her severe confusion was initially thought to be metabolic in etiology due to RLE cellulitis. Had improved, then worsened again on 05/14. Worsening thought 2nd to new-onset pneumonia. Had improved again on 05/15, and was awake on 05/16 - but back to significant lethargy 05/17, then finally awoke on 05/20/22 albeit with confusion. 05/21 she was severely confused and hallucinating. - 05/22 - back to lethargy/obtundation. CT head x 2 this admission w/o acute findings. ABG w/o hypercarbia. Ammonia wnl. TSH wnl. MRI brain neg for acute/subacute CVA. All blood cx's negative. Procal negative. Repeat COVID/Flu/RSV PCR negative. Sed rates very high with peak >130. CRP very high despite numerous days of IV antibiotics (peak of 15). 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 Other possibilities - spinal abscess/discitis (but would ex pect blood cx's to be +); SBE (but blood cx's negative). Other possibility is simply delayed response to abx for her infectious process (RLE cellulitis, pneumonia). CRP finally has come down (13 --> 5 -->3). This would argue for the delayed response as noted above. Despite CRP trending down she has not sustained a consistent, day-to-day clinical improvement. Further, even on days when she has been awake, she has had little to no appetite or liquid intake. Only other condition I could think of that produces such waxing and waning if myasthenia gravis but trial of one dose of pyridostigmine produced no noticeable difference and she is so malnourished at this point just trying to swallow the pill was difficult despite her more alert status. No need to continue this. Patient is comfort care awaiting placement at this time. (2) Acute diastolic CHF (congestive heart failure): Plan: Holding all PO non palliative medications Plan Medically stable for discharge pending discharge on hospice care to SNF. Unable to get transport today. Admission and Anticipated Discharge Date Admission Date: May 11, 2022 Subjective Appeared more awake this morning. She reports feeling miserable. Cannot lift any of her 4 extremities. Back to obtunded in the afternoon. Review of Systems Review of Systems: All systems reviewed & are unremarkable except as noted in Subjective Physical Exam Constitutional: well developed; + not well nourished and no acute distress Respiratory: normal respiratory effort Psychiatric: Orientation: alert, oriented to person and oriented to place; + not oriented to time Results & Data Results & Data ([facility]) Vital Signs (Past 12 Hours) Vital Signs Temp Pulse Pulse Pulse Resp BP BP 05/29/22 12:59 36.7 C 80 65 87 20 157/78 H 135/71 05/29/22 12:15 36.7 C 80 20 135/71 05/29/22 07:52 36.7 C 89 20 120/82 05/29/22 07:23 36.4 C L 87 15 157/78 H Pulse Ox O2 Del Method 05/29/22 12:59 90 05/29/22 12:15 90 Room Air 05/29/22 07:52 91 Room Air 05/29/22 07:23 92 Room Air PG Care Time/CCT Total # of Minutes Spent Total Time Spent with Patient: Total time spent is greater than 50% in coordination of care (as documented) at patient's floor/unit and/or counseling patient: Coding Level of Care Code 41482 Subseq Hosp Care Lvl 1 Diagnoses Acute encephalopathy G93.40 Acute diastolic CHF (congestive heart failure) I50.31
[2022-05-29] MEDS ORDERED: ACETAMINOPHEN 1,000 MG/100 ML VIAL IV PRN (22:02)
[2022-05-30] MEDS: MoRPHine SULFATE 5 MG/0.25 ML UDP PO SCH ×2 (01:32→08:34)
--- NOTE | 2022-05-30 09:45 | Discharge Summary ---
Date of Service May 30, 2022 Principal Diagnosis Acute encephalopathy Dementia / delirium Cellulitis Aspiration pneumonia Discharge Exam Constitutional well developed; + not well nourished and no acute distress Respiratory normal respiratory effort Neurologic not obtunded Psychiatric Orientation: alert and oriented to person; + not oriented to place and + not oriented to time Discharge Data Allergies Allergy/AdvReac Type Severity Reaction Status Date / Time lorazepam Allergy Severe ALTERED Verified 05/11/22 16:53 MENTAL STATUS Penicillins Allergy Intermediate SWELLING Verified 05/11/22 16:53 Sulfa (Sulfonamide Allergy Intermediate SWELLING Verified 05/11/22 16:53 Antibiotics) clonidine Allergy Unknown Unknown Verified 05/11/22 16:53 Consultations 05/11/22 18:11 ED Decision to Admit Stat 05/12/22 08:42 Consult Orthopedic Surgery Routine 05/12/22 18:27 Consult Wound Care Provider Routine 05/22/22 13:05 Consult Palliative Care Routine 05/23/22 13:05 Consult Palliative Care Routine Ordered Studies 05/11/22 14:49 CT angio head w con Stat IMPRESSION: No intracranial aneurysm. No central vessel occlusion. CT angio neck with con Stat IMPRESSION: No occlusion, hemodynamically significant stenosis, or dissection in the major cervical arteries despite atherosclerotic disease. CT head/brain wo con Stat IMPRESSION: No acute intracranial findings. No change in appearance of the brain. 05/11/22 21:30 MR ankle RT wo con Routine IMPRESSION: 1. Markedly limited study secondary to artifact related to the medial and lateral malleolar ORIF hardware. 2. Nonspecific subcutaneous edema of the ankle without abscess identified. 3. The visualized osseous structures appear unremarkable. 05/13/22 20:41 CT head/brain wo con Stat Impression: 1. No acute intracranial hemorrhage, no evidence of acute territorial infarction or other acute intracranial disease process. 2. Sinus disease is seen. 05/18/22 17:53 MR brain wo con Urgent IMPRESSION: 1. Senescent change as above with no acute intracranial abnormality identified. 2. 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 This is similar to prior studies. Hospital Course (1) Acute encephalopathy: Milady Grullon is an 86 year old female admitted to [facility] from May 11 - 2021 due to generalized weakness, difficulty ambulating and slurred speech. She was diagnosed with cellulitis and possible aspiration pneumonia. She developed severe delirium with several days of obtundation and not eating or drinking with intermittent lucid periods. Extensive workup and trial of Mestinon revealed no reversible etiology. Given significant decline she was transitioned to hospice care and is now being discharged to [facility]. (2) Acute diastolic CHF (congestive heart failure): Total Time Total Time Spent Total Time Spent (In Minutes): 25 Discharge Plan Discharge Items Patient Disposition: Hospice - Medical Facility Reason For Visit: HYPOTHERMIA/DELIRIUM Discharge Diagnosis: Acute encephalopathy Dementia / delirium Activity: Per Instructions section Non-emergency contact: Primary Care Provider Call non-emergency contact if: you have any medication questions and your symptoms worsen Follow-up/Referrals: Bart Cid MD [Primary Care Provider] - Diet: Regular Addtl Attending Provider Instructions: Milady Grullon is an 86 year old female admitted to [facility] from May 11 - 2021 due to generalized weakness, difficulty ambulating and slurred speech. She was diagnosed with cellulitis and possible aspiration pneumonia. She developed severe delirium with several days of obtundation and not eating or drinking. Given significant decline she was transitioned to hospice care and is now being discharged to [facility]. Pending Studies at Discharge: No Stand-Alone Forms: My [facility] Skilled Items Patient informed of condition?: Yes DNR: Yes Discharge Level of Care: Other Communicable Disease: No Discharge Prognosis: Deteriorating Lines: None Urinary Catheter: No Medications and DC Order Prescriptions: Discontinued omeprazole 40 mg capsule,delayed release(DR/EC) 40 mg PO BID Qty: 180 1RF Myrbetriq 50 mg tablet extended release 24 hr 50 mg PO DAILY Qty: 30 5RF metoprolol tartrate 50 mg tablet 50 mg PO BID Qty: 180 1RF aspirin [Andrew Low Dose Aspirin] 81 mg Tablet,Delayed Release (Dr/Ec) 81 mg PO DAILY omega 5-zcy-nol-fish oil [Fish Oil] 1,000 mg (120 mg-180 mg) Capsule 1 cap PO BID PreserVision AREDS-2 250-90-40-1 mg Capsule 1 tab PO BID acetaminophen [Tylenol Extra Strength] 500 mg Tablet 500 mg PO DIRECTED PRN (Reason: PAIN/FEVER) spironolactone 100 mg tablet 100 mg PO QPM simvastatin 20 mg tablet 20 mg PO QAM Discharge Orders: Discharge Order (Routine); Ordered 05/30/22 Ordered By: Armando Cummings Admission Data Admit Date/Time: 05/11/22 19:28 Attending Provider: Armando Cummings Admit Provider: Armando Rendon Primary Care Provider: Bart Cid Other Providers: [facility] ; Shilpa Frank ; Armando Rendon ; Luis Daniel Mclaughlin ; Joann Costa ; Rhonda Smiley ; Duane Treviño ; Ramses Fuentes ; Caitlin Moser ; Yoel Yip Other Interventions: Discharge Summary Assessment (RN) Last Done: 05/30/22 09:51 Coding Level of Care Code D/C DAY MANAGEMENT <30 MINS Diagnoses Acute encephalopathy G93.40 Acute diastolic CHF (congestive heart failure) I50.31
--- NOTE | 2022-06-05 07:45 | Coding Query ---
SEPSIS To promote full compliance with coding requirements relating to patient care, physician participation is requested in all cases of packer uncertainty. Please assist us with the question(s) below: In responding to this query, please exercise your independent professional judgement. The fact that a question is asked does not imply that any particular answer is desired or expected. We appreciate your clarification on this issue. Throughout the medical record, you have clearly documented a localized infection and your patient has clinical evidence of a generalized sepsis or severe sepsis. The term urosepsis is a nonspecific entity and is coded as an UTI. If the patient has sepsis, severe sepsis, from an urinary source or some other source, please clarify in your response below. The medical record reflects the following clinical findings: Pt admitted with metabolic encephalopathy , suspect due to right ankle cellulitis and pneumona (question aspiration). Hospitalist notes 05/13- etc.. mention Sepsis, POA . Seeking to determine if Sepsis was the etiology for pneumonia and cellulitis, . Thanks for your help. Richie Nunez [facility] ____ ( )Bacteremia (Nonspecific laboratory finding of bacteria in the blood) Specify Organism ( ) Present on Admission ( ) Not present on admission ( ) Unable to clinically determine ( ) Septicemia (Systemic disease associated with the presence of pathogenic microorganisms in the blood): Specify Organism ( ) Present on Admission ( ) Not present on admission ( ) Unable to clinically determine ( X) Sepsis Specify Organism - unknown Specify Associated Condition/Diagnosis - cellulitis (X ) Present on Admission ( ) Not present on admission ( ) Unable to clinically determine ( ) Severe Sepsis (Sepsis associated with acute organ dysfunction) Specify Organism Specify Associated Condition/Diagnosis ( ) Present on Admission ( ) Not present on admission ( ) Unable to clinically determine ( ) Septic Shock (Severe sepsis with acute circulatory failure, unexplained by other causes) ( ) Present on Admission ( ) Not present on admission ( ) Unable to clinically determine ( ) Other, patient has: MTDD
== END 2022-05-30 10:42 | disposition hospice, inpatient (51) | DRG 871 ==
LOC: ED 14:41 → 2E 19:28 → SUATTDRO 19:28 → 2E 22:19 → 3E 05-23 17:45